=== PATIENT | female | born 1930 | race African-American/Black ===

== ENCOUNTER 2017-11-15 08:55 | Emergency (ER) | payer OTHER, MEDICAID ==
[~2017-11-15] VITALS: Ht 149.9 cm; Wt 59.9 kg
[~2017-11-15 08:55] MED LIST: ASPIR 8181 MG ORAL; ATENOLOL100 MG ORAL; CHLORTHALIDONE25 MG PO; DOCUSATE SODIU100 MG ORAL; NIFEDIPINE XL30 M1 ORAL; NORVASC5 MG ORAL; OMEPRAZOLE20 M2 ORAL; QUINAPRIL HCL40 MG PO; TYLENOL 8 HOUR650 M1 ORAL
[2017-11-15 09:09] VITALS: BP 120/57
--- NOTE | 2017-11-15 09:32 | Emergency Room Report ---
History of Present Illness General Chief Complaint: General Complaint Source: Patient Present Illness HPI 87-year-old female with pmhx of hypertension p/w syncopal episode which occurred last night Syncopal episode occurred while she was sleeping at a slot machine, she got up to walk, felt very dizzy, fell to the ground, helped up by bystanders +head trauma, +LOC for less than 1 min. Pt states feeling lightheadedness/nauseous before event. Denies sob, palpitations, or chest pain before event. No tongue biting, urinary incontinence, blurry vision, or CORREA. Pt has been eating /drinking well. This is the first episode of syncope. Denies recent fever, chills, n/v/d. Currently patient only complaining of right-sided headache, no neck pain. No other complaints patient states after event she went home and slept fine Allergies: Coded Allergies: No Known Allergies (Unverified , 05/28/13) Patient History Past Medical History: see triage record Past Surgical History: none Pertinent Family History: none Reviewed Nursing Documentation: PMH: Agreed, PSxH: Agreed Nursing Documentation-PMH Past Medical History: No History, Except For Hx Hypertension: Yes Hx Cancer: No Hx Gastrointestinal Problems: Yes Hx Neurological Problems: Yes Hx Numbness: Yes - BLE Review of Systems All Other Systems: negative except mentioned in HPI Physical Exam Vital Signs Date Time Temp Pulse Resp B/P (MAP) Pulse Ox O2 Delivery O2 Flow Rate FiO2 11/15/17 08:59 97.9 62 16 126/58 94 Room Air 97.9 Sp02 EP Interpretation: reviewed, normal General Appearance: alert, GCS 15, non-toxic, mild distress Head: normocephalic, atraumatic Eyes: bilateral eye normal inspection, bilateral eye PERRL, bilateral eye EOMI ENT: normal ENT inspection, normal pharynx, normal voice, moist mucus membranes Neck: normal inspection, full range of motion, supple Respiratory: normal inspection, lungs clear, normal breath sounds, no respiratory distress, no retraction, no wheezing, speaking full sentences, chest symmetrical Cardiovascular #1: normal inspection, regular rate, rhythm, no edema, normal capillary refill Cardiovascular #2: 2+ radial (R), 2+ radial (L) Gastrointestinal: normal inspection, non tender, soft, non-distended, no guarding Musculoskeletal: normal inspection, back normal, normal range of motion, non- tender Neurologic: normal inspection, alert, oriented x3, responsive, motor strength/ tone normal, sensory intact, normal gait, speech normal Psychiatric: normal inspection, judgement/insight normal, memory normal Skin: normal inspection, normal color, no rash, warm/dry, well hydrated, normal turgor Medical Decision Making Diagnostic Impression: Primary Impression: Syncope ER Course 87-year-old female with syncopal episode which occurred yesterday DDX: Vasovagal vs. orthostatic / hypovolemic/dehydration vs. cardiac arrhythmia (SVT , Afib) vs. cardiac (, ACS) vs. PE vs. metabolic (hypoglycemia, hypoxia), vs neuro (seizure, CVA, intracranial bleed) Plan: bgm, cbc, bmp, ekg, cxr CT head ER course: Patient has remained stable during ED stay. Awake and alert, conversant with daughter has felt fine during ed stay labs are unremarkable except some mild hyponatremia/hypokalemia. she states she takes lasix. i supplemented potassium, told her to fu with doctor to possibly dec dose of lasix shared decision making w patient and family, offered admission however pt states she feels fine and wants to go home ct head no acute findings dc home with daughter Disposition: Patient will be discharged home with daughter. Instructed to followup with her doctor this week. Strict return precautions given Please note that this Emergency Department Report was dictated using [employer] software, occasionally this can lead to erroneous entry secondary to interpretation by the dictation equipment. EKG Diagnostic Results EP Interpretation: Yes Rate: normal Rhythm: NSR ST Segments: No acute changes ASA given to patient: No Rhythm Strip EP Interpretation: Yes Rate: 60 Rhythm: NSR, no PVCs, no ectopy Chest X-ray CXR: Ordered: Yes 1 view Indication: Syncope EP interpretation: Yes Interpretation: No consolidation, no effusion, no PTX, no acute cardiopulmonary disease Impression: No acute disease Electronically signed by Nikhil Tidwell MD Laboratory Tests Test 11/15/17 09:20 11/15/17 09:40 White Blood Count 5.1 K/UL (4.8-10.8) Red Blood Count 4.39 M/UL (4.20-5.40) Hemoglobin 13.9 G/DL (12.0-16.0) Hematocrit 40.4 % (37.0-47.0) Mean Corpuscular Volume 92 FL (80-99) Mean Corpuscular Hemoglobin 31.6 PG (27.0-31.0) H Mean Corpuscular Hemoglobin Concent 34.3 G/DL (32.0-36.0) Red Cell Distribution Width 11.4 % (11.6-14.8) L Platelet Count 275 K/UL (150-450) Mean Platelet Volume 6.5 FL (6.5-10.1) Neutrophils (%) (Auto) 65.7 % (45.0-75.0) Lymphocytes (%) (Auto) 16.6 % (20.0-45.0) L Monocytes (%) (Auto) 13.7 % (1.0-10.0) H Eosinophils (%) (Auto) 2.9 % (0.0-3.0) Basophils (%) (Auto) 1.1 % (0.0-2.0) Sodium Level 129 MMOL/L (136-145) L Potassium Level 3.2 MMOL/L (3.5-5.1) L Chloride Level 90 MMOL/L (98-107) L Carbon Dioxide Level 31 MMOL/L (21-32) Anion Gap 8 mmol/L (5-15) Blood Urea Nitrogen 12 mg/dL (7-18) Creatinine 0.9 MG/DL (0.55-1.30) Estimate Glomerular Filtration Rate mL/min (>60) Glucose Level 102 MG/DL (74-106) Calcium Level 9.3 MG/DL (8.5-10.1) Total Bilirubin 0.7 MG/DL (0.2-1.0) Aspartate Amino Transferase (AST) 42 U/L (15-37) H Alanine Aminotransferase (ALT) 29 U/L (12-78) Alkaline Phosphatase 46 U/L (46-116) Troponin I 0.015 ng/mL (0.000-0.056) Total Protein 8.4 G/DL (6.4-8.2) H Albumin 3.9 G/DL (3.4-5.0) Globulin 4.5 g/dL Albumin/Globulin Ratio 0.9 (1.0-2.7) L Urine Color Pale yellow Urine Appearance Clear Urine pH 7 (4.5-8.0) Urine Specific [place] 1.010 (1.005-1.035) Urine Protein Negative (NEGATIVE) Urine Glucose (UA) Negative (NEGATIVE) Urine Ketones Negative (NEGATIVE) Urine Occult Blood Negative (NEGATIVE) Urine Nitrite Negative (NEGATIVE) Urine Bilirubin Negative (NEGATIVE) Urine Urobilinogen Normal MG/DL (0.0-1.0) Urine Leukocyte Esterase Negative (NEGATIVE) CT/MRI/US Diagnostic Results CT/MRI/US Diagnostic Results : Imaging Test Ordered: ct hEAD Impression Findings: There is mild prominence of the ventricles, basal cisterns, and cerebral sulci consistent with atrophy. Mild, nonspecific, white matter hypoattenuation is noted throughout the brain consistent with chronic small vessel disease. There is no midline shift, edema, acute hemorrhage, mass effect, or abnormal extra-axial fluid collections. Bones and extra osseous soft tissues are unremarkable. Impression: No acute intracranial bleed, mass effect or edema. Mild atrophy of the brain. Nonspecific white matter hypoattenuation probably due to chronic small vessel disease. Last Vital Signs Date Time Temp Pulse Resp B/P (MAP) Pulse Ox O2 Delivery O2 Flow Rate FiO2 11/15/17 08:59 97.9 62 16 126/58 94 Room Air 97.9 Disposition: HOME, SELF-CARE Condition: Improved Nikhil Tidwell M.D. Nov 15, 2017 09:32
[2017-11-15 09:43] LABS: BASOPHILS % (AUTO) 1.1 % (0.0-2.0); EOSINOPHILS % (AUTO) 2.9 % (0.0-3.0); HEMATOCRIT 40.4 % (37.0-47.0); HEMOGLOBIN 13.9 G/DL (12.0-16.0); LYMPHOCYTES % (AUTO) 16.6 % (20.0-45.0); MEAN CORPUSCULAR VOLUME 92 FL (80-99); MONOCYTES % (AUTO) 13.7 % (1.0-10.0); NEUTROPHILS % (AUTO) 65.7 % (45.0-75.0); PLATELET COUNT 275 K/UL (150-450); RED BLOOD COUNT 4.39 M/UL (4.20-5.40); RED CELL DISTRIBUTION WIDTH 11.4 % (11.6-14.8); WHITE BLOOD COUNT 5.1 K/UL (4.8-10.8)
[2017-11-15 10:01] LABS: ANION GAP 8 mmol/L (5-15); BLOOD UREA NITROGEN 12 mg/dL (7-18); CALCIUM 9.3 MG/DL (8.5-10.1); CARBON DIOXIDE 31 MMOL/L (21-32); CHLORIDE 90 MMOL/L (98-107); CREATININE 0.9 MG/DL (0.55-1.30); POTASSIUM 3.2 MMOL/L (3.5-5.1); SODIUM 129 MMOL/L (136-145)
[2017-11-15 10:06] LABS: ALANINE AMINOTRANSFERASE 29 U/L (12-78); ALBUMIN 3.9 G/DL (3.4-5.0); ALBUMIN/GLOBULIN RATIO 0.9 (1.0-2.7); ALKALINE PHOSPHATASE 46 U/L (46-116); ASPARTATE AMINO TRANSFERASE 42 U/L (15-37); BILIRUBIN,TOTAL 0.7 MG/DL (0.2-1.0)
[2017-11-15 10:34] LABS: APPEARANCE,URINE CLEAR; BILIRUBIN, URINE NEGATIVE (NEGATIVE); COLOR,URINE PALE YELLOW; GLUCOSE, URINE (UA) NEGATIVE (NEGATIVE); KETONES,URINE NEGATIVE (NEGATIVE); LEUKOCYTE ESTERASE ,URINE NEGATIVE (NEGATIVE); NITRITE,URINE NEGATIVE (NEGATIVE); PH,URINE 7 (4.5-8.0); PROTEIN,URINE NEGATIVE (NEGATIVE); UROBILINOGEN,URINE NORMAL MG/DL (0.0-1.0)
[2017-11-15 10:36] VITALS: BP 136/70
--- NOTE | 2017-11-15 10:50 | Diagnostic Imaging Report ---
Indication: Headache Technique: Contiguous 5 mm thick transaxial imaging of the head obtained in a Siemens Sensation [address] scanner. Soft tissue and bone windows generated. Automatic Exposure Control was utilized. Total Dose length Product (DLP): 1379.[address] Dose Index Volume (CTDIvol): 70.38 mGy Comparison: none Findings: There is mild prominence of the ventricles, basal cisterns, and cerebral sulci consistent with atrophy. Mild, nonspecific, white matter hypoattenuation is noted throughout the brain consistent with chronic small vessel disease. There is no midline shift, edema, acute hemorrhage, mass effect, or abnormal extra-axial fluid collections. Bones and extra osseous soft tissues are unremarkable. Impression: No acute intracranial bleed, mass effect or edema. Mild atrophy of the brain. Nonspecific white matter hypoattenuation probably due to chronic small vessel disease. The CT scanner at [facility] is accredited by the [employer] and the scans are performed using dose optimization techniques as appropriate to a performed exam including Automatic Exposure control.
[2017-11-15 11:14] VITALS: BP 136/70
--- NOTE | 2017-11-15 11:52 | Diagnostic Imaging Report ---
Indication: Dyspnea Comparison: 05/28/2013 A single view chest radiograph was obtained. Findings: No definite infiltrate or pulmonary vascular congestion identified. The heart is enlarged. The aorta is mildly enlarged consistent with atherosclerotic vascular disease. The bones are osteopenic. Impression: No acute disease
--- NOTE | 2017-11-16 18:34 | Cardiology Report ---
APPROVED REPORT EKG Measurement Heart [id number] ND [id number] Sinus bradycardia Otherwise normal ECG
== END 2017-11-15 11:24 | disposition home or self-care (01) ==
LOC: EMR 10:10
DX: R55 Syncope and collapse (principal); I10 Essential (primary) hypertension; R51 Headache; G31.9 Degenerative disease of nervous system, unspecified
CPT/HCPCS: 36415; 70450; 71045; 80053; 81003; 84484; 85025; 93005; 99284; J8499

== ENCOUNTER 2018-03-14 14:31 | Inpatient (IN) | payer OTHER, MEDICAID ==
[~2018-03-14] VITALS: Ht 149.9 cm; Wt 61.7 kg
[2018-03-14 16:26] LABS: APPEARANCE,URINE CLEAR; BILIRUBIN, URINE NEGATIVE (NEGATIVE); COLOR,URINE PALE YELLOW; GLUCOSE, URINE (UA) NEGATIVE (NEGATIVE); KETONES,URINE NEGATIVE (NEGATIVE); LEUKOCYTE ESTERASE ,URINE 1+ (NEGATIVE); NITRITE,URINE NEGATIVE (NEGATIVE); PH,URINE 7 (4.5-8.0); PROTEIN,URINE 2+ (NEGATIVE); UROBILINOGEN,URINE 1 MG/DL (0.0-1.0)
[2018-03-14 16:26] LABS: BASOPHILS % (AUTO) 1.7 % (0.0-2.0); EOSINOPHILS % (AUTO) 1.1 % (0.0-3.0); HEMOGLOBIN 14.4 G/DL (12.0-16.0); LYMPHOCYTES % (AUTO) 15.6 % (20.0-45.0); MEAN CORPUSCULAR VOLUME 88 FL (80-99); MONOCYTES % (AUTO) 8.5 % (1.0-10.0); NEUTROPHILS % (AUTO) 73.1 % (45.0-75.0); PLATELET COUNT 228 K/UL (150-450); RED BLOOD COUNT 4.44 M/UL (4.20-5.40); RED CELL DISTRIBUTION WIDTH 10.3 % (11.6-14.8); WHITE BLOOD COUNT 6.7 K/UL (4.8-10.8)
[2018-03-14 16:40] LABS: ANION GAP 8 mmol/L (5-15); BLOOD UREA NITROGEN 24 mg/dL (7-18); CALCIUM 9.2 MG/DL (8.5-10.1); CARBON DIOXIDE 29 MMOL/L (21-32); CHLORIDE 84 MMOL/L (98-107); CREATININE 1.4 MG/DL (0.55-1.30); SODIUM 121 MMOL/L (136-145)
[2018-03-14 16:45] LABS: ALANINE AMINOTRANSFERASE 25 U/L (12-78); ALBUMIN 3.8 G/DL (3.4-5.0); ALBUMIN/GLOBULIN RATIO 0.8 (1.0-2.7); ALKALINE PHOSPHATASE 31 U/L (46-116); ASPARTATE AMINO TRANSFERASE 33 U/L (15-37); BILIRUBIN,TOTAL 0.9 MG/DL (0.2-1.0)
[2018-03-14 16:58] VITALS: BP 97/51
[2018-03-14] MEDS: NS w/KCl 40mEq 1,000 ML IV SCH ×2 (17:09→19:38)
[2018-03-14] MEDS ORDERED: FUROSEMIDE20 M1 PO (18:27)
[2018-03-14] MEDS ORDERED: ATENOLOL50 MG PO (18:27)
[2018-03-14] MEDS ORDERED: AMLODIPINE BESY10 MG PO (18:30)
[2018-03-14] MEDS ORDERED: IBUPROFEN400 M1 PO (18:30)
[2018-03-14] MEDS ORDERED: ENALAPRIL MALEA20 MG PO (18:30)
[2018-03-14 19:03] VITALS: BP 118/57
[2018-03-14] MEDS ORDERED: Morphine Sulfate 2mg/ml Inj IVP PRN (19:45)
[2018-03-14] MEDS ORDERED: Nitroglycerin Subl 0.4mg tab SL PRN (19:45)
[2018-03-14] MEDS ORDERED: Miralax 17gm pkt ORAL PRN (19:45)
--- NOTE | 2018-03-14 19:53 | Emergency Room Report ---
History of Present Illness General Chief Complaint: Abdominal Pain Source: Patient, Family Member Present Illness HPI 87-year-old female presents ED for evaluation. Daughter at bedside states that patient has been feeling bloated and feeling weak and nauseous. States symptoms started a few days ago after she ate some food that was very spicy. Denies any vomiting. Denies any diarrhea. Denies any abdominal pain. Denies any chest pain or shortness of breath. No other aggravating relieving factors. Denies any other associated symptoms Allergies: Coded Allergies: No Known Allergies (Unverified , 05/28/13) Patient History Past Medical History: HTN Past Surgical History: none Pertinent Family History: none Social History: Denies: smoking, alcohol use, drug use Now: No Immunizations: UTD Reviewed Nursing Documentation: PMH: Agreed; PSxH: Agreed Nursing Documentation-PMH Hx Hypertension: Yes Hx Cancer: No Hx Gastrointestinal Problems: Yes Hx Neurological Problems: Yes Hx Numbness: Yes - BLE Review of Systems All Other Systems: negative except mentioned in HPI Physical Exam Vital Signs Date Time Temp Pulse Resp B/P (MAP) Pulse Ox O2 Delivery O2 Flow Rate FiO2 03/14/18 14:39 97.4 64 18 97/51 95 Room Air 97.3 Sp02 EP Interpretation: reviewed, normal General Appearance: no apparent distress, alert, GCS 15, non-toxic Head: normocephalic, atraumatic Eyes: bilateral eye normal inspection, bilateral eye PERRL ENT: hearing grossly normal, normal pharynx, no angioedema, normal voice Neck: full range of motion, supple/symm/no masses Respiratory: chest non-tender, lungs clear, normal breath sounds, speaking full sentences Cardiovascular #1: regular rate, rhythm, no edema Cardiovascular #2: 2+ carotid (R), 2+ carotid (L), 2+ radial (R), 2+ radial (L) , 2+ dorsalis pedis (R), 2+ dorsalis pedis (L) Gastrointestinal: normal bowel sounds, non tender, soft, non-distended, no guarding, no rebound Rectal: deferred Genitourinary: normal inspection, no CVA tenderness Musculoskeletal: back normal, gait/station normal, normal range of motion, non- tender Neurologic: alert, oriented x3, responsive, motor strength/tone normal, sensory intact, speech normal Psychiatric: judgement/insight normal, memory normal, mood/affect normal, no suicidal/homicidal ideation Reflexes: 3+ bicep (R), 3+ bicep (L), 3+ tricep (R), 3+ tricep (L), 3+ knee (R) , 3+ knee (L) Skin: normal color, no rash, warm/dry, well hydrated Lymphatic: no adenopathy Medical Decision Making Diagnostic Impression: Primary Impression: Hyponatremia Additional Impressions: Hypokalemia Renal insufficiency ER Course Hospital Course 87-year-old female presenting to ED with generalized weakness, nausea Differential diagnoses include: Pneumonia, UTI, sepsis, dehydration, AR/ unstable angina, failure to thrive Clinical course Patient placed on stretcher. After initial history and physical, I ordered labs , IV fluids, EKG, UA. Labs - Na 121, K 3.0, Cr 1.4, no leukocytosis, hb/hct stable EKG - sinus bradycardia, no acute ischemic changes interpreted by me K repleted. IV hydration continued. discussed findings with family. Case discussed with Dr Fernández and they agreed to admit patient to their service for further care and support I feel this is a highly complex case requiring extensive working including EKG/ Rhythm strip, Xray/CT/US, Blood/urine lab work, repeat exams while in ED, and administration of strong opiates/narcotics for pain control, admission to hospital or close patient follow up. Diagnosis - hyponatremia, hypokalemia, renal insufficiency Patient admitted to telemetry in serious condition Labs Test 03/14/18 15:54 03/14/18 16:05 White Blood Count 6.7 K/UL (4.8-10.8) Red Blood Count 4.44 M/UL (4.20-5.40) Hemoglobin 14.4 G/DL (12.0-16.0) Hematocrit 39.0 % (37.0-47.0) Mean Corpuscular Volume 88 FL (80-99) Mean Corpuscular Hemoglobin 32.4 PG (27.0-31.0) Mean Corpuscular Hemoglobin Concent 36.9 G/DL (32.0-36.0) Red Cell Distribution Width 10.3 % (11.6-14.8) Platelet Count 228 K/UL (150-450) Mean Platelet Volume 6.4 FL (6.5-10.1) Neutrophils (%) (Auto) 73.1 % (45.0-75.0) Lymphocytes (%) (Auto) 15.6 % (20.0-45.0) Monocytes (%) (Auto) 8.5 % (1.0-10.0) Eosinophils (%) (Auto) 1.1 % (0.0-3.0) Basophils (%) (Auto) 1.7 % (0.0-2.0) Sodium Level 121 MMOL/L (136-145) Potassium Level 3.0 MMOL/L (3.5-5.1) Chloride Level 84 MMOL/L (98-107) Carbon Dioxide Level 29 MMOL/L (21-32) Anion Gap 8 mmol/L (5-15) Blood Urea Nitrogen 24 mg/dL (7-18) Creatinine 1.4 MG/DL (0.55-1.30) Estimat Glomerular Filtration Rate mL/min (>60) Glucose Level 131 MG/DL (74-106) Calcium Level 9.2 MG/DL (8.5-10.1) Total Bilirubin 0.9 MG/DL (0.2-1.0) Aspartate Amino Transf (AST/SGOT) 33 U/L (15-37) Alanine Aminotransferase (ALT/SGPT) 25 U/L (12-78) Alkaline Phosphatase 31 U/L (46-116) Troponin I 0.000 ng/mL (0.000-0.056) Total Protein 8.4 G/DL (6.4-8.2) Albumin 3.8 G/DL (3.4-5.0) Globulin 4.6 g/dL Albumin/Globulin Ratio 0.8 (1.0-2.7) Lipase 190 U/L (73-393) Urine Color Pale yellow Urine Appearance Clear Urine pH 7 (4.5-8.0) Urine Specific [place] 1.005 (1.005-1.035) Urine Protein 2+ (NEGATIVE) Urine Glucose (UA) Negative (NEGATIVE) Urine Ketones Negative (NEGATIVE) Urine Occult Blood 1+ (NEGATIVE) Urine Nitrite Negative (NEGATIVE) Urine Bilirubin Negative (NEGATIVE) Urine Urobilinogen 1 MG/DL (0.0-1.0) Urine Leukocyte Esterase 1+ (NEGATIVE) Urine RBC 2-4 /HPF (0 - 2) Urine WBC 0-2 /HPF (0 - 2) Urine Squamous Epithelial Cells Few /LPF (NONE/OCC) Urine Bacteria Few /HPF (NONE) EKG Diagnostic Results Rate: bradycardiac Rhythm: NSR ST Segments: no acute changes ASA given to the pt in ED: No Rhythm Strip Diag. Results EP Interpretation: yes Rhythm: NSR, no PVC's, no ectopy Last Vital Signs Date Time Temp Pulse Resp B/P (MAP) Pulse Ox O2 Delivery O2 Flow Rate FiO2 03/14/18 19:03 97.3 76 18 118/57 95 Room Air 97.3 Status: improved Disposition: ADMITTED INPATIENT Condition: Serious Referrals: NON PHYSICIAN (PCP) Jose Manuel Saini MD Mar 14, 2018 19:53
[2018-03-14 20:20] VITALS: BP 133/71
[2018-03-14] MEDS ORDERED: Promethazine HCl 25 MG in NS 55 ML IV PRN (21:00)
[2018-03-14] MEDS ORDERED: OMEPRAZOLE20 M3 ORAL (21:09)
[2018-03-14] MEDS ORDERED: POTASSIUM CHLOR8 ME2 PO (21:09)
[2018-03-14] MEDS: Heparin 5000 units/ml inj SUBQ SCH (21:33)
[2018-03-15] VITALS: BP 92/45
[2018-03-15 03:55] VITALS: BP 110/48
[2018-03-15 07:47] VITALS: BP 121/55
[2018-03-15 07:56] LABS: BASOPHILS % (AUTO) 1.6 % (0.0-2.0); HEMATOCRIT 44.1 % (37.0-47.0); HEMOGLOBIN 15.2 G/DL (12.0-16.0); LYMPHOCYTES % (AUTO) 16.3 % (20.0-45.0); MEAN CORPUSCULAR VOLUME 90 FL (80-99); NEUTROPHILS % (AUTO) 64.1 % (45.0-75.0); PLATELET COUNT 334 K/UL (150-450); RED CELL DISTRIBUTION WIDTH 10.5 % (11.6-14.8); WHITE BLOOD COUNT 5.6 K/UL (4.8-10.8)
[2018-03-15 08:10] LABS: ALANINE AMINOTRANSFERASE 25 U/L (12-78); ALBUMIN 3.7 G/DL (3.4-5.0); ALBUMIN/GLOBULIN RATIO 0.8 (1.0-2.7); ALKALINE PHOSPHATASE 27 U/L (46-116); AMYLASE 76 U/L (25-115); ANION GAP 10 mmol/L (5-15); ASPARTATE AMINO TRANSFERASE 22 U/L (15-37); BILIRUBIN,TOTAL 0.8 MG/DL (0.2-1.0); BLOOD UREA NITROGEN 14 mg/dL (7-18); CALCIUM 9.1 MG/DL (8.5-10.1); CARBON DIOXIDE 28 MMOL/L (21-32); CHLORIDE 94 MMOL/L (98-107); CREATININE 0.9 MG/DL (0.55-1.30); SODIUM 131 MMOL/L (136-145)
[2018-03-15 08:12] LABS: POTASSIUM 2.5 MMOL/L (3.5-5.1)
[2018-03-15] MEDS: Heparin 5000 units/ml inj SUBQ SCH ×2 (08:16→20:49)
[2018-03-15] MEDS ORDERED: Pantoprazole Inj IV SCH (09:00)
--- NOTE | 2018-03-15 11:03 | Consultation ---
Consult Note Consult Note asked to mindy for renal failure and electrolyte abnormality 87-year-old female presents ED for evaluation. Daughter at bedside states that patient has been feeling bloated and feeling weak and nauseous. States symptoms started a few days ago after she ate some food that was very spicy. Denies any vomiting. Denies any diarrhea. Denies any abdominal pain. Denies any chest pain or shortness of breath. No other aggravating relieving factors. Denies any other associated symptoms Allergies: No Known Allergies (Unverified , 05/28/13) Past Medical History: HTN Hx Hypertension: Yes Hx Gastrointestinal Problems: Yes Hx Neurological Problems: Yes Hx Numbness: Yes - BLE Assessment/Plan Renal problem ( high Cr and Low Na and Low K ) all related to diuretics HTN, presents with low BP Bradycardia Plan: Adjust beta blockers with parameters 3% saline adjust BP meds K and Mag supplement as needed PT OT MOISÉS Red Mar 15, 2018 11:03
--- NOTE | 2018-03-15 11:08 | Consultation ---
History of Present Illness General Date patient seen: Mar 15, 2018 Chief Complaint: Abdominal Pain Present Illness HPI 87-year-old female with hx of HTN, presents ED for evaluation of feeling bloated and weak and nauseous. States symptoms started a few days ago after she ate some food that was very spicy. Denies any vomiting. Denies any diarrhea. Denies any abdominal pain. Denies any chest pain or shortness of breath. she was found to have severe hyponatremia and Hypokalemia with Azotemia and admitted to telemetry for further work up. Allergies: Coded Allergies: No Known Allergies (Unverified , 05/28/13) Medication History Scheduled Amlodipine Besylate* (Amlodipine Besylate*), 10 MG PO DAILY, (Reported) Aspirin* (Aspir 81*), 81 MG ORAL DAILY, (Reported) Atenolol* (Tenormin*), 50 MG PO DAILY, (Reported) Chlorthalidone* (Chlorthalidone*), 25 MG PO DAILY, (Reported) Docusate Sodium* (Docusate Sodium*), 100 MG ORAL TWICE A DAY, (Reported) Enalapril Maleate* (Enalapril Maleate*), 20 MG PO DAILY, (Reported) Furosemide* (Lasix*), 20 MG PO BID, (Reported) Omeprazole (Omeprazole), 20 MG ORAL DAILY, (Reported) Potassium Chloride (Potassium Chloride), 8 MEQ PO DAILY, (Reported) Scheduled PRN Ibuprofen (Ibuprofen), 400 MG PO EVERY 4 HOURS PRN for For Pain, (Reported) Discontinued Medications Acetaminophen (Tylenol 8 Hour), 500 MG ORAL Q8H, (Reported) Discontinued Reason: Pt stopped taking med Amlodipine Besylate (Norvasc), 5 MG ORAL DAILY, (Reported) Discontinued Reason: Pt stopped taking med Atenolol* (Tenormin*), 100 MG ORAL DAILY, (Reported) Discontinued Reason: Pt stopped taking med Nifedipine Xl* (Nifedipine Xl*), 60 MG ORAL DAILY, (Reported) Discontinued Reason: Pt stopped taking med Omeprazole (Omeprazole), 20 MG ORAL DAILY, (Reported) Discontinued Reason: Pt stopped taking med Quinapril Hcl (Quinapril Hcl), 40 MG PO DAILY PRN, (Reported) Discontinued Reason: Pt stopped taking med Patient History Healthcare decision maker Resuscitation status Full Code Advanced Directive on File No Past Medical/Surgical History Past Medical/Surgical History: (1) Hypertension Review of Systems All Other Systems: negative except mentioned in HPI Physical Exam General Appearance: WD/WN Lines, tubes and drains: peripheral HEENT: normocephalic Neck: non-tender Respiratory/Chest: chest wall non-tender Breasts: no masses Cardiovascular/Chest: normal peripheral pulses Abdomen: normal bowel sounds Genitourinary/Rectal: normal genital exam Extremities: normal range of motion Last 24 Hour Vital Signs Date Time Temp Pulse Resp B/P (MAP) Pulse Ox O2 Delivery O2 Flow Rate FiO2 03/15/18 08:13 65 121/55 03/15/18 08:12 65 121/55 03/15/18 07:47 97.0 65 18 121/55 100 Room Air 97.0 03/15/18 07:47 58 03/15/18 04:00 52 03/15/18 03:55 97.6 55 16 110/48 96 Room Air 97.6 03/15/18 00:00 97.0 57 18 92/45 95 Room Air 97.0 03/15/18 00:00 55 03/15/18 00:00 97.0 57 16 92/45 95 97.0 03/14/18 20:20 97.7 75 18 133/71 96 97.7 03/14/18 20:20 75 03/14/18 20:15 97.3 68 18 127/80 95 Room Air 97.3 03/14/18 19:03 97.3 76 18 118/57 95 Room Air 97.3 03/14/18 16:58 97.3 78 18 97/51 95 Room Air 97.3 03/14/18 14:39 97.4 64 18 97/51 95 Room Air 97.3 Intake and Output 03/14/18 03/15/18 19:00 07:00 Intake Total 600 ml Output Total 700 ml Balance -100 ml Intake IV Total 600 ml Output Urine Total 700 ml # Voids 1 1 Laboratory Tests Test 03/14/18 15:54 03/14/18 16:05 03/15/18 07:30 White Blood Count 6.7 K/UL (4.8-10.8) 5.6 K/UL (4.8-10.8) Red Blood Count 4.44 M/UL (4.20-5.40) 4.90 M/UL (4.20-5.40) Hemoglobin 14.4 G/DL (12.0-16.0) 15.2 G/DL (12.0-16.0) Hematocrit 39.0 % (37.0-47.0) 44.1 % (37.0-47.0) Mean Corpuscular Volume 88 FL (80-99) 90 FL (80-99) Mean Corpuscular Hemoglobin 32.4 PG (27.0-31.0) H 31.0 PG (27.0-31.0) Mean Corpuscular Hemoglobin Concent 36.9 G/DL (32.0-36.0) H 34.6 G/DL (32.0-36.0) Red Cell Distribution Width 10.3 % (11.6-14.8) L 10.5 % (11.6-14.8) L Platelet Count 228 K/UL (150-450) 334 K/UL (150-450) Mean Platelet Volume 6.4 FL (6.5-10.1) L 6.2 FL (6.5-10.1) L Neutrophils (%) (Auto) 73.1 % (45.0-75.0) 64.1 % (45.0-75.0) Lymphocytes (%) (Auto) 15.6 % (20.0-45.0) L 16.3 % (20.0-45.0) L Monocytes (%) (Auto) 8.5 % (1.0-10.0) 15.0 % (1.0-10.0) H Eosinophils (%) (Auto) 1.1 % (0.0-3.0) 3.0 % (0.0-3.0) Basophils (%) (Auto) 1.7 % (0.0-2.0) 1.6 % (0.0-2.0) Sodium Level 121 MMOL/L (136-145) L 131 MMOL/L (136-145) #L Potassium Level 3.0 MMOL/L (3.5-5.1) L 2.5 MMOL/L (3.5-5.1) *L Chloride Level 84 MMOL/L (98-107) L 94 MMOL/L (98-107) L Carbon Dioxide Level 29 MMOL/L (21-32) 28 MMOL/L (21-32) Anion Gap 8 mmol/L (5-15) 10 mmol/L (5-15) Blood Urea Nitrogen 24 mg/dL (7-18) H 14 mg/dL (7-18) Creatinine 1.4 MG/DL (0.55-1.30) H 0.9 MG/DL (0.55-1.30) Estimat Glomerular Filtration Rate mL/min (>60) mL/min (>60) Glucose Level 131 MG/DL (74-106) H 94 MG/DL (74-106) Calcium Level 9.2 MG/DL (8.5-10.1) 9.1 MG/DL (8.5-10.1) Total Bilirubin 0.9 MG/DL (0.2-1.0) 0.8 MG/DL (0.2-1.0) Aspartate Amino Transf (AST/SGOT) 33 U/L (15-37) 22 U/L (15-37) Alanine Aminotransferase (ALT/SGPT) 25 U/L (12-78) 25 U/L (12-78) Alkaline Phosphatase 31 U/L (46-116) L 27 U/L (46-116) L Troponin I 0.000 ng/mL (0.000-0.056) Total Protein 8.4 G/DL (6.4-8.2) H 8.1 G/DL (6.4-8.2) Albumin 3.8 G/DL (3.4-5.0) 3.7 G/DL (3.4-5.0) Globulin 4.6 g/dL 4.4 g/dL Albumin/Globulin Ratio 0.8 (1.0-2.7) L 0.8 (1.0-2.7) L Lipase 190 U/L (73-393) 182 U/L (73-393) Urine Color Pale yellow Urine Appearance Clear Urine pH 7 (4.5-8.0) Urine Specific [place] 1.005 (1.005-1.035) Urine Protein 2+ (NEGATIVE) H Urine Glucose (UA) Negative (NEGATIVE) Urine Ketones Negative (NEGATIVE) Urine Occult Blood 1+ (NEGATIVE) H Urine Nitrite Negative (NEGATIVE) Urine Bilirubin Negative (NEGATIVE) Urine Urobilinogen 1 MG/DL (0.0-1.0) H Urine Leukocyte Esterase 1+ (NEGATIVE) H Urine RBC 2-4 /HPF (0 - 2) H Urine WBC 0-2 /HPF (0 - 2) Urine Squamous Epithelial Cells Few /LPF (NONE/OCC) Urine Bacteria Few /HPF (NONE) Activated Partial Thromboplast Time 27 SEC (23-33) Amylase Level 76 U/L (25-115) Height (Feet): 4 Height (Inches): 11.00 Weight (Pounds): 138 Medications Current Medications Medications (Trade) Dose Ordered Sig/Gricelda Route PRN Reason Start Time Stop Time Status Last Admin Dose Admin Acetaminophen (Tylenol) 650 mg Q4H PRN ORAL fever 03/14/18 19:45 04/13/18 19:44 Amlodipine Besylate (Norvasc) 10 mg DAILY ORAL 03/15/18 09:00 04/14/18 08:59 03/15/18 08:13 Atenolol (Tenormin) 50 mg DAILY ORAL 03/15/18 09:00 04/14/18 08:59 03/15/18 08:12 Dextrose (Dextrose 50%) 25 ml STAT PRN IV Hypoglycemia 03/14/18 19:45 04/13/18 19:44 Dextrose (Dextrose 50%) 50 ml STAT PRN IV Hypoglycemia 03/14/18 20:45 04/13/18 20:44 Diphenhydramine HCl (Benadryl) 25 mg Q6H PRN ORAL Itching/Pruritis 03/14/18 19:45 04/13/18 19:44 Heparin Sodium (Porcine) (Heparin 5000 units/ml) 5,000 units EVERY 12 HOURS SUBQ 03/14/18 21:00 04/13/18 20:59 03/15/18 08:16 Morphine Sulfate (Morphine Sulfate) 2 mg Q4H PRN IVP severe Pain (Pain Scale 7-10) 03/14/18 19:45 03/21/18 19:44 Nitroglycerin (Ntg) 0.4 mg Q5M X 3 DOSES PRN SL Prn Chest Pain 03/14/18 19:45 04/13/18 19:44 Ondansetron HCl (Zofran) 4 mg Q6H PRN IVP Nausea & Vomiting 03/14/18 19:45 04/13/18 19:44 Pantoprazole (Protonix) 40 mg DAILY IV 03/15/18 09:00 04/14/18 08:59 03/15/18 08:13 Polyethylene Glycol (Miralax) 17 gm HSPRN PRN ORAL Constipation 03/14/18 19:45 04/13/18 19:44 03/14/18 21:30 Potassium Chloride 20 meq/ Sodium Chloride 1,010 ml @ 75 mls/hr [id number] IV 03/14/18 22:00 04/13/18 21:59 03/14/18 22:00 Potassium Chloride (K-Dur) 40 meq ONCE ORAL 03/15/18 12:00 03/15/18 13:00 Promethazine HCl 25 mg/Sodium Chloride 56 ml @ 110 mls/hr Q6H PRN IV Refractory N/V 03/14/18 21:00 04/13/18 20:59 Temazepam (Restoril) 15 mg HSPRN PRN ORAL Insomnia 03/14/18 19:45 03/21/18 19:44 03/14/18 21:30 Assessment/Plan Problem List: (1) intractable nausea (2) Hyponatremia ICD Codes: E87.1 - Hypo-osmolality and hyponatremia SNOMED: 08268980 (3) Hypokalemia ICD Codes: E87.6 - Hypokalemia SNOMED: 69710270 (4) Hypertension ICD Codes: I10 - Essential (primary) hypertension SNOMED: 21756798 Assessment/Plan Iv fluids NPO GI evaluation check electrolytes symptomatic treatment antiemetics dvt prophylaxis Samuel Santiago MD Mar 15, 2018 11:08
[2018-03-15 12:00] VITALS: BP 134/64
[2018-03-15] MEDS ORDERED: NaCl 3% 500ml 250 ML IV ONE (13:00)
--- NOTE | 2018-03-15 14:03 | Diagnostic Imaging Report ---
Indication: Abdominal pain, nausea, vomiting, abnormal liver function tests Technique: Hua-scale and duplex images of the upper abdomen were obtained Comparison: none Findings: Gallbladder demonstrates gallstones. No definite gallbladder wall thickening. No pericholecystic fluid Sonographic Stephenson's sign is negative. Common bile duct measures 11 mm in diameter. No intrahepatic biliary ductal dilatation. Liver demonstrates normal echogenicity, no focal abnormality. Portal vein and hepatic veins are patent. Pancreas is unremarkable. Spleen is unremarkable. Left kidney measures 9.3 cm in length. Right kidney measures 11.9 cm length. Both kidneys demonstrate normal echogenicity. There is no hydronephrosis. There are bilateral renal cysts incidentally noted . Abdominal aorta is partially obscured by bowel gas, visualized portions are non-aneurysmal . Impression: Cholelithiasis Extra hepatic biliary ductal dilatation. Likely age related, but could indicate downstream obstruction. Correlate with liver function tests, consider MRCP for further evaluation if clinically indicated Bilateral renal cysts incidentally noted Note incompletely visualization of the abdominal aorta
[2018-03-15] MEDS ORDERED: Nitroglycerin Subl 0.4mg tab SL PRN (14:15)
[2018-03-15] MEDS ORDERED: Morphine Sulfate 2mg/ml Inj IVP PRN (14:30)
[2018-03-15] MEDS ORDERED: Promethazine HCl 25 MG in NS 55 ML IV PRN (15:00)
--- NOTE | 2018-03-15 15:16 | Consultation ---
History of Present Illness General Date patient seen: Mar 15, 2018 Chief Complaint: Abdominal Pain Present Illness HPI 87 y/o F with hx of HTN presents to ED on 03/14 with weakness, nausea, abd bloating. Refers symptoms started after she ate some very spicy food. She was found to have severe hyponatremia, hypokalemia and azotemia, borderline hypotension and bradycardia and admitted initially to Telemetry, now on med- surg. Denies vomiting, diarrhea, abd pain, CP SOB afebrile no leukocytosis Allergies: Coded Allergies: No Known Allergies (Unverified , 05/28/13) Medication History Scheduled Amlodipine Besylate* (Amlodipine Besylate*), 10 MG PO DAILY, (Reported) Aspirin* (Aspir 81*), 81 MG ORAL DAILY, (Reported) Atenolol* (Tenormin*), 50 MG PO DAILY, (Reported) Chlorthalidone* (Chlorthalidone*), 25 MG PO DAILY, (Reported) Docusate Sodium* (Docusate Sodium*), 100 MG ORAL TWICE A DAY, (Reported) Enalapril Maleate* (Enalapril Maleate*), 20 MG PO DAILY, (Reported) Furosemide* (Lasix*), 20 MG PO BID, (Reported) Omeprazole (Omeprazole), 20 MG ORAL DAILY, (Reported) Potassium Chloride (Potassium Chloride), 8 MEQ PO DAILY, (Reported) Scheduled PRN Ibuprofen (Ibuprofen), 400 MG PO EVERY 4 HOURS PRN for For Pain, (Reported) Discontinued Medications Acetaminophen (Tylenol 8 Hour), 500 MG ORAL Q8H, (Reported) Discontinued Reason: Pt stopped taking med Amlodipine Besylate (Norvasc), 5 MG ORAL DAILY, (Reported) Discontinued Reason: Pt stopped taking med Atenolol* (Tenormin*), 100 MG ORAL DAILY, (Reported) Discontinued Reason: Pt stopped taking med Nifedipine Xl* (Nifedipine Xl*), 60 MG ORAL DAILY, (Reported) Discontinued Reason: Pt stopped taking med Omeprazole (Omeprazole), 20 MG ORAL DAILY, (Reported) Discontinued Reason: Pt stopped taking med Quinapril Hcl (Quinapril Hcl), 40 MG PO DAILY PRN, (Reported) Discontinued Reason: Pt stopped taking med Patient History Healthcare decision maker Resuscitation status Full Code Advanced Directive on File No Patient History Narrative Pmhx: as above Shx: Denies: smoking, alcohol use, drug use Fhx: non contributory Review of Systems All Other Systems: negative except mentioned in HPI Physical Exam Physical Exam Narrative General Appearance: WD/WN Lines, tubes and drains: peripheral HEENT: normocephalic Neck: non-tender Respiratory/Chest: chest wall non-tender Breasts: no masses Cardiovascular/Chest: normal peripheral pulses Abdomen: normal bowel sounds Genitourinary/Rectal: normal genital exam Extremities: normal range of motion Last 24 Hour Vital Signs Date Time Temp Pulse Resp B/P (MAP) Pulse Ox O2 Delivery O2 Flow Rate FiO2 03/15/18 12:00 97.0 58 18 134/64 98 Room Air 97.0 03/15/18 11:40 56 03/15/18 08:13 65 121/55 03/15/18 08:12 65 121/55 03/15/18 07:47 97.0 65 18 121/55 100 Room Air 97.0 03/15/18 07:47 58 03/15/18 04:00 52 03/15/18 03:55 97.6 55 16 110/48 96 Room Air 97.6 03/15/18 00:00 97.0 57 18 92/45 95 Room Air 97.0 03/15/18 00:00 55 03/15/18 00:00 97.0 57 16 92/45 95 97.0 03/14/18 20:20 97.7 75 18 133/71 96 97.7 03/14/18 20:20 75 03/14/18 20:15 97.3 68 18 127/80 95 Room Air 97.3 03/14/18 19:03 97.3 76 18 118/57 95 Room Air 97.3 03/14/18 16:58 97.3 78 18 97/51 95 Room Air 97.3 Intake and Output 03/14/18 03/15/18 19:00 07:00 Intake Total 600 ml Output Total 700 ml Balance -100 ml IV Total 600 ml Output Urine Total 700 ml # Voids 1 1 Laboratory Tests Test 03/14/18 15:54 03/14/18 16:05 03/15/18 07:30 White Blood Count 6.7 K/UL (4.8-10.8) 5.6 K/UL (4.8-10.8) Red Blood Count 4.44 M/UL (4.20-5.40) 4.90 M/UL (4.20-5.40) Hemoglobin 14.4 G/DL (12.0-16.0) 15.2 G/DL (12.0-16.0) Hematocrit 39.0 % (37.0-47.0) 44.1 % (37.0-47.0) Mean Corpuscular Volume 88 FL (80-99) 90 FL (80-99) Mean Corpuscular Hemoglobin 32.4 PG (27.0-31.0) H 31.0 PG (27.0-31.0) Mean Corpuscular Hemoglobin Concent 36.9 G/DL (32.0-36.0) H 34.6 G/DL (32.0-36.0) Red Cell Distribution Width 10.3 % (11.6-14.8) L 10.5 % (11.6-14.8) L Platelet Count 228 K/UL (150-450) 334 K/UL (150-450) Mean Platelet Volume 6.4 FL (6.5-10.1) L 6.2 FL (6.5-10.1) L Neutrophils (%) (Auto) 73.1 % (45.0-75.0) 64.1 % (45.0-75.0) Lymphocytes (%) (Auto) 15.6 % (20.0-45.0) L 16.3 % (20.0-45.0) L Monocytes (%) (Auto) 8.5 % (1.0-10.0) 15.0 % (1.0-10.0) H Eosinophils (%) (Auto) 1.1 % (0.0-3.0) 3.0 % (0.0-3.0) Basophils (%) (Auto) 1.7 % (0.0-2.0) 1.6 % (0.0-2.0) Sodium Level 121 MMOL/L (136-145) L 131 MMOL/L (136-145) #L Potassium Level 3.0 MMOL/L (3.5-5.1) L 2.5 MMOL/L (3.5-5.1) *L Chloride Level 84 MMOL/L (98-107) L 94 MMOL/L (98-107) L Carbon Dioxide Level 29 MMOL/L (21-32) 28 MMOL/L (21-32) Anion Gap 8 mmol/L (5-15) 10 mmol/L (5-15) Blood Urea Nitrogen 24 mg/dL (7-18) H 14 mg/dL (7-18) Creatinine 1.4 MG/DL (0.55-1.30) H 0.9 MG/DL (0.55-1.30) Estimat Glomerular Filtration Rate mL/min (>60) mL/min (>60) Glucose Level 131 MG/DL (74-106) H 94 MG/DL (74-106) Calcium Level 9.2 MG/DL (8.5-10.1) 9.1 MG/DL (8.5-10.1) Total Bilirubin 0.9 MG/DL (0.2-1.0) 0.8 MG/DL (0.2-1.0) Aspartate Amino Transf (AST/SGOT) 33 U/L (15-37) 22 U/L (15-37) Alanine Aminotransferase (ALT/SGPT) 25 U/L (12-78) 25 U/L (12-78) Alkaline Phosphatase 31 U/L (46-116) L 27 U/L (46-116) L Troponin I 0.000 ng/mL (0.000-0.056) Total Protein 8.4 G/DL (6.4-8.2) H 8.1 G/DL (6.4-8.2) Albumin 3.8 G/DL (3.4-5.0) 3.7 G/DL (3.4-5.0) Globulin 4.6 g/dL 4.4 g/dL Albumin/Globulin Ratio 0.8 (1.0-2.7) L 0.8 (1.0-2.7) L Lipase 190 U/L (73-393) 182 U/L (73-393) Urine Color Pale yellow Urine Appearance Clear Urine pH 7 (4.5-8.0) Urine Specific [place] 1.005 (1.005-1.035) Urine Protein 2+ (NEGATIVE) H Urine Glucose (UA) Negative (NEGATIVE) Urine Ketones Negative (NEGATIVE) Urine Occult Blood 1+ (NEGATIVE) H Urine Nitrite Negative (NEGATIVE) Urine Bilirubin Negative (NEGATIVE) Urine Urobilinogen 1 MG/DL (0.0-1.0) H Urine Leukocyte Esterase 1+ (NEGATIVE) H Urine RBC 2-4 /HPF (0 - 2) H Urine WBC 0-2 /HPF (0 - 2) Urine Squamous Epithelial Cells Few /LPF (NONE/OCC) Urine Bacteria Few /HPF (NONE) Activated Partial Thromboplast Time 27 SEC (23-33) Uric Acid 8.2 MG/DL (2.6-7.2) H C-Reactive Protein, Quantitative < 0.4 mg/dL (0.00-0.90) Amylase Level 76 U/L (25-115) Thyroid Stimulating Hormone (TSH) 1.756 uiU/mL (0.358-3.740) Height (Feet): 4 Height (Inches): 11.00 Weight (Pounds): 138 Medications Current Medications Medications (Trade) Dose Ordered Sig/Gricelda Route PRN Reason Start Time Stop Time Status Last Admin Dose Admin Acetaminophen (Tylenol) 650 mg Q4H PRN ORAL fever (temp>100.5F) 03/15/18 15:45 04/13/18 19:44 Amlodipine Besylate (Norvasc) 5 mg DAILY ORAL 03/16/18 09:00 04/14/18 08:59 Dextrose (Dextrose 50%) 25 ml STAT PRN IV Hypoglycemia 03/15/18 14:30 04/13/18 14:29 Dextrose (Dextrose 50%) 50 ml STAT PRN IV Hypoglycemia 03/15/18 14:30 04/13/18 14:29 Diphenhydramine HCl (Benadryl) 25 mg Q6H PRN ORAL Itching/Pruritis 03/15/18 14:30 04/13/18 14:29 Heparin Sodium (Porcine) (Heparin 5000 units/ml) 5,000 units EVERY 12 HOURS SUBQ 03/15/18 21:00 04/13/18 20:59 Lansoprazole (Prevacid) 30 mg BID ORAL 03/15/18 18:00 04/14/18 17:59 Metoprolol Tartrate (Lopressor) 12.5 mg Q12HR ORAL 03/15/18 21:00 04/14/18 20:59 Morphine Sulfate (Morphine Sulfate) 2 mg Q4H PRN IVP severe Pain (Pain Scale 7-10) 03/15/18 14:30 03/21/18 14:29 Nitroglycerin (Ntg) 0.4 mg Q5M X 3 DOSES PRN SL Prn Chest Pain 03/15/18 14:15 04/13/18 19:44 Ondansetron HCl (Zofran) 4 mg Q6H PRN IVP Nausea & Vomiting 03/15/18 14:30 04/13/18 14:29 Polyethylene Glycol (Miralax) 17 gm HSPRN PRN ORAL Constipation 03/15/18 19:45 04/13/18 19:44 Potassium Chloride (K-Dur) 40 meq DAILY ORAL 03/16/18 09:00 03/17/18 08:59 Promethazine HCl 25 mg/Sodium Chloride 56 ml @ 110 mls/hr Q6H PRN IV Refractory N/V 03/15/18 15:00 04/13/18 20:59 Sodium Chloride 250 ml @ 30 mls/hr ONCE ONCE IV 03/15/18 13:00 03/15/18 21:19 03/15/18 12:29 Temazepam (Restoril) 15 mg HSPRN PRN ORAL Insomnia 03/15/18 19:45 03/21/18 19:44 Assessment/Plan Assessment/Plan Abx: None Assessment: Hypotension- now improved- 2ry to dehydration- - no evidence of sepsis -u/a no pyuria Nausea/vomiting -Abd US: Cholelithiasis. Extra hepatic biliary ductal dilatation. Likely age related, but could indicate downstream obstruction. Correlate with liver function tests, consider MRCP for further evaluation if clinically indicated. Bilateral renal cysts incidentally noted ZEE, improving Dehydration Sever hyponatremia, improving Hyperkalemia HTN Plan: -Continue to monitor off abx -supportive care -Monitor CBC/BMP, temperatures -Renal f/u -aspiration precautions Thank you for this consultation. Will continue to follow along with you. Discussed with Mary Sanon M.D. Mar 15, 2018 15:16
[2018-03-15 16:00] VITALS: BP 108/69
[2018-03-15 19:38] VITALS: BP 119/55
--- NOTE | 2018-03-15 20:00 | History and Physical Report ---
DATE OF ADMISSION: 03/14/2018 APPROXIMATE TIME: 1 p.m. CONSULTANTS: 1. Samuel Santiago M.D. 2. Bernardo Estes M.D. CHIEF COMPLAINT: Weakness, hyponatremia, dehydration. HISTORY OF PRESENT ILLNESS: The patient is a 87-year-old female, who lives at home with family presents with increased weakness, lethargy, was found to be dehydrated, hyponatremic, hypokalemic admitted to telemetry for further care. Currently, calm in bed, feeling better, no complaint. REVIEW OF SYSTEMS: No chest pain. No shortness of breath. No nausea, vomiting, or diarrhea. PAST MEDICAL HISTORY: Hypertension. PAST SURGICAL HISTORY: None. MEDICATIONS: Include Norvasc, Lopressor, K-Dur, Prevacid, promethazine, morphine, heparin, , Zofran. ALLERGIES: Denies. SOCIAL HISTORY: No smoking. Occasional alcohol. No intravenous drug abuse. FAMILY HISTORY: Noncontributory. PHYSICAL EXAMINATION: GENERAL: Calm in bed, oriented x3, no acute distress. VITAL SIGNS: Temperature 97, pulse 58, respiratory rate 18, blood pressure 134/64. CARDIOVASCULAR: No murmur. LUNGS: Distant and clear. ABDOMEN: Bowel sounds positive. Nontender. Nondistended. EXTREMITIES: No cyanosis, clubbing, or edema. NEUROLOGIC: The patient moves all extremities, but slightly weak. LABORATORY AND DIAGNOSTIC DATA: CBC is normal. BMP shows sodium 131, potassium 2.5, chloride 94. Alkaline phosphatase 27. Troponin 0.00. Lipase 182. TSH 1.7. PTT is 27. Urinalysis 1+ leukocyte esterase. ASSESSMENT: 1. Weakness. 2. Urinary tract infection. 3. Hyponatremia. 4. Hypokalemia. 5. Dehydration. 6. Hypertension. PLAN: 1. Intravenous fluids. 2. Replace electrolytes. 3. Blood pressure control. 4. Dietary followup. 5. Antibiotics per Infectious Diseases. 6. OT/PT. 7. Dietary followup. 8. CBC and BMP in the morning. Juan Fernández D.O. DR: Richard JOB#: [id number] CC:
[2018-03-15] MEDS: Metoprolol Tartrate 12.5mg TAB ORAL SCH (20:50)
[2018-03-16 00:32] VITALS: BP 117/65
[2018-03-16 04:37] VITALS: BP 124/57
[2018-03-16 07:19] LABS: BASOPHILS % (AUTO) 1.7 % (0.0-2.0); EOSINOPHILS % (AUTO) 4.1 % (0.0-3.0); LYMPHOCYTES % (AUTO) 24.2 % (20.0-45.0); MEAN CORPUSCULAR VOLUME 91 FL (80-99); MONOCYTES % (AUTO) 14.4 % (1.0-10.0); NEUTROPHILS % (AUTO) 55.6 % (45.0-75.0); PLATELET COUNT 289 K/UL (150-450); RED CELL DISTRIBUTION WIDTH 10.5 % (11.6-14.8); WHITE BLOOD COUNT 5.3 K/UL (4.8-10.8)
[2018-03-16 07:24] LABS: ALANINE AMINOTRANSFERASE 21 U/L (12-78); ALBUMIN 3.4 G/DL (3.4-5.0); ALBUMIN/GLOBULIN RATIO 0.8 (1.0-2.7); ALKALINE PHOSPHATASE 36 U/L (46-116); ANION GAP 9 mmol/L (5-15); ASPARTATE AMINO TRANSFERASE 20 U/L (15-37); BILIRUBIN,TOTAL 0.5 MG/DL (0.2-1.0); BLOOD UREA NITROGEN 11 mg/dL (7-18); CALCIUM 9.1 MG/DL (8.5-10.1); CARBON DIOXIDE 28 MMOL/L (21-32); CHLORIDE 98 MMOL/L (98-107); CHOLESTEROL 217 MG/DL (< 200); CREATININE 0.8 MG/DL (0.55-1.30); GAMMA GLUTAMYL TRANSPEPTIDASE 31 U/L (5-85); HDL CHOLESTEROL 69 MG/DL (40-60); PHOSPHORUS 2.2 MG/DL (2.5-4.9); POTASSIUM 2.8 MMOL/L (3.5-5.1); SODIUM 135 MMOL/L (136-145); TRIGLYCERIDES 49 MG/DL (30-150)
[2018-03-16 08:30] VITALS: BP 129/57
[2018-03-16] MEDS: Metoprolol Tartrate 12.5mg TAB ORAL SCH ×2 (08:32→20:39)
[2018-03-16] MEDS: Heparin 5000 units/ml inj SUBQ SCH ×2 (08:48→20:45)
[2018-03-16] MEDS ORDERED: Metoprolol Tartrate 12.5mg TAB ORAL SCH (09:00)
[2018-03-16 11:42] VITALS: BP 127/74
[2018-03-16] MEDS ORDERED: NaCl 3% 500ml 250 ML IV ONE (13:00)
--- NOTE | 2018-03-16 13:41 | Pulmonology Progress Note ---
Assessment/Plan Problems: (1) intractable nausea (2) Hyponatremia (3) Hypokalemia (4) Hypertension Assessment/Plan add Spirinolactone for hypokalemia check electrolytes symptomatic treatment monitor BP continue current IV Phos supplement dvt prophylaxis. Subjective Interval Events: no new complains Allergies: Coded Allergies: No Known Allergies (Unverified , 05/28/13) Objective Last 24 Hour Vital Signs Date Time Temp Pulse Resp B/P (MAP) Pulse Ox O2 Delivery O2 Flow Rate FiO2 03/16/18 11:42 97.7 62 20 127/74 98 Room Air 97.7 03/16/18 08:33 87 129/57 03/16/18 08:32 87 129/57 03/16/18 08:30 97.3 87 20 129/57 98 Room Air 97.3 03/16/18 04:37 97 Room Air 03/16/18 04:37 97.7 55 20 124/57 97 Room Air 97.7 03/16/18 00:32 97.3 52 20 117/65 98 Room Air 97.3 03/16/18 00:32 98 Room Air 03/16/18 00:19 97.3 03/15/18 23:20 96.8 03/15/18 20:50 59 119/55 03/15/18 20:13 98 Room Air 03/15/18 19:38 96.8 59 20 119/55 98 Room Air 96.8 03/15/18 16:00 98.2 62 18 108/69 96 98.2 Intake and Output 03/15/18 03/16/18 19:00 07:00 Intake Total 510 ml 250 ml Output Total 300 ml Balance 210 ml 250 ml Intake Oral 360 ml IV Total 150 ml 250 ml Output Urine Total 300 ml # Voids 1 6 # Bowel Movements 2 General Appearance: WD/WN HEENT: normocephalic Respiratory/Chest: chest wall non-tender, lungs clear Abdomen: normal bowel sounds, soft, non tender Genitourinary: normal external genitalia Extremities: no cyanosis Neurologic/Psychiatric: calender wind up helper II-XII grossly normal, no motor/sensory deficits Laboratory Tests 03/16/18 05:45: White Blood Count 5.3, Red Blood Count 4.30, Hemoglobin 14.0, Hematocrit 39.0, Mean Corpuscular Volume 91, Mean Corpuscular Hemoglobin 32.5H, Mean Corpuscular Hemoglobin Concent 35.9, Red Cell Distribution Width 10.5L, Platelet Count 289, Mean Platelet Volume 6.0L, Neutrophils (%) (Auto) 55.6, Lymphocytes (%) (Auto) 24.2, Monocytes (%) (Auto) 14.4H, Eosinophils (%) (Auto) 4.1H, Basophils (%) ( Auto) 1.7, Sodium Level 135L, Potassium Level 2.8L, Chloride Level 98, Carbon Dioxide Level 28, Anion Gap 9, Blood Urea Nitrogen 11, Creatinine 0.8, Estimat Glomerular Filtration Rate , Glucose Level 92, Hemoglobin A1c 5.9, Uric Acid 6.9 , Calcium Level 9.1, Phosphorus Level 2.2L, Magnesium Level 1.9, Total Bilirubin 0.5, Gamma Glutamyl Transpeptidase 31, Aspartate Amino Transf (AST/ SGOT) 20, Alanine Aminotransferase (ALT/SGPT) 21, Alkaline Phosphatase 36L, Pro- B-Type Natriuretic Peptide 288H, Total Protein 7.5, Albumin 3.4, Globulin 4.1, Albumin/Globulin Ratio 0.8L, Triglycerides Level 49, Cholesterol Level 217H, LDL Cholesterol 143H, HDL Cholesterol 69H, Cholesterol/HDL Ratio 3.1L, Vitamin B12 Level 496, Thyroid Stimulating Hormone (TSH) 3.133 Current Medications Medications (Trade) Dose Ordered Sig/Gricelda Route PRN Reason Start Time Stop Time Status Last Admin Dose Admin Acetaminophen (Tylenol) 650 mg Q4H PRN ORAL fever (temp>100.5F) 03/15/18 15:45 04/13/18 19:44 03/15/18 23:20 Amlodipine Besylate (Norvasc) 5 mg DAILY ORAL 03/16/18 09:00 04/14/18 08:59 03/16/18 08:33 Dextrose (Dextrose 50%) 25 ml STAT PRN IV Hypoglycemia 03/15/18 14:30 04/13/18 14:29 Dextrose (Dextrose 50%) 50 ml STAT PRN IV Hypoglycemia 03/15/18 14:30 04/13/18 14:29 Diphenhydramine HCl (Benadryl) 25 mg Q6H PRN ORAL Itching/Pruritis 03/15/18 14:30 04/13/18 14:29 Heparin Sodium (Porcine) (Heparin 5000 units/ml) 5,000 units EVERY 12 HOURS SUBQ 03/15/18 21:00 04/13/18 20:59 03/16/18 08:48 Lansoprazole (Prevacid) 30 mg BID ORAL 03/15/18 18:00 04/14/18 17:59 03/16/18 08:33 Metoprolol Tartrate (Lopressor) 12.5 mg Q12HR ORAL 03/15/18 21:00 04/14/18 20:59 03/16/18 08:32 Morphine Sulfate (Morphine Sulfate) 2 mg Q4H PRN IVP severe Pain (Pain Scale 7-10) 03/15/18 14:30 03/21/18 14:29 Nitroglycerin (Ntg) 0.4 mg Q5M X 3 DOSES PRN SL Prn Chest Pain 03/15/18 14:15 04/13/18 19:44 Ondansetron HCl (Zofran) 4 mg Q6H PRN IVP Nausea & Vomiting 03/15/18 14:30 04/13/18 14:29 Polyethylene Glycol (Miralax) 17 gm HSPRN PRN ORAL Constipation 03/15/18 19:45 04/13/18 19:44 Potassium Chloride 100 ml @ 100 mls/hr Q1HR IVPB 03/16/18 08:00 03/16/18 13:59 03/16/18 11:53 Potassium Chloride (K-Dur) 40 meq BID ORAL 03/16/18 09:00 04/15/18 08:59 03/16/18 08:32 Promethazine HCl 25 mg/Sodium Chloride 56 ml @ 110 mls/hr Q6H PRN IV Refractory N/V 03/15/18 15:00 04/13/18 20:59 Temazepam (Restoril) 15 mg HSPRN PRN ORAL Insomnia 03/15/18 19:45 03/21/18 19:44 Samuel Santiago MD Mar 16, 2018 13:41
[2018-03-16] MEDS ORDERED: Spironolactone 25mg tab ORAL SCH (13:45)
--- NOTE | 2018-03-16 14:14 | General Progress Note ---
Assessment/Plan Problem List: (1) Weak ICD Codes: R53.1 - Weakness SNOMED: 87609449 (2) UTI (urinary tract infection) ICD Codes: N39.0 - Urinary tract infection, site not specified SNOMED: 35656237 (3) Hyponatremia ICD Codes: E87.1 - Hypo-osmolality and hyponatremia SNOMED: 91469338 (4) Renal insufficiency ICD Codes: N28.9 - Disorder of kidney and ureter, unspecified SNOMED: 679119519, 315624718 (5) Hypertension ICD Codes: I10 - Essential (primary) hypertension SNOMED: 31129906 Status: unchanged Assessment/Plan ot pt diet abx cbc bmp am dc plan Subjective Constitutional: Reports: weakness Allergies: Coded Allergies: No Known Allergies (Unverified , 05/28/13) All Systems: reviewed and negative except above Subjective calm in bed Objective Last 24 Hour Vital Signs Date Time Temp Pulse Resp B/P (MAP) Pulse Ox O2 Delivery O2 Flow Rate FiO2 03/16/18 11:42 97.7 62 20 127/74 98 Room Air 97.7 03/16/18 08:33 87 129/57 03/16/18 08:32 87 129/57 03/16/18 08:30 97.3 87 20 129/57 98 Room Air 97.3 03/16/18 04:37 97 Room Air 03/16/18 04:37 97.7 55 20 124/57 97 Room Air 97.7 03/16/18 00:32 97.3 52 20 117/65 98 Room Air 97.3 03/16/18 00:32 98 Room Air 03/16/18 00:19 97.3 03/15/18 23:20 96.8 03/15/18 20:50 59 119/55 03/15/18 20:13 98 Room Air 03/15/18 19:38 96.8 59 20 119/55 98 Room Air 96.8 03/15/18 16:00 98.2 62 18 108/69 96 98.2 Intake and Output 03/15/18 03/16/18 19:00 07:00 Intake Total 510 ml 250 ml Output Total 300 ml Balance 210 ml 250 ml Intake Oral 360 ml IV Total 150 ml 250 ml Output Urine Total 300 ml # Voids 1 6 # Bowel Movements 2 Laboratory Tests 03/16/18 05:45: White Blood Count 5.3, Red Blood Count 4.30, Hemoglobin 14.0, Hematocrit 39.0, Mean Corpuscular Volume 91, Mean Corpuscular Hemoglobin 32.5H, Mean Corpuscular Hemoglobin Concent 35.9, Red Cell Distribution Width 10.5L, Platelet Count 289, Mean Platelet Volume 6.0L, Neutrophils (%) (Auto) 55.6, Lymphocytes (%) (Auto) 24.2, Monocytes (%) (Auto) 14.4H, Eosinophils (%) (Auto) 4.1H, Basophils (%) ( Auto) 1.7, Sodium Level 135L, Potassium Level 2.8L, Chloride Level 98, Carbon Dioxide Level 28, Anion Gap 9, Blood Urea Nitrogen 11, Creatinine 0.8, Estimat Glomerular Filtration Rate , Glucose Level 92, Hemoglobin A1c 5.9, Uric Acid 6.9 , Calcium Level 9.1, Phosphorus Level 2.2L, Magnesium Level 1.9, Total Bilirubin 0.5, Gamma Glutamyl Transpeptidase 31, Aspartate Amino Transf (AST/ SGOT) 20, Alanine Aminotransferase (ALT/SGPT) 21, Alkaline Phosphatase 36L, Pro- B-Type Natriuretic Peptide 288H, Total Protein 7.5, Albumin 3.4, Globulin 4.1, Albumin/Globulin Ratio 0.8L, Triglycerides Level 49, Cholesterol Level 217H, LDL Cholesterol 143H, HDL Cholesterol 69H, Cholesterol/HDL Ratio 3.1L, Vitamin B12 Level 496, Thyroid Stimulating Hormone (TSH) 3.133 Height (Feet): 4 Height (Inches): 11.00 Weight (Pounds): 136 General Appearance: lethargic EENT: normal ENT inspection Neck: normal alignment Cardiovascular: normal peripheral pulses, normal rate, regular rhythm Respiratory/Chest: chest wall non-tender, lungs clear, normal breath sounds Abdomen: normal bowel sounds, non tender, soft Extremities: normal inspection Edema: no edema noted Arm (L), no edema noted Arm (R), no edema noted Leg (L), no edema noted Leg (R), no edema noted Pedal (L), no edema noted Pedal (R), no edema noted Generalized Neurologic: motor weakness Skin: normal pigmentation, warm/dry Juan Fernández DO Mar 16, 2018 14:14
[2018-03-16 16:00] VITALS: BP 130/60
--- NOTE | 2018-03-16 16:17 | Nephrology Progress Note ---
Assessment/Plan Problem List: (1) Hyponatremia (2) Renal insufficiency (3) Hypokalemia (4) Hypertension Assessment Renal problem ( high Cr and Low Na and Low K ) all related to diuretics HTN, presents with low BP Bradycardia Plan Adjust beta blockers with parameters adjust BP meds K and Mag supplement as needed PT OT eval ? DC in am Objective Objective Last 24 Hour Vital Signs Date Time Temp Pulse Resp B/P (MAP) Pulse Ox O2 Delivery O2 Flow Rate FiO2 03/16/18 16:00 97.7 73 20 130/60 98 Room Air 97.7 03/16/18 11:42 97.7 62 20 127/74 98 Room Air 97.7 03/16/18 08:33 87 129/57 03/16/18 08:32 87 129/57 03/16/18 08:30 97.3 87 20 129/57 98 Room Air 97.3 03/16/18 04:37 97 Room Air 03/16/18 04:37 97.7 55 20 124/57 97 Room Air 97.7 03/16/18 00:32 97.3 52 20 117/65 98 Room Air 97.3 03/16/18 00:32 98 Room Air 03/16/18 00:19 97.3 03/15/18 23:20 96.8 03/15/18 20:50 59 119/55 03/15/18 20:13 98 Room Air 03/15/18 19:38 96.8 59 20 119/55 98 Room Air 96.8 Intake and Output 03/15/18 03/16/18 19:00 07:00 Intake Total 510 ml 250 ml Output Total 300 ml Balance 210 ml 250 ml Intake Oral 360 ml IV Total 150 ml 250 ml Output Urine Total 300 ml # Voids 1 6 # Bowel Movements 2 Laboratory Tests 03/16/18 05:45: White Blood Count 5.3, Red Blood Count 4.30, Hemoglobin 14.0, Hematocrit 39.0, Mean Corpuscular Volume 91, Mean Corpuscular Hemoglobin 32.5H, Mean Corpuscular Hemoglobin Concent 35.9, Red Cell Distribution Width 10.5L, Platelet Count 289, Mean Platelet Volume 6.0L, Neutrophils (%) (Auto) 55.6, Lymphocytes (%) (Auto) 24.2, Monocytes (%) (Auto) 14.4H, Eosinophils (%) (Auto) 4.1H, Basophils (%) ( Auto) 1.7, Sodium Level 135L, Potassium Level 2.8L, Chloride Level 98, Carbon Dioxide Level 28, Anion Gap 9, Blood Urea Nitrogen 11, Creatinine 0.8, Estimat Glomerular Filtration Rate , Glucose Level 92, Hemoglobin A1c 5.9, Uric Acid 6.9 , Calcium Level 9.1, Phosphorus Level 2.2L, Magnesium Level 1.9, Total Bilirubin 0.5, Gamma Glutamyl Transpeptidase 31, Aspartate Amino Transf (AST/ SGOT) 20, Alanine Aminotransferase (ALT/SGPT) 21, Alkaline Phosphatase 36L, Pro- B-Type Natriuretic Peptide 288H, Total Protein 7.5, Albumin 3.4, Globulin 4.1, Albumin/Globulin Ratio 0.8L, Triglycerides Level 49, Cholesterol Level 217H, LDL Cholesterol 143H, HDL Cholesterol 69H, Cholesterol/HDL Ratio 3.1L, Vitamin B12 Level 496, Thyroid Stimulating Hormone (TSH) 3.133 Height (Feet): 4 Height (Inches): 11.00 Weight (Pounds): 136 MOISÉS MOSES Mar 16, 2018 16:17
--- NOTE | 2018-03-16 19:23 | General Progress Note ---
Assessment/Plan Status: stable Assessment/Plan Cognitive impairment Anxiety d/o -Ativan prn -provided ro/st Subjective Date patient seen: Mar 16, 2018 Neurologic/Psychiatric: Reports: anxiety, emotional problems Allergies: Coded Allergies: No Known Allergies (Unverified , 05/28/13) Objective Last 24 Hour Vital Signs Date Time Temp Pulse Resp B/P (MAP) Pulse Ox O2 Delivery O2 Flow Rate FiO2 03/16/18 16:00 97.7 73 20 130/60 98 Room Air 97.7 03/16/18 11:42 97.7 62 20 127/74 98 Room Air 97.7 03/16/18 08:33 87 129/57 03/16/18 08:32 87 129/57 03/16/18 08:30 97.3 87 20 129/57 98 Room Air 97.3 03/16/18 04:37 97 Room Air 03/16/18 04:37 97.7 55 20 124/57 97 Room Air 97.7 03/16/18 00:32 97.3 52 20 117/65 98 Room Air 97.3 03/16/18 00:32 98 Room Air 03/16/18 00:19 97.3 03/15/18 23:20 96.8 03/15/18 20:50 59 119/55 03/15/18 20:13 98 Room Air 03/15/18 19:38 96.8 59 20 119/55 98 Room Air 96.8 Intake and Output 03/15/18 03/16/18 19:00 07:00 Intake Total 510 ml 250 ml Output Total 300 ml Balance 210 ml 250 ml Intake Oral 360 ml IV Total 150 ml 250 ml Output Urine Total 300 ml # Voids 1 6 # Bowel Movements 2 Laboratory Tests 03/16/18 05:45: White Blood Count 5.3, Red Blood Count 4.30, Hemoglobin 14.0, Hematocrit 39.0, Mean Corpuscular Volume 91, Mean Corpuscular Hemoglobin 32.5H, Mean Corpuscular Hemoglobin Concent 35.9, Red Cell Distribution Width 10.5L, Platelet Count 289, Mean Platelet Volume 6.0L, Neutrophils (%) (Auto) 55.6, Lymphocytes (%) (Auto) 24.2, Monocytes (%) (Auto) 14.4H, Eosinophils (%) (Auto) 4.1H, Basophils (%) ( Auto) 1.7, Sodium Level 135L, Potassium Level 2.8L, Chloride Level 98, Carbon Dioxide Level 28, Anion Gap 9, Blood Urea Nitrogen 11, Creatinine 0.8, Estimat Glomerular Filtration Rate , Glucose Level 92, Hemoglobin A1c 5.9, Uric Acid 6.9 , Calcium Level 9.1, Phosphorus Level 2.2L, Magnesium Level 1.9, Total Bilirubin 0.5, Gamma Glutamyl Transpeptidase 31, Aspartate Amino Transf (AST/ SGOT) 20, Alanine Aminotransferase (ALT/SGPT) 21, Alkaline Phosphatase 36L, Pro- B-Type Natriuretic Peptide 288H, Total Protein 7.5, Albumin 3.4, Globulin 4.1, Albumin/Globulin Ratio 0.8L, Triglycerides Level 49, Cholesterol Level 217H, LDL Cholesterol 143H, HDL Cholesterol 69H, Cholesterol/HDL Ratio 3.1L, Vitamin B12 Level 496, Thyroid Stimulating Hormone (TSH) 3.133 Height (Feet): 4 Height (Inches): 11.00 Weight (Pounds): 136 General Appearance: no apparent distress, alert Neurologic: depressed affect Yousuf White M.D. Mar 16, 2018 19:23
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
--- NOTE | 2018-03-16 19:28 | Infectious Diseases Prog Note ---
Assessment/Plan Assessment/Plan Abx: None Assessment: Hypotension- now improved- 2ry to dehydration- - no evidence of sepsis -u/a no pyuria Nausea/vomiting -Abd US: Cholelithiasis. Extra hepatic biliary ductal dilatation. Likely age related, but could indicate downstream obstruction. Correlate with liver function tests, consider MRCP for further evaluation if clinically indicated. Bilateral renal cysts incidentally noted ZEE, improving Dehydration Sever hyponatremia, improving Hyperkalemia HTN Plan: -Continue to monitor off abx -supportive care -Monitor CBC/BMP, temperatures -Renal f/u -aspiration precautions Thank you for this consultation. Will continue to follow along with you. Discussed with RN. Subjective Allergies: Coded Allergies: No Known Allergies (Unverified , 05/28/13) Subjective afebrile no leukocytosis hyponatermia improved still hypokalemic Objective Vital Signs Last 24 Hour Vital Signs Date Time Temp Pulse Resp B/P (MAP) Pulse Ox O2 Delivery O2 Flow Rate FiO2 03/16/18 16:00 97.7 73 20 130/60 98 Room Air 97.7 03/16/18 11:42 97.7 62 20 127/74 98 Room Air 97.7 03/16/18 08:33 87 129/57 03/16/18 08:32 87 129/57 03/16/18 08:30 97.3 87 20 129/57 98 Room Air 97.3 03/16/18 04:37 97 Room Air 03/16/18 04:37 97.7 55 20 124/57 97 Room Air 97.7 03/16/18 00:32 97.3 52 20 117/65 98 Room Air 97.3 03/16/18 00:32 98 Room Air 03/16/18 00:19 97.3 03/15/18 23:20 96.8 03/15/18 20:50 59 119/55 03/15/18 20:13 98 Room Air 03/15/18 19:38 96.8 59 20 119/55 98 Room Air 96.8 Height (Feet): 4 Height (Inches): 11.00 Weight (Pounds): 136 Objective General Appearance: WD/WN Lines, tubes and drains: peripheral HEENT: normocephalic Neck: non-tender Respiratory/Chest: chest wall non-tender Breasts: no masses Cardiovascular/Chest: normal peripheral pulses Abdomen: normal bowel sounds Genitourinary/Rectal: normal genital exam Extremities: normal range of motion Laboratory Tests Test 03/16/18 05:45 White Blood Count 5.3 K/UL (4.8-10.8) Red Blood Count 4.30 M/UL (4.20-5.40) Hemoglobin 14.0 G/DL (12.0-16.0) Hematocrit 39.0 % (37.0-47.0) Mean Corpuscular Volume 91 FL (80-99) Mean Corpuscular Hemoglobin 32.5 PG (27.0-31.0) H Mean Corpuscular Hemoglobin Concent 35.9 G/DL (32.0-36.0) Red Cell Distribution Width 10.5 % (11.6-14.8) L Platelet Count 289 K/UL (150-450) Mean Platelet Volume 6.0 FL (6.5-10.1) L Neutrophils (%) (Auto) 55.6 % (45.0-75.0) Lymphocytes (%) (Auto) 24.2 % (20.0-45.0) Monocytes (%) (Auto) 14.4 % (1.0-10.0) H Eosinophils (%) (Auto) 4.1 % (0.0-3.0) H Basophils (%) (Auto) 1.7 % (0.0-2.0) Sodium Level 135 MMOL/L (136-145) L Potassium Level 2.8 MMOL/L (3.5-5.1) L Chloride Level 98 MMOL/L (98-107) Carbon Dioxide Level 28 MMOL/L (21-32) Anion Gap 9 mmol/L (5-15) Blood Urea Nitrogen 11 mg/dL (7-18) Creatinine 0.8 MG/DL (0.55-1.30) Estimat Glomerular Filtration Rate mL/min (>60) Glucose Level 92 MG/DL (74-106) Hemoglobin A1c 5.9 % (4.3-6.0) Uric Acid 6.9 MG/DL (2.6-7.2) Calcium Level 9.1 MG/DL (8.5-10.1) Phosphorus Level 2.2 MG/DL (2.5-4.9) L Magnesium Level 1.9 MG/DL (1.8-2.4) Total Bilirubin 0.5 MG/DL (0.2-1.0) Gamma Glutamyl Transpeptidase 31 U/L (5-85) Aspartate Amino Transf (AST/SGOT) 20 U/L (15-37) Alanine Aminotransferase (ALT/SGPT) 21 U/L (12-78) Alkaline Phosphatase 36 U/L (46-116) L Pro-B-Type Natriuretic Peptide 288 pg/mL (0-125) H Total Protein 7.5 G/DL (6.4-8.2) Albumin 3.4 G/DL (3.4-5.0) Globulin 4.1 g/dL Albumin/Globulin Ratio 0.8 (1.0-2.7) L Triglycerides Level 49 MG/DL (30-150) Cholesterol Level 217 MG/DL (< 200) H LDL Cholesterol 143 mg/dL (<100) H HDL Cholesterol 69 MG/DL (40-60) H Cholesterol/HDL Ratio 3.1 (3.3-4.4) L Vitamin B12 Level 496 PG/ML (193-986) Thyroid Stimulating Hormone (TSH) 3.133 uiU/mL (0.358-3.740) Current Medications Medications (Trade) Dose Ordered Sig/Gricelda Route PRN Reason Start Time Stop Time Status Last Admin Dose Admin Acetaminophen (Tylenol) 650 mg Q4H PRN ORAL fever (temp>100.5F) 03/15/18 15:45 04/13/18 19:44 03/15/18 23:20 Amlodipine Besylate (Norvasc) 5 mg DAILY ORAL 03/16/18 09:00 04/14/18 08:59 03/16/18 08:33 Dextrose (Dextrose 50%) 25 ml STAT PRN IV Hypoglycemia 03/15/18 14:30 04/13/18 14:29 Dextrose (Dextrose 50%) 50 ml STAT PRN IV Hypoglycemia 03/15/18 14:30 04/13/18 14:29 Diphenhydramine HCl (Benadryl) 25 mg Q6H PRN ORAL Itching/Pruritis 03/15/18 14:30 04/13/18 14:29 Heparin Sodium (Porcine) (Heparin 5000 units/ml) 5,000 units EVERY 12 HOURS SUBQ 03/15/18 21:00 04/13/18 20:59 03/16/18 08:48 Lansoprazole (Prevacid) 30 mg BID ORAL 03/15/18 18:00 04/14/18 17:59 03/16/18 17:47 Metoprolol Tartrate (Lopressor) 12.5 mg Q12HR ORAL 03/15/18 21:00 04/14/18 20:59 03/16/18 08:32 Morphine Sulfate (Morphine Sulfate) 2 mg Q4H PRN IVP severe Pain (Pain Scale 7-10) 03/15/18 14:30 03/21/18 14:29 Nitroglycerin (Ntg) 0.4 mg Q5M X 3 DOSES PRN SL Prn Chest Pain 03/15/18 14:15 04/13/18 19:44 Ondansetron HCl (Zofran) 4 mg Q6H PRN IVP Nausea & Vomiting 03/15/18 14:30 04/13/18 14:29 Polyethylene Glycol (Miralax) 17 gm HSPRN PRN ORAL Constipation 03/15/18 19:45 04/13/18 19:44 Potassium Chloride (K-Dur) 40 meq BID ORAL 03/16/18 09:00 04/15/18 08:59 03/16/18 17:47 Promethazine HCl 25 mg/Sodium Chloride 56 ml @ 110 mls/hr Q6H PRN IV Refractory N/V 03/15/18 15:00 04/13/18 20:59 Temazepam (Restoril) 15 mg HSPRN PRN ORAL Insomnia 03/15/18 19:45 03/21/18 19:44 Mary Bennett M.D. Mar 16, 2018 19:28
[2018-03-16 19:56] VITALS: BP 125/59
[2018-03-17 04:32] VITALS: BP 129/57
[2018-03-17 07:40] LABS: BASOPHILS % (AUTO) 1.9 % (0.0-2.0); EOSINOPHILS % (AUTO) 4.8 % (0.0-3.0); HEMATOCRIT 38.5 % (37.0-47.0); HEMOGLOBIN 13.3 G/DL (12.0-16.0); LYMPHOCYTES % (AUTO) 23.5 % (20.0-45.0); MEAN CORPUSCULAR VOLUME 91 FL (80-99); MONOCYTES % (AUTO) 9.1 % (1.0-10.0); NEUTROPHILS % (AUTO) 60.7 % (45.0-75.0); PLATELET COUNT 264 K/UL (150-450); RED BLOOD COUNT 4.23 M/UL (4.20-5.40); RED CELL DISTRIBUTION WIDTH 10.6 % (11.6-14.8); WHITE BLOOD COUNT 5.3 K/UL (4.8-10.8)
[2018-03-17 08:00] VITALS: BP 105/63
[2018-03-17 08:20] LABS: ALANINE AMINOTRANSFERASE 20 U/L (12-78); ALBUMIN 3.2 G/DL (3.4-5.0); ALBUMIN/GLOBULIN RATIO 0.8 (1.0-2.7); ALKALINE PHOSPHATASE 27 U/L (46-116); ANION GAP 8 mmol/L (5-15); ASPARTATE AMINO TRANSFERASE 17 U/L (15-37); BILIRUBIN,TOTAL 0.4 MG/DL (0.2-1.0); BLOOD UREA NITROGEN 6 mg/dL (7-18); CARBON DIOXIDE 27 MMOL/L (21-32); CHLORIDE 98 MMOL/L (98-107); CREATININE 0.8 MG/DL (0.55-1.30); PHOSPHORUS 2.5 MG/DL (2.5-4.9); POTASSIUM 3.7 MMOL/L (3.5-5.1); SODIUM 133 MMOL/L (136-145)
[2018-03-17] MEDS: Metoprolol Tartrate 12.5mg TAB ORAL SCH ×2 (09:05→20:23)
[2018-03-17] MEDS: Heparin 5000 units/ml inj SUBQ SCH ×2 (09:07→20:24)
--- NOTE | 2018-03-17 10:17 | Nephrology Progress Note ---
Assessment/Plan Problem List: (1) Hyponatremia (2) Renal insufficiency (3) Hypokalemia (4) Hypertension Assessment Renal problem ( high Cr and Low Na and Low K ) all related to diuretics HTN, presents with low BP Bradycardia Plan Adjust beta blockers with parameters adjust BP meds K and Mag supplement as needed PT OT eval ? DC Subjective ROS Limited/Unobtainable: No Objective Objective Last 24 Hour Vital Signs Date Time Temp Pulse Resp B/P (MAP) Pulse Ox O2 Delivery O2 Flow Rate FiO2 03/17/18 09:05 76 105/63 03/17/18 08:00 97.8 76 19 105/63 98 97.8 03/17/18 04:32 98.1 64 20 129/57 97 Room Air 98.1 03/17/18 04:32 97 Room Air 03/16/18 20:39 65 125/59 03/16/18 20:00 99 Room Air 03/16/18 19:56 98.1 65 20 125/59 99 Room Air 98.1 03/16/18 16:00 97.7 73 20 130/60 98 Room Air 97.7 03/16/18 11:42 97.7 62 20 127/74 98 Room Air 97.7 Intake and Output 03/16/18 03/17/18 19:00 07:00 Intake Total 1050 ml Balance 1050 ml Intake Oral 450 ml IV Total 600 ml # Voids 3 3 # Bowel Movements 1 Laboratory Tests 03/17/18 06:40: White Blood Count 5.3, Red Blood Count 4.23, Hemoglobin 13.3, Hematocrit 38.5, Mean Corpuscular Volume 91, Mean Corpuscular Hemoglobin 31.5H, Mean Corpuscular Hemoglobin Concent 34.6, Red Cell Distribution Width 10.6L, Platelet Count 264, Mean Platelet Volume 6.2L, Neutrophils (%) (Auto) 60.7, Lymphocytes (%) (Auto) 23.5, Monocytes (%) (Auto) 9.1, Eosinophils (%) (Auto) 4.8H, Basophils (%) (Auto ) 1.9, Sodium Level 133L, Potassium Level 3.7, Chloride Level 98, Carbon Dioxide Level 27, Anion Gap 8, Blood Urea Nitrogen 6L, Creatinine 0.8, Estimat Glomerular Filtration Rate , Glucose Level 94, Uric Acid 5.1, Calcium Level 9.0 , Phosphorus Level 2.5, Magnesium Level 1.7L, Total Bilirubin 0.4, Aspartate Amino Transf (AST/SGOT) 17, Alanine Aminotransferase (ALT/SGPT) 20, Alkaline Phosphatase 27L, Total Protein 7.1, Albumin 3.2L, Globulin 3.9, Albumin/ Globulin Ratio 0.8L Height (Feet): 4 Height (Inches): 11.00 Weight (Pounds): 136 General Appearance: no apparent distress Objective no change MOISÉS MOSES Mar 17, 2018 10:17
[2018-03-17 12:00] VITALS: BP 133/68
--- NOTE | 2018-03-17 12:21 | General Progress Note ---
Assessment/Plan Status: stable, progressing Assessment/Plan Cognitive impairment Anxiety d/o -Ativan prn -provided ro/st Subjective Date patient seen: Mar 17, 2018 Neurologic/Psychiatric: Reports: anxiety Allergies: Coded Allergies: No Known Allergies (Unverified , 05/28/13) Objective Last 24 Hour Vital Signs Date Time Temp Pulse Resp B/P (MAP) Pulse Ox O2 Delivery O2 Flow Rate FiO2 03/17/18 09:05 76 105/63 03/17/18 08:00 97.8 76 19 105/63 98 97.8 03/17/18 04:32 98.1 64 20 129/57 97 Room Air 98.1 03/17/18 04:32 97 Room Air 03/16/18 20:39 65 125/59 03/16/18 20:00 99 Room Air 03/16/18 19:56 98.1 65 20 125/59 99 Room Air 98.1 03/16/18 16:00 97.7 73 20 130/60 98 Room Air 97.7 Intake and Output 03/16/18 03/17/18 19:00 07:00 Intake Total 1050 ml Balance 1050 ml Intake Oral 450 ml IV Total 600 ml # Voids 3 3 # Bowel Movements 1 Laboratory Tests 03/17/18 06:40: White Blood Count 5.3, Red Blood Count 4.23, Hemoglobin 13.3, Hematocrit 38.5, Mean Corpuscular Volume 91, Mean Corpuscular Hemoglobin 31.5H, Mean Corpuscular Hemoglobin Concent 34.6, Red Cell Distribution Width 10.6L, Platelet Count 264, Mean Platelet Volume 6.2L, Neutrophils (%) (Auto) 60.7, Lymphocytes (%) (Auto) 23.5, Monocytes (%) (Auto) 9.1, Eosinophils (%) (Auto) 4.8H, Basophils (%) (Auto ) 1.9, Sodium Level 133L, Potassium Level 3.7, Chloride Level 98, Carbon Dioxide Level 27, Anion Gap 8, Blood Urea Nitrogen 6L, Creatinine 0.8, Estimat Glomerular Filtration Rate , Glucose Level 94, Uric Acid 5.1, Calcium Level 9.0 , Phosphorus Level 2.5, Magnesium Level 1.7L, Total Bilirubin 0.4, Aspartate Amino Transf (AST/SGOT) 17, Alanine Aminotransferase (ALT/SGPT) 20, Alkaline Phosphatase 27L, Total Protein 7.1, Albumin 3.2L, Globulin 3.9, Albumin/ Globulin Ratio 0.8L Height (Feet): 4 Height (Inches): 11.00 Weight (Pounds): 136 General Appearance: no apparent distress, alert Neurologic: depressed affect Yousuf White M.D. Mar 17, 2018 12:21
--- NOTE | 2018-03-17 12:42 | Pulmonology Progress Note ---
Assessment/Plan Problems: (1) intractable nausea (2) Hyponatremia (3) Hypokalemia (4) Hypertension Assessment/Plan k better today check electrolytes symptomatic treatment monitor BP continue current IV Phos supplement dvt prophylaxis. dc planning Subjective ROS Limited/Unobtainable: No Constitutional: Reports: no symptoms HEENT: Repors: no symptoms Respiratory: Reports: no symptoms Allergies: Coded Allergies: No Known Allergies (Unverified , 05/28/13) Objective Last 24 Hour Vital Signs Date Time Temp Pulse Resp B/P (MAP) Pulse Ox O2 Delivery O2 Flow Rate FiO2 03/17/18 09:05 76 105/63 03/17/18 08:00 97.8 76 19 105/63 98 97.8 03/17/18 04:32 98.1 64 20 129/57 97 Room Air 98.1 03/17/18 04:32 97 Room Air 03/16/18 20:39 65 125/59 03/16/18 20:00 99 Room Air 03/16/18 19:56 98.1 65 20 125/59 99 Room Air 98.1 03/16/18 16:00 97.7 73 20 130/60 98 Room Air 97.7 Intake and Output 03/16/18 03/17/18 19:00 07:00 Intake Total 1050 ml Balance 1050 ml Intake Oral 450 ml IV Total 600 ml # Voids 3 3 # Bowel Movements 1 General Appearance: WD/WN HEENT: normocephalic, atraumatic Respiratory/Chest: chest wall non-tender, normal breath sounds Cardiovascular: normal peripheral pulses, normal rate Abdomen: normal bowel sounds Genitourinary: normal external genitalia Neurologic/Psychiatric: step finisher II-XII grossly normal Laboratory Tests 03/17/18 06:40: White Blood Count 5.3, Red Blood Count 4.23, Hemoglobin 13.3, Hematocrit 38.5, Mean Corpuscular Volume 91, Mean Corpuscular Hemoglobin 31.5H, Mean Corpuscular Hemoglobin Concent 34.6, Red Cell Distribution Width 10.6L, Platelet Count 264, Mean Platelet Volume 6.2L, Neutrophils (%) (Auto) 60.7, Lymphocytes (%) (Auto) 23.5, Monocytes (%) (Auto) 9.1, Eosinophils (%) (Auto) 4.8H, Basophils (%) (Auto ) 1.9, Sodium Level 133L, Potassium Level 3.7, Chloride Level 98, Carbon Dioxide Level 27, Anion Gap 8, Blood Urea Nitrogen 6L, Creatinine 0.8, Estimat Glomerular Filtration Rate , Glucose Level 94, Uric Acid 5.1, Calcium Level 9.0 , Phosphorus Level 2.5, Magnesium Level 1.7L, Total Bilirubin 0.4, Aspartate Amino Transf (AST/SGOT) 17, Alanine Aminotransferase (ALT/SGPT) 20, Alkaline Phosphatase 27L, Total Protein 7.1, Albumin 3.2L, Globulin 3.9, Albumin/ Globulin Ratio 0.8L Current Medications Medications (Trade) Dose Ordered Sig/Gricelda Route PRN Reason Start Time Stop Time Status Last Admin Dose Admin Acetaminophen (Tylenol) 650 mg Q4H PRN ORAL fever (temp>100.5F) 03/15/18 15:45 04/13/18 19:44 03/15/18 23:20 Amlodipine Besylate (Norvasc) 2.5 mg DAILY ORAL 03/18/18 09:00 04/14/18 08:59 Dextrose (Dextrose 50%) 25 ml STAT PRN IV Hypoglycemia 03/15/18 14:30 04/13/18 14:29 Dextrose (Dextrose 50%) 50 ml STAT PRN IV Hypoglycemia 03/15/18 14:30 04/13/18 14:29 Heparin Sodium (Porcine) (Heparin 5000 units/ml) 5,000 units EVERY 12 HOURS SUBQ 03/15/18 21:00 04/13/18 20:59 03/17/18 09:07 Lansoprazole (Prevacid) 30 mg BID ORAL 03/15/18 18:00 04/14/18 17:59 03/17/18 09:04 Magnesium Sulfate 100 ml @ 100 mls/hr Q1H IVPB 03/17/18 11:00 03/17/18 12:59 03/17/18 12:39 Metoprolol Tartrate (Lopressor) 12.5 mg Q12HR ORAL 03/15/18 21:00 04/14/18 20:59 03/17/18 09:05 Nitroglycerin (Ntg) 0.4 mg Q5M X 3 DOSES PRN SL Prn Chest Pain 03/15/18 14:15 04/13/18 19:44 Ondansetron HCl (Zofran) 4 mg Q6H PRN IVP Nausea & Vomiting 03/15/18 14:30 04/13/18 14:29 Polyethylene Glycol (Miralax) 17 gm HSPRN PRN ORAL Constipation 03/15/18 19:45 04/13/18 19:44 Potassium Chloride (K-Dur) 40 meq BID ORAL 03/16/18 09:00 04/15/18 08:59 03/17/18 09:05 Temazepam (Restoril) 15 mg HSPRN PRN ORAL Insomnia 03/15/18 19:45 03/21/18 19:44 Samuel Santiago MD Mar 17, 2018 12:42
--- NOTE | 2018-03-17 14:38 | General Progress Note ---
Assessment/Plan Problem List: (1) Weak ICD Codes: R53.1 - Weakness SNOMED: 54803720 (2) UTI (urinary tract infection) ICD Codes: N39.0 - Urinary tract infection, site not specified SNOMED: 43741189 (3) Hyponatremia ICD Codes: E87.1 - Hypo-osmolality and hyponatremia SNOMED: 77762384 (4) Renal insufficiency ICD Codes: N28.9 - Disorder of kidney and ureter, unspecified SNOMED: 349823686, 347560202 (5) Hypertension ICD Codes: I10 - Essential (primary) hypertension SNOMED: 67069250 Status: progressing Assessment/Plan ot pt diet abx cbc bmp am dc plan Subjective Constitutional: Reports: weakness Allergies: Coded Allergies: No Known Allergies (Unverified , 05/28/13) All Systems: reviewed and negative except above Subjective calm in bed Objective Last 24 Hour Vital Signs Date Time Temp Pulse Resp B/P (MAP) Pulse Ox O2 Delivery O2 Flow Rate FiO2 03/17/18 12:00 98.1 80 20 133/68 98 Room Air 98.1 03/17/18 09:05 76 105/63 03/17/18 08:00 97.8 76 19 105/63 98 97.8 03/17/18 04:32 98.1 64 20 129/57 97 Room Air 98.1 03/17/18 04:32 97 Room Air 03/16/18 20:39 65 125/59 03/16/18 20:00 99 Room Air 03/16/18 19:56 98.1 65 20 125/59 99 Room Air 98.1 03/16/18 16:00 97.7 73 20 130/60 98 Room Air 97.7 Intake and Output 03/16/18 03/17/18 19:00 07:00 Intake Total 1050 ml Balance 1050 ml Intake Oral 450 ml IV Total 600 ml # Voids 3 3 # Bowel Movements 1 Laboratory Tests 03/17/18 06:40: White Blood Count 5.3, Red Blood Count 4.23, Hemoglobin 13.3, Hematocrit 38.5, Mean Corpuscular Volume 91, Mean Corpuscular Hemoglobin 31.5H, Mean Corpuscular Hemoglobin Concent 34.6, Red Cell Distribution Width 10.6L, Platelet Count 264, Mean Platelet Volume 6.2L, Neutrophils (%) (Auto) 60.7, Lymphocytes (%) (Auto) 23.5, Monocytes (%) (Auto) 9.1, Eosinophils (%) (Auto) 4.8H, Basophils (%) (Auto ) 1.9, Sodium Level 133L, Potassium Level 3.7, Chloride Level 98, Carbon Dioxide Level 27, Anion Gap 8, Blood Urea Nitrogen 6L, Creatinine 0.8, Estimat Glomerular Filtration Rate , Glucose Level 94, Uric Acid 5.1, Calcium Level 9.0 , Phosphorus Level 2.5, Magnesium Level 1.7L, Total Bilirubin 0.4, Aspartate Amino Transf (AST/SGOT) 17, Alanine Aminotransferase (ALT/SGPT) 20, Alkaline Phosphatase 27L, Total Protein 7.1, Albumin 3.2L, Globulin 3.9, Albumin/ Globulin Ratio 0.8L Height (Feet): 4 Height (Inches): 11.00 Weight (Pounds): 136 General Appearance: lethargic EENT: normal ENT inspection Neck: normal alignment Cardiovascular: normal peripheral pulses, normal rate, regular rhythm Respiratory/Chest: chest wall non-tender, lungs clear, normal breath sounds Abdomen: normal bowel sounds, non tender, soft Extremities: normal inspection Edema: no edema noted Arm (L), no edema noted Arm (R), no edema noted Leg (L), no edema noted Leg (R), no edema noted Pedal (L), no edema noted Pedal (R), no edema noted Generalized Neurologic: responsive, motor weakness Skin: normal pigmentation, warm/dry Juan Fernández DO Mar 17, 2018 14:38
--- NOTE | 2018-03-17 14:48 | Infectious Diseases Prog Note ---
Assessment/Plan Assessment/Plan Abx: None Assessment: Hypotension- now improved- 2ry to dehydration- - no evidence of sepsis -u/a no pyuria Nausea/vomiting -Abd US: Cholelithiasis. Extra hepatic biliary ductal dilatation. Likely age related, but could indicate downstream obstruction. Correlate with liver function tests, consider MRCP for further evaluation if clinically indicated. Bilateral renal cysts incidentally noted ZEE, resolving Dehydration Sever hyponatremia, improving Hypokalemia; resolved HTN Plan: -Continue to monitor off abx -supportive care -Monitor CBC/BMP, temperatures -Renal f/u -aspiration precautions Thank you for this consultation. Will continue to follow along with you. Discussed with RN. Subjective Allergies: Coded Allergies: No Known Allergies (Unverified , 05/28/13) Subjective afebrile no leukocytosis hyponatermia improved still hypokalemic Objective Vital Signs Last 24 Hour Vital Signs Date Time Temp Pulse Resp B/P (MAP) Pulse Ox O2 Delivery O2 Flow Rate FiO2 03/17/18 12:00 98.1 80 20 133/68 98 Room Air 98.1 03/17/18 09:05 76 105/63 03/17/18 08:00 97.8 76 19 105/63 98 97.8 03/17/18 04:32 98.1 64 20 129/57 97 Room Air 98.1 03/17/18 04:32 97 Room Air 03/16/18 20:39 65 125/59 03/16/18 20:00 99 Room Air 03/16/18 19:56 98.1 65 20 125/59 99 Room Air 98.1 03/16/18 16:00 97.7 73 20 130/60 98 Room Air 97.7 Height (Feet): 4 Height (Inches): 11.00 Weight (Pounds): 136 Objective General Appearance: WD/WN Lines, tubes and drains: peripheral HEENT: normocephalic Neck: non-tender Respiratory/Chest: chest wall non-tender Breasts: no masses Cardiovascular/Chest: normal peripheral pulses Abdomen: normal bowel sounds Genitourinary/Rectal: normal genital exam Extremities: normal range of motion Laboratory Tests Test 03/17/18 06:40 White Blood Count 5.3 K/UL (4.8-10.8) Red Blood Count 4.23 M/UL (4.20-5.40) Hemoglobin 13.3 G/DL (12.0-16.0) Hematocrit 38.5 % (37.0-47.0) Mean Corpuscular Volume 91 FL (80-99) Mean Corpuscular Hemoglobin 31.5 PG (27.0-31.0) H Mean Corpuscular Hemoglobin Concent 34.6 G/DL (32.0-36.0) Red Cell Distribution Width 10.6 % (11.6-14.8) L Platelet Count 264 K/UL (150-450) Mean Platelet Volume 6.2 FL (6.5-10.1) L Neutrophils (%) (Auto) 60.7 % (45.0-75.0) Lymphocytes (%) (Auto) 23.5 % (20.0-45.0) Monocytes (%) (Auto) 9.1 % (1.0-10.0) Eosinophils (%) (Auto) 4.8 % (0.0-3.0) H Basophils (%) (Auto) 1.9 % (0.0-2.0) Sodium Level 133 MMOL/L (136-145) L Potassium Level 3.7 MMOL/L (3.5-5.1) Chloride Level 98 MMOL/L (98-107) Carbon Dioxide Level 27 MMOL/L (21-32) Anion Gap 8 mmol/L (5-15) Blood Urea Nitrogen 6 mg/dL (7-18) L Creatinine 0.8 MG/DL (0.55-1.30) Estimat Glomerular Filtration Rate mL/min (>60) Glucose Level 94 MG/DL (74-106) Uric Acid 5.1 MG/DL (2.6-7.2) Calcium Level 9.0 MG/DL (8.5-10.1) Phosphorus Level 2.5 MG/DL (2.5-4.9) Magnesium Level 1.7 MG/DL (1.8-2.4) L Total Bilirubin 0.4 MG/DL (0.2-1.0) Aspartate Amino Transf (AST/SGOT) 17 U/L (15-37) Alanine Aminotransferase (ALT/SGPT) 20 U/L (12-78) Alkaline Phosphatase 27 U/L (46-116) L Total Protein 7.1 G/DL (6.4-8.2) Albumin 3.2 G/DL (3.4-5.0) L Globulin 3.9 g/dL Albumin/Globulin Ratio 0.8 (1.0-2.7) L Current Medications Medications (Trade) Dose Ordered Sig/Gricelda Route PRN Reason Start Time Stop Time Status Last Admin Dose Admin Acetaminophen (Tylenol) 650 mg Q4H PRN ORAL fever (temp>100.5F) 03/15/18 15:45 04/13/18 19:44 03/15/18 23:20 Amlodipine Besylate (Norvasc) 2.5 mg DAILY ORAL 03/18/18 09:00 04/14/18 08:59 Dextrose (Dextrose 50%) 25 ml STAT PRN IV Hypoglycemia 03/15/18 14:30 04/13/18 14:29 Dextrose (Dextrose 50%) 50 ml STAT PRN IV Hypoglycemia 03/15/18 14:30 04/13/18 14:29 Heparin Sodium (Porcine) (Heparin 5000 units/ml) 5,000 units EVERY 12 HOURS SUBQ 03/15/18 21:00 04/13/18 20:59 03/17/18 09:07 Lansoprazole (Prevacid) 30 mg BID ORAL 03/15/18 18:00 04/14/18 17:59 03/17/18 09:04 Metoprolol Tartrate (Lopressor) 12.5 mg Q12HR ORAL 03/15/18 21:00 04/14/18 20:59 03/17/18 09:05 Nitroglycerin (Ntg) 0.4 mg Q5M X 3 DOSES PRN SL Prn Chest Pain 03/15/18 14:15 04/13/18 19:44 Ondansetron HCl (Zofran) 4 mg Q6H PRN IVP Nausea & Vomiting 03/15/18 14:30 04/13/18 14:29 Polyethylene Glycol (Miralax) 17 gm HSPRN PRN ORAL Constipation 03/15/18 19:45 04/13/18 19:44 Potassium Chloride (K-Dur) 40 meq BID ORAL 03/16/18 09:00 04/15/18 08:59 03/17/18 09:05 Temazepam (Restoril) 15 mg HSPRN PRN ORAL Insomnia 03/15/18 19:45 03/21/18 19:44 Mary Bennett M.D. Mar 17, 2018 14:48
[2018-03-17 16:00] VITALS: BP 127/62
[2018-03-17] MEDS: Miralax 17gm pkt ORAL PRN (18:24)
[2018-03-17 20:00] VITALS: BP 121/57
[2018-03-18] VITALS: BP 150/82
[2018-03-18 04:00] VITALS: BP 142/77
[2018-03-18 07:10] LABS: BASOPHILS % (AUTO) 2.2 % (0.0-2.0); EOSINOPHILS % (AUTO) 6.1 % (0.0-3.0); HEMATOCRIT 39.3 % (37.0-47.0); HEMOGLOBIN 13.5 G/DL (12.0-16.0); MEAN CORPUSCULAR VOLUME 91 FL (80-99); MONOCYTES % (AUTO) 13.4 % (1.0-10.0); NEUTROPHILS % (AUTO) 56.4 % (45.0-75.0); PLATELET COUNT 277 K/UL (150-450)
[2018-03-18 07:22] LABS: ANION GAP 7 mmol/L (5-15); BLOOD UREA NITROGEN 11 mg/dL (7-18); CALCIUM 9.2 MG/DL (8.5-10.1); CARBON DIOXIDE 28 MMOL/L (21-32); CHLORIDE 98 MMOL/L (98-107); CREATININE 0.8 MG/DL (0.55-1.30); POTASSIUM 4.8 MMOL/L (3.5-5.1); SODIUM 132 MMOL/L (136-145)
[2018-03-18 08:00] VITALS: BP 137/72
[2018-03-18] MEDS: Miralax 17gm pkt ORAL PRN (08:40)
[2018-03-18] MEDS: Metoprolol Tartrate 12.5mg TAB ORAL SCH (08:40)
[2018-03-18] MEDS: Heparin 5000 units/ml inj SUBQ SCH (08:44)
[2018-03-18 12:00] VITALS: BP 128/68
--- NOTE | 2018-03-18 13:37 | Infectious Diseases Prog Note ---
Assessment/Plan Assessment/Plan Abx: None Assessment: Hypotension- now improved- 2ry to dehydration- - no evidence of sepsis -u/a no pyuria Nausea/vomiting,S P -Abd US: Cholelithiasis. Extra hepatic biliary ductal dilatation. Likely age related, but could indicate downstream obstruction. Correlate with liver function tests, consider MRCP for further evaluation if clinically indicated. Bilateral renal cysts incidentally noted ZEE, resolved Dehydration; imporing Sever hyponatremia, improving Hypokalemia; resolved HTN Plan: -Continue to monitor off abx; ok to discharge from ID perspective -supportive care -Monitor CBC/BMP, temperatures -Renal f/u -aspiration precautions Thank you for this consultation. Will continue to follow along with you. Discussed with RN. Subjective Allergies: Coded Allergies: No Known Allergies (Unverified , 05/28/13) Subjective afebrile no leukocytosis labs much improved off abx Objective Vital Signs Last 24 Hour Vital Signs Date Time Temp Pulse Resp B/P (MAP) Pulse Ox O2 Delivery O2 Flow Rate FiO2 03/18/18 12:00 97.8 76 18 128/68 97 97.8 03/18/18 08:40 74 137/72 03/18/18 08:39 74 137/72 03/18/18 08:00 97.8 74 20 137/72 98 97.8 03/18/18 04:00 98.3 60 19 142/77 98 Room Air 98.3 03/18/18 00:00 98.4 65 20 150/82 98 Room Air 98.4 03/17/18 20:23 66 121/57 03/17/18 20:00 98.4 66 17 121/57 97 98.4 03/17/18 16:00 97.8 69 20 127/62 97 97.8 Height (Feet): 4 Height (Inches): 11.00 Weight (Pounds): 136 Objective General Appearance: WD/WN Lines, tubes and drains: peripheral HEENT: normocephalic Neck: non-tender Respiratory/Chest: chest wall non-tender Breasts: no masses Cardiovascular/Chest: normal peripheral pulses Abdomen: normal bowel sounds Genitourinary/Rectal: normal genital exam Extremities: normal range of motion Laboratory Tests Test 03/18/18 05:45 White Blood Count 5.0 K/UL (4.8-10.8) Red Blood Count 4.30 M/UL (4.20-5.40) Hemoglobin 13.5 G/DL (12.0-16.0) Hematocrit 39.3 % (37.0-47.0) Mean Corpuscular Volume 91 FL (80-99) Mean Corpuscular Hemoglobin 31.4 PG (27.0-31.0) H Mean Corpuscular Hemoglobin Concent 34.4 G/DL (32.0-36.0) Red Cell Distribution Width 11.0 % (11.6-14.8) L Platelet Count 277 K/UL (150-450) Mean Platelet Volume 5.8 FL (6.5-10.1) L Neutrophils (%) (Auto) 56.4 % (45.0-75.0) Lymphocytes (%) (Auto) 22.0 % (20.0-45.0) Monocytes (%) (Auto) 13.4 % (1.0-10.0) H Eosinophils (%) (Auto) 6.1 % (0.0-3.0) H Basophils (%) (Auto) 2.2 % (0.0-2.0) H Sodium Level 132 MMOL/L (136-145) L Potassium Level 4.8 MMOL/L (3.5-5.1) Chloride Level 98 MMOL/L (98-107) Carbon Dioxide Level 28 MMOL/L (21-32) Anion Gap 7 mmol/L (5-15) Blood Urea Nitrogen 11 mg/dL (7-18) Creatinine 0.8 MG/DL (0.55-1.30) Estimat Glomerular Filtration Rate mL/min (>60) Glucose Level 92 MG/DL (74-106) Calcium Level 9.2 MG/DL (8.5-10.1) Current Medications Medications (Trade) Dose Ordered Sig/Gricelda Route PRN Reason Start Time Stop Time Status Last Admin Dose Admin Acetaminophen (Tylenol) 650 mg Q4H PRN ORAL fever (temp>100.5F) 03/15/18 15:45 04/13/18 19:44 03/15/18 23:20 Amlodipine Besylate (Norvasc) 2.5 mg DAILY ORAL 03/18/18 09:00 04/14/18 08:59 03/18/18 08:39 Dextrose (Dextrose 50%) 25 ml STAT PRN IV Hypoglycemia 03/15/18 14:30 04/13/18 14:29 Dextrose (Dextrose 50%) 50 ml STAT PRN IV Hypoglycemia 03/15/18 14:30 04/13/18 14:29 Heparin Sodium (Porcine) (Heparin 5000 units/ml) 5,000 units EVERY 12 HOURS SUBQ 03/15/18 21:00 04/13/18 20:59 03/18/18 08:44 Lansoprazole (Prevacid) 30 mg BID ORAL 03/15/18 18:00 04/14/18 17:59 03/18/18 08:39 Metoprolol Tartrate (Lopressor) 12.5 mg Q12HR ORAL 03/15/18 21:00 04/14/18 20:59 03/18/18 08:40 Nitroglycerin (Ntg) 0.4 mg Q5M X 3 DOSES PRN SL Prn Chest Pain 03/15/18 14:15 04/13/18 19:44 Ondansetron HCl (Zofran) 4 mg Q6H PRN IVP Nausea & Vomiting 03/15/18 14:30 04/13/18 14:29 Polyethylene Glycol (Miralax) 17 gm HSPRN PRN ORAL Constipation 03/15/18 19:45 04/13/18 19:44 03/18/18 08:40 Potassium Chloride (K-Dur) 40 meq BID ORAL 03/16/18 09:00 04/15/18 08:59 03/18/18 08:40 Temazepam (Restoril) 15 mg HSPRN PRN ORAL Insomnia 03/15/18 19:45 03/21/18 19:44 Mary Bennett M.D. Mar 18, 2018 13:37
--- NOTE | 2018-03-18 14:02 | General Progress Note ---
Assessment/Plan Problem List: (1) Weak ICD Codes: R53.1 - Weakness SNOMED: 84388626 (2) UTI (urinary tract infection) ICD Codes: N39.0 - Urinary tract infection, site not specified SNOMED: 29789425 (3) Hyponatremia ICD Codes: E87.1 - Hypo-osmolality and hyponatremia SNOMED: 71898492 (4) Renal insufficiency ICD Codes: N28.9 - Disorder of kidney and ureter, unspecified SNOMED: 286715606, 349298981 (5) Hypertension ICD Codes: I10 - Essential (primary) hypertension SNOMED: 46682929 Status: stable, progressing Assessment/Plan ot pt diet abx cbc bmp am dc w hh if clear Subjective Constitutional: Reports: weakness Allergies: Coded Allergies: No Known Allergies (Unverified , 05/28/13) All Systems: reviewed and negative except above Subjective calm in bed Objective Last 24 Hour Vital Signs Date Time Temp Pulse Resp B/P (MAP) Pulse Ox O2 Delivery O2 Flow Rate FiO2 03/18/18 12:00 97.8 76 18 128/68 97 97.8 03/18/18 08:40 74 137/72 03/18/18 08:39 74 137/72 03/18/18 08:00 97.8 74 20 137/72 98 97.8 03/18/18 04:00 98.3 60 19 142/77 98 Room Air 98.3 03/18/18 00:00 98.4 65 20 150/82 98 Room Air 98.4 03/17/18 20:23 66 121/57 03/17/18 20:00 98.4 66 17 121/57 97 98.4 03/17/18 16:00 97.8 69 20 127/62 97 97.8 Intake and Output 03/17/18 03/18/18 19:00 07:00 Intake Total 300 ml 120 ml Balance 300 ml 120 ml Intake Oral 300 ml 120 ml # Voids 2 3 # Bowel Movements 1 Laboratory Tests 03/18/18 05:45: White Blood Count 5.0, Red Blood Count 4.30, Hemoglobin 13.5, Hematocrit 39.3, Mean Corpuscular Volume 91, Mean Corpuscular Hemoglobin 31.4H, Mean Corpuscular Hemoglobin Concent 34.4, Red Cell Distribution Width 11.0L, Platelet Count 277, Mean Platelet Volume 5.8L, Neutrophils (%) (Auto) 56.4, Lymphocytes (%) (Auto) 22.0, Monocytes (%) (Auto) 13.4H, Eosinophils (%) (Auto) 6.1H, Basophils (%) ( Auto) 2.2H, Sodium Level 132L, Potassium Level 4.8, Chloride Level 98, Carbon Dioxide Level 28, Anion Gap 7, Blood Urea Nitrogen 11, Creatinine 0.8, Estimat Glomerular Filtration Rate , Glucose Level 92, Calcium Level 9.2 Height (Feet): 4 Height (Inches): 11.00 Weight (Pounds): 136 General Appearance: lethargic EENT: normal ENT inspection Neck: normal alignment Cardiovascular: normal peripheral pulses, normal rate, regular rhythm Respiratory/Chest: chest wall non-tender, lungs clear, normal breath sounds Abdomen: normal bowel sounds, non tender, soft Extremities: normal inspection Edema: no edema noted Arm (L), no edema noted Arm (R), no edema noted Leg (L), no edema noted Leg (R), no edema noted Pedal (L), no edema noted Pedal (R), no edema noted Generalized Neurologic: motor weakness Skin: normal pigmentation, warm/dry Juan Fernández DO Mar 18, 2018 14:02
[2018-03-18] MEDS ORDERED: PREVACID30 MG ORAL (14:50)
[2018-03-18] MEDS ORDERED: NORVASC2.5 MG ORAL (14:51)
[2018-03-18] MEDS ORDERED: ATENOLOL25 MG ORAL (14:56)
--- NOTE | 2018-03-18 15:00 | Nephrology Progress Note ---
Assessment/Plan Problem List: (1) Hyponatremia (2) Renal insufficiency (3) Hypokalemia (4) Hypertension Assessment Renal problem ( high Cr and Low Na and Low K ) all related to diuretics HTN, presents with low BP Bradycardia Plan Adjust beta blockers with parameters adjust BP meds K and Mag supplement as needed PT OT eval ? DC Subjective ROS Limited/Unobtainable: No Objective Objective Last 24 Hour Vital Signs Date Time Temp Pulse Resp B/P (MAP) Pulse Ox O2 Delivery O2 Flow Rate FiO2 03/18/18 12:00 97.8 76 18 128/68 97 97.8 03/18/18 08:40 74 137/72 03/18/18 08:39 74 137/72 03/18/18 08:00 97.8 74 20 137/72 98 97.8 03/18/18 04:00 98.3 60 19 142/77 98 Room Air 98.3 03/18/18 00:00 98.4 65 20 150/82 98 Room Air 98.4 03/17/18 20:23 66 121/57 03/17/18 20:00 98.4 66 17 121/57 97 98.4 03/17/18 16:00 97.8 69 20 127/62 97 97.8 Intake and Output 03/17/18 03/18/18 19:00 07:00 Intake Total 300 ml 120 ml Balance 300 ml 120 ml Intake Oral 300 ml 120 ml # Voids 2 3 # Bowel Movements 1 Laboratory Tests 03/18/18 05:45: White Blood Count 5.0, Red Blood Count 4.30, Hemoglobin 13.5, Hematocrit 39.3, Mean Corpuscular Volume 91, Mean Corpuscular Hemoglobin 31.4H, Mean Corpuscular Hemoglobin Concent 34.4, Red Cell Distribution Width 11.0L, Platelet Count 277, Mean Platelet Volume 5.8L, Neutrophils (%) (Auto) 56.4, Lymphocytes (%) (Auto) 22.0, Monocytes (%) (Auto) 13.4H, Eosinophils (%) (Auto) 6.1H, Basophils (%) ( Auto) 2.2H, Sodium Level 132L, Potassium Level 4.8, Chloride Level 98, Carbon Dioxide Level 28, Anion Gap 7, Blood Urea Nitrogen 11, Creatinine 0.8, Estimat Glomerular Filtration Rate , Glucose Level 92, Calcium Level 9.2 Height (Feet): 4 Height (Inches): 11.00 Weight (Pounds): 136 General Appearance: no apparent distress Objective no change MOISÉS MOSES Mar 18, 2018 15:00
[2018-03-18] MEDS ORDERED: Tubing IV Secondary IV ONE (15:57)
[2018-03-18] MEDS ORDERED: NS 500ML ONE (15:57)
--- NOTE | 2018-03-21 10:25 | Discharge Summary ---
Discharge Summary Discharge Summary _ DATE OF ADMISSION: 03/14/2018 DATE OF DISCHARGE: 03/18/2018 REASON FOR ADMISSION: 87 years old female with past medical history of hypertension, presented to emergency department accompanied by her daughter with complaints of bloating, generalized weakness and nausea for few days. Symptoms started few days ago after eating spicy food. Patient denied vomiting Patient denied fever, chills Patient denied diarrhea, no abdominal pain, no chest pain or shortness of breath Upon evaluation vital signs revealed hypotension: blood pressure 97/51 No leukocytosis , stable hemoglobin and hematocrit. Sodium 121, potassium 3.0 ,creatinine 1.4. Troponin negative, EKG revealed sinus rhythm, no acute ischemic changes . Urinalysis revealed no evidence of pyuria , no bacteria Patient admitted with diagnosis o acute kidney injury, hypotension, acute hyponatremia, acute hypokalemia CONSULTANTS: pulmonary Dr. Santiago ID specialist Dr. Ashraf employment consultant Dr. Estes psychiatrist after [facility] COURSE: Patient admitted to Med Surg floor Patient was on IV fluids. Renal parameters and electrolytes were closely monitored, nephrotoxic were avoided. Electrolytes were corrected as needed. Prior to discharge, sodium 132, potassium 4.8 ,creatinine down to normal - 0.8 According to employment consultant, who closely followed, acute kidney injury and electrolyte imbalance were related to diuretic use at home. After blood pressure stabilized , patient was started on antihypertensive medication regimen: beta danita and calcium channel danita, doses were optimized as per employment consultant. Initial hypotension was likely secondary to dehydration , which resolved with the IV hydration. Acute kidney injury resolved. No diuretic at this time Infectious disease doctor closely followed. No evidence of infection. Urinalysis showed no pyuria; nausea v resolved. Abdominal ultrasound showed cholelithiasis , but no evidence of cholecystitis. LFT were within normal limits. Afebrile, no leukocytosis. ID specialist recommended to monitor patient off antibiotics. Pain management provided. Antiemetics provided as needed. Bowel regimen instituted . Lipid panel revealed elevated total cholesterol and elevated LDL. Patient was hesitant to start medical treatment at this time. Patient and her daughter were informed of this condition. Patient was educated on low-fat low-cholesterol diet. Patient to follow-up with a primary care provider to have lipid panel test recheck in 3 months. Psychiatry seen and evaluated patient, diagnosed patient with cognitive impairment and anxiety disorder. Psychiatrist started patient on anxiolytic on as needed basis. Supportive therapy and reality orientation provided Patient was working with physical and occupational therapists. DVT and GI prophylaxis provided. Patient was stable for discharge home with home health services FINAL DIAGNOSES: Acute kidney injury(secondary to on diuretic), resolved Acute hyponatremia Acute hypokalemia Hypotension secondary to dehydration History of hypertension Cholelithiasis Hyperlipidemia Anxiety disorder Cognitive impairment DISCHARGE MEDICATIONS: See Medication Reconciliation list. DISCHARGE INSTRUCTIONS: Patient was discharged home with home health services to follow. Follow-up with the primary care provider in one week I have been assigned to dictate discharge summary for this account. I was not involved in the patient's management. Vanesa Powers NP Mar 21, 2018 10:25
== END 2018-03-18 15:58 | disposition home or self-care (01) | DRG 683 ==
LOC: EMR 16:48 → EDBEDREQSVC 17:19 → 2E 17:47 → EDBEDREQ 19:10 → 4W 03-15 14:06
DX: N17.9 Acute kidney failure, unspecified (principal); E87.1 Hypo-osmolality and hyponatremia; N39.0 Urinary tract infection, site not specified; I95.9 Hypotension, unspecified; E86.0 Dehydration; E87.6 Hypokalemia; I10 Essential (primary) hypertension; R00.1 Bradycardia, unspecified; F41.9 Anxiety disorder, unspecified; R11.0 Nausea; G31.84 Mild cognitive impairment of uncertain or unknown etiology; K80.20 Calculus of gallbladder without cholecystitis without obstruction
CPT/HCPCS: 36415; 76700; 80048; 80053; 80061; 81003; 82150; 82607; 82977; 83036; 83690; 83735; 83880; 84100; 84443; 84484; 84550; 85025; 85730; 86140; 93005; 99285; J8499

== ENCOUNTER 2018-03-27 11:53 | Inpatient (IN) | payer OTHER, MEDICAID ==
[~2018-03-27] VITALS: Ht 152.4 cm; Wt 64.0 kg
[~2018-03-27 11:53] MED LIST changes: +AMLODIPINE BESY10 MG PO; +ATENOLOL25 MG ORAL; +ATENOLOL50 MG PO; +ENALAPRIL MALEA20 MG PO; +FUROSEMIDE20 M1 PO; +IBUPROFEN400 M1 PO; +NORVASC2.5 MG ORAL; +OMEPRAZOLE20 M3 ORAL; +POTASSIUM CHLOR8 ME2 PO; +PREVACID30 MG ORAL
[2018-03-27 13:00] VITALS: BP 111/67
[2018-03-27 13:05] LABS: APPEARANCE,URINE SLIGHTLY CLOUDY; BILIRUBIN, URINE NEGATIVE (NEGATIVE); GLUCOSE, URINE (UA) NEGATIVE (NEGATIVE); KETONES,URINE NEGATIVE (NEGATIVE); LEUKOCYTE ESTERASE ,URINE 1+ (NEGATIVE); NITRITE,URINE NEGATIVE (NEGATIVE); PH,URINE 7 (4.5-8.0); PROTEIN,URINE NEGATIVE (NEGATIVE); UROBILINOGEN,URINE 1 MG/DL (0.0-1.0)
[2018-03-27 13:08] LABS: BASOPHILS % (AUTO) 1.8 % (0.0-2.0); EOSINOPHILS % (AUTO) 1.5 % (0.0-3.0); HEMOGLOBIN 13.7 G/DL (12.0-16.0); LYMPHOCYTES % (AUTO) 21.2 % (20.0-45.0); MEAN CORPUSCULAR VOLUME 90 FL (80-99); MONOCYTES % (AUTO) 12.8 % (1.0-10.0); NEUTROPHILS % (AUTO) 62.7 % (45.0-75.0); PLATELET COUNT 312 K/UL (150-450); RED BLOOD COUNT 4.24 M/UL (4.20-5.40); RED CELL DISTRIBUTION WIDTH 9.9 % (11.6-14.8)
[2018-03-27 13:10] LABS: COLOR,URINE YELLOW
[2018-03-27 13:16] LABS: ALANINE AMINOTRANSFERASE 26 U/L (12-78); ALBUMIN 3.9 G/DL (3.4-5.0); ALBUMIN/GLOBULIN RATIO 0.9 (1.0-2.7); ALKALINE PHOSPHATASE 33 U/L (46-116); ANION GAP 5 mmol/L (5-15); ASPARTATE AMINO TRANSFERASE 18 U/L (15-37); BILIRUBIN,TOTAL 0.8 MG/DL (0.2-1.0); BLOOD UREA NITROGEN 8 mg/dL (7-18); CALCIUM 9.6 MG/DL (8.5-10.1); CARBON DIOXIDE 26 MMOL/L (21-32); CHLORIDE 85 MMOL/L (98-107); CREATININE 0.9 MG/DL (0.55-1.30); POTASSIUM 3.2 MMOL/L (3.5-5.1)
[2018-03-27 13:22] LABS: SODIUM 116 MMOL/L (136-145)
[2018-03-27 15:00] VITALS: BP 102/74
[2018-03-27 15:51] LABS: INR 1.1 (0.9-1.1)
[2018-03-27 16:04] LABS: CREATINE KINASE 61 U/L (26-308)
[2018-03-27 17:06] VITALS: BP 103/61
--- NOTE | 2018-03-27 18:22 | Emergency Room Report ---
History of Present Illness General Chief Complaint: Lower Extremity Injury Source: Patient (Jena Lam P.A.) Present Illness HPI patient is a 87-year-old female with significant past medical history of hypertension here complaining of 3 days of bilateral numbness in feet. Denies swelling, pain, chest pain, shortness of breath, altered level of consciousness , is compliant with taking all of her medication regimen was recently admitted to [facility] for hyponatremia and was taken off of Lasix. Patient denies chest pain, shortness of breath, palpitation, headache, complains of mild headache/lightheadedness. (Jena Lam P.A.) Allergies: Coded Allergies: No Known Allergies (Unverified , 05/28/13) Patient History Past Medical History: see triage record Past Surgical History: none Immunizations: UTD Reviewed Nursing Documentation: PMH: Agreed; PSxH: Agreed (Jena Lam P.A.) Nursing Documentation-PMH Past Medical History: No History, Except For Hx Cardiac Problems: Yes - irregular heart beat, HTN Hx Hypertension: Yes Hx Cancer: No Hx Gastrointestinal Problems: Yes Hx Neurological Problems: No Hx Numbness: Yes - BLE (Genaro,Euniceal P.A.) Review of Systems All Other Systems: negative except mentioned in HPI (Jena Lam P.A.) Physical Exam Vital Signs Date Time Temp Pulse Resp B/P (MAP) Pulse Ox O2 Delivery O2 Flow Rate FiO2 03/27/18 12:06 98.4 66 16 111/67 96 Room Air 98.4 Sp02 EP Interpretation: reviewed, normal General Appearance: alert, GCS 15, non-toxic Eyes: bilateral eye normal inspection, bilateral eye PERRL ENT: normal ENT inspection, hearing grossly normal, normal pharynx Neck: normal inspection, full range of motion, supple Respiratory: normal inspection, chest non-tender, lungs clear, normal breath sounds, no rhonchi Cardiovascular #1: normal inspection, normal peripheral pulses, regular rate, rhythm, no edema, no gallop, no murmur Cardiovascular #2: 2+ carotid (R), 2+ carotid (L) Gastrointestinal: normal inspection, normal bowel sounds, non tender, soft Rectal: deferred Genitourinary: deferred Neurologic: normal inspection, alert, oriented x3, responsive Psychiatric: normal inspection, judgement/insight normal, memory normal Skin: normal inspection, normal color, no rash, warm/dry, well hydrated, normal turgor Lymphatic: normal inspection, no adenopathy, axilla node tender (R) (Genaro,Euniceal P.A.) Medical Decision Making PA Attestation All orders, diagnosis, treatment plans were reviewed with my supervising physician Dr. Trevino (Jena Lam P.A.) Diagnostic Impression: Primary Impression: Hyponatremia Additional Impression: Bilateral leg numbness ER Course patient is a 89-year-old female with significant past medical history of hypertension here complaining of 3 days of bilateral numbness in feet. Denies swelling, pain, chest pain, shortness of breath, altered level of consciousness , is compliant with taking all of her medication regimen was recently admitted to [facility] for hyponatremia and was taken off of Lasix. Patient denies chest pain, shortness of breath, palpitation, headache, complains of mild headache/lightheadedness. sodium 116 potassium 3.2 Lab Results Impression hyponatremia (Genaro,Jena P.A.) ER Course Patient was examined by me. I agree with treatment plan. Discussed fluid administration and that 3% NS not indicated by patient's exam and symptoms. Of note, patient recently admitted for hyponatremia to Dr. Fernández. Improved with treatment but needing further treatment and evaluation. (Dalton Jenkins M.D.) EKG Diagnostic Results EP Interpretation: NSR, no ST changes Rate: normal Rhythm: NSR ST Segments: no acute changes ASA given to the pt in ED: No (Jena Lam P.A.) Rhythm Strip Diag. Results EP Interpretation: yes Rhythm: NSR, no PVC's, no ectopy (Dalton Jenkins M.D.) Chest X-Ray Diagnostic Results Chest X-Ray Diagnostic Results : Chest X-Ray Ordered: Yes # of Views/Limited/Complete: 1 View Indication: Other EP Interpretation: Yes Interpretation: no consolidation, no effusion, no pneumothorax Impression: Other Electronically Signed by: Dalton Jenkins MD (Dalton Jenkins M.D.) Last Vital Signs Date Time Temp Pulse Resp B/P (MAP) Pulse Ox O2 Delivery O2 Flow Rate FiO2 7/8/18 17:06 98.4 63 15 103/61 99 Room Air 98.4 (Jena Lam P.Simón) Last Vital Signs Date Time Temp Pulse Resp B/P (MAP) Pulse Ox O2 Delivery O2 Flow Rate FiO2 03/27/18 19:15 98.3 70 20 110/72 100 Room Air 98.4 Status: improved (Dalton Jenkins M.D.) Disposition: ADMITTED INPATIENT Condition: Serious Referrals: NON PHYSICIAN (PCP) Jena Lam Mar 27, 2018 18:22 Dalton Jenkins M.D. Mar 27, 2018 22:55
[2018-03-27 20:00] VITALS: BP 116/61
[2018-03-27] MEDS ORDERED: Acetaminophen 500mg (ES) tab ORAL PRN (22:15)
[2018-03-28] VITALS: BP 106/59
[2018-03-28] MEDS ORDERED: NaCl 3% 500ml 500 ML IV ONE (02:15)
[2018-03-28 04:00] VITALS: BP 112/64
--- NOTE | 2018-03-28 07:32 | General Progress Note ---
Progress Note Progress Note patient seen and examined full consult will be dictated shortly thanks Viktoria Tabor MD Mar 28, 2018 07:32
[2018-03-28 07:35] LABS: BASOPHILS % (AUTO) 1.4 % (0.0-2.0); EOSINOPHILS % (AUTO) 2.5 % (0.0-3.0); HEMATOCRIT 35.8 % (37.0-47.0); HEMOGLOBIN 12.5 G/DL (12.0-16.0); LYMPHOCYTES % (AUTO) 17.7 % (20.0-45.0); MEAN CORPUSCULAR VOLUME 90 FL (80-99); MONOCYTES % (AUTO) 14.8 % (1.0-10.0); NEUTROPHILS % (AUTO) 63.6 % (45.0-75.0); PLATELET COUNT 307 K/UL (150-450); RED BLOOD COUNT 3.99 M/UL (4.20-5.40); RED CELL DISTRIBUTION WIDTH 10.2 % (11.6-14.8); WHITE BLOOD COUNT 5.9 K/UL (4.8-10.8)
[2018-03-28 08:00] VITALS: BP 112/60
[2018-03-28 08:02] LABS: ALANINE AMINOTRANSFERASE 23 U/L (12-78); ALBUMIN 3.4 G/DL (3.4-5.0); ALBUMIN/GLOBULIN RATIO 0.9 (1.0-2.7); ALKALINE PHOSPHATASE 45 U/L (46-116); ANION GAP 6 mmol/L (5-15); ASPARTATE AMINO TRANSFERASE 16 U/L (15-37); BILIRUBIN,TOTAL 0.4 MG/DL (0.2-1.0); BLOOD UREA NITROGEN 9 mg/dL (7-18); CALCIUM 8.7 MG/DL (8.5-10.1); CARBON DIOXIDE 27 MMOL/L (21-32); CHLORIDE 93 MMOL/L (98-107); CREATININE 0.8 MG/DL (0.55-1.30); SODIUM 126 MMOL/L (136-145)
[2018-03-28 08:05] LABS: POTASSIUM 2.7 MMOL/L (3.5-5.1)
[2018-03-28 12:00] VITALS: BP 110/56
--- NOTE | 2018-03-28 12:21 | Diagnostic Imaging Report ---
Indication: Dyspnea Comparison: 11/15/2017 A single view chest radiograph was obtained. Findings: No definite infiltrate or pulmonary vascular congestion identified. The heart is enlarged. The aorta is mildly enlarged consistent with atherosclerotic vascular disease. The bones are osteopenic. Impression: No acute disease
[2018-03-28 16:00] VITALS: BP 103/54
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
[2018-03-28 20:00] VITALS: BP 152/79
--- NOTE | 2018-03-28 22:00 | History and Physical Report ---
DATE OF ADMISSION: 03/27/2018 HISTORY OF PRESENT ILLNESS: The patient is going to transfer. The patient comes in because of leg cramps, dizziness, weakness, and admitted for severe hyponatremia and also for hypokalemia as well as severe hyponatremia. The patient takes hydrochlorothiazide, which most likely to be the culprit for hypotension. The patient appears weak. Denies chest pain. Denies shortness of breath. Denies cough. Denies nausea, vomiting, or diarrhea. Denies syncopal episode. PAST MEDICAL HISTORY: Hypertension, constipation, and GERD. PAST SURGICAL HISTORY: None. MEDICATIONS: Hydrochlorothiazide, omeprazole, and aspirin. FAMILY HISTORY: Noncontributory. SOCIAL HISTORY: History of smoking. Denies history of alcohol or illicit drugs. REVIEW OF SYSTEMS: HEENT: Denies headaches. No shortness of breath. Denies cough. CARDIOVASCULAR: Denies chest pain. Denies orthopnea. GASTROINTESTINAL: Denies nausea, vomiting, or diarrhea. Does have occasional heartburn. EXTREMITIES: Denies any significant pain. CENTRAL NERVOUS SYSTEM: Reports dizziness and lightheaded. No syncope. No diplopia. PHYSICAL EXAMINATION: VITAL SIGNS: Temperature is 98.4 degrees, pulse is 63, and blood pressure is 103/61. HEENT: PERRLA. NECK: Supple. No lymphadenopathy. CHEST: Clear to auscultation. GASTROINTESTINAL: Soft, nontender, nondistended. No organomegaly. EXTREMITIES: No edema. Moves all four extremities. Sensory intact to light touch. NEUROLOGIC: Reflexes are equal on both sides. Moves all four extremities, but has generalized weakness. LABORATORY AND DIAGNOSTIC DATA: WBC of 5, hemoglobin of 13.7, and platelets of 312. Sodium 116, potassium 3.2, chloride 85, carbon dioxide of 26, BUN of 8, creatinine of 0.9, and glucose of 115. ASSESSMENT AND PLAN: Symptomatic hyponatremia. The patient also has hypokalemia. I have asked Dr. Tabor to see the patient for the above-mentioned diagnoses. The patient might also have urinary tract infection and Infectious Disease has been consulted for possible treatment of the urinary tract infection. Manuel Molina M.D. DR: LIZ JOB#: [id number] CC:
[2018-03-28] MEDS: Piperacillin/Tazobactam 3.375 GM in D5W 110 ML IVPB SCH (22:50)
[2018-03-29] VITALS: BP 144/77
--- NOTE | 2018-03-29 00:45 | Consultation ---
DATE OF CONSULTATION: 03/28/2018 NEPHROLOGY CONSULTATION CONSULTING PHYSICIAN: Viktoria Tabor M.D. REFERRING PHYSICIAN: Manuel Molina M.D. REASON FOR CONSULTATION: Hypokalemia. HISTORY OF PRESENT ILLNESS: The patient is a pleasant 87-year-old female with past medical history significant for history of hypertension and history of dyslipidemia, who was admitted not too long ago on 03/14/2018 for dehydration and hyponatremia. The patient consequently treatment and was discharged home. The patient presented to emergency room again on 03/28/2018 for bilateral lower extremity swelling with weakness and injury. The patient was found to have a sodium of 116 in the emergency room, started on 3% normal saline. The patient was also found to be hypokalemic, admitted in monitored bed. I was called for management of renal disease and electrolyte imbalance. This morning, the patient was seen. The patient denies having any chest pain, shortness of breath, nausea, vomiting, or any weakness. She denies any numbness or altered mental status. PAST MEDICAL HISTORY: History of recent admission for hyponatremia and hypertension. PAST SURGICAL HISTORY: None. HOME MEDICATIONS: 1. Norvasc. 2. Lopressor. 3. Prevacid. 4. Zofran p.r.n. nausea or vomiting. ALLERGIES: No known drug allergies. SOCIAL HISTORY: She lives at home. There is no history of alcohol or drug abuse. REVIEW OF SYSTEMS: GENERAL: She complained of generalized weakness. Denied any fever, chills, or night sweats. HEAD AND NECK: Denies any dysphagia, odynophagia, blurry vision, headache, or neck stiffness. PULMONARY: Denies any shortness of breath, cough, or sputum. CARDIOVASCULAR: Denies any chest pain or palpitations. GASTROINTESTINAL: Denies any nausea, vomiting, diarrhea, hematemesis, or hematochezia. GENITOURINARY: Denies any dysuria, frequency, or hematuria. MUSCULOSKELETAL: Complained of bilateral lower extremity weakness. PHYSICAL EXAMINATION: VITAL SIGNS: The patient had temperature of 98 degrees, blood pressure 105/59, pulse rate of 64, and respiratory rate of 18. HEAD AND NECK: No JVP. No LAD. No thyromegaly. Extraocular movement intact. Pupils are reactive to light and accommodation. LUNGS: Clear to auscultation. CARDIAC: Regular rate and rhythm. S1 and S2. No murmur. No rub. ABDOMEN: Soft, nontender, and nondistended. EXTREMITIES: No edema. No clubbing. No cyanosis. LABORATORY AND DIAGNOSTIC DATA: On admission, WBC count of 5.0, hemoglobin 13.7, hematocrit of 38, and platelet count of 312,000. Chemistry revealed sodium of 116, potassium 3.2, chloride 85, bicarb 26, BUN of 8, creatinine of 0.9, and glucose of 116. AST of 18, ALT of 26, and alkaline phosphatase of 33. Albumin of 3.4. UA revealed specific gravity of 1.010, rbc 0 to 2, wbc 2 to 4, and bacteria many. ASSESSMENT: 1. Isovolemic hyponatremia. 2. Hypokalemia. PLAN: Plan for the patient is to continue with 3% normal saline. Replace the potassium. Check the urine osmolality and serum osmolality. Check the TSH level. Check the urine potassium. Free water restriction. Monitoring renal function and electrolytes correctly. Again, I would like to thank, Dr. Molina, for allowing me to participate in the care of this patient. Viktoria Tabor M.D. DR: ROBERT JOB#: [id number] CC:
[2018-03-29 04:00] VITALS: BP 137/71
[2018-03-29] MEDS: Piperacillin/Tazobactam 3.375 GM in D5W 110 ML IVPB SCH ×3 (06:01→21:56)
[2018-03-29 07:40] LABS: BASOPHILS % (AUTO) 0.7 % (0.0-2.0); EOSINOPHILS % (AUTO) 0.9 % (0.0-3.0); HEMATOCRIT 36.2 % (37.0-47.0); HEMOGLOBIN 12.7 G/DL (12.0-16.0); LYMPHOCYTES % (AUTO) 11.2 % (20.0-45.0); MEAN CORPUSCULAR VOLUME 91 FL (80-99); MONOCYTES % (AUTO) 7.8 % (1.0-10.0); NEUTROPHILS % (AUTO) 79.5 % (45.0-75.0); PLATELET COUNT 320 K/UL (150-450); RED BLOOD COUNT 3.99 M/UL (4.20-5.40); RED CELL DISTRIBUTION WIDTH 10.3 % (11.6-14.8); WHITE BLOOD COUNT 8.5 K/UL (4.8-10.8)
[2018-03-29] MEDS ORDERED: Milk of Magnesia 30ml Ud ORAL PRN (07:45)
[2018-03-29 08:00] VITALS: BP 134/65
[2018-03-29 09:00] LABS: ALANINE AMINOTRANSFERASE 22 U/L (12-78); ALBUMIN 3.4 G/DL (3.4-5.0); ALBUMIN/GLOBULIN RATIO 0.8 (1.0-2.7); ALKALINE PHOSPHATASE 50 U/L (46-116); ANION GAP 6 mmol/L (5-15); ASPARTATE AMINO TRANSFERASE 16 U/L (15-37); BILIRUBIN,TOTAL 0.3 MG/DL (0.2-1.0); BLOOD UREA NITROGEN 10 mg/dL (7-18); CARBON DIOXIDE 24 MMOL/L (21-32); CHLORIDE 101 MMOL/L (98-107); CREATININE 0.8 MG/DL (0.55-1.30); POTASSIUM 4.4 MMOL/L (3.5-5.1); SODIUM 130 MMOL/L (136-145)
[2018-03-29] MEDS: Docusate 100mg cap ORAL SCH ×2 (09:59→16:38)
[2018-03-29] MEDS: Bisacodyl EC 5mg tab ORAL SCH (09:59)
[2018-03-29 12:00] VITALS: BP 138/67
[2018-03-29 16:00] VITALS: BP 122/59
--- NOTE | 2018-03-29 17:19 | General Progress Note ---
Assessment/Plan Problem List: (1) Hyponatremia ICD Codes: E87.1 - Hypo-osmolality and hyponatremia SNOMED: 01462412 (2) Bilateral leg numbness ICD Codes: R20.0 - Anesthesia of skin SNOMED: 409558927 (3) Hypokalemia ICD Codes: E87.6 - Hypokalemia SNOMED: 37456519 (4) Hypertension ICD Codes: I10 - Essential (primary) hypertension SNOMED: 84200957 Status: progressing Assessment/Plan hyponatremia is improving needs more fluids lyte abnormality treatment per renal Subjective ROS Limited/Unobtainable: Yes Allergies: Coded Allergies: No Known Allergies (Unverified , 05/28/13) Objective Last 24 Hour Vital Signs Date Time Temp Pulse Resp B/P (MAP) Pulse Ox O2 Delivery O2 Flow Rate FiO2 03/29/18 12:00 98.0 66 20 138/67 (90) 96 98.0 03/29/18 12:00 70 03/29/18 09:00 Room Air 03/29/18 08:00 71 03/29/18 08:00 98.1 71 18 134/65 (88) 97 98.1 03/29/18 04:00 98.3 80 18 137/71 (93) 98 98.3 03/29/18 04:00 81 03/29/18 00:00 75 03/29/18 00:00 98.7 90 18 144/77 (99) 95 98.7 03/28/18 21:00 Room Air 03/28/18 20:00 71 03/28/18 20:00 98.6 84 17 152/79 (103) 95 98.6 03/28/18 20:00 79 Intake and Output 03/28/18 03/29/18 19:00 07:00 Intake Total 360 ml 360 ml Output Total 800 ml 1000 ml Balance -440 ml -640 ml Intake Oral 360 ml 360 ml Output Urine Total 800 ml 1000 ml # Voids 5 Laboratory Tests 03/29/18 06:10: White Blood Count 8.5, Red Blood Count 3.99L, Hemoglobin 12.7, Hematocrit 36.2L , Mean Corpuscular Volume 91, Mean Corpuscular Hemoglobin 32.0H, Mean Corpuscular Hemoglobin Concent 35.2, Red Cell Distribution Width 10.3L, Platelet Count 320, Mean Platelet Volume 6.1L, Neutrophils (%) (Auto) 79.5H, Lymphocytes (%) (Auto) 11.2L, Monocytes (%) (Auto) 7.8, Eosinophils (%) (Auto) 0.9, Basophils (%) (Auto) 0.7, Sodium Level 130L, Potassium Level 4.4#, Chloride Level 101, Carbon Dioxide Level 24, Anion Gap 6, Blood Urea Nitrogen 10 , Creatinine 0.8, Estimat Glomerular Filtration Rate , Glucose Level 101, Calcium Level 9.0, Total Bilirubin 0.3, Aspartate Amino Transf (AST/SGOT) 16, Alanine Aminotransferase (ALT/SGPT) 22, Alkaline Phosphatase 50, Total Protein 7.5, Albumin 3.4, Globulin 4.1, Albumin/Globulin Ratio 0.8L, Thyroid Stimulating Hormone (TSH) 2.118 Height (Feet): 5 Height (Inches): 11.00 Weight (Pounds): 132 Cardiovascular: normal rate Respiratory/Chest: lungs clear Manuel Molina MD Mar 29, 2018 17:19
--- NOTE | 2018-03-29 18:20 | Nephrology Progress Note ---
Assessment/Plan Assessment 1. Isovolemic hyponatremia. 2. Hypokalemia. Plan to continue ivf replace electrolyte as need free water restriction Subjective Constitutional: Reports: no symptoms HEENT: Reports: no symptoms Genitourinary: Reports: no symptoms Neurologic/Psychiatric: Reports: no symptoms Subjective feeling better today Objective Objective Last 24 Hour Vital Signs Date Time Temp Pulse Resp B/P (MAP) Pulse Ox O2 Delivery O2 Flow Rate FiO2 03/29/18 16:00 97.8 71 20 122/59 (80) 96 97.8 03/29/18 16:00 72 03/29/18 12:00 98.0 66 20 138/67 (90) 96 98.0 03/29/18 12:00 70 03/29/18 09:00 Room Air 03/29/18 08:00 71 03/29/18 08:00 98.1 71 18 134/65 (88) 97 98.1 03/29/18 04:00 98.3 80 18 137/71 (93) 98 98.3 03/29/18 04:00 81 03/29/18 00:00 75 03/29/18 00:00 98.7 90 18 144/77 (99) 95 98.7 03/28/18 21:00 Room Air 03/28/18 20:00 71 03/28/18 20:00 98.6 84 17 152/79 (103) 95 98.6 03/28/18 20:00 79 Intake and Output 03/28/18 03/29/18 19:00 07:00 Intake Total 360 ml 360 ml Output Total 800 ml 1000 ml Balance -440 ml -640 ml Intake Oral 360 ml 360 ml Output Urine Total 800 ml 1000 ml # Voids 5 Laboratory Tests 03/29/18 06:10: White Blood Count 8.5, Red Blood Count 3.99L, Hemoglobin 12.7, Hematocrit 36.2L , Mean Corpuscular Volume 91, Mean Corpuscular Hemoglobin 32.0H, Mean Corpuscular Hemoglobin Concent 35.2, Red Cell Distribution Width 10.3L, Platelet Count 320, Mean Platelet Volume 6.1L, Neutrophils (%) (Auto) 79.5H, Lymphocytes (%) (Auto) 11.2L, Monocytes (%) (Auto) 7.8, Eosinophils (%) (Auto) 0.9, Basophils (%) (Auto) 0.7, Sodium Level 130L, Potassium Level 4.4#, Chloride Level 101, Carbon Dioxide Level 24, Anion Gap 6, Blood Urea Nitrogen 10 , Creatinine 0.8, Estimat Glomerular Filtration Rate , Glucose Level 101, Calcium Level 9.0, Total Bilirubin 0.3, Aspartate Amino Transf (AST/SGOT) 16, Alanine Aminotransferase (ALT/SGPT) 22, Alkaline Phosphatase 50, Total Protein 7.5, Albumin 3.4, Globulin 4.1, Albumin/Globulin Ratio 0.8L, Thyroid Stimulating Hormone (TSH) 2.118 Height (Feet): 5 Height (Inches): 11.00 Weight (Pounds): 132 Objective HEAD AND NECK: No JVP. No LAD. No thyromegaly. Extraocular movement intact. Pupils are reactive to light and accommodation. LUNGS: Clear to auscultation. CARDIAC: Regular rate and rhythm. S1 and S2. No murmur. No rub. ABDOMEN: Soft, nontender, and nondistended. EXTREMITIES: No edema. No clubbing. No cyanosis. Viktoria Tabor MD Mar 29, 2018 18:20
[2018-03-29 20:00] VITALS: BP 135/70
--- NOTE | 2018-03-29 22:15 | Consultation ---
DATE OF CONSULTATION: 03/29/2018 INFECTIOUS DISEASES CONSULTATION CONSULTING PHYSICIAN: Jeff De La Cruz M.D. REFERRING PHYSICIAN: Manuel Molina M.D. This consultation has been done on behalf of Dr. Pito Amador. HISTORY OF PRESENTING ILLNESS: This is an 87-year-old lady with history of hypertension, who presents with bilateral numbness of the feet. She was found to be hyponatremic and an Infectious Diseases consultation has been obtained to rule out sepsis. PAST MEDICAL HISTORY: 1. History of hypertension. 2. Irregular heartbeat. SOCIAL HISTORY: She does not smoke, drink, or use drugs. FAMILY HISTORY: Noncontributory. REVIEW OF SYSTEMS: RESPIRATORY: No fever, chills, cough, shortness of breath or chest pain. CARDIAC: No chest pain. No palpitation. No dizziness. No syncope. GASTROINTESTINAL: No nausea. No vomiting. No abdominal pain or diarrhea. MUSCULOSKELETAL: She complains of numbness in the feet. MEDICATIONS: As an inpatient, she is on Dulcolax, milk of magnesia, Zosyn, and Tylenol. ALLERGIES: No known drug allergies. PHYSICAL EXAMINATION: VITAL SIGNS: Temperature of 98.1 degrees, T-max of 98.7 degrees, pulse of 71, respiratory rate 18, blood pressure 134/65, and O2 saturation of 97%. HEENT: Pupils equally reactive to light and accommodation. Mouth appears clean without thrush. NECK: Supple. No adenopathy. No JVD. CARDIOVASCULAR: Regular rate and rhythm. No murmurs. LUNGS: Clear to auscultation bilaterally. No crackles. No wheezes. ABDOMEN: Soft and nontender. No organomegaly. EXTREMITIES: No cyanosis, no clubbing, and no edema. LABORATORY AND DIAGNOSTIC DATA: White count 8.5, hemoglobin 12.7, hematocrit 36.2, MCV 91, and platelet count of 320, neutrophils of 79%. Sodium 130, potassium 4.4, chloride 101, bicarbonate 24, BUN 10, creatinine 0.8, glucose 101, calcium 9. Total bilirubin 0.3, AST 16, ALT 22, alkaline phosphatase 50, total protein 7.4, albumin 3.4. Sodium of 116 on 03/27/2018. Chest x-ray showed no acute disease. UA showing 2 to 4 white cells. ASSESSMENT: 1. This is an 87-year-old lady with history of hypertension and irregular heart rate who comes in with hyponatremia. We would like to rule out urinary tract infection as a possibility or sepsis. 2. Hyponatremia is resolving. PLAN: 1. We will order blood cultures. 2. We will order urine cultures. 3. Continue Zosyn for now. 4. We will follow up cultures and adjust antibiotics accordingly. I would like to thank Dr. Molina for this consultation. Jeff De La Cruz M.D. DR: AMARJIT JOB#: [id number] CC: Manuel Molina M.D.; Fax#: [phone]
[2018-03-30] VITALS: BP 158/89
[2018-03-30 04:00] VITALS: BP 140/63
[2018-03-30] MEDS: Piperacillin/Tazobactam 3.375 GM in D5W 110 ML IVPB SCH ×3 (06:03→22:25)
[2018-03-30 08:00] VITALS: BP 135/71
[2018-03-30 08:54] LABS: BASOPHILS % (AUTO) 1.8 % (0.0-2.0); EOSINOPHILS % (AUTO) 4.9 % (0.0-3.0); HEMATOCRIT 38.5 % (37.0-47.0); HEMOGLOBIN 13.1 G/DL (12.0-16.0); LYMPHOCYTES % (AUTO) 16.6 % (20.0-45.0); MEAN CORPUSCULAR VOLUME 92 FL (80-99); NEUTROPHILS % (AUTO) 66.6 % (45.0-75.0); PLATELET COUNT 301 K/UL (150-450); RED BLOOD COUNT 4.19 M/UL (4.20-5.40); RED CELL DISTRIBUTION WIDTH 10.6 % (11.6-14.8); WHITE BLOOD COUNT 6.1 K/UL (4.8-10.8)
[2018-03-30] MEDS: Docusate 100mg cap ORAL SCH ×2 (09:22→18:00)
[2018-03-30] MEDS: Bisacodyl EC 5mg tab ORAL SCH (09:22)
[2018-03-30 09:29] LABS: ALANINE AMINOTRANSFERASE 22 U/L (12-78); ALBUMIN 3.4 G/DL (3.4-5.0); ALBUMIN/GLOBULIN RATIO 0.9 (1.0-2.7); ALKALINE PHOSPHATASE 42 U/L (46-116); ANION GAP 7 mmol/L (5-15); ASPARTATE AMINO TRANSFERASE 16 U/L (15-37); BILIRUBIN,TOTAL 0.4 MG/DL (0.2-1.0); BLOOD UREA NITROGEN 9 mg/dL (7-18); CALCIUM 9.1 MG/DL (8.5-10.1); CARBON DIOXIDE 27 MMOL/L (21-32); CHLORIDE 96 MMOL/L (98-107); CREATININE 0.7 MG/DL (0.55-1.30); POTASSIUM 3.8 MMOL/L (3.5-5.1); SODIUM 130 MMOL/L (136-145)
[2018-03-30 12:00] VITALS: BP 121/65
[2018-03-30 16:00] VITALS: BP 158/77
--- NOTE | 2018-03-30 16:24 | Nephrology Progress Note ---
Assessment/Plan Assessment 1. Isovolemic hyponatremia. 2. Hypokalemia. Plan hold ivf replace electrolyte as need free water restriction Subjective Constitutional: Reports: no symptoms HEENT: Reports: no symptoms Genitourinary: Reports: no symptoms Neurologic/Psychiatric: Reports: no symptoms Subjective feeling better today Objective Objective Last 24 Hour Vital Signs Date Time Temp Pulse Resp B/P (MAP) Pulse Ox O2 Delivery O2 Flow Rate FiO2 03/30/18 12:00 96.4 69 19 121/65 (83) 99 96.4 03/30/18 12:00 66 03/30/18 09:00 Room Air 03/30/18 08:00 54 03/30/18 08:00 97.7 66 20 135/71 (92) 99 97.7 03/30/18 04:00 97.7 60 20 140/63 (88) 93 97.7 03/30/18 04:00 57 03/30/18 00:00 70 03/30/18 00:00 98.2 82 18 158/89 (112) 98 98.2 03/29/18 21:00 Room Air 03/29/18 20:00 98.2 69 20 135/70 (91) 98 98.2 Intake and Output 03/29/18 03/30/18 19:00 07:00 Intake Total 740 ml 290 ml Output Total 450 ml 700 ml Balance 290 ml -410 ml Intake Oral 740 ml 240 ml IV Total 50 ml Output Urine Total 450 ml 700 ml # Voids 2 2 Laboratory Tests 03/30/18 07:10: White Blood Count 6.1, Red Blood Count 4.19L, Hemoglobin 13.1, Hematocrit 38.5, Mean Corpuscular Volume 92, Mean Corpuscular Hemoglobin 31.3H, Mean Corpuscular Hemoglobin Concent 34.2, Red Cell Distribution Width 10.6L, Platelet Count 301, Mean Platelet Volume 5.8L, Neutrophils (%) (Auto) 66.6, Lymphocytes (%) (Auto) 16.6L, Monocytes (%) (Auto) 10.0, Eosinophils (%) (Auto) 4.9H, Basophils (%) ( Auto) 1.8, Sodium Level 130L, Potassium Level 3.8, Chloride Level 96L, Carbon Dioxide Level 27, Anion Gap 7, Blood Urea Nitrogen 9, Creatinine 0.7, Estimat Glomerular Filtration Rate , Glucose Level 86, Calcium Level 9.1, Total Bilirubin 0.4, Aspartate Amino Transf (AST/SGOT) 16, Alanine Aminotransferase ( ALT/SGPT) 22, Alkaline Phosphatase 42L, Total Protein 7.4, Albumin 3.4, Globulin 4.0, Albumin/Globulin Ratio 0.9L Height (Feet): 5 Height (Inches): 11.00 Weight (Pounds): 141 Objective HEAD AND NECK: No JVP. No LAD. No thyromegaly. Extraocular movement intact. Pupils are reactive to light and accommodation. LUNGS: Clear to auscultation. CARDIAC: Regular rate and rhythm. S1 and S2. No murmur. No rub. ABDOMEN: Soft, nontender, and nondistended. EXTREMITIES: No edema. No clubbing. No cyanosis. Viktoria Tabor MD Mar 30, 2018 16:23
[2018-03-30] MEDS ORDERED: Tubing IV Secondary IV ONE ×2 (17:01→17:07)
[2018-03-30] MEDS ORDERED: Milk of Magnesia 30ml Ud ORAL PRN (18:00)
[2018-03-30] MEDS ORDERED: Acetaminophen 500mg (ES) tab ORAL PRN (18:15)
[2018-03-30 20:00] VITALS: BP 132/63
--- NOTE | 2018-03-30 22:03 | General Progress Note ---
Assessment/Plan Problem List: (1) Hyponatremia ICD Codes: E87.1 - Hypo-osmolality and hyponatremia SNOMED: 23979524 (2) Bilateral leg numbness ICD Codes: R20.0 - Anesthesia of skin SNOMED: 282635916 (3) Hypokalemia ICD Codes: E87.6 - Hypokalemia SNOMED: 72879453 (4) Hypertension ICD Codes: I10 - Essential (primary) hypertension SNOMED: 58967316 Status: progressing Assessment/Plan hyponatremia is improving afebrile vitals stable no acute events Subjective ROS Limited/Unobtainable: Yes Allergies: Coded Allergies: No Known Allergies (Unverified , 05/28/13) Objective Last 24 Hour Vital Signs Date Time Temp Pulse Resp B/P (MAP) Pulse Ox O2 Delivery O2 Flow Rate FiO2 03/30/18 20:00 98.3 73 18 132/63 (86) 97 98.3 03/30/18 16:00 97.7 76 19 158/77 (104) 98 97.7 03/30/18 16:00 75 03/30/18 12:00 96.4 69 19 121/65 (83) 99 96.4 03/30/18 12:00 66 03/30/18 09:00 Room Air 03/30/18 08:00 54 03/30/18 08:00 97.7 66 20 135/71 (92) 99 97.7 03/30/18 04:00 97.7 60 20 140/63 (88) 93 97.7 03/30/18 04:00 57 03/30/18 00:00 70 03/30/18 00:00 98.2 82 18 158/89 (112) 98 98.2 Intake and Output 03/29/18 03/30/18 19:00 07:00 Intake Total 740 ml 290 ml Output Total 450 ml 700 ml Balance 290 ml -410 ml Intake Oral 740 ml 240 ml IV Total 50 ml Output Urine Total 450 ml 700 ml # Voids 2 2 Laboratory Tests 03/30/18 07:10: White Blood Count 6.1, Red Blood Count 4.19L, Hemoglobin 13.1, Hematocrit 38.5, Mean Corpuscular Volume 92, Mean Corpuscular Hemoglobin 31.3H, Mean Corpuscular Hemoglobin Concent 34.2, Red Cell Distribution Width 10.6L, Platelet Count 301, Mean Platelet Volume 5.8L, Neutrophils (%) (Auto) 66.6, Lymphocytes (%) (Auto) 16.6L, Monocytes (%) (Auto) 10.0, Eosinophils (%) (Auto) 4.9H, Basophils (%) ( Auto) 1.8, Sodium Level 130L, Potassium Level 3.8, Chloride Level 96L, Carbon Dioxide Level 27, Anion Gap 7, Blood Urea Nitrogen 9, Creatinine 0.7, Estimat Glomerular Filtration Rate , Glucose Level 86, Calcium Level 9.1, Total Bilirubin 0.4, Aspartate Amino Transf (AST/SGOT) 16, Alanine Aminotransferase ( ALT/SGPT) 22, Alkaline Phosphatase 42L, Total Protein 7.4, Albumin 3.4, Globulin 4.0, Albumin/Globulin Ratio 0.9L Height (Feet): 5 Height (Inches): 11.00 Weight (Pounds): 141 Neck: supple Cardiovascular: normal rate Respiratory/Chest: lungs clear Manuel Molina MD Mar 30, 2018 22:03
[2018-03-31] VITALS: BP 136/68
[2018-03-31 04:00] VITALS: BP 139/71
[2018-03-31] MEDS: Piperacillin/Tazobactam 3.375 GM in D5W 110 ML IVPB SCH (05:16)
[2018-03-31 08:00] VITALS: BP 165/79
[2018-03-31 09:00] VITALS: BP 165/79
[2018-03-31] MEDS ORDERED: Bisacodyl EC 5mg tab ORAL SCH (09:00)
[2018-03-31] MEDS: Docusate 100mg cap ORAL SCH (09:39)
--- NOTE | 2018-03-31 10:53 | Nephrology Progress Note ---
Assessment/Plan Assessment 1. Isovolemic hyponatremia. 2. Hypokalemia. Plan hold ivf replace electrolyte as need free water restriction Subjective Constitutional: Reports: no symptoms HEENT: Reports: no symptoms Genitourinary: Reports: no symptoms Neurologic/Psychiatric: Reports: no symptoms Subjective feeling OK NO complaints Objective Objective Last 24 Hour Vital Signs Date Time Temp Pulse Resp B/P (MAP) Pulse Ox O2 Delivery O2 Flow Rate FiO2 03/31/18 08:00 98.1 73 20 165/79 (107) 99 98.1 73 03/31/18 04:00 98.6 71 18 139/71 (93) 98 98.6 03/31/18 00:00 97.8 68 18 136/68 (90) 97 97.8 03/30/18 21:00 Room Air 03/30/18 20:00 98.3 73 18 132/63 (86) 97 98.3 03/30/18 16:00 97.7 76 19 158/77 (104) 98 97.7 03/30/18 16:00 75 03/30/18 12:00 96.4 69 19 121/65 (83) 99 96.4 03/30/18 12:00 66 Intake and Output 03/30/18 03/31/18 19:00 07:00 Intake Total 969.0 ml Output Total 1000 ml 1700 ml Balance -31.0 ml -1700 ml Intake Oral 520 ml IV Total 449.0 ml Output Urine Total 1000 ml 1700 ml # Bowel Movements 1 Height (Feet): 5 Height (Inches): 11.00 Weight (Pounds): 141 Objective HEAD AND NECK: No JVP. No LAD. No thyromegaly. Extraocular movement intact. Pupils are reactive to light and accommodation. LUNGS: Clear to auscultation. CARDIAC: Regular rate and rhythm. S1 and S2. No murmur. No rub. ABDOMEN: Soft, nontender, and nondistended. EXTREMITIES: No edema. No clubbing. No cyanosis. Viktoria Tabor MD Mar 31, 2018 10:53
--- NOTE | 2018-03-31 11:06 | General Progress Note ---
Assessment/Plan Problem List: (1) Hyponatremia ICD Codes: E87.1 - Hypo-osmolality and hyponatremia SNOMED: 02330577 (2) Bilateral leg numbness ICD Codes: R20.0 - Anesthesia of skin SNOMED: 952047595 (3) Hypokalemia ICD Codes: E87.6 - Hypokalemia SNOMED: 25842868 (4) Hypertension ICD Codes: I10 - Essential (primary) hypertension SNOMED: 64490497 Status: progressing Assessment/Plan hyponatremia is improving asymptomatic gave dc order afebrile vitals stable Subjective ROS Limited/Unobtainable: Yes Allergies: Coded Allergies: No Known Allergies (Unverified , 05/28/13) Objective Last 24 Hour Vital Signs Date Time Temp Pulse Resp B/P (MAP) Pulse Ox O2 Delivery O2 Flow Rate FiO2 03/31/18 08:00 98.1 73 20 165/79 (107) 99 98.1 73 03/31/18 04:00 98.6 71 18 139/71 (93) 98 98.6 03/31/18 00:00 97.8 68 18 136/68 (90) 97 97.8 03/30/18 21:00 Room Air 03/30/18 20:00 98.3 73 18 132/63 (86) 97 98.3 03/30/18 16:00 97.7 76 19 158/77 (104) 98 97.7 03/30/18 16:00 75 03/30/18 12:00 96.4 69 19 121/65 (83) 99 96.4 03/30/18 12:00 66 Intake and Output 03/30/18 03/31/18 19:00 07:00 Intake Total 969.0 ml Output Total 1000 ml 1700 ml Balance -31.0 ml -1700 ml Intake Oral 520 ml IV Total 449.0 ml Output Urine Total 1000 ml 1700 ml # Bowel Movements 1 Height (Feet): 5 Height (Inches): 11.00 Weight (Pounds): 141 Neck: supple Cardiovascular: normal rate Respiratory/Chest: lungs clear Manuel Molina MD Mar 31, 2018 11:06
--- NOTE | 2018-03-31 11:50 | Infectious Diseases Prog Note ---
Assessment/Plan Assessment/Plan antibiotics : zosyn A 1. UTI s/p rx 2. hyponatremia improving 3. HTN P 1. d/c zosyn 2. observe off antibiotics Subjective Constitutional: Denies: fever, chills Respiratory: Denies: shortness of breath, dry cough Gastrointestinal/Abdominal: Denies: nausea, vomiting, diarrhea Musculoskeletal: Denies: pain Allergies: Coded Allergies: No Known Allergies (Unverified , 05/28/13) Objective Vital Signs Last 24 Hour Vital Signs Date Time Temp Pulse Resp B/P (MAP) Pulse Ox O2 Delivery O2 Flow Rate FiO2 03/31/18 08:00 98.1 73 20 165/79 (107) 99 98.1 73 03/31/18 04:00 98.6 71 18 139/71 (93) 98 98.6 03/31/18 00:00 97.8 68 18 136/68 (90) 97 97.8 03/30/18 21:00 Room Air 03/30/18 20:00 98.3 73 18 132/63 (86) 97 98.3 03/30/18 16:00 97.7 76 19 158/77 (104) 98 97.7 03/30/18 16:00 75 03/30/18 12:00 96.4 69 19 121/65 (83) 99 96.4 03/30/18 12:00 66 Height (Feet): 5 Height (Inches): 11.00 Weight (Pounds): 141 Microbiology Date/Time Source Procedure Growth Status 03/29/18 13:15 Blood Blood Culture - Preliminary NO GROWTH AFTER 24 HOURS Resulted 03/29/18 15:50 Urine,Clean Catch Urine Culture - Preliminary Mixed Gram Positive Organism Resulted Current Medications Medications (Trade) Dose Ordered Sig/Gricelda Route PRN Reason Start Time Stop Time Status Last Admin Dose Admin Acetaminophen (Tylenol) 500 mg Q4H PRN ORAL Mild Pain/Temp > 100.5 03/30/18 18:15 04/26/18 22:14 Bisacodyl (Dulcolax) 10 mg DAILY ORAL 03/31/18 09:00 04/28/18 08:59 03/31/18 09:39 Docusate Sodium (Colace) 100 mg TWICE A DAY ORAL 03/30/18 18:00 04/28/18 08:59 03/31/18 09:39 Magnesium Hydroxide (Mom) 30 ml Q4H PRN ORAL Constipation 03/30/18 18:00 04/28/18 17:59 Piperacillin Sod/ Tazobactam Sod 3.375 gm/Dextrose 110 ml @ 27.5 mls/hr EVERY 8 HOURS IVPB 03/30/18 22:00 04/04/18 21:59 03/31/18 05:16 MACKENZIE DOLAN Mar 31, 2018 11:50
[2018-03-31 12:00] VITALS: BP 165/79
--- NOTE | 2018-03-31 12:06 | General Progress Note ---
Assessment/Plan Assessment/Plan Anxiety d/o cognitive d/o Ativan prn Seroquel prn Subjective Date patient seen: Mar 31, 2018 Neurologic/Psychiatric: Reports: anxiety, depressed, emotional problems Allergies: Coded Allergies: No Known Allergies (Unverified , 05/28/13) Subjective the pt is calm at times anxious Objective Last 24 Hour Vital Signs Date Time Temp Pulse Resp B/P (MAP) Pulse Ox O2 Delivery O2 Flow Rate FiO2 03/31/18 08:00 98.1 73 20 165/79 (107) 99 98.1 73 03/31/18 04:00 98.6 71 18 139/71 (93) 98 98.6 03/31/18 00:00 97.8 68 18 136/68 (90) 97 97.8 03/30/18 21:00 Room Air 03/30/18 20:00 98.3 73 18 132/63 (86) 97 98.3 03/30/18 16:00 97.7 76 19 158/77 (104) 98 97.7 03/30/18 16:00 75 Intake and Output 03/30/18 03/31/18 19:00 07:00 Intake Total 969.0 ml Output Total 1000 ml 1700 ml Balance -31.0 ml -1700 ml Intake Oral 520 ml IV Total 449.0 ml Output Urine Total 1000 ml 1700 ml # Bowel Movements 1 Height (Feet): 5 Height (Inches): 11.00 Weight (Pounds): 141 General Appearance: no apparent distress, alert Neurologic: depressed affect Yousuf White MD Mar 31, 2018 12:06
[2018-03-31] MEDS ORDERED: LORazepam 0.5mg tab ORAL PRN (13:00)
[2018-03-31] MEDS ORDERED: Tubing IV Secondary IV ONE (15:28)
--- NOTE | 2018-04-01 10:11 | Discharge Summary ---
Discharge Summary Discharge Summary _ DATE OF ADMISSION: 03/27/2018 DATE OF DISCHARGE: 03/31/2018 CONSULTANTS: Dr. Yousuf De La Cruz BRIEF HOSPITAL COURSE: Patient is an 87-year-old female, with medical history significant for hypertension presented to ED complaining of bilateral numbness in both feet. She denied swelling, pain, or shortness of breath, denied chest pain. She has been compliant with her medications. She was recently admitted to [facility] for hyponatremia and was taken off Lasix. On evaluation at ED, blood work showed hyponatremia of 116, potassium was low at 3.2. She was given hypertonic solution. EKG was in normal sinus rhythm with no acute ST changes. She had a chest x-ray that showed no acute disease. She was then admitted for evaluation of hyponatremia and bilateral leg numbness. She was given potassium replacement. Random urine sodium was normal. Thyroid function was normal. She had anxiety disorder and was placed on Ativan and Seroquel prn. She had urinalysis showing 1+ leukocyte esterase, 0-2 RBC, 2-4 WBC.. She was given Zosyn pending blood and urine culture results. Blood culture did not isolate any growth and urine culture showed growth of mixed gram-positive organisms. Antibiotic was discontinued. She was given PT for mobility. Sodium level improved. Potassium was replenished. She was eventually cleared for discharge home. FINAL DIAGNOSES: Isovolemic Hyponatremia Hypokalemia Anxiety disorder Cognitive disorder Possible UTI Hypertension DISPOSITION: Patient was discharged home. DISCHARGE MEDICATIONS: Refer to Discharge Medication List. DISCHARGE INSTRUCTIONS: Follow up with PCP in a week. I have been assigned to dictate discharge summary on this account, and I was not involved in the patient's management. Kamilah Bautista NP Apr 01, 2018 10:11
--- NOTE | 2018-04-03 12:33 | Cardiology Report ---
APPROVED REPORT EKG Measurement Heart [id number] [id number] Normal sinus rhythm Normal ECG
== END 2018-03-31 15:29 | disposition home or self-care (01) | DRG 641 ==
LOC: EMR 12:44 → 2E 16:55 → EDBEDREQ 18:01 → 4E 03-30 17:10
DX: E87.1 Hypo-osmolality and hyponatremia (principal); N39.0 Urinary tract infection, site not specified; E87.6 Hypokalemia; I10 Essential (primary) hypertension; F41.9 Anxiety disorder, unspecified; F09 Unspecified mental disorder due to known physiological condition
CPT/HCPCS: 36415; 71045; 80053; 81001; 82550; 82570; 83880; 84133; 84300; 84443; 84484; 85025; 85610; 85730; 87040; 87081; 87086; 93005; 99285; J8499

== ENCOUNTER 2019-11-24 18:17 | Emergency (ER) | payer OTHER, MEDICAID ==
[~2019-11-24] VITALS: Ht 149.9 cm; Wt 59.0 kg
--- NOTE | 2019-11-24 18:50 | NUR ---
ED Nurse Note: Patient walked into ED d/t fall earlier today. Patient denies hitting head or LOC. Patient AxO x 4, no s/s of acute distress.
--- NOTE | 2019-11-24 18:53 | Emergency Room Report ---
History of Present Illness General Chief Complaint: Multiple Trauma/Fall Source: Patient Present Illness HPI Patient fell on uneven concrete of the sidewalk approximately 2 hours ago. She fell backwards and hit her back and also her head. She denies loss of consciousness. She rates the pain 6/10 at this time. Aching in the back of her head and her back. She is ambulates with a walker usually and is continuing to ambulate without difficulty. She denies any knee pain or hand pain. The patient does not take blood thinners at this time. Because she was walking with her walker she fell backwards. Patient has a history of cataracts. History of hypertension. Occasional constipation. No dysuria. No fevers, chills, sore throat, chest pain, palpitations, nausea, vomiting, diarrhea, dysuria, abdominal pain, shortness of breath, rashes, depression, anxiety, visual changes, dizziness. 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 Last Menstrual Period: na Reviewed Nursing Documentation: PMH: Agreed; PSxH: Agreed Nursing Documentation-PMH Past Medical History: No History, Except For Hx Cardiac Problems: Yes Hx Hypertension: Yes Hx Cancer: No Hx Gastrointestinal Problems: Yes Hx Neurological Problems: No Hx Numbness: Yes - BLE Review of Systems All Other Systems: negative except mentioned in HPI Physical Exam Vital Signs Date Time Temp Pulse Resp B/P (MAP) Pulse Ox O2 Delivery O2 Flow Rate FiO2 11/24/19 18:22 98.2 90 19 140/81 (100) 97 Room Air Sp02 EP Interpretation: reviewed, normal General Appearance: well appearing, no apparent distress, GCS 15, other - Frail Head: normocephalic, other - Tenderness occiput Eyes: bilateral eye PERRL, bilateral eye abnormal EOM - Halting and slow ability to follow finger, bilateral eye other - Arcus bilaterally ENT: moist mucus membranes Neck: full range of motion, supple, no bony tend Respiratory: chest non-tender, lungs clear, normal breath sounds Cardiovascular #1: regular rate, rhythm, no edema Cardiovascular #2: 2+ radial (R) Gastrointestinal: normal inspection, normal bowel sounds, non tender, no mass, non-distended Genitourinary: no CVA tenderness Musculoskeletal: pelvis stable, gait/station normal - With walker, tender - Diffusely back not point tenderness Neurologic: motor strength/tone normal, DTRs symmetric, sensory intact, speech normal, other - See eye exam the rest of the cranial nerves normal Psychiatric: mood/affect normal Skin: no rash, warm/dry, other - Healed burn left inner thigh, seborrheic keratoses Medical Decision Making Diagnostic Impression: Primary Impression: Multiple injuries due to trauma Additional Impressions: Head injury Qualified Codes: S09.90XA - Unspecified injury of head, initial encounter Back contusion Qualified Codes: S20.229A - Contusion of unspecified back wall of thorax, initial encounter Abnormal extraocular movements ER Course Patient presents post fall with head injury. Differential includes head contusion, concussion, bleed amongst others. No evidence of bony tenderness at this time. CT the head indicated. Tylenol indicated. Abnormal eye exam noted. CT head with senescent changes without bleed or fracture. Patient improved with treatment. Discussed results with patient and daughter. Patient stable for outpatient observation and treatment. CT/MRI/US Diagnostic Results CT/MRI/US Diagnostic Results : Imaging Test Ordered: Head Impression Senescent changes. No bleed or fracture. Last Vital Signs Date Time Temp Pulse Resp B/P (MAP) Pulse Ox O2 Delivery O2 Flow Rate FiO2 11/24/19 19:34 98.2 90 19 140/81 97 Room Air Status: improved Disposition: HOME, SELF-CARE Condition: Improved Scripts Acetaminophen (Tylenol) 325 Mg Tablet 650 MG ORAL Q6H PRN for Prn Pain/Headache/Temp > 101, #20 TAB 0 Refills Prov: Dalton Jenkins MD 11/24/19 Referrals: NON PHYSICIAN (PCP) Dalton Jenkins MD Nov 24, 2019 18:53
[2019-11-24 18:54] VITALS: BP 140/81
--- NOTE | 2019-11-24 19:08 | NUR ---
ED Nurse Note: Report given to Angeli JOSE
--- NOTE | 2019-11-24 19:11 | Diagnostic Imaging Report ---
EXAM: CT Head Without Intravenous Contrast CLINICAL HISTORY: TRAUMA TECHNIQUE: Axial computed tomography images of the head/brain without intravenous contrast. CTDI is 53 mGy and DLP is 965 mGy-cm. One or more of the following dose reduction techniques were used: automated exposure control, adjustment of the mA and/or kV according to patient size, use of iterative reconstruction technique. COMPARISON: 11/15/17 FINDINGS: Brain: Parenchymal volume loss. Nonspecific white matter hypoattenuation likely secondary to chronic microvascular ischemia. Cerebrovascular ASVD. No hemorrhage. Ventricles: Unremarkable. No ventriculomegaly. Bones/joints: Unremarkable. No acute fracture. Soft tissues: Unremarkable. Sinuses: Unremarkable as visualized. No acute sinusitis. Mastoid air cells: Unremarkable as visualized. No mastoid effusion. IMPRESSION: 1. No acute intracranial pathology. 2. Chronic senescent findings above. 3. Otherwise unremarkable study.
[2019-11-24] MEDS ORDERED: TYLENOL325 MG ORAL (19:31)
[2019-11-24 19:34] VITALS: BP 140/81
--- NOTE | 2019-11-24 19:35 | NUR ---
ED Nurse Note: Pt cleared by health care Provider for discharge. DC instructions/prescription was given and explained to pt and verbalized understanding of teachings. All medical deviecs such as ID band removed. Pt is AAO x4, ambulatory and left with all personal belongings.
== END 2019-11-24 19:36 | disposition home or self-care (01) ==
LOC: EMR 18:38
DX: S09.90XA Unspecified injury of head, initial encounter (principal); S30.0XXA Contusion of lower back and pelvis, initial encounter; W19.XXXA Unspecified fall, initial encounter; Y93.01 Activity, walking, marching and hiking; Y92.9 Unspecified place or not applicable; G25.9 Extrapyramidal and movement disorder, unspecified; I10 Essential (primary) hypertension; Z87.891 Personal history of nicotine dependence
CPT/HCPCS: 70450; 99284

== ENCOUNTER 2020-05-19 16:53 | Inpatient (IN) | payer OTHER, MEDICAID ==
[~2020-05-19] VITALS: Ht 170.2 cm; Wt 73.5 kg
[2020-05-19] VITALS (18 sets, daily range): BP systolic 57–119; BP diastolic 31–92
[~2020-05-19 16:53] MED LIST changes: +TYLENOL325 MG ORAL
--- NOTE | 2020-05-19 18:03 | Emergency Room Report ---
History of Present Illness General Chief Complaint: Syncope Source: Medical Record Present Illness HPI 89-year-old female presents ED. Brought in by EMS for syncopal episode. Found slumped in her bathroom by her daughter. GCS 3 initially. Hypotensive. Given IV fluids. GCS improved afterwards. BP improved. Her EMS patient had large episodes of diarrhea the last few days. No reported fevers or chills. No cough. No chest pain or shortness of breath. Patient is more awake now but not answering questions. No other aggravating relieving factors. No other associated symptoms Allergies: Coded Allergies: No Known Allergies (Unverified , 05/28/13) COVID-19 Screening Contact w/high risk pt: No Experienced COVID-19 symptoms?: No COVID-19 Testing performed [employer]: No Patient History Past Medical History: HTN Pertinent Family History: none Social History: Denies: smoking, alcohol use, drug use Now: No Immunizations: UTD Reviewed Nursing Documentation: PMH: Agreed; PSxH: Agreed Nursing Documentation-PMH Past Medical History: No History, Except For Hx Cardiac Problems: Yes Hx Hypertension: Yes Hx Cancer: No Hx Gastrointestinal Problems: Yes Hx Neurological Problems: No Hx Numbness: Yes - BLE Review of Systems All Other Systems: negative except mentioned in HPI Physical Exam Vital Signs Date Time Temp Pulse Resp B/P (MAP) Pulse Ox O2 Delivery O2 Flow Rate FiO2 05/19/20 16:48 130 18 98/60 (73) 95 Room Air Sp02 EP Interpretation: reviewed, normal General Appearance: non-toxic, other Head: normocephalic, atraumatic Eyes: bilateral eye normal inspection, bilateral eye PERRL ENT: hearing grossly normal, normal pharynx, no angioedema, normal voice Neck: full range of motion, supple/symm/no masses Respiratory: chest non-tender, lungs clear, normal breath sounds, speaking full sentences Cardiovascular #1: regular rate, rhythm, no edema Cardiovascular #2: 2+ carotid (R), 2+ carotid (L), 2+ radial (R), 2+ radial (L) , 2+ dorsalis pedis (R), 2+ dorsalis pedis (L) Gastrointestinal: normal bowel sounds, non tender, soft, non-distended, no guarding, no rebound Rectal: deferred Genitourinary: normal inspection, no CVA tenderness Musculoskeletal: back normal, normal range of motion, gait/station normal, non- tender Neurologic: other - confused Psychiatric: other - confused Reflexes: 3+ bicep (R), 3+ bicep (L), 3+ tricep (R), 3+ tricep (L), 3+ knee (R) , 3+ knee (L) Skin: other - see nursing notes Lymphatic: no adenopathy Procedures Critical Care Time Critical Care Time i. I feel this is a highly complex case requiring extensive working including EKG/Rhythm strip, Xray/CT/US, Blood/urine lab work, repeat exams while in ED, and administration of strong opiates/narcotics for pain control, admission to hospital or close patient follow up. Total time: 75 min bedside evaluation and treatment excludes procedures (EKG). Reason for critical care: hypotension, septic shock, hypokalemia, hypocalcemia, anemia Possible complications: hypotension, hypertension, NV, shock, arrhythmias, metabolic acidosis, end organ damage, respiratory failure. Interventions: labs, ivfs, ekg, CXR, central line, broad antibiotics, calcium, potassium, d50, levophed, blood transfusion Course: Patient presenting status post syncopal episode. Hypotensive. IV fluids started. [place] leukocytosis, hemoglobin 7.1, lactic 6.4, potassium 2, calcium low. UA positive. Patient remains hypotensive after fluid bolus. discussed with daughter. Central line placed. Levophed started. Potassium repleted. D50 given. Broad-spectrum antibiotics given. Calcium given. Consultations: nursing staff, EMS, family Performed by: Dr Saini Tolerated well condition = critical j. because of unstable vital signs this patient had a condition that could potentially threaten life or limb. I feel this is a critical patient who required my full attention while patient was considered critical. Total Critical Care Time excluding procedures was greater than 75 minutes Central Line Central Line : Consent: Written Central Line Lumen: triple Maximal Sterile Barrier Tech: yes cap, yes mask, yes sterile gown, yes sterile gloves, yes large sterile sheet, yes hand hygiene, yes chlorhexidine prep Central Line Postion: femoral (R) Anesthesia: Lidocaine US Guided Line?: Yes Complications: none Central Line Post Position: sutured, good blood return Attempts: One Patient Tolerated: Well Complications: None Medical Decision Making Diagnostic Impression: Primary Impression: Syncope Qualified Codes: R55 - Syncope and collapse Additional Impressions: Septic shock Colitis UTI (urinary tract infection) Qualified Codes: N39.0 - Urinary tract infection, site not specified Hypokalemia Hypocalcemia Anemia ER Course Hospital Course 89-year-old female presents with syncopal episode at home. Diarrhea. Hypotensive Differential diagnoses include: Pneumonia, UTI, sepsis, dehydration, NV/ unstable angina Clinical course Patient placed on stretcher. 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 After initial history and physical, I ordered labs, IV fluids, EKG, chest x-ray, blood cultures, UA. Labs - BUN/Cr elevated, marked leukocytosis, Hb 7.1, K 2.0, Calcium low, lactic > 6, UA + bacteria, BNP elevated EKG - NSR, twave inversions in lateral leads CXR - cardiomegaly, pulmonary congestion COVID negative Patient remains hypotensive after fluid bolus. Discussed with daughter who I brought to bedside. Explained critical prognosis. She agrees to central line. Central line placed. Potassium repleted. Calcium repleted. Pressors started. Broad-spectrum antibiotics given. Blood ordered. Patient Accu-Chek critically low. Given D50. Case discussed with Dr Wilkins and they agreed to admit patient to their service for further care and support I feel this is a highly complex case requiring extensive working including EKG/ Rhythm strip, Xray/CT/US, Blood/urine lab work, repeat exams while in ED, and administration of strong opiates/narcotics for pain control, admission to hospital or close patient follow up. Diagnosis -syncope, septic shock, colitis, UTI, hypokalemia, hypocalcemia, anemia Patient admitted to ICU in critical condition Laboratory Tests Test 05/19/20 17:56 05/19/20 18:10 05/19/20 18:45 White Blood Count 33.3 K/UL (4.8-10.8) *H Red Blood Count 2.33 M/UL (4.20-5.40) L Hemoglobin 7.1 G/DL (12.0-16.0) L Hematocrit 22.1 % (37.0-47.0) L Mean Corpuscular Volume 95 FL (80-99) Mean Corpuscular Hemoglobin 30.3 PG (27.0-31.0) Mean Corpuscular Hemoglobin Concent 32.0 G/DL (32.0-36.0) Red Cell Distribution Width 13.5 % (11.6-14.8) Platelet Count 114 K/UL (150-450) L Mean Platelet Volume 6.0 FL (6.5-10.1) L Neutrophils (%) (Auto) % (45.0-75.0) Lymphocytes (%) (Auto) % (20.0-45.0) Monocytes (%) (Auto) % (1.0-10.0) Eosinophils (%) (Auto) % (0.0-3.0) Basophils (%) (Auto) % (0.0-2.0) Differential Total Cells Counted 100 Neutrophils % (Manual) 80 % (45-75) H Lymphocytes % (Manual) 6 % (20-45) L Monocytes % (Manual) 6 % (1-10) Eosinophils % (Manual) 0 % (0-3) Basophils % (Manual) 0 % (0-2) Band Neutrophils 8 % (0-8) Platelet Estimate Decreased L Platelet Morphology Normal Hypochromasia 2+ Anisocytosis 2+ Sodium Level 147 MMOL/L (136-145) H Pending Potassium Level 2.0 MMOL/L (3.5-5.1) *L Pending Chloride Level 118 MMOL/L (98-107) H Pending Carbon Dioxide Level 9 MMOL/L (21-32) *L Pending Anion Gap 20 mmol/L (5-15) H Blood Urea Nitrogen 17 mg/dL (7-18) Pending Creatinine 1.6 MG/DL (0.55-1.30) H Pending Estimat Glomerular Filtration Rate 36.7 mL/min (>60) Pending Glucose Level 41 MG/DL (74-106) L Pending Lactic Acid Level 6.40 mmol/L (0.4-2.0) H Pending Calcium Level 4.2 MG/DL (8.5-10.1) *L Pending Total Bilirubin 1.1 MG/DL (0.2-1.0) H Direct Bilirubin 1.0 MG/DL (0.0-0.3) H Aspartate Amino Transf (AST/SGOT) 178 U/L (15-37) H Alanine Aminotransferase (ALT/SGPT) 180 U/L (12-78) H Alkaline Phosphatase 55 U/L (46-116) Total Creatine Kinase 537 U/L (26-308) H Creatine Kinase MB 12.4 NG/ML (0.0-3.6) H Creatine Kinase MB Relative Index 2.3 Troponin I 0.044 ng/mL (0.000-0.056) Pro-B-Type Natriuretic Peptide 35313 pg/mL (0-125) H Total Protein 2.9 G/DL (6.4-8.2) L Albumin 1.1 G/DL (3.4-5.0) L Pending Globulin 1.8 g/dL Albumin/Globulin Ratio 0.6 (1.0-2.7) L Urine Color Yellow Urine Appearance Slightly cloudy Urine pH 6.5 (4.5-8.0) Urine Specific [place] 1.005 (1.005-1.035) Urine Protein 2+ (NEGATIVE) H Urine Glucose (UA) 1+ (NEGATIVE) H Urine Ketones 1+ (NEGATIVE) H Urine Blood 4+ (NEGATIVE) H Urine Nitrite Negative (NEGATIVE) Urine Bilirubin 2+ (NEGATIVE) H Urine Ictotest Negative (NEGATIVE) Urine Urobilinogen 8 MG/DL (0.0-1.0) H Urine Leukocyte Esterase 1+ (NEGATIVE) H Urine RBC 5-10 /HPF (0 - 2) H Urine WBC 10-15 /HPF (0 - 2) H Urine Squamous Epithelial Cells Moderate /LPF (NONE/OCC) H Urine Bacteria Moderate /HPF (NONE) H Prothrombin Time 15.4 SEC (9.30-11.50) H Prothromb Time International Ratio 1.4 (0.9-1.1) H Activated Partial Thromboplast Time 33 SEC (23-33) Phosphorus Level Pending EKG Diagnostic Results Rate: normal Rhythm: NSR ST Segments: other - twave inersions in lateral leads ASA given to the pt in ED: No Rhythm Strip Diag. Results EP Interpretation: yes Rhythm: NSR, no PVC's, no ectopy Chest X-Ray Diagnostic Results Chest X-Ray Diagnostic Results : Chest X-Ray Ordered: Yes # of Views/Limited/Complete: 1 View Indication: Other EP Interpretation: Yes Interpretation: no pneumothorax, other - cardiomegaly, pulmonary congestion Impression: Other - CHF Electronically Signed by: Electronically signed by Jose Manuel Saini MD Last Vital Signs Date Time Temp Pulse Resp B/P (MAP) Pulse Ox O2 Delivery O2 Flow Rate FiO2 05/19/20 16:48 130 18 98/60 (73) 95 Room Air Status: improved Disposition: ADMITTED INPATIENT Condition: Critical Referrals: NOT CHOSEN IPA/,REFERRING (PCP) Jose Manuel Saini MD May 19, 2020 18:03
[2020-05-19 18:06] LABS: HEMATOCRIT 22.1 % (37.0-47.0); HEMOGLOBIN 7.1 G/DL (12.0-16.0); MEAN CORPUSCULAR VOLUME 95 FL (80-99); PLATELET COUNT 114 K/UL (150-450); RED BLOOD COUNT 2.33 M/UL (4.20-5.40); RED CELL DISTRIBUTION WIDTH 13.5 % (11.6-14.8)
[2020-05-19 18:08] LABS: WHITE BLOOD COUNT 33.3 K/UL (4.8-10.8)
[2020-05-19] MEDS ORDERED: ENALAPRIL MALEA20 MG ORAL (18:41)
[2020-05-19] MEDS ORDERED: POTASSIUM CHLO20 ME1 ORAL (18:41)
[2020-05-19 18:48] LABS: ALANINE AMINOTRANSFERASE 180 U/L (12-78); ALBUMIN 1.1 G/DL (3.4-5.0); ALBUMIN/GLOBULIN RATIO 0.6 (1.0-2.7); ALKALINE PHOSPHATASE 55 U/L (46-116); ANION GAP 20 mmol/L (5-15); ASPARTATE AMINO TRANSFERASE 178 U/L (15-37); BILIRUBIN,TOTAL 1.1 MG/DL (0.2-1.0); BLOOD UREA NITROGEN 17 mg/dL (7-18); CHLORIDE 118 MMOL/L (98-107); CKMB 12.4 NG/ML (0.0-3.6); CREATINE KINASE 537 U/L (26-308); CREATININE 1.6 MG/DL (0.55-1.30); SODIUM 147 MMOL/L (136-145)
[2020-05-19 18:48] LABS: APPEARANCE,URINE SLIGHTLY CLOUDY; BILIRUBIN, URINE 2+ (NEGATIVE); GLUCOSE, URINE (UA) 1+ (NEGATIVE); KETONES,URINE 1+ (NEGATIVE); LEUKOCYTE ESTERASE ,URINE 1+ (NEGATIVE); NITRITE,URINE NEGATIVE (NEGATIVE); PH,URINE 6.5 (4.5-8.0); PROTEIN,URINE 2+ (NEGATIVE); UROBILINOGEN,URINE 8 MG/DL (0.0-1.0)
[2020-05-19 18:49] LABS: CARBON DIOXIDE 9 MMOL/L (21-32)
--- NOTE | 2020-05-19 18:49 | Diagnostic Imaging Report ---
Chest 1 view History: Syncope Findings: Trachea is midline. Costophrenic angles are clear. Mild pulmonary vascular congestion without overt pulmonary edema. Mild cardiomegaly. Impression: 1. Cardiomegaly and pulmonary vascular congestion without overt pulmonary edema
[2020-05-19 18:50] LABS: CALCIUM 4.2 MG/DL (8.5-10.1)
[2020-05-19 18:55] LABS: COLOR,URINE YELLOW
[2020-05-19] MEDS ORDERED: Calcium Gluconate 1gm/10ml vial IVP ONE (19:15)
[2020-05-19] MEDS ORDERED: Vancomycin 1 GM in D5W 275 ML IVPB ONE ×4 (19:15)
[2020-05-19] MEDS ORDERED: Zosyn 3.375gm inj ONE (19:29)
[2020-05-19 19:38] LABS: INR 1.4 (0.9-1.1)
--- NOTE | 2020-05-19 19:52 | Emergency Room Report ---
Sepsis Event Note Evaluation Current Stage of Sepsis: Septic Shock Possible Source: GI Tract/Intra-Abdominal Focused Exam Allergies: Coded Allergies: No Known Allergies (Unverified , 05/28/13) Date Exam Occurred: May 19, 2020 Time Exam Occurred: 18:00 Laboratory Studies Laboratory Tests Test 05/19/20 17:56 05/19/20 18:10 05/19/20 18:45 White Blood Count 33.3 K/UL (4.8-10.8) *H Red Blood Count 2.33 M/UL (4.20-5.40) L Hemoglobin 7.1 G/DL (12.0-16.0) L Hematocrit 22.1 % (37.0-47.0) L Mean Corpuscular Volume 95 FL (80-99) Mean Corpuscular Hemoglobin 30.3 PG (27.0-31.0) Mean Corpuscular Hemoglobin Concent 32.0 G/DL (32.0-36.0) Red Cell Distribution Width 13.5 % (11.6-14.8) Platelet Count 114 K/UL (150-450) L Mean Platelet Volume 6.0 FL (6.5-10.1) L Neutrophils (%) (Auto) % (45.0-75.0) Lymphocytes (%) (Auto) % (20.0-45.0) Monocytes (%) (Auto) % (1.0-10.0) Eosinophils (%) (Auto) % (0.0-3.0) Basophils (%) (Auto) % (0.0-2.0) Differential Total Cells Counted 100 Neutrophils % (Manual) 80 % (45-75) H Lymphocytes % (Manual) 6 % (20-45) L Monocytes % (Manual) 6 % (1-10) Eosinophils % (Manual) 0 % (0-3) Basophils % (Manual) 0 % (0-2) Band Neutrophils 8 % (0-8) Platelet Estimate Decreased L Platelet Morphology Normal Hypochromasia 2+ Anisocytosis 2+ Sodium Level 147 MMOL/L (136-145) H Pending Potassium Level 2.0 MMOL/L (3.5-5.1) *L Pending Chloride Level 118 MMOL/L (98-107) H Pending Carbon Dioxide Level 9 MMOL/L (21-32) *L Pending Anion Gap 20 mmol/L (5-15) H Blood Urea Nitrogen 17 mg/dL (7-18) Pending Creatinine 1.6 MG/DL (0.55-1.30) H Pending Estimat Glomerular Filtration Rate 36.7 mL/min (>60) Pending Glucose Level 41 MG/DL (74-106) L Pending Lactic Acid Level 6.40 mmol/L (0.4-2.0) H Pending Calcium Level 4.2 MG/DL (8.5-10.1) *L Pending Total Bilirubin 1.1 MG/DL (0.2-1.0) H Direct Bilirubin 1.0 MG/DL (0.0-0.3) H Aspartate Amino Transf (AST/SGOT) 178 U/L (15-37) H Alanine Aminotransferase (ALT/SGPT) 180 U/L (12-78) H Alkaline Phosphatase 55 U/L (46-116) Total Creatine Kinase 537 U/L (26-308) H Creatine Kinase MB 12.4 NG/ML (0.0-3.6) H Creatine Kinase MB Relative Index 2.3 Troponin I 0.044 ng/mL (0.000-0.056) Pro-B-Type Natriuretic Peptide 27373 pg/mL (0-125) H Total Protein 2.9 G/DL (6.4-8.2) L Albumin 1.1 G/DL (3.4-5.0) L Pending Globulin 1.8 g/dL Albumin/Globulin Ratio 0.6 (1.0-2.7) L Urine Color Yellow Urine Appearance Slightly cloudy Urine pH 6.5 (4.5-8.0) Urine Specific [place] 1.005 (1.005-1.035) Urine Protein 2+ (NEGATIVE) H Urine Glucose (UA) 1+ (NEGATIVE) H Urine Ketones 1+ (NEGATIVE) H Urine Blood 4+ (NEGATIVE) H Urine Nitrite Negative (NEGATIVE) Urine Bilirubin 2+ (NEGATIVE) H Urine Ictotest Negative (NEGATIVE) Urine Urobilinogen 8 MG/DL (0.0-1.0) H Urine Leukocyte Esterase 1+ (NEGATIVE) H Urine RBC 5-10 /HPF (0 - 2) H Urine WBC 10-15 /HPF (0 - 2) H Urine Squamous Epithelial Cells Moderate /LPF (NONE/OCC) H Urine Bacteria Moderate /HPF (NONE) H Prothrombin Time 15.4 SEC (9.30-11.50) H Prothromb Time International Ratio 1.4 (0.9-1.1) H Activated Partial Thromboplast Time 33 SEC (23-33) Phosphorus Level Pending Vital Signs Last 24 Hour Vital Signs Date Time Temp Pulse Resp B/P (MAP) Pulse Ox O2 Delivery O2 Flow Rate FiO2 05/19/20 19:24 62/34 05/19/20 18:28 102 60/45 05/19/20 18:15 101 62/43 05/19/20 18:00 98 78/42 05/19/20 17:45 80 68/41 05/19/20 17:30 98.5 99 17 62/49 97 Room Air 05/19/20 16:48 130 18 98/60 (73) 95 Room Air Respiratory Exam: Crackles Cardiovascular Exam: RRR Capillary Refill: Greater Than 2 Seconds Peripheral Pulse: Weak Pulse Location: Femoral Skin Exam: [place] Bedside Monitoring Date bedside monitoring occur: May 19, 2020 Time bedside monitoring occur: 19:51 Bedside Ultrasound Performed: No - Not responsive to fluid bolus. Pressors started. Central line placed. Patient pending blood transfusion Passive Leg Raise/Fluid Bolus: Not Fluid Responsive Jose Manuel Saini MD May 19, 2020 19:52
[2020-05-19 19:55] LABS: ALBUMIN 2.4 G/DL (3.4-5.0); ANION GAP 20 mmol/L (5-15); BLOOD UREA NITROGEN 29 mg/dL (7-18); CALCIUM 7.3 MG/DL (8.5-10.1); CARBON DIOXIDE 16 MMOL/L (21-32); CHLORIDE 101 MMOL/L (98-107); CREATININE 3.5 MG/DL (0.55-1.30); PHOSPHORUS 7.6 MG/DL (2.5-4.9); POTASSIUM 3.9 MMOL/L (3.5-5.1); SODIUM 137 MMOL/L (136-145)
[2020-05-19] MEDS ORDERED: D5NS w/KCl 40mEq 1000ml 1,000 ML IV SCH (20:15)
[2020-05-19] MEDS: Heparin 5000 units/ml inj SUBQ SCH (21:00)
[2020-05-19] MEDS ORDERED: Piperacillin/Tazobactam 3.375 GM in NS 110 ML IVPB SCH (22:00)
[2020-05-19] MEDS: D5W IV SCH (22:47)
[2020-05-19] MEDS: SODIUM BICARBONATE IV SCH (22:47)
[2020-05-19] MEDS: POTASSIUM CHLORIDE IV SCH (22:47)
[2020-05-19 23:51] LABS: APPEARANCE,URINE CLEAR; BILIRUBIN, URINE NEGATIVE (NEGATIVE); GLUCOSE, URINE (UA) NEGATIVE (NEGATIVE); KETONES,URINE NEGATIVE (NEGATIVE); NITRITE,URINE NEGATIVE (NEGATIVE); PH,URINE 7 (4.5-8.0); PROTEIN,URINE 2+ (NEGATIVE); UROBILINOGEN,URINE NORMAL MG/DL (0.0-1.0)
[2020-05-19] MEDS: Vancomycin oral 125mg/2.5ml ORAL SCH (23:57)
[2020-05-20] VITALS (80 sets, daily range): BP systolic 79–139; BP diastolic 28–103
[2020-05-20 01:23] LABS: COLOR,URINE YELLOW; LEUKOCYTE ESTERASE ,URINE 2+ (NEGATIVE)
--- NOTE | 2020-05-20 01:44 | Consultation ---
DATE OF CONSULTATION: 05/19/2020 CARDIOLOGY CONSULTATION CONSULTING PHYSICIAN: Dalton Valdez M.D. REQUESTING PHYSICIAN: Eric Wilkins MD. REASON FOR CONSULTATION: Shock. HISTORY OF PRESENT ILLNESS: This 89-year-old female was brought into the emergency room following an episode of witnessed syncope by her daughter. She was found slumped down in the bathroom. Paramedics found her to be hypotensive and gave IV fluids in the field. The patient apparently has had large episodes of diarrhea over the past few days, but no other constitutional symptoms. There is no record of fever, chills, cough, or shortness of breath. In the emergency room, the patient was noted to have a pressure of 98/60, heart rate 130, and respiratory rate 18. IV fluid boluses were given and subsequently blood pressure decreased further necessitating the initiation of a central line and pressor support. PAST MEDICAL HISTORY: Includes hypertension, gastroesophageal reflux disease, osteoarthritis, dyslipidemia, history of hyponatremia. ALLERGIES: None. MEDICATIONS: Prior to admission, reviewed and reconciled. FAMILY HISTORY: Not known. SOCIAL HISTORY: No record of smoking, alcohol, or substance abuse. REVIEW OF SYSTEMS: Not obtainable from patient at this time. PHYSICAL EXAMINATION: VITAL SIGNS: Blood pressure 95/52, pulse 110, respirations 24, afebrile, poorly responsive. LUNGS: Bilateral breath sounds. CARDIAC: Regular rhythm. Rapid rate. Normal S1, S2. No murmur. ABDOMEN: Soft. No focal tenderness or guarding. EXTREMITIES: Without edema. Capillary refill is decreased. Right femoral central line is in place. LABORATORY AND DIAGNOSTIC DATA: White count 33, hemoglobin 7, platelet count 114. Sodium 147, potassium 2, bicarb 9, chloride 118. BUN 17, creatinine 1.6. Lactic acid 6.4, troponin 0.044. Pro-natriuretic peptide 12,800. EKG, sinus rhythm, lateral T-wave inversions and nonspecific ST changes. Urinalysis 10 to 15 white cells. Chest x-ray with cardiomegaly and mild pulmonary venous congestion. IMPRESSION: 1. Shock. 2. Sepsis. 3. Lactic acidosis. 4. Acute myocardial ischemia. 5. Possible [id number] myocardial infarction. 6. Acute diastolic congestive heart failure. 7. History of hypertension. 8. Acute renal failure. 9. Severe hypokalemia. 10. Severe anemia. 11. Severe leukocytosis. 12. Dehydration and hypernatremia. RECOMMENDATIONS: 1. ICU monitoring and care. 2. Saline hydration until blood pressure parameters stabilized, then replace free water with hypotonic fluids. 3. Taper pressors as able. 4. Broad-spectrum antimicrobials with coverage for abdominal pathogens. 5. CAT scan of the abdomen to follow. 6. Hold all antihypertensive. 7. DVT prophylaxis. 8. Potassium replacement. 9. Check magnesium. 10. Serial lactic acid levels. 11. Serial troponin levels. 12. Remains critical and guarded. Dalton Valdez M.D. DR: JUAN F JOB#: [id number] CC:
[2020-05-20] MEDS ORDERED: ENALAPRIL MALEA20 MG ORAL (01:47)
[2020-05-20] MEDS ORDERED: AMLODIPINE BESY10 MG ORAL (01:47)
[2020-05-20] MEDS ORDERED: CHLORTHALIDONE25 MG ORAL (01:47)
[2020-05-20] MEDS ORDERED: POTASSIUM CHLO20 ME3 PO (01:49)
[2020-05-20] MEDS ORDERED: Piperacillin/Tazobactam 3.375 GM in NS 110 ML IVPB SCH ×2 (06:00→18:00)
[2020-05-20] MEDS: POTASSIUM CHLORIDE IV SCH (06:20)
[2020-05-20] MEDS: SODIUM BICARBONATE IV SCH (06:20)
[2020-05-20] MEDS: D5W IV SCH (06:20)
[2020-05-20 06:33] LABS: HEMATOCRIT 46.4 % (37.0-47.0); HEMOGLOBIN 15.3 G/DL (12.0-16.0); MEAN CORPUSCULAR VOLUME 89 FL (80-99); PLATELET COUNT 73 K/UL (150-450); RED BLOOD COUNT 5.18 M/UL (4.20-5.40); RED CELL DISTRIBUTION WIDTH 12.4 % (11.6-14.8)
[2020-05-20 06:38] LABS: WHITE BLOOD COUNT 46.5 K/UL (4.8-10.8)
[2020-05-20 06:51] LABS: INR 1.9 (0.9-1.1)
[2020-05-20 07:08] LABS: ALANINE AMINOTRANSFERASE 523 U/L (12-78); ALBUMIN 2.4 G/DL (3.4-5.0); ALKALINE PHOSPHATASE 85 U/L (46-116); ANION GAP 13 mmol/L (5-15); ASPARTATE AMINO TRANSFERASE 593 U/L (15-37); BILIRUBIN,DIRECT 2.5 MG/DL (0.0-0.3); BILIRUBIN,TOTAL 3.8 MG/DL (0.2-1.0); BLOOD UREA NITROGEN 26 mg/dL (7-18); CALCIUM 7.3 MG/DL (8.5-10.1); CARBON DIOXIDE 21 MMOL/L (21-32); CHLORIDE 96 MMOL/L (98-107); CREATININE 2.3 MG/DL (0.55-1.30); PHOSPHORUS 3.1 MG/DL (2.5-4.9); POTASSIUM 3.5 MMOL/L (3.5-5.1); SODIUM 130 MMOL/L (136-145)
[2020-05-20] MEDS: Heparin 5000 units/ml inj SUBQ SCH (08:19)
[2020-05-20] MEDS: Vancomycin oral 125mg/2.5ml ORAL SCH (08:23)
[2020-05-20] MEDS ORDERED: D5 1/2NS w/KCl 20mEq 1,000 ML IV SCH (09:00)
--- NOTE | 2020-05-20 10:00 | History and Physical Report ---
DATE OF ADMISSION: 05/19/2020 HISTORY AND PHYSICAL AND ICU NOTE CHIEF COMPLAINT AND REASON FOR HOSPITALIZATION: Patient admitted with shock. HISTORY OF PRESENT ILLNESS: Patient is an 89-year-old lady with a history of hypertension and prior arrhythmias, prior episodes of hyponatremia. She cannot give a history. History is taken from her daughter. She apparently had some nausea and vomiting last week, which resolved and then came again within the last 24 to 48 hours. She had constipation and was given milk of magnesia. She continued to take her blood pressure medicine. She presented to the emergency room with shock and abnormal laboratories. She was given fluids, antibiotics, and started on Levophed drip and a femoral line for hypotension. The patient had severe hypokalemia, leukocytosis, and elevated liver enzymes. ALLERGIES: None known. MEDICATIONS: Chlorthalidone 25 mg daily, enalapril 20 mg daily, omeprazole 20 mg p.r.n., amlodipine 10 mg daily, DSS 100 mg b.i.d., potassium 20 mEq daily. SURGERIES: None. HABITS: She is a nondrinker and nonsmoker. SYSTEM REVIEW: HEAD, EYES, EARS, NOSE, AND THROAT: No history of vision or hearing problems. ENDOCRINE: No known diabetes or thyroid disease. PULMONARY: No asthma, TB, or chronic cough. CARDIAC: No definite angina or MD. There is a history of hypertension. There is a history of apparently some arrhythmias, it is not clear and hypercholesterolemia. GASTROINTESTINAL: No definite ulcers or GI bleeding, but she had nausea, vomiting, and constipation recently. GENITOURINARY: No dysuria or hematuria. NEUROLOGIC: No CVA or seizures. PHYSICAL EXAMINATION: GENERAL: The patient is lying in bed in the ICU. VITAL SIGNS: Pulse 122, respirations 33, blood pressure 97/62, pulse ox is 97. HEAD, EYES, EARS, NOSE, AND THROAT: There is faint scleral icterus. Oral mucosa dry. NECK: No adenopathy. LUNGS: Few bilateral rhonchi. HEART: Rhythm is regular and tachycardic. I hear no murmur. ABDOMEN: Mildly distended. Liver and spleen not palpable. EXTREMITIES: No edema, cyanosis, or clubbing. NEUROLOGIC: She is awake, but encephalopathic. Unable to carry on and answers simple questions. Looks about. Ocular motions appear intact in all directions. Smile is symmetric. There is no focal weakness. LABORATORY AND DIAGNOSTIC DATA: Review of pertinent labs on admission, sodium 147, potassium 2, chloride 118, CO2 9, BUN 17, creatinine 1.6. Lactic acid 6.4. Albumin 1.1. AST 178, ALT 180, alkaline phosphatase 55. CK 537. Troponin 0.044. BUN and creatinine went up to 29 and 3.5 and came down to 26 and 2.3. Troponin 0.286. White count 33.3 and hemoglobin is 7.1 on admission with platelets 114. PT/INR 1/0.4, PTT 33. IMPRESSION: 1. Shock and septic shock. 2. Elevated liver enzymes, possible acute cholecystitis versus other liver disease. 3. Pyuria, possible UTI. 4. Elevated troponin, likely non-ST elevation MD. 5. Lactic acidosis. 6. Severe anemia. 7. History of hypertension. 8. History of taking diuretics. 9. Qltiewry-qo-ljicei protein-calorie malnutrition. 10. Metabolic encephalopathy, likely secondary to sepsis. PLAN: All ICU orders are given. Patient's condition is complex. I have asked for appropriate consultants. Please review all the ICU orders as written and we will watch closely with serial laboratories, imaging, evaluation for possible cholecystitis or intraabdominal emergency. Eric Wilkins M.D. DR: ARMIN JOB#: [id number] CC:
[2020-05-20] MEDS: Pantoprazole Inj IVP SCH ×2 (10:09→20:22)
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
[2020-05-20] MEDS ORDERED: Phytonadione 5 MG in D5W 55 ML IVPB ONE (10:45)
--- NOTE | 2020-05-20 11:43 | Cardiology Progress Note ---
Subjective DATE OF SERVICE: May 20, 2020 Very withdrawn, but arousable Remains on pressors with tenuous BP readings. Monitor: sinus tachycardia Objective Last 24 Hour Vital Signs Date Time Temp Pulse Resp B/P (MAP) Pulse Ox O2 Delivery O2 Flow Rate FiO2 05/20/20 11:15 117 32 102/86 (91) 94 05/20/20 11:00 121 34 112/53 (72) 94 05/20/20 10:30 120 30 110/58 (75) 97 05/20/20 10:00 122 35 108/56 (73) 98 05/20/20 09:30 130 35 139/69 (92) 96 05/20/20 09:00 107 33 96/47 (63) 95 05/20/20 08:30 122 33 94/72 (79) 94 05/20/20 08:21 71/18 05/20/20 08:00 121 05/20/20 08:00 Nasal Cannula 2.0 05/20/20 08:00 97.6 124 33 99/73 (82) 94 05/20/20 07:30 123 29 104/56 (72) 96 05/20/20 07:00 120 32 90/65 (73) 95 05/20/20 07:00 90/65 05/20/20 06:45 122 32 93/45 (61) 96 05/20/20 06:30 122 33 97/62 (74) 96 05/20/20 06:15 123 36 101/52 (68) 97 05/20/20 06:00 122 34 114/53 (73) 96 05/20/20 06:00 114/53 05/20/20 05:45 116 36 111/59 (76) 96 05/20/20 05:30 123 34 106/42 (63) 96 05/20/20 05:15 123 36 107/52 (70) 96 05/20/20 05:00 123 35 93/59 (70) 96 05/20/20 05:00 93/59 05/20/20 04:45 124 32 118/60 (79) 96 05/20/20 04:45 118/60 05/20/20 04:30 123 34 104/49 (67) 96 05/20/20 04:15 124 33 115/53 (73) 96 05/20/20 04:15 115/53 05/20/20 04:00 Nasal Cannula 4.0 05/20/20 04:00 105/57 05/20/20 04:00 98.5 126 34 105/57 (73) 97 05/20/20 04:00 125 05/20/20 03:45 125 35 109/52 (71) 97 05/20/20 03:44 105/53 05/20/20 03:30 124 33 105/53 (70) 96 05/20/20 03:15 128 32 116/47 (70) 96 05/20/20 03:00 113/43 05/20/20 03:00 124 35 113/43 (66) 97 05/20/20 02:45 127 32 107/63 (78) 96 05/20/20 02:30 123 31 104/54 (71) 97 05/20/20 02:15 122 33 104/52 (69) 97 05/20/20 02:00 119 31 91/46 (61) 97 05/20/20 02:00 91/46 05/20/20 01:45 119 28 97/48 (64) 96 05/20/20 01:30 122 26 97/55 (69) 97 05/20/20 01:15 121 28 95/47 (63) 96 05/20/20 01:00 92/51 05/20/20 01:00 97.6 120 22 92/51 (65) 97 05/20/20 00:45 120 28 106/58 (74) 98 05/20/20 00:34 98/51 05/20/20 00:30 105 27 117/57 (77) 97 05/20/20 00:15 113 22 97/49 (65) 96 05/20/20 00:00 109 05/20/20 00:00 Nasal Cannula 4.0 05/20/20 00:00 84/46 05/20/20 00:00 97.9 108 22 84/46 (59) 96 05/19/20 23:45 109 21 90/52 (65) 96 05/19/20 23:45 90/52 05/19/20 23:30 110 24 95/52 (66) 98 05/19/20 23:15 110 22 97/77 (84) 100 05/19/20 23:02 110 22 116/56 (76) 98 05/19/20 23:00 Nasal Cannula 4.0 05/19/20 23:00 116/56 05/19/20 22:45 109 22 112/92 (99) 98 05/19/20 22:30 112/92 05/19/20 22:30 93.1 111 22 112/92 (99) 98 05/19/20 22:20 96.5 109 24 102/78 100 Nasal Cannula 4.0 05/19/20 22:00 96.4 110 21 97/78 99 Room Air 05/19/20 21:30 96.4 108 24 94/31 100 Room Air 05/19/20 21:00 98.5 104 24 87/60 100 Room Air 05/19/20 20:30 96.0 102 30 102/83 100 Room Air 05/19/20 20:00 96.0 103 26 57/44 99 Room Air 05/19/20 19:30 96.0 107 26 119/53 99 Room Air 05/19/20 19:24 62/34 05/19/20 19:00 96.0 95 26 61/45 98 Room Air 05/19/20 18:28 102 60/45 05/19/20 18:15 101 62/43 05/19/20 18:00 98 78/42 05/19/20 17:45 80 68/41 05/19/20 17:30 98.5 99 17 62/49 97 Room Air 05/19/20 16:48 130 18 98/60 (73) 95 Room Air ROS: no change from my evaluation of 05/19/20. HEENT: normal ENT inspection LUNGS: lungs clear bilaterally CARDIAC: regular rhythm, normal S1 and S2, rapid rate, tachycardia ABDOMEN: soft, tender - mild diffuse EXTREMITIES: normal range of motion, No edema Laboratory Tests Test 05/19/20 17:56 05/19/20 18:10 05/19/20 18:45 05/19/20 23:00 White Blood Count 33.3 K/UL (4.8-10.8) *H Red Blood Count 2.33 M/UL (4.20-5.40) L Hemoglobin 7.1 G/DL (12.0-16.0) L Hematocrit 22.1 % (37.0-47.0) L Mean Corpuscular Volume 95 FL (80-99) Mean Corpuscular Hemoglobin 30.3 PG (27.0-31.0) Mean Corpuscular Hemoglobin Concent 32.0 G/DL (32.0-36.0) Red Cell Distribution Width 13.5 % (11.6-14.8) Platelet Count 114 K/UL (150-450) L Mean Platelet Volume 6.0 FL (6.5-10.1) L Neutrophils (%) (Auto) % (45.0-75.0) Lymphocytes (%) (Auto) % (20.0-45.0) Monocytes (%) (Auto) % (1.0-10.0) Eosinophils (%) (Auto) % (0.0-3.0) Basophils (%) (Auto) % (0.0-2.0) Differential Total Cells Counted 100 Neutrophils % (Manual) 80 % (45-75) H Lymphocytes % (Manual) 6 % (20-45) L Monocytes % (Manual) 6 % (1-10) Eosinophils % (Manual) 0 % (0-3) Basophils % (Manual) 0 % (0-2) Band Neutrophils 8 % (0-8) Platelet Estimate Decreased L Platelet Morphology Normal Hypochromasia 2+ Anisocytosis 2+ Sodium Level 147 MMOL/L (136-145) H 137 MMOL/L (136-145) # Potassium Level 2.0 MMOL/L (3.5-5.1) *L 3.9 MMOL/L (3.5-5.1) # Chloride Level 118 MMOL/L (98-107) H 101 MMOL/L (98-107) Carbon Dioxide Level 9 MMOL/L (21-32) *L 16 MMOL/L (21-32) L Anion Gap 20 mmol/L (5-15) H 20 mmol/L (5-15) H Blood Urea Nitrogen 17 mg/dL (7-18) 29 mg/dL (7-18) H Creatinine 1.6 MG/DL (0.55-1.30) H 3.5 MG/DL (0.55-1.30) #H Estimat Glomerular Filtration Rate 36.7 mL/min (>60) 14.9 mL/min (>60) Glucose Level 41 MG/DL (74-106) L 78 MG/DL (74-106) Lactic Acid Level 6.40 mmol/L (0.4-2.0) H 9.40 mmol/L (0.66-2.22) H Calcium Level 4.2 MG/DL (8.5-10.1) *L 7.3 MG/DL (8.5-10.1) #L Total Bilirubin 1.1 MG/DL (0.2-1.0) H Direct Bilirubin 1.0 MG/DL (0.0-0.3) H Aspartate Amino Transf (AST/SGOT) 178 U/L (15-37) H Alanine Aminotransferase (ALT/SGPT) 180 U/L (12-78) H Alkaline Phosphatase 55 U/L (46-116) Total Creatine Kinase 537 U/L (26-308) H Creatine Kinase MB 12.4 NG/ML (0.0-3.6) H Creatine Kinase MB Relative Index 2.3 Troponin I 0.044 ng/mL (0.000-0.056) Pro-B-Type Natriuretic Peptide 88341 pg/mL (0-125) H Total Protein 2.9 G/DL (6.4-8.2) L Albumin 1.1 G/DL (3.4-5.0) L 2.4 G/DL (3.4-5.0) L Globulin 1.8 g/dL Albumin/Globulin Ratio 0.6 (1.0-2.7) L Urine Color Yellow Yellow Urine Appearance Slightly cloudy Clear Urine pH 6.5 (4.5-8.0) 7 (4.5-8.0) Urine Specific [place] 1.005 (1.005-1.035) 1.005 (1.005-1.035) Urine Protein 2+ (NEGATIVE) H 2+ (NEGATIVE) H Urine Glucose (UA) 1+ (NEGATIVE) H Negative (NEGATIVE) Urine Ketones 1+ (NEGATIVE) H Negative (NEGATIVE) Urine Blood 4+ (NEGATIVE) H 3+ (NEGATIVE) H Urine Nitrite Negative (NEGATIVE) Negative (NEGATIVE) Urine Bilirubin 2+ (NEGATIVE) H Negative (NEGATIVE) Urine Ictotest Negative (NEGATIVE) Urine Urobilinogen 8 MG/DL (0.0-1.0) H Normal MG/DL (0.0-1.0) Urine Leukocyte Esterase 1+ (NEGATIVE) H 2+ (NEGATIVE) H Urine RBC 5-10 /HPF (0 - 2) H 10-15 /HPF (0 - 2) H Urine WBC 10-15 /HPF (0 - 2) H 10-15 /HPF (0 - 2) H Urine Squamous Epithelial Cells Moderate /LPF (NONE/OCC) H Many /LPF (NONE/OCC) H Urine Bacteria Moderate /HPF (NONE) H Few /HPF (NONE) Prothrombin Time 15.4 SEC (9.30-11.50) H Prothromb Time International Ratio 1.4 (0.9-1.1) H Activated Partial Thromboplast Time 33 SEC (23-33) Phosphorus Level 7.6 MG/DL (2.5-4.9) H Stool Fat Screen Pending Test 05/20/20 05:45 White Blood Count 46.5 K/UL (4.8-10.8) *H Red Blood Count 5.18 M/UL (4.20-5.40) Hemoglobin 15.3 G/DL (12.0-16.0) # Hematocrit 46.4 % (37.0-47.0) # Mean Corpuscular Volume 89 FL (80-99) Mean Corpuscular Hemoglobin 29.5 PG (27.0-31.0) Mean Corpuscular Hemoglobin Concent 33.0 G/DL (32.0-36.0) Red Cell Distribution Width 12.4 % (11.6-14.8) Platelet Count 73 K/UL (150-450) L Mean Platelet Volume 6.6 FL (6.5-10.1) Neutrophils (%) (Auto) % (45.0-75.0) Lymphocytes (%) (Auto) % (20.0-45.0) Monocytes (%) (Auto) % (1.0-10.0) Eosinophils (%) (Auto) % (0.0-3.0) Basophils (%) (Auto) % (0.0-2.0) Differential Total Cells Counted 100 Neutrophils % (Manual) 87 % (45-75) H Lymphocytes % (Manual) 2 % (20-45) L Monocytes % (Manual) 1 % (1-10) Eosinophils % (Manual) 0 % (0-3) Basophils % (Manual) 0 % (0-2) Band Neutrophils 10 % (0-8) H Platelet Estimate Decreased L Platelet Morphology Normal Anisocytosis 1+ Prothrombin Time 19.8 SEC (9.30-11.50) H Prothromb Time International Ratio 1.9 (0.9-1.1) H Activated Partial Thromboplast Time 36 SEC (23-33) H Sodium Level 130 MMOL/L (136-145) L Potassium Level 3.5 MMOL/L (3.5-5.1) Chloride Level 96 MMOL/L (98-107) L Carbon Dioxide Level 21 MMOL/L (21-32) Anion Gap 13 mmol/L (5-15) Blood Urea Nitrogen 26 mg/dL (7-18) H Creatinine 2.3 MG/DL (0.55-1.30) H Estimat Glomerular Filtration Rate 24.2 mL/min (>60) Glucose Level 221 MG/DL (74-106) #H Lactic Acid Level 6.60 mmol/L (0.4-2.0) H Calcium Level 7.3 MG/DL (8.5-10.1) L Phosphorus Level 3.1 MG/DL (2.5-4.9) Magnesium Level 1.3 MG/DL (1.8-2.4) L Total Bilirubin 3.8 MG/DL (0.2-1.0) H Direct Bilirubin 2.5 MG/DL (0.0-0.3) H Aspartate Amino Transf (AST/SGOT) 593 U/L (15-37) H Alanine Aminotransferase (ALT/SGPT) 523 U/L (12-78) H Alkaline Phosphatase 85 U/L (46-116) Troponin I 0.286 ng/mL (0.000-0.056) Total Protein 6.6 G/DL (6.4-8.2) # Albumin 2.4 G/DL (3.4-5.0) L Lipase 113 U/L (73-393) Hepatitis B Surface Antigen Pending Hepatitis B Surface Antibody, Quant Pending Hepatitis C Antibody Pending Microbiology Date/Time Source Procedure Growth Status 05/19/20 17:56 Blood Blood Culture - Preliminary Resulted 05/19/20 17:46 Blood Blood Culture - Preliminary Resulted 05/19/20 17:50 Nasopharynx SARS-CoV-2 RdRp Gene Assay - Final Complete 05/19/20 23:00 Stool Stool Culture Pending Resulted 05/19/20 23:00 Stool Clostridium difficile Toxin Assay - Final Resulted Assessment/Plan Assessment/Plan Sepsis with shock - likely abdominal source Worsening leukocytosis Lactic acidosis Transaminitis Hypomagnesemia Hyponatremia Acute myocardial ischemia and possible NSTE myocardial infarction acute renal failure improved CRITICAL & GUARDED Broad sp antimicrobials Serial troponin and lactic acid levels Taper off pressors IVF adjusted IV Mg F/U cultures DVT prophylaxis ICU monitoring Dalton Valdez MD May 20, 2020 11:43
--- NOTE | 2020-05-20 12:14 | Consultation ---
DATE OF CONSULTATION: 05/20/2020 INFECTIOUS DISEASES CONSULTATION CONSULTING PHYSICIAN: Jeff De La Cruz MD. REFERRING PHYSICIAN: Eric Wilkins MD. REASON FOR CONSULTATION: Septic shock. HISTORY OF PRESENTING ILLNESS: This is a 89-year-old lady with history of hypertension, cardiac arrhythmia, hyponatremia, who came in because she had some nausea and vomiting which resolved but now she has been admitted to the ICU with hypotension, shock, and leukocytosis. An Infectious Diseases consultation has been obtained for antibiotics. PAST MEDICAL HISTORY: 1. History of hypertension. 2. Cardiac arrhythmia. 3. Hyponatremia. SOCIAL HISTORY: She does not smoke, drink, or use drugs. FAMILY HISTORY: Unknown. REVIEW OF SYSTEMS: Unable to obtain currently. MEDICATIONS: As an inpatient, she is on chlorhexidine gluconate, Zosyn, Protonix, norepinephrine, p.o. vancomycin, subcutaneous heparin, ciprofloxacin, IV vancomycin x1. ALLERGIES: No known drug allergies. PHYSICAL EXAMINATION: VITAL SIGNS: Temperature 98.5, T-max of 98.5, pulse of 121, respiratory rate 34, blood pressure 112/53, O2 saturation of 94%. HEENT: Pupils are equally reactive to light and accommodation. Mouth appears clean without thrush. NECK: Supple. No adenopathy. No JVD. CARDIOVASCULAR: Regular rate and rhythm. No murmurs. LUNGS: Crackles noted bilaterally. ABDOMEN: Soft, nontender. No organomegaly. EXTREMITIES: No cyanosis, no clubbing, no edema. LABORATORY AND DIAGNOSTIC DATA: White count of 46.5, hemoglobin 15.3, hematocrit 46.4, MCV 89, platelet count of 73, with neutrophils of 87%. Sodium 130, potassium 3.5, chloride 96, bicarb 21, BUN 26, creatinine 2.3, glucose 221, calcium 7.3. Total bilirubin 3.8, direct bilirubin 2.5, AST 593, ALT 523, alkaline phosphatase 85. Troponin 0.286. Total protein 6.6 and albumin 2.4. Lipase of 113. UA is showing 10 to 15 white cells. Blood cultures showing gram-negative rods. COVID-19 test is negative. Stool for C. difficile colitis is negative. Chest x-ray is showing cardiomegaly and pulmonary vascular congestion without edema. ASSESSMENT: This an 89-year-old lady with history of hypertension and prior cardiac arrhythmia who comes in with hypotension and is found to have. 1. Gram-negative sepsis. 2. Septic shock. 3. Increasing leukocytosis. 4. Stool for C. difficile colitis is negative. 5. . 6. Elevated liver function tests could be secondary to shock. PLAN: 1. Discontinue ciprofloxacin, Zosyn, as well as p.o. vancomycin. 2. We will start the patient on meropenem. 3. We will follow up cultures and adjust antibiotics accordingly. 4. We will order an ultrasound abdomen. I would like to thank, Dr. Reyes for this consultation. Jeff De La Cruz M.D. DR: Indy JOB#: [id number] CC: Eric Wilkins M.D.; Fax#: [phone]
--- NOTE | 2020-05-20 12:18 | Diagnostic Imaging Report ---
Indication: Cough Technique: One view of the chest Comparison: 05/19/2020 Findings: The heart is mildly enlarged. Interstitial congestion appears stable to slightly worse. New or increased left pleural effusion is demonstrated. Impression: Stable slightly worse interstitial edema, over one day New or increased left pleural effusion
--- NOTE | 2020-05-20 12:32 | Diagnostic Imaging Report ---
Indication: Abnormal liver function tests, abnormal renal function tests, leukocytosis Technique: Hua-scale and duplex images of the upper abdomen were obtained Comparison: 02/22/2018 Findings: Gallbladder demonstrates gallstones. The gallbladder wall is borderline thickened. No pericholecystic fluid. Sonographic Stephenson's sign is negative. Common bile duct measures 11 mm in diameter. No intrahepatic biliary ductal dilatation. Liver demonstrates normal echogenicity, no focal abnormality. Portal vein and hepatic veins are patent. Pancreas demonstrates mild dilatation of the pancreatic duct, is otherwise unremarkable Spleen is unremarkable. Left kidney measures 9.5 cm in length. Right kidney measures 13.3 cm length. Both kidneys demonstrate slightly increased echogenicity. There is no hydronephrosis. Small cyst is seen in the left kidney. There is trace right perinephric fluid . Abdominal aorta is partially obscured by bowel gas, visualized portions are non-aneurysmal . There is a small right pleural effusion Since the prior exam, the increased renal echogenicity is a new finding. The gallbladder wall thickening is similar to the prior study. Previously demonstrated right renal cyst is not evident on this exam. The common bile duct dilatation is similar. Impression: Cholelithiasis. Borderline gallbladder wall thickening is similar to the previous study, likely baseline for this patient, but the possibility of acute cholecystitis should also be considered. Dilated common bile duct, 11 mm, also evident on prior study of 02/22/2018. Likewise possibly baseline for this patient but the possibility of downstream obstruction should also be considered. Small right pleural effusion Mildly dilated pancreatic duct, of doubtful significance but recommend correlation with pancreatic enzymes Other findings as noted, including left renal cyst Note inability to visualize portions of the abdominal aorta
--- NOTE | 2020-05-20 12:35 | Diagnostic Imaging Report ---
Indication: Post nasogastric tube placement Technique: Supine view of the abdomen Comparison: none Findings: Nasogastric tube tip projects at the level gastric body, well inside the stomach. There is a right groin central venous catheter. Bowel gas pattern is unremarkable. No masses or unusual calcifications. There is mild thoracolumbar scoliotic deformity. The included lower thorax demonstrates a left pleural effusion Impression: Satisfactory nasogastric tube placement Other findings as noted
[2020-05-20] MEDS ORDERED: NS w/KCl 20mEq 1000ml 1,000 ML IV SCH (13:00)
--- NOTE | 2020-05-20 13:03 | General Progress Note ---
Assessment/Plan Assessment/Plan: thrombocytopenia leukocytosis coagulopathy RI elevated LFTS CAD/CA gallstones dilated CBD and PD NGT in place plan feeding soon fu CT may need ERCP abx repeat labs prn imodium will fu Subjective ROS Limited/Unobtainable: No Allergies: Coded Allergies: No Known Allergies (Unverified , 05/28/13) Objective Last 24 Hour Vital Signs Date Time Temp Pulse Resp B/P (MAP) Pulse Ox O2 Delivery O2 Flow Rate FiO2 05/20/20 12:00 Nasal Cannula 2.0 05/20/20 12:00 109/67 05/20/20 11:45 118 29 109/48 (68) 95 05/20/20 11:30 119 33 104/42 (62) 96 05/20/20 11:15 117 32 102/86 (91) 94 05/20/20 11:00 121 34 112/53 (72) 94 05/20/20 11:00 102/86 05/20/20 10:30 120 30 110/58 (75) 97 05/20/20 10:00 122 35 108/56 (73) 98 05/20/20 10:00 113/67 05/20/20 09:30 130 35 139/69 (92) 96 05/20/20 09:00 96/47 05/20/20 09:00 107 33 96/47 (63) 95 05/20/20 08:30 122 33 94/72 (79) 94 05/20/20 08:21 71/18 05/20/20 08:00 121 05/20/20 08:00 Nasal Cannula 2.0 05/20/20 08:00 97.6 124 33 99/73 (82) 94 05/20/20 08:00 94/72 05/20/20 07:30 123 29 104/56 (72) 96 05/20/20 07:00 120 32 90/65 (73) 95 05/20/20 07:00 90/65 05/20/20 06:45 122 32 93/45 (61) 96 05/20/20 06:30 122 33 97/62 (74) 96 05/20/20 06:15 123 36 101/52 (68) 97 05/20/20 06:00 122 34 114/53 (73) 96 05/20/20 06:00 114/53 05/20/20 05:45 116 36 111/59 (76) 96 05/20/20 05:30 123 34 106/42 (63) 96 05/20/20 05:15 123 36 107/52 (70) 96 05/20/20 05:00 123 35 93/59 (70) 96 05/20/20 05:00 93/59 05/20/20 04:45 124 32 118/60 (79) 96 05/20/20 04:45 118/60 05/20/20 04:30 123 34 104/49 (67) 96 05/20/20 04:15 124 33 115/53 (73) 96 05/20/20 04:15 115/53 05/20/20 04:00 Nasal Cannula 4.0 05/20/20 04:00 105/57 05/20/20 04:00 98.5 126 34 105/57 (73) 97 05/20/20 04:00 125 05/20/20 03:45 125 35 109/52 (71) 97 05/20/20 03:44 105/53 05/20/20 03:30 124 33 105/53 (70) 96 05/20/20 03:15 128 32 116/47 (70) 96 05/20/20 03:00 113/43 05/20/20 03:00 124 35 113/43 (66) 97 05/20/20 02:45 127 32 107/63 (78) 96 05/20/20 02:30 123 31 104/54 (71) 97 05/20/20 02:15 122 33 104/52 (69) 97 05/20/20 02:00 119 31 91/46 (61) 97 05/20/20 02:00 91/46 05/20/20 01:45 119 28 97/48 (64) 96 05/20/20 01:30 122 26 97/55 (69) 97 05/20/20 01:15 121 28 95/47 (63) 96 05/20/20 01:00 92/51 05/20/20 01:00 97.6 120 22 92/51 (65) 97 05/20/20 00:45 120 28 106/58 (74) 98 05/20/20 00:34 98/51 05/20/20 00:30 105 27 117/57 (77) 97 05/20/20 00:15 113 22 97/49 (65) 96 05/20/20 00:00 109 05/20/20 00:00 Nasal Cannula 4.0 05/20/20 00:00 84/46 05/20/20 00:00 97.9 108 22 84/46 (59) 96 05/19/20 23:45 109 21 90/52 (65) 96 05/19/20 23:45 90/52 05/19/20 23:30 110 24 95/52 (66) 98 05/19/20 23:15 110 22 97/77 (84) 100 05/19/20 23:02 110 22 116/56 (76) 98 05/19/20 23:00 Nasal Cannula 4.0 05/19/20 23:00 116/56 05/19/20 22:45 109 22 112/92 (99) 98 05/19/20 22:30 112/92 05/19/20 22:30 93.1 111 22 112/92 (99) 98 05/19/20 22:20 96.5 109 24 102/78 100 Nasal Cannula 4.0 05/19/20 22:00 96.4 110 21 97/78 99 Room Air 05/19/20 21:30 96.4 108 24 94/31 100 Room Air 05/19/20 21:00 98.5 104 24 87/60 100 Room Air 05/19/20 20:30 96.0 102 30 102/83 100 Room Air 05/19/20 20:00 96.0 103 26 57/44 99 Room Air 05/19/20 19:30 96.0 107 26 119/53 99 Room Air 05/19/20 19:24 62/34 05/19/20 19:00 96.0 95 26 61/45 98 Room Air 05/19/20 18:28 102 60/45 05/19/20 18:15 101 62/43 05/19/20 18:00 98 78/42 05/19/20 17:45 80 68/41 05/19/20 17:30 98.5 99 17 62/49 97 Room Air 05/19/20 16:48 130 18 98/60 (73) 95 Room Air Intake and Output 05/19/20 05/20/20 19:00 07:00 Intake Total 0 ml 4278.23 ml Output Total 20 ml 2100 ml Balance -20 ml 2178.23 ml Intake Oral 0 ml 0 ml IV Total 3878.23 ml Blood Product 400 ml Output Urine Total 20 ml 2100 ml # Bowel Movements 2 Laboratory Tests 05/19/20 17:56: White Blood Count 33.3*H, Red Blood Count 2.33L, Hemoglobin 7.1L, Hematocrit 22.1L, Mean Corpuscular Volume 95, Mean Corpuscular Hemoglobin 30.3, Mean Corpuscular Hemoglobin Concent 32.0, Red Cell Distribution Width 13.5, Platelet Count 114L, Mean Platelet Volume 6.0L, Neutrophils (%) (Auto) , Lymphocytes (%) (Auto) , Monocytes (%) (Auto) , Eosinophils (%) (Auto) , Basophils (%) (Auto) , Differential Total Cells Counted 100, Neutrophils % (Manual) 80H, Lymphocytes % (Manual) 6L, Monocytes % (Manual) 6, Eosinophils % (Manual) 0, Basophils % ( Manual) 0, Band Neutrophils 8, Platelet Estimate DecreasedL, Platelet Morphology Normal, Hypochromasia 2+, Anisocytosis 2+, Sodium Level 147H, Potassium Level 2.0*L, Chloride Level 118H, Carbon Dioxide Level 9*L, Anion Gap 20H, Blood Urea Nitrogen 17, Creatinine 1.6H, Estimat Glomerular Filtration Rate 36.7, Glucose Level 41L, Lactic Acid Level 6.40H, Calcium Level 4.2*L, Total Bilirubin 1.1H, Direct Bilirubin 1.0H, Aspartate Amino Transf (AST/SGOT) 178H, Alanine Aminotransferase (ALT/SGPT) 180H, Alkaline Phosphatase 55, Total Creatine Kinase 537H, Creatine Kinase MB 12.4H, Creatine Kinase MB Relative Index 2.3, Troponin I 0.044, Pro-B-Type Natriuretic Peptide 09576A, Total Protein 2.9L, Albumin 1.1L, Globulin 1.8, Albumin/Globulin Ratio 0.6L 05/19/20 18:10: Urine Color Yellow, Urine Appearance Slightly cloudy, Urine pH 6.5, Urine Specific [place] 1.005, Urine Protein 2+H, Urine Glucose (UA) 1+H, Urine Ketones 1+H, Urine Blood 4+H, Urine Nitrite Negative, Urine Bilirubin 2+H, Urine Ictotest Negative, Urine Urobilinogen 8H, Urine Leukocyte Esterase 1+H, Urine RBC 5-10H, Urine WBC 10-15H, Urine Squamous Epithelial Cells ModerateH, Urine Bacteria ModerateH 05/19/20 18:45: Sodium Level 137#, Potassium Level 3.9#, Chloride Level 101, Carbon Dioxide Level 16L, Anion Gap 20H, Blood Urea Nitrogen 29H, Creatinine 3.5#H, Estimat Glomerular Filtration Rate 14.9, Glucose Level 78, Lactic Acid Level 9.40H, Calcium Level 7.3#L, Albumin 2.4L, Prothrombin Time 15.4H, Prothromb Time International Ratio 1.4H, Activated Partial Thromboplast Time 33, Phosphorus Level 7.6H 05/19/20 23:00: Urine Color Yellow, Urine Appearance Clear, Urine pH 7, Urine Specific [place] 1.005, Urine Protein 2+H, Urine Glucose (UA) Negative, Urine Ketones Negative, Urine Blood 3+H, Urine Nitrite Negative, Urine Bilirubin Negative, Urine Urobilinogen Normal, Urine Leukocyte Esterase 2+H, Urine RBC 10-15H, Urine WBC 10-15H, Urine Squamous Epithelial Cells ManyH, Urine Bacteria Few, Stool Fat Screen [Pending] 05/20/20 05:45: White Blood Count 46.5*H, Red Blood Count 5.18, Hemoglobin 15.3#, Hematocrit 46.4#, Mean Corpuscular Volume 89, Mean Corpuscular Hemoglobin 29.5, Mean Corpuscular Hemoglobin Concent 33.0, Red Cell Distribution Width 12.4, Platelet Count 73L, Mean Platelet Volume 6.6, Neutrophils (%) (Auto) , Lymphocytes (%) ( Auto) , Monocytes (%) (Auto) , Eosinophils (%) (Auto) , Basophils (%) (Auto) , Differential Total Cells Counted 100, Neutrophils % (Manual) 87H, Lymphocytes % (Manual) 2L, Monocytes % (Manual) 1, Eosinophils % (Manual) 0, Basophils % ( Manual) 0, Band Neutrophils 10H, Platelet Estimate DecreasedL, Platelet Morphology Normal, Anisocytosis 1+, Prothrombin Time 19.8H, Prothromb Time International Ratio 1.9H, Activated Partial Thromboplast Time 36H, Sodium Level 130L, Potassium Level 3.5, Chloride Level 96L, Carbon Dioxide Level 21, Anion Gap 13, Blood Urea Nitrogen 26H, Creatinine 2.3H, Estimat Glomerular Filtration Rate 24.2, Glucose Level 221#H, Lactic Acid Level 6.60H, Calcium Level 7.3L, Phosphorus Level 3.1, Magnesium Level 1.3L, Total Bilirubin 3.8H, Direct Bilirubin 2.5H, Aspartate Amino Transf (AST/SGOT) 593H, Alanine Aminotransferase (ALT/SGPT) 523H, Alkaline Phosphatase 85, Troponin I 0.286H, Total Protein 6.6#, Albumin 2.4L, Lipase 113, Hepatitis B Surface Antigen [ Pending], Hepatitis B Surface Antibody, Quant [Pending], Hepatitis C Antibody [ Pending] 05/20/20 12:15: Lactic Acid Level 4.10H Height (Feet): 5 Height (Inches): 7.00 Weight (Pounds): 150 General Appearance: lethargic EENT: normal ENT inspection Neck: supple Cardiovascular: normal rate Respiratory/Chest: decreased breath sounds Abdomen: hypoactive bowel sounds Extremities: non-tender Ludwig Wood MD May 20, 2020 13:03
[2020-05-20] MEDS: Meropenem 500 MG in NS 55 ML IVPB SCH (13:09)
[2020-05-20 16:50] LABS: ANION GAP 11 mmol/L (5-15); BLOOD UREA NITROGEN 24 mg/dL (7-18); CALCIUM 7.1 MG/DL (8.5-10.1); CARBON DIOXIDE 26 MMOL/L (21-32); CHLORIDE 93 MMOL/L (98-107); CREATINE KINASE 3354 U/L (26-308); SODIUM 130 MMOL/L (136-145)
--- NOTE | 2020-05-20 18:06 | Diagnostic Imaging Report ---
Indication: Abdominal pain, nausea, vomiting, constipation Technique: Spiral acquisitions obtained through the abdomen and pelvis. Patient ingested a small amount of enteric contrast. No IV contrast utilized, per referring physician request.. Multiplanar reconstructions were generated. Total dose length product 519 mGycm. CTDIvol(s) none mGy. Dose reduction achieved using automated exposure control Comparison: No comparison CT scans. Reference made to abdominal sonogram of earlier the same day Findings: The gallbladder contains gallstones. The gallbladder wall is thickened. This is also reported on prior sonogram. The extrahepatic bile ducts are poorly visualized but appear ectatic, as seen on prior sonogram. Lack of IV contrast limits assessment of the solid organs. The liver is unremarkable. The pancreatic duct is prominent. The pancreas is otherwise unremarkable. The spleen, adrenals, right kidney are unremarkable. The left kidney demonstrates a somewhat lobulated contour and is smaller than the right kidney. Left renal cyst described on prior sonogram is barely visible. The uterus and adnexal structures are unremarkable. The bladder is empty, contains a Keane catheter. There is a rectal tube in place. There is no evidence of colonic diverticulosis or diverticulitis. No small bowel distention.. Ingested contrast reaches the colon and is seen far distally as the transverse colon. The appendix is not definitely visualized. There is apparent wall thickening of the distal ileum. No colon wall thickening is demonstrated. There is a small amount of free fluid within the pelvis. No free intraperitoneal gas. The distal esophagus contains a nasogastric tube, tip of which is at the level of the gastric body antrum junction. The included lower lungs demonstrate small bilateral pleural effusions, bilateral lower lobe consolidation and atelectatic changes. The heart is borderline enlarged. The ascending thoracic aorta is ectatic. There are granulomatous naya calcifications in the right pulmonary hilum Impression: Mild wall thickening of the terminal ileum. This could indicate focal ileitis Trace free pelvic fluid. This is not physiologic in a postmenopausal female Cholelithiasis. Gallbladder wall thickening, also described on recent sonogram. Possibility of acute cholecystitis should be considered. Consider hepatobiliary nuclear scan if there is high clinical suspicion Mild extra hepatic biliary ductal dilatation, likely related to age, but downstream obstructive process not completely excludable. MRCP may be useful if clinically indicated Nonspecific prominence of the pancreatic duct Empty bladder with a Keane catheter Rectal tube Nasogastric tube Bilateral small pleural effusions. Considerable bilateral lower lobe consolidative and atelectatic changes. Borderline cardiomegaly Evidence of old granulomatous disease within the right pulmonary hilum Left renal cyst The CT scanner at [facility] is accredited by the [employer] and the scans are performed using protocols designed to limit radiation exposure to as low as reasonably achievable to attain images of sufficient resolution adequate for diagnostic evaluation.
[2020-05-20 18:24] LABS: HEMATOCRIT 43.6 % (37.0-47.0); HEMOGLOBIN 14.4 G/DL (12.0-16.0); MEAN CORPUSCULAR VOLUME 89 FL (80-99); PLATELET COUNT 29 K/UL (150-450); RED BLOOD COUNT 4.91 M/UL (4.20-5.40); RED CELL DISTRIBUTION WIDTH 12.8 % (11.6-14.8)
[2020-05-20 18:29] LABS: WHITE BLOOD COUNT 48.7 K/UL (4.8-10.8)
[2020-05-20] MEDS: Dyna-Hex 2% Top Sol 2oz TOPIC SCH (20:03)
[2020-05-20] MEDS ORDERED: POTASSIUM CHLOR8 ME2 PO (20:52)
[2020-05-20] MEDS ORDERED: DOCUSATE SODIU100 MG ORAL (20:55)
[2020-05-21] VITALS (56 sets, daily range): BP systolic 80–131; BP diastolic 38–76
[2020-05-21] MEDS: Meropenem 500 MG in NS 55 ML IVPB SCH ×2 (00:44→13:56)
[2020-05-21 06:17] LABS: HEMATOCRIT 42.3 % (37.0-47.0); HEMOGLOBIN 14.2 G/DL (12.0-16.0); MEAN CORPUSCULAR VOLUME 88 FL (80-99); PLATELET COUNT 14 K/UL (150-450); RED CELL DISTRIBUTION WIDTH 12.5 % (11.6-14.8)
[2020-05-21 06:22] LABS: INR 1.4 (0.9-1.1)
[2020-05-21 06:52] LABS: ALANINE AMINOTRANSFERASE 389 U/L (12-78); ALBUMIN/GLOBULIN RATIO 0.5 (1.0-2.7); ALKALINE PHOSPHATASE 69 U/L (46-116); ANION GAP 11 mmol/L (5-15); ASPARTATE AMINO TRANSFERASE 334 U/L (15-37); BILIRUBIN,TOTAL 3.9 MG/DL (0.2-1.0); BLOOD UREA NITROGEN 26 mg/dL (7-18); CALCIUM 6.9 MG/DL (8.5-10.1); CARBON DIOXIDE 24 MMOL/L (21-32); CHLORIDE 96 MMOL/L (98-107); CREATININE 1.6 MG/DL (0.55-1.30); PHOSPHORUS 3.4 MG/DL (2.5-4.9); POTASSIUM 3.9 MMOL/L (3.5-5.1); SODIUM 131 MMOL/L (136-145)
[2020-05-21 06:59] LABS: WHITE BLOOD COUNT 34.6 K/UL (4.8-10.8)
[2020-05-21 07:13] LABS: % IRON SATURATION 26 % (15-50); IRON 40 ug/dL (50-175); TOTAL IRON BINDING CAPACITY 153 ug/dL (250-450)
--- NOTE | 2020-05-21 07:29 | General Progress Note ---
Assessment/Plan Assessment/Plan: thrombocytopenia leukocytosis coagulopathy RI elevated LFTS CAD/RI gallstones dilated CBD and PD NGT in place hold feeding for today CT and us reviewed ordered MRCP may need ERCP abx repeat labs prn imodium will fu Subjective ROS Limited/Unobtainable: No Allergies: Coded Allergies: No Known Allergies (Unverified , 05/28/13) Objective Last 24 Hour Vital Signs Date Time Temp Pulse Resp B/P (MAP) Pulse Ox O2 Delivery O2 Flow Rate FiO2 05/21/20 07:00 112 27 124/51 (75) 97 05/21/20 07:00 129/51 05/21/20 06:45 102 31 109/73 (85) 98 05/21/20 06:30 107 27 107/57 (74) 96 05/21/20 06:15 109 28 106/46 (66) 96 05/21/20 06:00 111/51 05/21/20 06:00 107 28 111/51 (71) 96 05/21/20 05:45 105 29 106/60 (75) 96 05/21/20 05:30 105 29 114/58 (76) 95 05/21/20 05:15 109 28 127/58 (81) 96 05/21/20 05:00 116/57 05/21/20 05:00 106 29 116/57 (76) 96 05/21/20 04:45 106 29 102/55 (71) 95 05/21/20 04:30 86/39 05/21/20 04:30 100 21 86/39 (55) 94 05/21/20 04:15 102 24 112/46 (68) 97 05/21/20 04:15 112/46 05/21/20 04:00 107 05/21/20 04:00 103/45 05/21/20 04:00 Nasal Cannula 4.0 05/21/20 04:00 98.7 100 30 103/45 (64) 96 05/21/20 03:45 104 23 100/44 (62) 95 05/21/20 03:30 104 23 99/38 (58) 96 05/21/20 03:15 105 27 102/45 (64) 96 05/21/20 03:00 106 28 118/55 (76) 96 05/21/20 03:00 118/55 05/21/20 02:45 131/52 05/21/20 02:45 110 30 131/52 (78) 96 05/21/20 02:30 112 30 105/58 (74) 94 05/21/20 02:15 108 26 106/55 (72) 95 05/21/20 02:00 106 25 118/59 (78) 96 05/21/20 02:00 118/59 05/21/20 01:45 103 29 116/54 (74) 95 05/21/20 01:30 105 21 80/42 (55) 93 05/21/20 01:30 80/42 05/21/20 01:15 106 28 90/53 (65) 92 05/21/20 01:00 108 28 97/48 (64) 94 05/21/20 01:00 97/48 05/21/20 00:45 105 28 115/62 (79) 95 05/21/20 00:30 110 26 105/67 (80) 93 05/21/20 00:15 106 29 95/54 (68) 94 05/21/20 00:00 105 05/21/20 00:00 Nasal Cannula 3.0 05/21/20 00:00 97/48 05/21/20 00:00 97.8 108 29 93/60 (71) 95 05/20/20 23:45 108 31 116/51 (72) 96 05/20/20 23:34 124/59 05/20/20 23:30 108 30 124/59 (80) 96 05/20/20 23:15 106 27 111/45 (67) 96 05/20/20 23:07 105 34 90/47 (61) 94 05/20/20 23:00 105 35 79/41 (54) 94 05/20/20 23:00 79/41 05/20/20 22:45 102 35 95/41 (59) 94 05/20/20 22:30 101 27 98/61 (73) 94 05/20/20 22:15 101 27 103/44 (63) 96 05/20/20 22:00 101/45 05/20/20 22:00 104 28 101/45 (63) 94 05/20/20 21:45 106 28 94/46 (62) 94 05/20/20 21:30 105 30 102/51 (68) 94 05/20/20 21:15 105 25 100/49 (66) 93 05/20/20 21:00 112 24 96/44 (61) 94 05/20/20 21:00 96/44 05/20/20 20:45 113/62 05/20/20 20:45 107 27 113/62 (79) 95 05/20/20 20:30 103 25 103/50 (67) 95 05/20/20 20:15 102 30 100/45 (63) 94 05/20/20 20:00 104 05/20/20 20:00 Nasal Cannula 3.0 05/20/20 20:00 98/49 05/20/20 20:00 98.7 106 28 98/49 (65) 94 05/20/20 19:45 103 26 125/55 (78) 97 05/20/20 19:30 125/58 05/20/20 19:30 104 30 125/58 (80) 95 05/20/20 19:15 103 25 106/51 (69) 94 05/20/20 19:00 104 27 106/51 (69) 94 05/20/20 19:00 106/51 05/20/20 18:45 104 25 102/51 (68) 95 05/20/20 18:30 101 31 109/52 (71) 93 05/20/20 18:15 109 30 119/56 (77) 94 05/20/20 18:00 108 29 123/53 (76) 96 05/20/20 18:00 123/53 05/20/20 17:45 110 29 126/64 (84) 96 05/20/20 17:30 112 27 89/53 (65) 96 05/20/20 17:30 130/60 05/20/20 17:15 127/103 (111) 05/20/20 17:15 127/103 05/20/20 16:30 111 29 120/58 (78) 95 05/20/20 16:00 Nasal Cannula 2.0 05/20/20 16:00 117 05/20/20 16:00 98.6 05/20/20 16:00 111/55 05/20/20 16:00 115 34 109/82 (91) 94 05/20/20 15:30 112 32 121/61 (81) 97 05/20/20 15:00 115 33 112/54 (73) 95 05/20/20 15:00 11/54 05/20/20 14:30 114 35 112/61 (78) 96 05/20/20 14:14 91/40 05/20/20 14:00 105/38 05/20/20 14:00 111 29 79/51 (60) 95 05/20/20 13:30 115 31 95/57 (70) 95 05/20/20 13:00 117 33 97/28 (51) 95 05/20/20 13:00 106/60 05/20/20 12:45 117 32 106/60 (75) 96 05/20/20 12:30 117 33 105/43 (63) 96 05/20/20 12:15 117 34 118/84 (95) 96 05/20/20 12:00 119 31 109/67 (81) 96 05/20/20 12:00 115 05/20/20 12:00 Nasal Cannula 2.0 05/20/20 12:00 109/67 05/20/20 12:00 98.0 05/20/20 11:45 118 29 109/48 (68) 95 05/20/20 11:30 119 33 104/42 (62) 96 05/20/20 11:15 117 32 102/86 (91) 94 05/20/20 11:00 121 34 112/53 (72) 94 05/20/20 11:00 102/86 05/20/20 10:30 120 30 110/58 (75) 97 05/20/20 10:00 122 35 108/56 (73) 98 05/20/20 10:00 113/67 05/20/20 09:30 130 35 139/69 (92) 96 05/20/20 09:00 96/47 05/20/20 09:00 107 33 96/47 (63) 95 05/20/20 08:30 122 33 94/72 (79) 94 05/20/20 08:21 71/18 05/20/20 08:00 121 05/20/20 08:00 Nasal Cannula 2.0 05/20/20 08:00 97.6 124 33 99/73 (82) 94 05/20/20 08:00 94/72 05/20/20 07:30 123 29 104/56 (72) 96 Intake and Output 8/31/20 9/1/20 19:00 07:00 Intake Total 2083.626 ml 1144.305 ml Output Total 1145 ml 750 ml Balance 938.626 ml 394.305 ml IV Total 2083.626 ml 1144.305 ml Output Urine Total 1025 ml 370 ml Stool Total 120 ml 380 ml # Bowel Movements 1 Laboratory Tests 05/20/20 12:15: Lactic Acid Level 4.10H 05/20/20 15:40: Sodium Level 130L, Potassium Level 3.0L, Chloride Level 93L, Carbon Dioxide Level 26, Anion Gap 11, Blood Urea Nitrogen 24H, Creatinine 2.0H, Estimat Glomerular Filtration Rate 28.4, Glucose Level 173H, Calcium Level 7.1L, Total Creatine Kinase 3354H, Troponin I 1.964H 05/20/20 17:42: White Blood Count 48.7*H, Red Blood Count 4.91, Hemoglobin 14.4, Hematocrit 43.6 , Mean Corpuscular Volume 89, Mean Corpuscular Hemoglobin 29.3, Mean Corpuscular Hemoglobin Concent 33.0, Red Cell Distribution Width 12.8, Platelet Count 29#L, Mean Platelet Volume 13.9H, Neutrophils (%) (Auto) , Lymphocytes (% ) (Auto) , Monocytes (%) (Auto) , Eosinophils (%) (Auto) , Basophils (%) (Auto) , Differential Total Cells Counted 100, Neutrophils % (Manual) 67, Lymphocytes % (Manual) 4L, Monocytes % (Manual) 7, Eosinophils % (Manual) 0, Basophils % ( Manual) 0, Band Neutrophils 22H, Platelet Estimate DecreasedL, Platelet Morphology Normal, Polychromasia 1+ 05/20/20 18:00: Lactic Acid Level 4.00H 05/21/20 00:11: Lactic Acid Level 3.50H 05/21/20 05:45: Lactic Acid Level 3.10H, White Blood Count 34.6*H, Red Blood Count 4.80, Hemoglobin 14.2, Hematocrit 42.3, Mean Corpuscular Volume 88, Mean Corpuscular Hemoglobin 29.6, Mean Corpuscular Hemoglobin Concent 33.5, Red Cell Distribution Width 12.5, Platelet Count 14#L, Mean Platelet Volume 6.9, Neutrophils (%) (Auto) , Lymphocytes (%) (Auto) , Monocytes (%) (Auto) , Eosinophils (%) (Auto) , Basophils (%) (Auto) , Neutrophils % (Manual) [Pending] , Lymphocytes % (Manual) [Pending], Platelet Estimate [Pending], Platelet Morphology [Pending], Prothrombin Time 15.0H, Prothromb Time International Ratio 1.4H, Sodium Level 131L, Potassium Level 3.9, Chloride Level 96L, Carbon Dioxide Level 24, Anion Gap 11, Blood Urea Nitrogen 26H, Creatinine 1.6H, Estimat Glomerular Filtration Rate 36.7, Glucose Level 79, Calcium Level 6.9L, Phosphorus Level 3.4, Magnesium Level 2.8H, Iron Level 40L, Total Iron Binding Capacity 153L, Percent Iron Saturation 26, Unsaturated Iron Binding 113, Ferritin [Pending], Total Bilirubin 3.9H, Direct Bilirubin [Pending], Aspartate Amino Transf (AST/SGOT) 334H, Alanine Aminotransferase (ALT/SGPT) 389H, Alkaline Phosphatase 69, Troponin I [Pending], Total Protein 6.0L, Albumin 2.0L , Globulin 4.0, Albumin/Globulin Ratio 0.5L Height (Feet): 5 Height (Inches): 7.00 Weight (Pounds): 150 General Appearance: confused EENT: normal ENT inspection Neck: normal inspection Respiratory/Chest: decreased breath sounds Abdomen: hypoactive bowel sounds, distended, tender Extremities: non-tender Ludwig Wood MD May 21, 2020 07:29
[2020-05-21 08:12] LABS: BILIRUBIN,DIRECT 1.9 MG/DL (0.0-0.3); FERRITIN > 2000 NG/ML (8-388)
[2020-05-21] MEDS ORDERED: D5W 275ml ONE (08:27)
[2020-05-21] MEDS ORDERED: NS 275ml ONE (08:27)
[2020-05-21] MEDS: Pantoprazole Inj IVP SCH ×2 (08:34→21:08)
--- NOTE | 2020-05-21 11:17 | Infectious Diseases Prog Note ---
Assessment/Plan Assessment/Plan antibiotics : meropenem A 1. gram negative sepsis 2. shock 3. thrombocytopenia 4. ? cholecystitis 5. leucocytosis improving P 1. continue meropenem 2. will follow up cultures 3. MRCP planned Subjective ROS Limited/Unobtainable: Yes Allergies: Coded Allergies: No Known Allergies (Unverified , 05/28/13) Objective Last 24 Hour Vital Signs Date Time Temp Pulse Resp B/P (MAP) Pulse Ox O2 Delivery O2 Flow Rate FiO2 05/21/20 10:00 102 33 107/63 (78) 96 05/21/20 10:00 103 28 114/76 (89) 96 05/21/20 09:45 86/44 05/21/20 09:45 105 22 86/44 (58) 96 05/21/20 09:30 102 24 120/61 (80) 96 05/21/20 09:30 107/43 05/21/20 09:30 99 31 85/46 (59) 94 05/21/20 09:15 99 29 115/51 (72) 95 05/21/20 09:00 85/46 05/21/20 09:00 101 30 101/51 (68) 96 05/21/20 08:45 121/67 05/21/20 08:45 98.1 103 28 87/58 (68) 96 05/21/20 08:30 103 29 121/67 (85) 96 05/21/20 08:00 Nasal Cannula 4.0 05/21/20 08:00 125/67 05/21/20 08:00 104 05/21/20 08:00 105 28 125/67 (86) 96 05/21/20 07:30 107 28 108/56 (73) 96 05/21/20 07:00 112 27 124/51 (75) 97 05/21/20 07:00 129/51 05/21/20 06:45 102 31 109/73 (85) 98 05/21/20 06:30 107 27 107/57 (74) 96 05/21/20 06:15 109 28 106/46 (66) 96 05/21/20 06:00 111/51 05/21/20 06:00 107 28 111/51 (71) 96 05/21/20 05:45 105 29 106/60 (75) 96 05/21/20 05:30 105 29 114/58 (76) 95 05/21/20 05:15 109 28 127/58 (81) 96 05/21/20 05:00 116/57 05/21/20 05:00 106 29 116/57 (76) 96 05/21/20 04:45 106 29 102/55 (71) 95 05/21/20 04:30 86/39 05/21/20 04:30 100 21 86/39 (55) 94 05/21/20 04:15 102 24 112/46 (68) 97 05/21/20 04:15 112/46 05/21/20 04:00 107 05/21/20 04:00 103/45 05/21/20 04:00 Nasal Cannula 4.0 05/21/20 04:00 98.7 100 30 103/45 (64) 96 05/21/20 03:45 104 23 100/44 (62) 95 05/21/20 03:30 104 23 99/38 (58) 96 05/21/20 03:15 105 27 102/45 (64) 96 05/21/20 03:00 106 28 118/55 (76) 96 05/21/20 03:00 118/55 05/21/20 02:45 131/52 05/21/20 02:45 110 30 131/52 (78) 96 05/21/20 02:30 112 30 105/58 (74) 94 05/21/20 02:15 108 26 106/55 (72) 95 05/21/20 02:00 106 25 118/59 (78) 96 05/21/20 02:00 118/59 05/21/20 01:45 103 29 116/54 (74) 95 05/21/20 01:30 105 21 80/42 (55) 93 05/21/20 01:30 80/42 05/21/20 01:15 106 28 90/53 (65) 92 05/21/20 01:00 108 28 97/48 (64) 94 05/21/20 01:00 97/48 05/21/20 00:45 105 28 115/62 (79) 95 05/21/20 00:30 110 26 105/67 (80) 93 05/21/20 00:15 106 29 95/54 (68) 94 05/21/20 00:00 105 05/21/20 00:00 Nasal Cannula 3.0 05/21/20 00:00 97/48 05/21/20 00:00 97.8 108 29 93/60 (71) 95 05/20/20 23:45 108 31 116/51 (72) 96 05/20/20 23:34 124/59 05/20/20 23:30 108 30 124/59 (80) 96 05/20/20 23:15 106 27 111/45 (67) 96 05/20/20 23:07 105 34 90/47 (61) 94 05/20/20 23:00 105 35 79/41 (54) 94 05/20/20 23:00 79/41 05/20/20 22:45 102 35 95/41 (59) 94 05/20/20 22:30 101 27 98/61 (73) 94 05/20/20 22:15 101 27 103/44 (63) 96 05/20/20 22:00 101/45 05/20/20 22:00 104 28 101/45 (63) 94 05/20/20 21:45 106 28 94/46 (62) 94 05/20/20 21:30 105 30 102/51 (68) 94 05/20/20 21:15 105 25 100/49 (66) 93 05/20/20 21:00 112 24 96/44 (61) 94 05/20/20 21:00 96/44 05/20/20 20:45 113/62 05/20/20 20:45 107 27 113/62 (79) 95 05/20/20 20:30 103 25 103/50 (67) 95 05/20/20 20:15 102 30 100/45 (63) 94 05/20/20 20:00 104 05/20/20 20:00 Nasal Cannula 3.0 05/20/20 20:00 98/49 05/20/20 20:00 98.7 106 28 98/49 (65) 94 05/20/20 19:45 103 26 125/55 (78) 97 05/20/20 19:30 125/58 05/20/20 19:30 104 30 125/58 (80) 95 05/20/20 19:15 103 25 106/51 (69) 94 05/20/20 19:00 104 27 106/51 (69) 94 05/20/20 19:00 106/51 05/20/20 18:45 104 25 102/51 (68) 95 05/20/20 18:30 101 31 109/52 (71) 93 05/20/20 18:15 109 30 119/56 (77) 94 05/20/20 18:00 108 29 123/53 (76) 96 05/20/20 18:00 123/53 05/20/20 17:45 110 29 126/64 (84) 96 05/20/20 17:30 112 27 89/53 (65) 96 05/20/20 17:30 130/60 05/20/20 17:15 127/103 (111) 05/20/20 17:15 127/103 05/20/20 16:30 111 29 120/58 (78) 95 05/20/20 16:00 Nasal Cannula 2.0 05/20/20 16:00 117 05/20/20 16:00 98.6 05/20/20 16:00 111/55 05/20/20 16:00 115 34 109/82 (91) 94 05/20/20 15:30 112 32 121/61 (81) 97 05/20/20 15:00 115 33 112/54 (73) 95 05/20/20 15:00 11/54 05/20/20 14:30 114 35 112/61 (78) 96 05/20/20 14:14 91/40 05/20/20 14:00 105/38 05/20/20 14:00 111 29 79/51 (60) 95 05/20/20 13:30 115 31 95/57 (70) 95 05/20/20 13:00 117 33 97/28 (51) 95 05/20/20 13:00 106/60 05/20/20 12:45 117 32 106/60 (75) 96 05/20/20 12:30 117 33 105/43 (63) 96 05/20/20 12:15 117 34 118/84 (95) 96 05/20/20 12:00 119 31 109/67 (81) 96 05/20/20 12:00 115 05/20/20 12:00 Nasal Cannula 2.0 05/20/20 12:00 109/67 05/20/20 12:00 98.0 05/20/20 11:45 118 29 109/48 (68) 95 05/20/20 11:30 119 33 104/42 (62) 96 05/20/20 11:15 117 32 102/86 (91) 94 Height (Feet): 5 Height (Inches): 7.00 Weight (Pounds): 150 Respiratory/Chest: crackles/rales Cardiovascular: normal rate, regular rhythm, no gallop/murmur Abdomen: soft, non tender Extremities: no edema Microbiology Date/Time Source Procedure Growth Status 05/19/20 17:56 Blood Blood Culture - Preliminary Gram Negative Bacillus 1 Resulted 05/19/20 17:46 Blood Blood Culture - Preliminary Gram Negative Bacillus 1 Resulted 05/19/20 17:50 Nasopharynx SARS-CoV-2 RdRp Gene Assay - Final Complete 05/19/20 23:00 Stool Stool Culture - Preliminary NORMAL FECAL ZHANE. Resulted 05/19/20 23:00 Stool Clostridium difficile Toxin Assay - Final Resulted 05/19/20 23:00 Urine,Clean Catch Urine Culture - Preliminary Resulted Laboratory Tests Test 05/20/20 12:15 05/20/20 15:40 05/20/20 17:42 05/20/20 18:00 Lactic Acid Level 4.10 mmol/L (0.4-2.0) H 4.00 mmol/L (0.4-2.0) H Sodium Level 130 MMOL/L (136-145) L Potassium Level 3.0 MMOL/L (3.5-5.1) L Chloride Level 93 MMOL/L (98-107) L Carbon Dioxide Level 26 MMOL/L (21-32) Anion Gap 11 mmol/L (5-15) Blood Urea Nitrogen 24 mg/dL (7-18) H Creatinine 2.0 MG/DL (0.55-1.30) H Estimat Glomerular Filtration Rate 28.4 mL/min (>60) Glucose Level 173 MG/DL (74-106) H Calcium Level 7.1 MG/DL (8.5-10.1) L Total Creatine Kinase 3354 U/L (26-308) H Troponin I 1.964 ng/mL (0.000-0.056) White Blood Count 48.7 K/UL (4.8-10.8) *H Red Blood Count 4.91 M/UL (4.20-5.40) Hemoglobin 14.4 G/DL (12.0-16.0) Hematocrit 43.6 % (37.0-47.0) Mean Corpuscular Volume 89 FL (80-99) Mean Corpuscular Hemoglobin 29.3 PG (27.0-31.0) Mean Corpuscular Hemoglobin Concent 33.0 G/DL (32.0-36.0) Red Cell Distribution Width 12.8 % (11.6-14.8) Platelet Count 29 K/UL (150-450) #L Mean Platelet Volume 13.9 FL (6.5-10.1) H Neutrophils (%) (Auto) % (45.0-75.0) Lymphocytes (%) (Auto) % (20.0-45.0) Monocytes (%) (Auto) % (1.0-10.0) Eosinophils (%) (Auto) % (0.0-3.0) Basophils (%) (Auto) % (0.0-2.0) Differential Total Cells Counted 100 Neutrophils % (Manual) 67 % (45-75) Lymphocytes % (Manual) 4 % (20-45) L Monocytes % (Manual) 7 % (1-10) Eosinophils % (Manual) 0 % (0-3) Basophils % (Manual) 0 % (0-2) Band Neutrophils 22 % (0-8) H Platelet Estimate Decreased L Platelet Morphology Normal Polychromasia 1+ Test 05/21/20 00:11 05/21/20 05:45 Lactic Acid Level 3.50 mmol/L (0.4-2.0) H 3.10 mmol/L (0.4-2.0) H White Blood Count 34.6 K/UL (4.8-10.8) *H Red Blood Count 4.80 M/UL (4.20-5.40) Hemoglobin 14.2 G/DL (12.0-16.0) Hematocrit 42.3 % (37.0-47.0) Mean Corpuscular Volume 88 FL (80-99) Mean Corpuscular Hemoglobin 29.6 PG (27.0-31.0) Mean Corpuscular Hemoglobin Concent 33.5 G/DL (32.0-36.0) Red Cell Distribution Width 12.5 % (11.6-14.8) Platelet Count 14 K/UL (150-450) #L Mean Platelet Volume 6.9 FL (6.5-10.1) Neutrophils (%) (Auto) % (45.0-75.0) Lymphocytes (%) (Auto) % (20.0-45.0) Monocytes (%) (Auto) % (1.0-10.0) Eosinophils (%) (Auto) % (0.0-3.0) Basophils (%) (Auto) % (0.0-2.0) Differential Total Cells Counted 100 Neutrophils % (Manual) 74 % (45-75) Lymphocytes % (Manual) 2 % (20-45) L Monocytes % (Manual) 4 % (1-10) Eosinophils % (Manual) 0 % (0-3) Basophils % (Manual) 0 % (0-2) Band Neutrophils 20 % (0-8) H Platelet Estimate Decreased L Platelet Morphology Normal Red Blood Cell Morphology Normal Prothrombin Time 15.0 SEC (9.30-11.50) H Prothromb Time International Ratio 1.4 (0.9-1.1) H Sodium Level 131 MMOL/L (136-145) L Potassium Level 3.9 MMOL/L (3.5-5.1) Chloride Level 96 MMOL/L (98-107) L Carbon Dioxide Level 24 MMOL/L (21-32) Anion Gap 11 mmol/L (5-15) Blood Urea Nitrogen 26 mg/dL (7-18) H Creatinine 1.6 MG/DL (0.55-1.30) H Estimat Glomerular Filtration Rate 36.7 mL/min (>60) Glucose Level 79 MG/DL (74-106) Calcium Level 6.9 MG/DL (8.5-10.1) L Phosphorus Level 3.4 MG/DL (2.5-4.9) Magnesium Level 2.8 MG/DL (1.8-2.4) H Iron Level 40 ug/dL (50-175) L Total Iron Binding Capacity 153 ug/dL (250-450) L Percent Iron Saturation 26 % (15-50) Unsaturated Iron Binding 113 ug/dL (112-346) Ferritin > 2000 NG/ML (8-388) H Total Bilirubin 3.9 MG/DL (0.2-1.0) H Direct Bilirubin 1.9 MG/DL (0.0-0.3) H Aspartate Amino Transf (AST/SGOT) 334 U/L (15-37) H Alanine Aminotransferase (ALT/SGPT) 389 U/L (12-78) H Alkaline Phosphatase 69 U/L (46-116) Troponin I 1.442 ng/mL (0.000-0.056) Total Protein 6.0 G/DL (6.4-8.2) L Albumin 2.0 G/DL (3.4-5.0) L Globulin 4.0 g/dL Albumin/Globulin Ratio 0.5 (1.0-2.7) L Current Medications Medications (Trade) Dose Ordered Sig/Gricelda Route PRN Reason Start Time Stop Time Status Last Admin Dose Admin Barium Sulfate (Readi-Cat 2) 450 ml NOW PRN ORAL Radiology Procedure 05/20/20 08:30 05/22/20 08:21 Chlorhexidine Gluconate (Celi-Hex 2%) 1 applic DAILY@2000 TOPIC 05/20/20 20:00 08/18/20 19:59 05/20/20 20:03 Dextrose (Dextrose 50%) 25 ml Q30M PRN IV Hypoglycemia 05/19/20 19:15 08/17/20 19:14 Dextrose (Dextrose 50%) 50 ml Q30M PRN IV Hypoglycemia 05/19/20 19:15 08/17/20 19:14 Loperamide HCl (Imodium) 2 mg Q6H PRN NG Diarrhea 05/20/20 13:00 06/19/20 12:59 Meropenem 500 mg/ Sodium Chloride 55 ml @ 110 mls/hr Q12H IVPB 05/20/20 13:00 05/25/20 12:59 05/21/20 00:44 Norepinephrine Bitartrate 4 mg/ Dextrose 250 ml @ 0 mls/hr Q24H IV 05/19/20 23:00 06/18/20 22:59 05/20/20 23:34 Ondansetron HCl (Zofran) 4 mg Q6H PRN IVP Nausea & Vomiting 05/19/20 19:15 06/18/20 19:14 Pantoprazole (Protonix) 40 mg EVERY 12 HOURS IVP 05/20/20 09:00 06/19/20 08:59 05/21/20 08:34 Potassium Chloride 40 meq/ Sodium Chloride 1,020 ml @ 75 mls/hr [id number] IV 05/20/20 19:00 06/19/20 18:59 05/21/20 07:57 Jeff De La Cruz MD May 21, 2020 11:16
--- NOTE | 2020-05-21 11:37 | Diagnostic Imaging Report ---
Indication: Shortness of Technique: One view of the chest Comparison: 05/20/2020 Findings: Patient is rotated to the right. Elevated left hemidiaphragm, and hazy left lung parenchymal opacity persists. Nasogastric tube remains. Impression: Unchanged, over one day, findings as above.
--- NOTE | 2020-05-21 12:20 | Nephrology Progress Note ---
Assessment/Plan Problem List: (1) DIC (disseminated intravascular coagulation) (2) Thrombocytopenia (3) Lactic acidosis (4) Septic shock (5) Anemia (6) Hypokalemia (7) Rhabdomyolysis (8) Non-STEMI (non-ST elevated myocardial infarction) (9) ZEE (acute kidney injury) (10) Elevated liver enzymes (11) CHF (congestive heart failure) (12) Gram negative sepsis Plan icu orders updated, low dose levophed, maintenance fluids, BC final pending, icu time 40 min Subjective ROS Limited/Unobtainable: Yes Objective Objective Last 24 Hour Vital Signs Date Time Temp Pulse Resp B/P (MAP) Pulse Ox O2 Delivery O2 Flow Rate FiO2 05/21/20 12:00 98 05/21/20 11:31 101 30 100/45 (63) 95 05/21/20 11:00 103 25 109/52 (71) 97 05/21/20 10:45 108 19 113/58 (76) 97 05/21/20 10:00 102 33 107/63 (78) 96 05/21/20 10:00 103 28 114/76 (89) 96 05/21/20 09:45 86/44 05/21/20 09:45 105 22 86/44 (58) 96 05/21/20 09:30 102 24 120/61 (80) 96 05/21/20 09:30 107/43 05/21/20 09:30 99 31 85/46 (59) 94 05/21/20 09:15 99 29 115/51 (72) 95 05/21/20 09:00 85/46 05/21/20 09:00 101 30 101/51 (68) 96 05/21/20 08:45 121/67 05/21/20 08:45 98.1 103 28 87/58 (68) 96 05/21/20 08:30 103 29 121/67 (85) 96 05/21/20 08:00 Nasal Cannula 4.0 05/21/20 08:00 125/67 05/21/20 08:00 104 05/21/20 08:00 105 28 125/67 (86) 96 05/21/20 07:30 107 28 108/56 (73) 96 05/21/20 07:00 112 27 124/51 (75) 97 05/21/20 07:00 129/51 05/21/20 06:45 102 31 109/73 (85) 98 05/21/20 06:30 107 27 107/57 (74) 96 05/21/20 06:15 109 28 106/46 (66) 96 05/21/20 06:00 111/51 05/21/20 06:00 107 28 111/51 (71) 96 05/21/20 05:45 105 29 106/60 (75) 96 05/21/20 05:30 105 29 114/58 (76) 95 05/21/20 05:15 109 28 127/58 (81) 96 05/21/20 05:00 116/57 05/21/20 05:00 106 29 116/57 (76) 96 05/21/20 04:45 106 29 102/55 (71) 95 05/21/20 04:30 86/39 05/21/20 04:30 100 21 86/39 (55) 94 05/21/20 04:15 102 24 112/46 (68) 97 05/21/20 04:15 112/46 05/21/20 04:00 107 05/21/20 04:00 103/45 05/21/20 04:00 Nasal Cannula 4.0 05/21/20 04:00 98.7 100 30 103/45 (64) 96 05/21/20 03:45 104 23 100/44 (62) 95 05/21/20 03:30 104 23 99/38 (58) 96 05/21/20 03:15 105 27 102/45 (64) 96 05/21/20 03:00 106 28 118/55 (76) 96 05/21/20 03:00 118/55 05/21/20 02:45 131/52 05/21/20 02:45 110 30 131/52 (78) 96 05/21/20 02:30 112 30 105/58 (74) 94 05/21/20 02:15 108 26 106/55 (72) 95 05/21/20 02:00 106 25 118/59 (78) 96 05/21/20 02:00 118/59 05/21/20 01:45 103 29 116/54 (74) 95 05/21/20 01:30 105 21 80/42 (55) 93 05/21/20 01:30 80/42 05/21/20 01:15 106 28 90/53 (65) 92 05/21/20 01:00 108 28 97/48 (64) 94 05/21/20 01:00 97/48 05/21/20 00:45 105 28 115/62 (79) 95 05/21/20 00:30 110 26 105/67 (80) 93 05/21/20 00:15 106 29 95/54 (68) 94 05/21/20 00:00 105 05/21/20 00:00 Nasal Cannula 3.0 05/21/20 00:00 97/48 05/21/20 00:00 97.8 108 29 93/60 (71) 95 05/20/20 23:45 108 31 116/51 (72) 96 05/20/20 23:34 124/59 05/20/20 23:30 108 30 124/59 (80) 96 05/20/20 23:15 106 27 111/45 (67) 96 05/20/20 23:07 105 34 90/47 (61) 94 05/20/20 23:00 105 35 79/41 (54) 94 05/20/20 23:00 79/41 05/20/20 22:45 102 35 95/41 (59) 94 05/20/20 22:30 101 27 98/61 (73) 94 05/20/20 22:15 101 27 103/44 (63) 96 05/20/20 22:00 101/45 05/20/20 22:00 104 28 101/45 (63) 94 05/20/20 21:45 106 28 94/46 (62) 94 05/20/20 21:30 105 30 102/51 (68) 94 05/20/20 21:15 105 25 100/49 (66) 93 05/20/20 21:00 112 24 96/44 (61) 94 05/20/20 21:00 96/44 05/20/20 20:45 113/62 05/20/20 20:45 107 27 113/62 (79) 95 05/20/20 20:30 103 25 103/50 (67) 95 05/20/20 20:15 102 30 100/45 (63) 94 05/20/20 20:00 104 05/20/20 20:00 Nasal Cannula 3.0 05/20/20 20:00 98/49 05/20/20 20:00 98.7 106 28 98/49 (65) 94 05/20/20 19:45 103 26 125/55 (78) 97 05/20/20 19:30 125/58 05/20/20 19:30 104 30 125/58 (80) 95 05/20/20 19:15 103 25 106/51 (69) 94 05/20/20 19:00 104 27 106/51 (69) 94 05/20/20 19:00 106/51 05/20/20 18:45 104 25 102/51 (68) 95 05/20/20 18:30 101 31 109/52 (71) 93 05/20/20 18:15 109 30 119/56 (77) 94 05/20/20 18:00 108 29 123/53 (76) 96 05/20/20 18:00 123/53 05/20/20 17:45 110 29 126/64 (84) 96 05/20/20 17:30 112 27 89/53 (65) 96 05/20/20 17:30 130/60 05/20/20 17:15 127/103 (111) 05/20/20 17:15 127/103 05/20/20 16:30 111 29 120/58 (78) 95 05/20/20 16:00 Nasal Cannula 2.0 05/20/20 16:00 117 05/20/20 16:00 98.6 05/20/20 16:00 111/55 05/20/20 16:00 115 34 109/82 (91) 94 05/20/20 15:30 112 32 121/61 (81) 97 05/20/20 15:00 115 33 112/54 (73) 95 05/20/20 15:00 11/54 05/20/20 14:30 114 35 112/61 (78) 96 05/20/20 14:14 91/40 05/20/20 14:00 105/38 05/20/20 14:00 111 29 79/51 (60) 95 05/20/20 13:30 115 31 95/57 (70) 95 05/20/20 13:00 117 33 97/28 (51) 95 05/20/20 13:00 106/60 05/20/20 12:45 117 32 106/60 (75) 96 05/20/20 12:30 117 33 105/43 (63) 96 05/20/20 12:15 117 34 118/84 (95) 96 Intake and Output 05/20/20 05/21/20 19:00 07:00 Intake Total 2083.626 ml 1144.305 ml Output Total 1145 ml 750 ml Balance 938.626 ml 394.305 ml IV Total 2083.626 ml 1144.305 ml Output Urine Total 1025 ml 370 ml Stool Total 120 ml 380 ml # Bowel Movements 1 Laboratory Tests 05/20/20 12:15: Lactic Acid Level 4.10H 05/20/20 15:40: Sodium Level 130L, Potassium Level 3.0L, Chloride Level 93L, Carbon Dioxide Level 26, Anion Gap 11, Blood Urea Nitrogen 24H, Creatinine 2.0H, Estimat Glomerular Filtration Rate 28.4, Glucose Level 173H, Calcium Level 7.1L, Total Creatine Kinase 3354H, Troponin I 1.964H 05/20/20 17:42: White Blood Count 48.7*H, Red Blood Count 4.91, Hemoglobin 14.4, Hematocrit 43.6 , Mean Corpuscular Volume 89, Mean Corpuscular Hemoglobin 29.3, Mean Corpuscular Hemoglobin Concent 33.0, Red Cell Distribution Width 12.8, Platelet Count 29#L, Mean Platelet Volume 13.9H, Neutrophils (%) (Auto) , Lymphocytes (% ) (Auto) , Monocytes (%) (Auto) , Eosinophils (%) (Auto) , Basophils (%) (Auto) , Differential Total Cells Counted 100, Neutrophils % (Manual) 67, Lymphocytes % (Manual) 4L, Monocytes % (Manual) 7, Eosinophils % (Manual) 0, Basophils % ( Manual) 0, Band Neutrophils 22H, Platelet Estimate DecreasedL, Platelet Morphology Normal, Polychromasia 1+ 05/20/20 18:00: Lactic Acid Level 4.00H 05/21/20 00:11: Lactic Acid Level 3.50H 05/21/20 05:45: Lactic Acid Level 3.10H, White Blood Count 34.6*H, Red Blood Count 4.80, Hemoglobin 14.2, Hematocrit 42.3, Mean Corpuscular Volume 88, Mean Corpuscular Hemoglobin 29.6, Mean Corpuscular Hemoglobin Concent 33.5, Red Cell Distribution Width 12.5, Platelet Count 14#L, Mean Platelet Volume 6.9, Neutrophils (%) (Auto) , Lymphocytes (%) (Auto) , Monocytes (%) (Auto) , Eosinophils (%) (Auto) , Basophils (%) (Auto) , Differential Total Cells Counted 100, Neutrophils % (Manual) 74, Lymphocytes % (Manual) 2L, Monocytes % ( Manual) 4, Eosinophils % (Manual) 0, Basophils % (Manual) 0, Band Neutrophils 20H, Platelet Estimate DecreasedL, Platelet Morphology Normal, Red Blood Cell Morphology Normal, Prothrombin Time 15.0H, Prothromb Time International Ratio 1.4H, Sodium Level 131L, Potassium Level 3.9, Chloride Level 96L, Carbon Dioxide Level 24, Anion Gap 11, Blood Urea Nitrogen 26H, Creatinine 1.6H, Estimat Glomerular Filtration Rate 36.7, Glucose Level 79, Calcium Level 6.9L, Phosphorus Level 3.4, Magnesium Level 2.8H, Iron Level 40L, Total Iron Binding Capacity 153L, Percent Iron Saturation 26, Unsaturated Iron Binding 113, Ferritin > 2000H, Total Bilirubin 3.9H, Direct Bilirubin 1.9H, Aspartate Amino Transf (AST/SGOT) 334H, Alanine Aminotransferase (ALT/SGPT) 389H, Alkaline Phosphatase 69, Troponin I 1.442H, Total Protein 6.0L, Albumin 2.0L, Globulin 4.0, Albumin/Globulin Ratio 0.5L Height (Feet): 5 Height (Inches): 7.00 Weight (Pounds): 150 General Appearance: lethargic, confused EENT: normal ENT inspection Neck: normal alignment Cardiovascular: regular rhythm Respiratory/Chest: lungs clear Abdomen: non tender, soft, distended Extremities: no edema Neurologic: motor weakness, disoriented Eric Wilkins MD May 21, 2020 12:20
[2020-05-21] MEDS ORDERED: NS w/KCl 40mEq 1,000 ML IV SCH (12:26)
[2020-05-21 12:56] LABS: CREATINE KINASE 1728 U/L (26-308)
[2020-05-21 14:44] LABS: HEMATOCRIT 40.1 % (37.0-47.0); HEMOGLOBIN 13.5 G/DL (12.0-16.0); MEAN CORPUSCULAR VOLUME 87 FL (80-99); PLATELET COUNT 17 K/UL (150-450); RED BLOOD COUNT 4.58 M/UL (4.20-5.40); RED CELL DISTRIBUTION WIDTH 12.6 % (11.6-14.8)
[2020-05-21 14:45] LABS: WHITE BLOOD COUNT 38.8 K/UL (4.8-10.8)
[2020-05-21 15:10] LABS: ALANINE AMINOTRANSFERASE 352 U/L (12-78); ALBUMIN 2.2 G/DL (3.4-5.0); ALBUMIN/GLOBULIN RATIO 0.6 (1.0-2.7); ALKALINE PHOSPHATASE 74 U/L (46-116); ANION GAP 10 mmol/L (5-15); ASPARTATE AMINO TRANSFERASE 250 U/L (15-37); BILIRUBIN,TOTAL 3.2 MG/DL (0.2-1.0); BLOOD UREA NITROGEN 25 mg/dL (7-18); CALCIUM 7.2 MG/DL (8.5-10.1); CARBON DIOXIDE 25 MMOL/L (21-32); CHLORIDE 99 MMOL/L (98-107); CREATININE 1.5 MG/DL (0.55-1.30); POTASSIUM 3.1 MMOL/L (3.5-5.1); SODIUM 134 MMOL/L (136-145)
[2020-05-21 15:17] LABS: BILIRUBIN,DIRECT 2.2 MG/DL (0.0-0.3)
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
--- NOTE | 2020-05-21 16:31 | Diagnostic Imaging Report ---
Indication: Cholelithiasis. Dilated common bile duct. Dilated pancreatic duct, abnormal findings on recent abdomen pelvis CT. Technique: Coronal and axial single shot fast spin-echo breath-hold, axial T2 FRFSE, 2-D thick slab MRCP, AXIAL 2-D FIESTA fat saturated, axial 3-D dual echo breath-hold, water weighted axial LAVA FLEX, revealed 3-D MRCP images were obtained of the abdomen. MIP reconstructions were generated of the bile ducts Comparison: Abdomen pelvis CT 05/20/2020 Findings: There is image degradation due to motion artifact. There is a signal void within the gallbladder lumen indicate gallstones, also previously demonstrated on prior studies. The extrahepatic bile ducts are dilated, common bile duct measuring up to 12 mm in diameter. However, no filling defects or obstructing mass demonstrated. The downstream pancreatic duct is mildly dilated, measuring up to 5 mm in diameter. No gallbladder wall thickening. The liver, pancreas, spleen, adrenals are unremarkable. The kidneys are unremarkable. There is bilateral pulmonary parenchymal consolidation. There is pleural fluid on the right. Impression: Dilated extrahepatic bile ducts, without definite evidence of downstream obstructive lesion. Possibly on basis of senescent changes Mildly dilated pancreatic duct, significance uncertain Cholelithiasis Bilateral common and parenchymal consolidation, right pleural effusion
[2020-05-21] MEDS: NS w/KCl 40mEq 1,000 ML IV SCH ×2 (17:15→23:57)
[2020-05-21] MEDS: Dyna-Hex 2% Top Sol 2oz TOPIC SCH (19:53)
[2020-05-22] VITALS (24 sets, daily range): BP systolic 95–151; BP diastolic 43–83
[2020-05-22] MEDS: Meropenem 500 MG in NS 55 ML IVPB SCH (00:48)
--- NOTE | 2020-05-22 01:54 | Cardiology Progress Note ---
Subjective DATE OF SERVICE: May 21, 2020 Very withdrawn, but arousable Tapered off pressors with improving BP readings. Monitor: sinus with atrial ectopics Objective Last 24 Hour Vital Signs Date Time Temp Pulse Resp B/P (MAP) Pulse Ox O2 Delivery O2 Flow Rate FiO2 05/22/20 00:00 Nasal Cannula 4.0 05/22/20 00:00 86 31 95/43 (60) 96 05/22/20 00:00 98 05/21/20 23:00 89 29 109/64 (79) 99 05/21/20 22:00 95 29 119/54 (75) 98 05/21/20 21:00 92 32 119/63 (81) 97 05/21/20 20:00 98.0 95 21 118/57 (77) 99 05/21/20 20:00 96 05/21/20 20:00 Nasal Cannula 4.0 05/21/20 19:00 92 36 128/68 (88) 96 05/21/20 18:00 94 15 112/51 (71) 100 05/21/20 17:00 96 21 111/58 (75) 97 05/21/20 16:00 98.1 96 28 107/56 (73) 97 05/21/20 16:00 92 05/21/20 16:00 95 05/21/20 16:00 Nasal Cannula 4.0 05/21/20 15:30 93 32 90/44 (59) 98 05/21/20 15:00 100 22 109/58 (75) 95 05/21/20 14:30 101 26 102/55 (71) 97 05/21/20 14:00 104 26 112/60 (77) 97 05/21/20 13:45 27 117/58 (77) 97 05/21/20 12:30 25 130/52 (78) 97 05/21/20 12:30 130/52 05/21/20 12:00 98 05/21/20 12:00 118/65 05/21/20 12:00 Nasal Cannula 4.0 05/21/20 12:00 96 33 118/65 (82) 97 05/21/20 11:31 101 30 100/45 (63) 95 05/21/20 11:00 106/56 05/21/20 11:00 103 25 109/52 (71) 97 05/21/20 10:45 108 19 113/58 (76) 97 05/21/20 10:00 102 33 107/63 (78) 96 05/21/20 10:00 103 28 114/76 (89) 96 05/21/20 10:00 107/63 05/21/20 09:45 86/44 05/21/20 09:45 105 22 86/44 (58) 96 05/21/20 09:30 102 24 120/61 (80) 96 05/21/20 09:30 107/43 05/21/20 09:30 99 31 85/46 (59) 94 05/21/20 09:15 99 29 115/51 (72) 95 05/21/20 09:00 85/46 05/21/20 09:00 101 30 101/51 (68) 96 05/21/20 08:45 121/67 05/21/20 08:45 98.1 103 28 87/58 (68) 96 05/21/20 08:30 103 29 121/67 (85) 96 05/21/20 08:00 Nasal Cannula 4.0 05/21/20 08:00 125/67 05/21/20 08:00 104 05/21/20 08:00 105 28 125/67 (86) 96 05/21/20 07:54 94 Nasal Cannula 4.0 36 05/21/20 07:30 107 28 108/56 (73) 96 05/21/20 07:00 112 27 124/51 (75) 97 05/21/20 07:00 129/51 05/21/20 06:45 102 31 109/73 (85) 98 05/21/20 06:30 107 27 107/57 (74) 96 05/21/20 06:15 109 28 106/46 (66) 96 05/21/20 06:00 111/51 05/21/20 06:00 107 28 111/51 (71) 96 05/21/20 05:45 105 29 106/60 (75) 96 05/21/20 05:30 105 29 114/58 (76) 95 05/21/20 05:15 109 28 127/58 (81) 96 05/21/20 05:00 116/57 05/21/20 05:00 106 29 116/57 (76) 96 05/21/20 04:45 106 29 102/55 (71) 95 05/21/20 04:30 86/39 05/21/20 04:30 100 21 86/39 (55) 94 05/21/20 04:15 102 24 112/46 (68) 97 05/21/20 04:15 112/46 05/21/20 04:00 107 05/21/20 04:00 103/45 05/21/20 04:00 Nasal Cannula 4.0 05/21/20 04:00 98.7 100 30 103/45 (64) 96 05/21/20 03:45 104 23 100/44 (62) 95 05/21/20 03:30 104 23 99/38 (58) 96 05/21/20 03:15 105 27 102/45 (64) 96 05/21/20 03:00 106 28 118/55 (76) 96 05/21/20 03:00 118/55 05/21/20 02:45 131/52 05/21/20 02:45 110 30 131/52 (78) 96 05/21/20 02:30 112 30 105/58 (74) 94 05/21/20 02:15 108 26 106/55 (72) 95 05/21/20 02:00 106 25 118/59 (78) 96 05/21/20 02:00 118/59 ROS: no change from my evaluation of 05/19/20. HEENT: normal ENT inspection LUNGS: lungs clear bilaterally CARDIAC: regular rhythm, normal S1 and S2, rapid rate, tachycardia ABDOMEN: soft, tender - mild diffuse EXTREMITIES: normal range of motion, No edema Laboratory Tests Test 05/21/20 05:45 05/21/20 14:23 White Blood Count 34.6 K/UL (4.8-10.8) *H 38.8 K/UL (4.8-10.8) *H Red Blood Count 4.80 M/UL (4.20-5.40) 4.58 M/UL (4.20-5.40) Hemoglobin 14.2 G/DL (12.0-16.0) 13.5 G/DL (12.0-16.0) Hematocrit 42.3 % (37.0-47.0) 40.1 % (37.0-47.0) Mean Corpuscular Volume 88 FL (80-99) 87 FL (80-99) Mean Corpuscular Hemoglobin 29.6 PG (27.0-31.0) 29.4 PG (27.0-31.0) Mean Corpuscular Hemoglobin Concent 33.5 G/DL (32.0-36.0) 33.6 G/DL (32.0-36.0) Red Cell Distribution Width 12.5 % (11.6-14.8) 12.6 % (11.6-14.8) Platelet Count 14 K/UL (150-450) #L 17 K/UL (150-450) L Mean Platelet Volume 6.9 FL (6.5-10.1) 14.4 FL (6.5-10.1) H Neutrophils (%) (Auto) % (45.0-75.0) % (45.0-75.0) Lymphocytes (%) (Auto) % (20.0-45.0) % (20.0-45.0) Monocytes (%) (Auto) % (1.0-10.0) % (1.0-10.0) Eosinophils (%) (Auto) % (0.0-3.0) % (0.0-3.0) Basophils (%) (Auto) % (0.0-2.0) % (0.0-2.0) Differential Total Cells Counted 100 100 Neutrophils % (Manual) 74 % (45-75) 90 % (45-75) H Lymphocytes % (Manual) 2 % (20-45) L 1 % (20-45) L Monocytes % (Manual) 4 % (1-10) 3 % (1-10) Eosinophils % (Manual) 0 % (0-3) 0 % (0-3) Basophils % (Manual) 0 % (0-2) 0 % (0-2) Band Neutrophils 20 % (0-8) H 6 % (0-8) Platelet Estimate Decreased L Decreased L Platelet Morphology Normal Normal Red Blood Cell Morphology Normal Normal Prothrombin Time 15.0 SEC (9.30-11.50) H Prothromb Time International Ratio 1.4 (0.9-1.1) H Sodium Level 131 MMOL/L (136-145) L 134 MMOL/L (136-145) L Potassium Level 3.9 MMOL/L (3.5-5.1) 3.1 MMOL/L (3.5-5.1) L Chloride Level 96 MMOL/L (98-107) L 99 MMOL/L (98-107) Carbon Dioxide Level 24 MMOL/L (21-32) 25 MMOL/L (21-32) Anion Gap 11 mmol/L (5-15) 10 mmol/L (5-15) Blood Urea Nitrogen 26 mg/dL (7-18) H 25 mg/dL (7-18) H Creatinine 1.6 MG/DL (0.55-1.30) H 1.5 MG/DL (0.55-1.30) H Estimat Glomerular Filtration Rate 36.7 mL/min (>60) 39.6 mL/min (>60) Glucose Level 79 MG/DL (74-106) 101 MG/DL (74-106) Lactic Acid Level 3.10 mmol/L (0.4-2.0) H 2.00 mmol/L (0.4-2.0) Calcium Level 6.9 MG/DL (8.5-10.1) L 7.2 MG/DL (8.5-10.1) L Phosphorus Level 3.4 MG/DL (2.5-4.9) Magnesium Level 2.8 MG/DL (1.8-2.4) H Iron Level 40 ug/dL (50-175) L Total Iron Binding Capacity 153 ug/dL (250-450) L Percent Iron Saturation 26 % (15-50) Unsaturated Iron Binding 113 ug/dL (112-346) Ferritin > 2000 NG/ML (8-388) H Total Bilirubin 3.9 MG/DL (0.2-1.0) H 3.2 MG/DL (0.2-1.0) H Direct Bilirubin 1.9 MG/DL (0.0-0.3) H 2.2 MG/DL (0.0-0.3) H Aspartate Amino Transf (AST/SGOT) 334 U/L (15-37) H 250 U/L (15-37) H Alanine Aminotransferase (ALT/SGPT) 389 U/L (12-78) H 352 U/L (12-78) H Alkaline Phosphatase 69 U/L (46-116) 74 U/L (46-116) Total Creatine Kinase 1728 U/L (26-308) H Troponin I 1.442 ng/mL (0.000-0.056) Total Protein 6.0 G/DL (6.4-8.2) L 6.0 G/DL (6.4-8.2) L Albumin 2.0 G/DL (3.4-5.0) L 2.2 G/DL (3.4-5.0) L Globulin 4.0 g/dL 3.8 g/dL Albumin/Globulin Ratio 0.5 (1.0-2.7) L 0.6 (1.0-2.7) L Microbiology Date/Time Source Procedure Growth Status 05/19/20 17:56 Blood Blood Culture - Preliminary Gram Negative Bacillus 1 Resulted 05/19/20 17:46 Blood Blood Culture - Preliminary Gram Negative Bacillus 1 Resulted 05/19/20 17:50 Nasopharynx SARS-CoV-2 RdRp Gene Assay - Final Complete 05/19/20 23:00 Stool Stool Culture - Preliminary NORMAL FECAL ZHANE. Resulted 05/19/20 23:00 Stool Clostridium difficile Toxin Assay - Final Resulted 05/19/20 23:00 Urine,Clean Catch Urine Culture - Preliminary Resulted Assessment/Plan Assessment/Plan Sepsis with shock resolving - likely abdominal source Worsening leukocytosis Lactic acidosis resolved Transaminitis Hypomagnesemia Hyponatremia Acute myocardial ischemia and possible NSTE myocardial infarction acute renal failure improved CRITICAL & GUARDED Broad sp antimicrobials Serial troponin and lactic acid levels Remain off pressors IVF adjusted IV Mg as needed F/U cultures DVT prophylaxis ICU monitoring Dalton Valdez MD May 22, 2020 01:54
[2020-05-22 05:29] LABS: HEMATOCRIT 41.8 % (37.0-47.0); HEMOGLOBIN 13.9 G/DL (12.0-16.0); MEAN CORPUSCULAR VOLUME 89 FL (80-99); PLATELET COUNT 17 K/UL (150-450); RED BLOOD COUNT 4.71 M/UL (4.20-5.40); RED CELL DISTRIBUTION WIDTH 12.9 % (11.6-14.8)
[2020-05-22 05:49] LABS: WHITE BLOOD COUNT 35.1 K/UL (4.8-10.8)
[2020-05-22 06:03] LABS: ALANINE AMINOTRANSFERASE 265 U/L (12-78); ALBUMIN 1.9 G/DL (3.4-5.0); ALBUMIN/GLOBULIN RATIO 0.5 (1.0-2.7); ALKALINE PHOSPHATASE 63 U/L (46-116); ANION GAP 11 mmol/L (5-15); ASPARTATE AMINO TRANSFERASE 143 U/L (15-37); BILIRUBIN,TOTAL 2.7 MG/DL (0.2-1.0); BLOOD UREA NITROGEN 22 mg/dL (7-18); CALCIUM 7.4 MG/DL (8.5-10.1); CARBON DIOXIDE 24 MMOL/L (21-32); CHLORIDE 106 MMOL/L (98-107); CREATININE 1.3 MG/DL (0.55-1.30); POTASSIUM 3.5 MMOL/L (3.5-5.1); SODIUM 140 MMOL/L (136-145)
[2020-05-22 06:16] LABS: CREATINE KINASE 414 U/L (26-308); PHOSPHORUS 2.2 MG/DL (2.5-4.9)
[2020-05-22 06:27] LABS: BILIRUBIN,DIRECT 1.8 MG/DL (0.0-0.3)
[2020-05-22] MEDS: NS w/KCl 40mEq 1,000 ML IV SCH (09:29)
[2020-05-22] MEDS: Pantoprazole Inj IVP SCH ×2 (09:29→20:33)
[2020-05-22] MEDS ORDERED: Meropenem 1gm/NS 55ml IVPB SCH ×2 (10:00)
--- NOTE | 2020-05-22 11:18 | Infectious Diseases Prog Note ---
Assessment/Plan Assessment/Plan antibiotics : meropenem A 1. E.coli sepsis 2. shock 3. thrombocytopenia 4. ? cholecystitis ? cholangitis 5. leucocytosis improving 6. gram negative UTI 7. renal failure improving P 1. d/c meropenem 2. start levoquin 3. will follow up cultures Subjective ROS Limited/Unobtainable: Yes Allergies: Coded Allergies: No Known Allergies (Unverified , 05/28/13) Objective Last 24 Hour Vital Signs Date Time Temp Pulse Resp B/P (MAP) Pulse Ox O2 Delivery O2 Flow Rate FiO2 05/22/20 07:00 87 29 121/56 (77) 99 05/22/20 06:00 88 29 122/56 (78) 99 05/22/20 05:00 91 23 120/72 (88) 98 05/22/20 04:00 Nasal Cannula 4.0 05/22/20 04:00 96 05/22/20 04:00 98.6 84 17 105/52 (69) 97 05/22/20 03:00 94 20 123/59 (80) 98 05/22/20 02:00 97 22 118/60 (79) 98 05/22/20 01:00 91 20 114/59 (77) 99 05/22/20 00:00 Nasal Cannula 4.0 05/22/20 00:00 98.2 86 31 95/43 (60) 96 05/22/20 00:00 98 05/21/20 23:00 89 29 109/64 (79) 99 05/21/20 22:00 95 29 119/54 (75) 98 05/21/20 21:00 92 32 119/63 (81) 97 05/21/20 20:00 98.0 95 21 118/57 (77) 99 05/21/20 20:00 96 05/21/20 20:00 Nasal Cannula 4.0 05/21/20 19:00 92 36 128/68 (88) 96 05/21/20 18:00 94 15 112/51 (71) 100 05/21/20 17:00 96 21 111/58 (75) 97 05/21/20 16:00 98.1 96 28 107/56 (73) 97 05/21/20 16:00 92 05/21/20 16:00 95 05/21/20 16:00 Nasal Cannula 4.0 05/21/20 15:30 93 32 90/44 (59) 98 05/21/20 15:00 100 22 109/58 (75) 95 05/21/20 14:30 101 26 102/55 (71) 97 05/21/20 14:00 104 26 112/60 (77) 97 05/21/20 13:45 27 117/58 (77) 97 05/21/20 12:30 25 130/52 (78) 97 05/21/20 12:30 130/52 05/21/20 12:00 98 05/21/20 12:00 118/65 05/21/20 12:00 Nasal Cannula 4.0 05/21/20 12:00 96 33 118/65 (82) 97 05/21/20 11:31 101 30 100/45 (63) 95 Height (Feet): 5 Height (Inches): 7.00 Weight (Pounds): 150 Respiratory/Chest: lungs clear Cardiovascular: normal rate, regular rhythm, no gallop/murmur Abdomen: soft, non tender Extremities: no edema Microbiology Date/Time Source Procedure Growth Status 05/19/20 17:56 Blood Blood Culture - Final Escherichia Coli Complete 05/19/20 17:46 Blood Blood Culture - Final Escherichia Coli Complete 05/19/20 23:00 Nasal Nares Right MRSA Culture - Final Staphylococcus Aureus - Mrsa Complete 05/19/20 17:50 Nasopharynx SARS-CoV-2 RdRp Gene Assay - Final Complete 05/19/20 23:00 Stool Stool Culture - Preliminary NORMAL FECAL ZHANE. Resulted 05/19/20 23:00 Stool Clostridium difficile Toxin Assay - Final Resulted 05/19/20 23:00 Urine,Clean Catch Urine Culture - Preliminary Gram Negative Bacillus 1 Resulted 05/19/20 23:00 Rectum - Final NO CARBAPENEM-RESISTANT ENTEROBACTERI... Complete 05/19/20 23:00 Rectum VRE Culture - Final NO VANCOMYCIN RESISTANT ENTEROCOCCUS ... Complete Laboratory Tests Test 05/21/20 14:23 05/22/20 04:00 White Blood Count 38.8 K/UL (4.8-10.8) *H 35.1 K/UL (4.8-10.8) *H Red Blood Count 4.58 M/UL (4.20-5.40) 4.71 M/UL (4.20-5.40) Hemoglobin 13.5 G/DL (12.0-16.0) 13.9 G/DL (12.0-16.0) Hematocrit 40.1 % (37.0-47.0) 41.8 % (37.0-47.0) Mean Corpuscular Volume 87 FL (80-99) 89 FL (80-99) Mean Corpuscular Hemoglobin 29.4 PG (27.0-31.0) 29.4 PG (27.0-31.0) Mean Corpuscular Hemoglobin Concent 33.6 G/DL (32.0-36.0) 33.2 G/DL (32.0-36.0) Red Cell Distribution Width 12.6 % (11.6-14.8) 12.9 % (11.6-14.8) Platelet Count 17 K/UL (150-450) L 17 K/UL (150-450) L Mean Platelet Volume 14.4 FL (6.5-10.1) H 12.2 FL (6.5-10.1) H Neutrophils (%) (Auto) % (45.0-75.0) % (45.0-75.0) Lymphocytes (%) (Auto) % (20.0-45.0) % (20.0-45.0) Monocytes (%) (Auto) % (1.0-10.0) % (1.0-10.0) Eosinophils (%) (Auto) % (0.0-3.0) % (0.0-3.0) Basophils (%) (Auto) % (0.0-2.0) % (0.0-2.0) Differential Total Cells Counted 100 100 Neutrophils % (Manual) 90 % (45-75) H 93 % (45-75) H Lymphocytes % (Manual) 1 % (20-45) L 2 % (20-45) L Monocytes % (Manual) 3 % (1-10) 5 % (1-10) Eosinophils % (Manual) 0 % (0-3) 0 % (0-3) Basophils % (Manual) 0 % (0-2) 0 % (0-2) Band Neutrophils 6 % (0-8) 0 % (0-8) Platelet Estimate Decreased L Decreased L Platelet Morphology Normal Normal Red Blood Cell Morphology Normal Normal Sodium Level 134 MMOL/L (136-145) L 140 MMOL/L (136-145) Potassium Level 3.1 MMOL/L (3.5-5.1) L 3.5 MMOL/L (3.5-5.1) Chloride Level 99 MMOL/L (98-107) 106 MMOL/L (98-107) Carbon Dioxide Level 25 MMOL/L (21-32) 24 MMOL/L (21-32) Anion Gap 10 mmol/L (5-15) 11 mmol/L (5-15) Blood Urea Nitrogen 25 mg/dL (7-18) H 22 mg/dL (7-18) H Creatinine 1.5 MG/DL (0.55-1.30) H 1.3 MG/DL (0.55-1.30) Estimat Glomerular Filtration Rate 39.6 mL/min (>60) 46.8 mL/min (>60) Glucose Level 101 MG/DL (74-106) 80 MG/DL (74-106) Lactic Acid Level 2.00 mmol/L (0.4-2.0) Calcium Level 7.2 MG/DL (8.5-10.1) L 7.4 MG/DL (8.5-10.1) L Total Bilirubin 3.2 MG/DL (0.2-1.0) H 2.7 MG/DL (0.2-1.0) H Direct Bilirubin 2.2 MG/DL (0.0-0.3) H 1.8 MG/DL (0.0-0.3) H Aspartate Amino Transf (AST/SGOT) 250 U/L (15-37) H 143 U/L (15-37) H Alanine Aminotransferase (ALT/SGPT) 352 U/L (12-78) H 265 U/L (12-78) H Alkaline Phosphatase 74 U/L (46-116) 63 U/L (46-116) Total Protein 6.0 G/DL (6.4-8.2) L 5.7 G/DL (6.4-8.2) L Albumin 2.2 G/DL (3.4-5.0) L 1.9 G/DL (3.4-5.0) L Globulin 3.8 g/dL 3.8 g/dL Albumin/Globulin Ratio 0.6 (1.0-2.7) L 0.5 (1.0-2.7) L Prothrombin Time 11.2 SEC (9.30-11.50) Prothromb Time International Ratio 1.0 (0.9-1.1) Activated Partial Thromboplast Time 30 SEC (23-33) Phosphorus Level 2.2 MG/DL (2.5-4.9) L Magnesium Level 2.6 MG/DL (1.8-2.4) H Total Creatine Kinase 414 U/L (26-308) H Pro-B-Type Natriuretic Peptide 58909 pg/mL (0-125) H Current Medications Medications (Trade) Dose Ordered Sig/Gricelda Route PRN Reason Start Time Stop Time Status Last Admin Dose Admin Chlorhexidine Gluconate (Celi-Hex 2%) 1 applic DAILY@2000 TOPIC 05/20/20 20:00 08/18/20 19:59 05/21/20 19:53 Dextrose (Dextrose 50%) 25 ml Q30M PRN IV Hypoglycemia 05/19/20 19:15 08/17/20 19:14 Dextrose (Dextrose 50%) 50 ml Q30M PRN IV Hypoglycemia 05/19/20 19:15 08/17/20 19:14 Loperamide HCl (Imodium) 2 mg Q6H PRN NG Diarrhea 05/20/20 13:00 06/19/20 12:59 Meropenem 1 gm/ Sodium Chloride 55 ml @ 110 mls/hr Q12HR IVPB 05/22/20 10:00 05/27/20 09:59 05/22/20 09:51 Norepinephrine Bitartrate 4 mg/ Dextrose 250 ml @ 0 mls/hr Q24H IV 05/19/20 23:00 06/18/20 22:59 05/20/20 23:34 Ondansetron HCl (Zofran) 4 mg Q6H PRN IVP Nausea & Vomiting 05/19/20 19:15 06/18/20 19:14 Pantoprazole (Protonix) 40 mg EVERY 12 HOURS IVP 05/20/20 09:00 06/19/20 08:59 05/22/20 09:29 Potassium Chloride/Sodium Chloride 1,000 ml @ 100 mls/hr Q10H IV 05/21/20 18:00 06/20/20 17:59 05/22/20 09:29 Jeff De La Cruz MD May 22, 2020 11:18
--- NOTE | 2020-05-22 11:48 | General Progress Note ---
Assessment/Plan Assessment/Plan: thrombocytopenia leukocytosis coagulopathy RI elevated LFTS CAD/[place] gallstones dilated CBD and PD CT and us reviewed MRCP reviewed abx repeat labs prn imodium swallow eval will fu Subjective ROS Limited/Unobtainable: No Allergies: Coded Allergies: No Known Allergies (Unverified , 05/28/13) Objective Last 24 Hour Vital Signs Date Time Temp Pulse Resp B/P (MAP) Pulse Ox O2 Delivery O2 Flow Rate FiO2 05/22/20 11:00 101 24 148/83 (104) 99 05/22/20 10:00 92 24 139/69 (92) 99 05/22/20 09:00 83 22 96/52 (67) 98 05/22/20 08:00 98.1 88 20 128/60 (82) 100 05/22/20 07:00 87 29 121/56 (77) 99 05/22/20 06:00 88 29 122/56 (78) 99 05/22/20 05:00 91 23 120/72 (88) 98 05/22/20 04:00 Nasal Cannula 4.0 05/22/20 04:00 96 05/22/20 04:00 98.6 84 17 105/52 (69) 97 05/22/20 03:00 94 20 123/59 (80) 98 05/22/20 02:00 97 22 118/60 (79) 98 05/22/20 01:00 91 20 114/59 (77) 99 05/22/20 00:00 Nasal Cannula 4.0 05/22/20 00:00 98.2 86 31 95/43 (60) 96 05/22/20 00:00 98 05/21/20 23:00 89 29 109/64 (79) 99 05/21/20 22:00 95 29 119/54 (75) 98 05/21/20 21:00 92 32 119/63 (81) 97 05/21/20 20:00 98.0 95 21 118/57 (77) 99 05/21/20 20:00 96 05/21/20 20:00 Nasal Cannula 4.0 05/21/20 19:00 92 36 128/68 (88) 96 05/21/20 18:00 94 15 112/51 (71) 100 05/21/20 17:00 96 21 111/58 (75) 97 05/21/20 16:00 98.1 96 28 107/56 (73) 97 05/21/20 16:00 92 05/21/20 16:00 95 05/21/20 16:00 Nasal Cannula 4.0 05/21/20 15:30 93 32 90/44 (59) 98 05/21/20 15:00 100 22 109/58 (75) 95 05/21/20 14:30 101 26 102/55 (71) 97 05/21/20 14:00 104 26 112/60 (77) 97 05/21/20 13:45 27 117/58 (77) 97 05/21/20 12:30 25 130/52 (78) 97 05/21/20 12:30 130/52 05/21/20 12:00 98 05/21/20 12:00 118/65 05/21/20 12:00 Nasal Cannula 4.0 05/21/20 12:00 96 33 118/65 (82) 97 Intake and Output 05/21/20 05/22/20 19:00 07:00 Intake Total 955.9405 ml 1200 ml Output Total 1115 ml 750 ml Balance -159.0595 ml 450 ml IV Total 955.9405 ml 1200 ml Output Urine Total 415 ml 580 ml Stool Total 700 ml 150 ml Gastric Drainage Total 20 ml Laboratory Tests 05/21/20 14:23: White Blood Count 38.8*H, Red Blood Count 4.58, Hemoglobin 13.5, Hematocrit 40.1 , Mean Corpuscular Volume 87, Mean Corpuscular Hemoglobin 29.4, Mean Corpuscular Hemoglobin Concent 33.6, Red Cell Distribution Width 12.6, Platelet Count 17L, Mean Platelet Volume 14.4H, Neutrophils (%) (Auto) , Lymphocytes (%) (Auto) , Monocytes (%) (Auto) , Eosinophils (%) (Auto) , Basophils (%) (Auto) , Differential Total Cells Counted 100, Neutrophils % (Manual) 90H, Lymphocytes % (Manual) 1L, Monocytes % (Manual) 3, Eosinophils % (Manual) 0, Basophils % ( Manual) 0, Band Neutrophils 6, Platelet Estimate DecreasedL, Platelet Morphology Normal, Red Blood Cell Morphology Normal, Sodium Level 134L, Potassium Level 3.1L, Chloride Level 99, Carbon Dioxide Level 25, Anion Gap 10, Blood Urea Nitrogen 25H, Creatinine 1.5H, Estimat Glomerular Filtration Rate 39.6, Glucose Level 101, Lactic Acid Level 2.00, Calcium Level 7.2L, Total Bilirubin 3.2H, Direct Bilirubin 2.2H, Aspartate Amino Transf (AST/SGOT) 250H, Alanine Aminotransferase (ALT/SGPT) 352H, Alkaline Phosphatase 74, Total Protein 6.0L, Albumin 2.2L, Globulin 3.8, Albumin/Globulin Ratio 0.6L 05/22/20 04:00: White Blood Count 35.1*H, Red Blood Count 4.71, Hemoglobin 13.9, Hematocrit 41.8 , Mean Corpuscular Volume 89, Mean Corpuscular Hemoglobin 29.4, Mean Corpuscular Hemoglobin Concent 33.2, Red Cell Distribution Width 12.9, Platelet Count 17L, Mean Platelet Volume 12.2H, Neutrophils (%) (Auto) , Lymphocytes (%) (Auto) , Monocytes (%) (Auto) , Eosinophils (%) (Auto) , Basophils (%) (Auto) , Differential Total Cells Counted 100, Neutrophils % (Manual) 93H, Lymphocytes % (Manual) 2L, Monocytes % (Manual) 5, Eosinophils % (Manual) 0, Basophils % ( Manual) 0, Band Neutrophils 0, Platelet Estimate DecreasedL, Platelet Morphology Normal, Red Blood Cell Morphology Normal, Sodium Level 140, Potassium Level 3.5, Chloride Level 106, Carbon Dioxide Level 24, Anion Gap 11, Blood Urea Nitrogen 22H, Creatinine 1.3, Estimat Glomerular Filtration Rate 46.8 , Glucose Level 80, Calcium Level 7.4L, Total Bilirubin 2.7H, Direct Bilirubin 1.8H, Aspartate Amino Transf (AST/SGOT) 143H, Alanine Aminotransferase (ALT/SGPT ) 265H, Alkaline Phosphatase 63, Total Protein 5.7L, Albumin 1.9L, Globulin 3.8 , Albumin/Globulin Ratio 0.5L, Prothrombin Time 11.2, Prothromb Time International Ratio 1.0, Activated Partial Thromboplast Time 30, Phosphorus Level 2.2L, Magnesium Level 2.6H, Total Creatine Kinase 414H, Pro-B-Type Natriuretic Peptide [id number] Height (Feet): 5 Height (Inches): 7.00 Weight (Pounds): 150 General Appearance: no apparent distress EENT: normal ENT inspection Neck: supple Cardiovascular: normal rate Respiratory/Chest: decreased breath sounds Abdomen: normal bowel sounds, non tender, soft Extremities: non-tender Ludwig Wood MD May 22, 2020 11:48
[2020-05-22] MEDS: Levofloxacin 500mg tab NG SCH (13:26)
[2020-05-22] MEDS ORDERED: Varibar Pudding 230ml MC PRN (16:00)
[2020-05-22] MEDS ORDERED: Varibar Honey 250ml MC PRN (16:00)
[2020-05-22] MEDS ORDERED: Varibar Thin Liquid powder 148gm MC PRN (16:00)
[2020-05-22] MEDS ORDERED: Varibar Nectar 240ml MC PRN (16:00)
--- NOTE | 2020-05-22 16:00 | General Progress Note ---
Assessment/Plan Problem List: (1) DIC (disseminated intravascular coagulation) ICD Codes: D65 - Disseminated intravascular coagulation [defibrination syndrome ] SNOMED: 83190697 (2) Thrombocytopenia ICD Codes: D69.6 - Thrombocytopenia, unspecified SNOMED: 848633551 (3) Lactic acidosis ICD Codes: E87.2 - Acidosis SNOMED: 25473465 (4) Septic shock ICD Codes: A41.9 - Sepsis, unspecified organism; R65.21 - Severe sepsis with septic shock SNOMED: 05410674 (5) Anemia ICD Codes: D64.9 - Anemia, unspecified SNOMED: 857920940 (6) Hypokalemia ICD Codes: E87.6 - Hypokalemia SNOMED: 93566821 (7) Rhabdomyolysis ICD Codes: M62.82 - Rhabdomyolysis SNOMED: 332543269 (8) Non-STEMI (non-ST elevated myocardial infarction) ICD Codes: I21.4 - Non-ST elevation (NSTEMI) myocardial infarction SNOMED: 39180060 (9) ZEE (acute kidney injury) ICD Codes: N17.9 - Acute kidney failure, unspecified SNOMED: 7597465, 01158006 (10) Elevated liver enzymes ICD Codes: R74.8 - Abnormal levels of other serum enzymes SNOMED: 981647155 (11) CHF (congestive heart failure) ICD Codes: I50.9 - Heart failure, unspecified SNOMED: 70553456 (12) Gram negative sepsis ICD Codes: A41.50 - Gram-negative sepsis, unspecified SNOMED: 346291790 (13) Cholelithiasis ICD Codes: K80.20 - Calculus of gallbladder without cholecystitis without obstruction SNOMED: 177982218 (14) Metabolic encephalopathy ICD Codes: G93.41 - Metabolic encephalopathy SNOMED: 44600456 (15) Hypophosphatemia ICD Codes: E83.39 - Other disorders of phosphorus metabolism SNOMED: 7133661 Assessment/Plan: ICU orders updated replace phosphate keep n.p.o. NG to low suction to prevent aspiration for now continue broad-spectrum antibiotics consultants notes are all reviewed her condition remains high risk this is discussed in detail with the daughter in the area code [id number] ICU time 45 minutes Subjective ROS Limited/Unobtainable: Yes Allergies: Coded Allergies: No Known Allergies (Unverified , 05/28/13) Objective Last 24 Hour Vital Signs Date Time Temp Pulse Resp B/P (MAP) Pulse Ox O2 Delivery O2 Flow Rate FiO2 05/22/20 15:00 86 15 123/60 (81) 100 05/22/20 14:00 91 22 136/65 (88) 100 05/22/20 13:00 93 22 137/70 (92) 99 05/22/20 12:00 97.5 92 18 131/70 (90) 100 05/22/20 12:00 86 05/22/20 12:00 Nasal Cannula 4.0 05/22/20 11:00 101 24 148/83 (104) 99 05/22/20 10:00 92 24 139/69 (92) 99 05/22/20 09:00 83 22 96/52 (67) 98 05/22/20 08:00 98.1 88 20 128/60 (82) 100 05/22/20 08:00 87 05/22/20 08:00 Nasal Cannula 4.0 05/22/20 07:00 87 29 121/56 (77) 99 05/22/20 06:00 88 29 122/56 (78) 99 05/22/20 05:00 91 23 120/72 (88) 98 05/22/20 04:00 Nasal Cannula 4.0 05/22/20 04:00 96 05/22/20 04:00 98.6 84 17 105/52 (69) 97 05/22/20 03:00 94 20 123/59 (80) 98 05/22/20 02:00 97 22 118/60 (79) 98 05/22/20 01:00 91 20 114/59 (77) 99 05/22/20 00:00 Nasal Cannula 4.0 05/22/20 00:00 98.2 86 31 95/43 (60) 96 05/22/20 00:00 98 05/21/20 23:00 89 29 109/64 (79) 99 05/21/20 22:00 95 29 119/54 (75) 98 05/21/20 21:00 92 32 119/63 (81) 97 05/21/20 20:00 98.0 95 21 118/57 (77) 99 05/21/20 20:00 96 05/21/20 20:00 Nasal Cannula 4.0 05/21/20 19:00 92 36 128/68 (88) 96 05/21/20 18:00 94 15 112/51 (71) 100 05/21/20 17:00 96 21 111/58 (75) 97 05/21/20 16:00 98.1 96 28 107/56 (73) 97 05/21/20 16:00 92 05/21/20 16:00 95 05/21/20 16:00 Nasal Cannula 4.0 Intake and Output 05/21/20 05/22/20 19:00 07:00 Intake Total 955.9405 ml 1200 ml Output Total 1115 ml 750 ml Balance -159.0595 ml 450 ml IV Total 955.9405 ml 1200 ml Output Urine Total 415 ml 580 ml Stool Total 700 ml 150 ml Gastric Drainage Total 20 ml Laboratory Tests 05/22/20 04:00: White Blood Count 35.1*H, Red Blood Count 4.71, Hemoglobin 13.9, Hematocrit 41.8 , Mean Corpuscular Volume 89, Mean Corpuscular Hemoglobin 29.4, Mean Corpuscular Hemoglobin Concent 33.2, Red Cell Distribution Width 12.9, Platelet Count 17L, Mean Platelet Volume 12.2H, Neutrophils (%) (Auto) , Lymphocytes (%) (Auto) , Monocytes (%) (Auto) , Eosinophils (%) (Auto) , Basophils (%) (Auto) , Differential Total Cells Counted 100, Neutrophils % (Manual) 93H, Lymphocytes % (Manual) 2L, Monocytes % (Manual) 5, Eosinophils % (Manual) 0, Basophils % ( Manual) 0, Band Neutrophils 0, Platelet Estimate DecreasedL, Platelet Morphology Normal, Red Blood Cell Morphology Normal, Prothrombin Time 11.2, Prothromb Time International Ratio 1.0, Activated Partial Thromboplast Time 30, Sodium Level 140, Potassium Level 3.5, Chloride Level 106, Carbon Dioxide Level 24, Anion Gap 11, Blood Urea Nitrogen 22H, Creatinine 1.3, Estimat Glomerular Filtration Rate 46.8, Glucose Level 80, Calcium Level 7.4L, Phosphorus Level 2.2L, Magnesium Level 2.6H, Total Bilirubin 2.7H, Direct Bilirubin 1.8H, Aspartate Amino Transf (AST/SGOT) 143H, Alanine Aminotransferase (ALT/SGPT) 265H , Alkaline Phosphatase 63, Total Creatine Kinase 414H, Pro-B-Type Natriuretic Peptide 70095B, Total Protein 5.7L, Albumin 1.9L, Globulin 3.8, Albumin/ Globulin Ratio 0.5L Height (Feet): 5 Height (Inches): 7.00 Weight (Pounds): 150 General Appearance: lethargic, confused EENT: normal ENT inspection Neck: supple Cardiovascular: regular rhythm Respiratory/Chest: lungs clear Abdomen: non tender, soft, no organomegaly, no mass Edema: no edema noted Arm (L), no edema noted Arm (R), no edema noted Leg (L), no edema noted Leg (R), no edema noted Pedal (L), no edema noted Pedal (R), no edema noted Generalized Neurologic: other - Disoriented says a few words but unable to carry on a conversation no focal weakness Eric Wilkins MD May 22, 2020 16:00
[2020-05-22] MEDS: DEXTROSE IV SCH (18:25)
[2020-05-22] MEDS: POTASSIUM PHOSPHATE IV SCH (18:25)
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
[2020-05-22] MEDS: Dyna-Hex 2% Top Sol 2oz TOPIC SCH (20:33)
[2020-05-23] VITALS (15 sets, daily range): BP systolic 114–135; BP diastolic 60–75
--- NOTE | 2020-05-23 01:52 | Cardiology Progress Note ---
Subjective DATE OF SERVICE: May 22, 2020 more alert Tapered off pressors with stable BP readings. Monitor: sinus with atrial ectopics WBC remains elevated Objective Last 24 Hour Vital Signs Date Time Temp Pulse Resp B/P (MAP) Pulse Ox O2 Delivery O2 Flow Rate FiO2 05/23/20 01:00 87 18 127/60 (82) 100 05/23/20 00:00 Nasal Cannula 4.0 05/23/20 00:00 98.7 91 21 129/60 (83) 99 05/22/20 23:00 132/65 05/22/20 23:00 94 24 132/65 (87) 99 05/22/20 22:00 92 26 151/71 (97) 99 05/22/20 21:00 79 24 110/59 (76) 99 05/22/20 20:00 98.5 92 18 132/61 (84) 100 05/22/20 20:00 Nasal Cannula 4.0 05/22/20 19:37 92 05/22/20 19:00 89 17 130/60 (83) 99 05/22/20 18:00 93 23 118/57 (77) 98 05/22/20 17:00 92 20 131/60 (83) 100 05/22/20 16:00 89 05/22/20 16:00 99.2 86 21 121/60 (80) 99 05/22/20 16:00 Nasal Cannula 4.0 05/22/20 15:00 86 15 123/60 (81) 100 05/22/20 14:00 91 22 136/65 (88) 100 05/22/20 13:00 93 22 137/70 (92) 99 05/22/20 12:00 97.5 92 18 131/70 (90) 100 05/22/20 12:00 86 05/22/20 12:00 Nasal Cannula 4.0 05/22/20 11:00 101 24 148/83 (104) 99 05/22/20 10:00 92 24 139/69 (92) 99 05/22/20 09:00 83 22 96/52 (67) 98 05/22/20 08:00 98.1 88 20 128/60 (82) 100 05/22/20 08:00 87 05/22/20 08:00 Nasal Cannula 4.0 05/22/20 07:00 87 29 121/56 (77) 99 05/22/20 06:00 88 29 122/56 (78) 99 05/22/20 05:00 91 23 120/72 (88) 98 05/22/20 04:00 Nasal Cannula 4.0 05/22/20 04:00 96 05/22/20 04:00 98.6 84 17 105/52 (69) 97 05/22/20 03:00 94 20 123/59 (80) 98 05/22/20 02:00 97 22 118/60 (79) 98 ROS: no change from my evaluation of 05/19/20. HEENT: normal ENT inspection LUNGS: lungs clear bilaterally CARDIAC: regular rhythm, normal S1 and S2, rapid rate, tachycardia ABDOMEN: soft, tender - mild diffuse EXTREMITIES: normal range of motion, No edema Laboratory Tests Test 05/22/20 04:00 White Blood Count 35.1 K/UL (4.8-10.8) *H Red Blood Count 4.71 M/UL (4.20-5.40) Hemoglobin 13.9 G/DL (12.0-16.0) Hematocrit 41.8 % (37.0-47.0) Mean Corpuscular Volume 89 FL (80-99) Mean Corpuscular Hemoglobin 29.4 PG (27.0-31.0) Mean Corpuscular Hemoglobin Concent 33.2 G/DL (32.0-36.0) Red Cell Distribution Width 12.9 % (11.6-14.8) Platelet Count 17 K/UL (150-450) L Mean Platelet Volume 12.2 FL (6.5-10.1) H Neutrophils (%) (Auto) % (45.0-75.0) Lymphocytes (%) (Auto) % (20.0-45.0) Monocytes (%) (Auto) % (1.0-10.0) Eosinophils (%) (Auto) % (0.0-3.0) Basophils (%) (Auto) % (0.0-2.0) Differential Total Cells Counted 100 Neutrophils % (Manual) 93 % (45-75) H Lymphocytes % (Manual) 2 % (20-45) L Monocytes % (Manual) 5 % (1-10) Eosinophils % (Manual) 0 % (0-3) Basophils % (Manual) 0 % (0-2) Band Neutrophils 0 % (0-8) Platelet Estimate Decreased L Platelet Morphology Normal Red Blood Cell Morphology Normal Prothrombin Time 11.2 SEC (9.30-11.50) Prothromb Time International Ratio 1.0 (0.9-1.1) Activated Partial Thromboplast Time 30 SEC (23-33) Sodium Level 140 MMOL/L (136-145) Potassium Level 3.5 MMOL/L (3.5-5.1) Chloride Level 106 MMOL/L (98-107) Carbon Dioxide Level 24 MMOL/L (21-32) Anion Gap 11 mmol/L (5-15) Blood Urea Nitrogen 22 mg/dL (7-18) H Creatinine 1.3 MG/DL (0.55-1.30) Estimat Glomerular Filtration Rate 46.8 mL/min (>60) Glucose Level 80 MG/DL (74-106) Calcium Level 7.4 MG/DL (8.5-10.1) L Phosphorus Level 2.2 MG/DL (2.5-4.9) L Magnesium Level 2.6 MG/DL (1.8-2.4) H Total Bilirubin 2.7 MG/DL (0.2-1.0) H Direct Bilirubin 1.8 MG/DL (0.0-0.3) H Aspartate Amino Transf (AST/SGOT) 143 U/L (15-37) H Alanine Aminotransferase (ALT/SGPT) 265 U/L (12-78) H Alkaline Phosphatase 63 U/L (46-116) Total Creatine Kinase 414 U/L (26-308) H Pro-B-Type Natriuretic Peptide 83169 pg/mL (0-125) H Total Protein 5.7 G/DL (6.4-8.2) L Albumin 1.9 G/DL (3.4-5.0) L Globulin 3.8 g/dL Albumin/Globulin Ratio 0.5 (1.0-2.7) L Assessment/Plan Assessment/Plan Sepsis with shock resolving - due to UTI Worsening leukocytosis Lactic acidosis resolved Transaminitis improving Hypomagnesemia Hyponatremia Acute myocardial ischemia and possible NSTE myocardial infarction acute renal failure improved CRITICAL & GUARDED Broad sp antimicrobials Serial troponin and lactic acid levels completed Remain off pressors IVF adjusted IV Mg as needed DVT prophylaxis ICU monitoring F/U imaging of GI tract Dalton Valdez MD May 23, 2020 01:52
[2020-05-23 05:09] LABS: HEMATOCRIT 42.1 % (37.0-47.0); HEMOGLOBIN 13.9 G/DL (12.0-16.0); MEAN CORPUSCULAR VOLUME 90 FL (80-99); PLATELET COUNT 36 K/UL (150-450); RED BLOOD COUNT 4.65 M/UL (4.20-5.40); RED CELL DISTRIBUTION WIDTH 13.2 % (11.6-14.8); WHITE BLOOD COUNT 21.7 K/UL (4.8-10.8)
[2020-05-23 05:52] LABS: ALANINE AMINOTRANSFERASE 206 U/L (12-78); ALBUMIN/GLOBULIN RATIO 0.5 (1.0-2.7); ALKALINE PHOSPHATASE 71 U/L (46-116); ANION GAP 9 mmol/L (5-15); ASPARTATE AMINO TRANSFERASE 71 U/L (15-37); BILIRUBIN,TOTAL 2.1 MG/DL (0.2-1.0); BLOOD UREA NITROGEN 20 mg/dL (7-18); CALCIUM 7.7 MG/DL (8.5-10.1); CARBON DIOXIDE 25 MMOL/L (21-32); CHLORIDE 106 MMOL/L (98-107); POTASSIUM 3.6 MMOL/L (3.5-5.1); SODIUM 140 MMOL/L (136-145)
[2020-05-23 06:19] LABS: BILIRUBIN,DIRECT 0.9 MG/DL (0.0-0.3)
[2020-05-23] MEDS: POTASSIUM PHOSPHATE IV SCH (07:07)
[2020-05-23] MEDS: DEXTROSE IV SCH (07:07)
[2020-05-23] MEDS: Pantoprazole Inj IVP SCH ×2 (09:11→20:08)
[2020-05-23] MEDS: Levofloxacin 500mg tab NG SCH (09:12)
--- NOTE | 2020-05-23 10:03 | Infectious Diseases Prog Note ---
Assessment/Plan Assessment/Plan A 1. E.coli sepsis 2. shock resolved 3. Thrombocytopenia improving 4. cholelithiasis 5. leucocytosis improving 6. E. coli & Klebsiella UTI 7. Acute renal failure improving P 1. Continue Levaquin 2. will follow up cultures Subjective ROS Limited/Unobtainable: Yes Constitutional: Denies: fever Allergies: Coded Allergies: No Known Allergies (Unverified , 05/28/13) Objective Last 24 Hour Vital Signs Date Time Temp Pulse Resp B/P (MAP) Pulse Ox O2 Delivery O2 Flow Rate FiO2 05/23/20 09:00 82 28 118/61 (80) 98 05/23/20 08:00 98.5 81 24 116/61 (79) 99 05/23/20 08:00 Nasal Cannula 4.0 05/23/20 07:00 81 23 125/66 (85) 99 05/23/20 06:00 80 26 114/63 (80) 99 05/23/20 05:00 89 34 134/68 (90) 100 05/23/20 04:00 Nasal Cannula 4.0 05/23/20 04:00 98.2 85 24 130/66 (87) 100 05/23/20 03:08 88 05/23/20 03:00 90 31 133/75 (94) 99 05/23/20 02:00 89 20 135/67 (89) 99 05/23/20 01:00 87 18 127/60 (82) 100 05/23/20 00:00 Nasal Cannula 4.0 05/23/20 00:00 98.7 91 21 129/60 (83) 99 05/22/20 23:00 132/65 05/22/20 23:00 94 24 132/65 (87) 99 05/22/20 22:23 93 05/22/20 22:00 92 26 151/71 (97) 99 05/22/20 21:00 79 24 110/59 (76) 99 05/22/20 20:00 98.5 92 18 132/61 (84) 100 05/22/20 20:00 Nasal Cannula 4.0 05/22/20 19:37 92 05/22/20 19:00 89 17 130/60 (83) 99 05/22/20 18:00 93 23 118/57 (77) 98 05/22/20 17:00 92 20 131/60 (83) 100 05/22/20 16:00 89 05/22/20 16:00 99.2 86 21 121/60 (80) 99 05/22/20 16:00 Nasal Cannula 4.0 05/22/20 15:00 86 15 123/60 (81) 100 05/22/20 14:00 91 22 136/65 (88) 100 05/22/20 13:00 93 22 137/70 (92) 99 05/22/20 12:00 97.5 92 18 131/70 (90) 100 05/22/20 12:00 86 05/22/20 12:00 Nasal Cannula 4.0 05/22/20 11:00 101 24 148/83 (104) 99 05/22/20 10:00 92 24 139/69 (92) 99 Height (Feet): 5 Height (Inches): 7.00 Weight (Pounds): 150 HEENT: mucous membranes moist Respiratory/Chest: lungs clear, other - oxygen by nasal cannula Cardiovascular: normal rate Abdomen: soft, non tender, other - NG tube Extremities: no edema Neurologic/Psychiatric: other - sleeping Laboratory Tests Test 05/23/20 04:00 White Blood Count 21.7 K/UL (4.8-10.8) H Red Blood Count 4.65 M/UL (4.20-5.40) Hemoglobin 13.9 G/DL (12.0-16.0) Hematocrit 42.1 % (37.0-47.0) Mean Corpuscular Volume 90 FL (80-99) Mean Corpuscular Hemoglobin 29.9 PG (27.0-31.0) Mean Corpuscular Hemoglobin Concent 33.0 G/DL (32.0-36.0) Red Cell Distribution Width 13.2 % (11.6-14.8) Platelet Count 36 K/UL (150-450) #L Mean Platelet Volume 9.9 FL (6.5-10.1) Neutrophils (%) (Auto) % (45.0-75.0) Lymphocytes (%) (Auto) % (20.0-45.0) Monocytes (%) (Auto) % (1.0-10.0) Eosinophils (%) (Auto) % (0.0-3.0) Basophils (%) (Auto) % (0.0-2.0) Neutrophils % (Manual) Pending Lymphocytes % (Manual) Pending Platelet Estimate Pending Platelet Morphology Pending Prothrombin Time 11.1 SEC (9.30-11.50) Prothromb Time International Ratio 1.0 (0.9-1.1) Sodium Level 140 MMOL/L (136-145) Potassium Level 3.6 MMOL/L (3.5-5.1) Chloride Level 106 MMOL/L (98-107) Carbon Dioxide Level 25 MMOL/L (21-32) Anion Gap 9 mmol/L (5-15) Blood Urea Nitrogen 20 mg/dL (7-18) H Creatinine 1.0 MG/DL (0.55-1.30) Estimat Glomerular Filtration Rate > 60 mL/min (>60) Glucose Level 144 MG/DL (74-106) H Calcium Level 7.7 MG/DL (8.5-10.1) L Total Bilirubin 2.1 MG/DL (0.2-1.0) H Direct Bilirubin 0.9 MG/DL (0.0-0.3) H Aspartate Amino Transf (AST/SGOT) 71 U/L (15-37) H Alanine Aminotransferase (ALT/SGPT) 206 U/L (12-78) H Alkaline Phosphatase 71 U/L (46-116) Troponin I 0.227 ng/mL (0.000-0.056) Total Protein 6.1 G/DL (6.4-8.2) L Albumin 2.0 G/DL (3.4-5.0) L Globulin 4.1 g/dL Albumin/Globulin Ratio 0.5 (1.0-2.7) L Current Medications Medications (Trade) Dose Ordered Sig/Gricelda Route PRN Reason Start Time Stop Time Status Last Admin Dose Admin Barium Sulfate (Varibar Honey) 250 ml NOW PRN RAD 05/22/20 16:00 05/25/20 15:53 Barium Sulfate (Varibar Orlovista) 240 ml NOW PRN RAD 05/22/20 16:00 05/25/20 15:53 Barium Sulfate (Varibar Pudding) 230 ml NOW PRN RAD 05/22/20 16:00 05/25/20 15:53 Barium Sulfate (Varibar Thin Liquid powder) 148 gm NOW PRN RAD 05/22/20 16:00 05/25/20 15:53 Chlorhexidine Gluconate (Celi-Hex 2%) 1 applic DAILY@2000 TOPIC 05/20/20 20:00 08/18/20 19:59 05/22/20 20:33 Dextrose (Dextrose 50%) 25 ml Q30M PRN IV Hypoglycemia 05/19/20 19:15 08/17/20 19:14 Dextrose (Dextrose 50%) 50 ml Q30M PRN IV Hypoglycemia 05/19/20 19:15 08/17/20 19:14 Levofloxacin (Levaquin) 500 mg DAILY NG 05/22/20 13:00 05/29/20 12:59 05/23/20 09:12 Loperamide HCl (Imodium) 2 mg Q6H PRN NG Diarrhea 05/20/20 13:00 06/19/20 12:59 Norepinephrine Bitartrate 4 mg/ Dextrose 250 ml @ 0 mls/hr Q24H IV 05/19/20 23:00 06/18/20 22:59 05/20/20 23:34 Ondansetron HCl (Zofran) 4 mg Q6H PRN IVP Nausea & Vomiting 05/19/20 19:15 06/18/20 19:14 Pantoprazole (Protonix) 40 mg EVERY 12 HOURS IVP 05/20/20 09:00 06/19/20 08:59 05/23/20 09:11 Potassium Phosphate 20 mm/ Dextrose 1,006.6667 ml @ 75 mls/hr [id number] IV 05/22/20 18:00 06/21/20 17:59 05/23/20 07:07 Pito Amador MD May 23, 2020 10:03
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
--- NOTE | 2020-05-23 11:37 | Cardiology Progress Note ---
Subjective DATE OF SERVICE: May 23, 2020 Tapered off pressors with stable BP readings. Monitor: sinus with atrial ectopics WBC remains elevated, but downtrending Objective Last 24 Hour Vital Signs Date Time Temp Pulse Resp B/P (MAP) Pulse Ox O2 Delivery O2 Flow Rate FiO2 05/23/20 10:00 81 20 130/72 (91) 98 05/23/20 09:00 82 28 118/61 (80) 98 05/23/20 08:00 98.5 81 24 116/61 (79) 99 05/23/20 08:00 Nasal Cannula 4.0 05/23/20 08:00 90 05/23/20 07:00 81 23 125/66 (85) 99 05/23/20 06:00 80 26 114/63 (80) 99 05/23/20 05:00 89 34 134/68 (90) 100 05/23/20 04:00 Nasal Cannula 4.0 05/23/20 04:00 98.2 85 24 130/66 (87) 100 05/23/20 03:08 88 05/23/20 03:00 90 31 133/75 (94) 99 05/23/20 02:00 89 20 135/67 (89) 99 05/23/20 01:00 87 18 127/60 (82) 100 05/23/20 00:00 Nasal Cannula 4.0 05/23/20 00:00 98.7 91 21 129/60 (83) 99 05/22/20 23:00 132/65 05/22/20 23:00 94 24 132/65 (87) 99 05/22/20 22:23 93 05/22/20 22:00 92 26 151/71 (97) 99 05/22/20 21:00 79 24 110/59 (76) 99 05/22/20 20:00 98.5 92 18 132/61 (84) 100 05/22/20 20:00 Nasal Cannula 4.0 05/22/20 19:37 92 05/22/20 19:00 89 17 130/60 (83) 99 05/22/20 18:00 93 23 118/57 (77) 98 05/22/20 17:00 92 20 131/60 (83) 100 05/22/20 16:00 89 05/22/20 16:00 99.2 86 21 121/60 (80) 99 05/22/20 16:00 Nasal Cannula 4.0 05/22/20 15:00 86 15 123/60 (81) 100 05/22/20 14:00 91 22 136/65 (88) 100 05/22/20 13:00 93 22 137/70 (92) 99 05/22/20 12:00 97.5 92 18 131/70 (90) 100 05/22/20 12:00 86 05/22/20 12:00 Nasal Cannula 4.0 ROS: no change from my evaluation of 05/19/20. HEENT: normal ENT inspection LUNGS: lungs clear bilaterally CARDIAC: regular rhythm, normal S1 and S2, rapid rate, tachycardia ABDOMEN: soft, tender - mild diffuse EXTREMITIES: normal range of motion, No edema Laboratory Tests Test 05/23/20 04:00 White Blood Count 21.7 K/UL (4.8-10.8) H Red Blood Count 4.65 M/UL (4.20-5.40) Hemoglobin 13.9 G/DL (12.0-16.0) Hematocrit 42.1 % (37.0-47.0) Mean Corpuscular Volume 90 FL (80-99) Mean Corpuscular Hemoglobin 29.9 PG (27.0-31.0) Mean Corpuscular Hemoglobin Concent 33.0 G/DL (32.0-36.0) Red Cell Distribution Width 13.2 % (11.6-14.8) Platelet Count 36 K/UL (150-450) #L Mean Platelet Volume 9.9 FL (6.5-10.1) Neutrophils (%) (Auto) % (45.0-75.0) Lymphocytes (%) (Auto) % (20.0-45.0) Monocytes (%) (Auto) % (1.0-10.0) Eosinophils (%) (Auto) % (0.0-3.0) Basophils (%) (Auto) % (0.0-2.0) Differential Total Cells Counted 100 Neutrophils % (Manual) 87 % (45-75) H Lymphocytes % (Manual) 4 % (20-45) L Monocytes % (Manual) 7 % (1-10) Eosinophils % (Manual) 1 % (0-3) Basophils % (Manual) 1 % (0-2) Band Neutrophils 0 % (0-8) Platelet Estimate Decreased L Platelet Morphology Normal Red Blood Cell Morphology Normal Prothrombin Time 11.1 SEC (9.30-11.50) Prothromb Time International Ratio 1.0 (0.9-1.1) Sodium Level 140 MMOL/L (136-145) Potassium Level 3.6 MMOL/L (3.5-5.1) Chloride Level 106 MMOL/L (98-107) Carbon Dioxide Level 25 MMOL/L (21-32) Anion Gap 9 mmol/L (5-15) Blood Urea Nitrogen 20 mg/dL (7-18) H Creatinine 1.0 MG/DL (0.55-1.30) Estimat Glomerular Filtration Rate > 60 mL/min (>60) Glucose Level 144 MG/DL (74-106) H Calcium Level 7.7 MG/DL (8.5-10.1) L Total Bilirubin 2.1 MG/DL (0.2-1.0) H Direct Bilirubin 0.9 MG/DL (0.0-0.3) H Aspartate Amino Transf (AST/SGOT) 71 U/L (15-37) H Alanine Aminotransferase (ALT/SGPT) 206 U/L (12-78) H Alkaline Phosphatase 71 U/L (46-116) Troponin I 0.227 ng/mL (0.000-0.056) Total Protein 6.1 G/DL (6.4-8.2) L Albumin 2.0 G/DL (3.4-5.0) L Globulin 4.1 g/dL Albumin/Globulin Ratio 0.5 (1.0-2.7) L Assessment/Plan Assessment/Plan Sepsis with shock resolving - due to UTI Worsening leukocytosis Lactic acidosis resolved Transaminitis improving Hypomagnesemia Hyponatremia Acute myocardial ischemia and possible NSTE myocardial infarction acute renal failure improved CRITICAL & GUARDED Broad sp antimicrobials Serial troponin and lactic acid levels completed Remain off pressors IVF adjustments per volume status IV Mg as needed DVT prophylaxis ICU monitoring Dalton Valdez MD May 23, 2020 11:37
[2020-05-23] MEDS ORDERED: DEXTROSE IV SCH ×2 (20:00→21:00)
[2020-05-23] MEDS ORDERED: POTASSIUM PHOSPHATE IV SCH ×2 (20:00→21:00)
[2020-05-23] MEDS: Dyna-Hex 2% Top Sol 2oz TOPIC SCH (20:08)
--- NOTE | 2020-05-23 20:15 | General Progress Note ---
Assessment/Plan Problem List: (1) DIC (disseminated intravascular coagulation) ICD Codes: D65 - Disseminated intravascular coagulation [defibrination syndrome ] SNOMED: 27563592 (2) Thrombocytopenia ICD Codes: D69.6 - Thrombocytopenia, unspecified SNOMED: 677663174 (3) Lactic acidosis ICD Codes: E87.2 - Acidosis SNOMED: 77932705 (4) Septic shock ICD Codes: A41.9 - Sepsis, unspecified organism; R65.21 - Severe sepsis with septic shock SNOMED: 53497170 (5) Anemia ICD Codes: D64.9 - Anemia, unspecified SNOMED: 216824402 (6) Hypokalemia ICD Codes: E87.6 - Hypokalemia SNOMED: 05619456 (7) Rhabdomyolysis ICD Codes: M62.82 - Rhabdomyolysis SNOMED: 585583275 (8) Non-STEMI (non-ST elevated myocardial infarction) ICD Codes: I21.4 - Non-ST elevation (NSTEMI) myocardial infarction SNOMED: 60218609 (9) ZEE (acute kidney injury) ICD Codes: N17.9 - Acute kidney failure, unspecified SNOMED: 8995146, 83534683 (10) Elevated liver enzymes ICD Codes: R74.8 - Abnormal levels of other serum enzymes SNOMED: 683935605 (11) CHF (congestive heart failure) ICD Codes: I50.9 - Heart failure, unspecified SNOMED: 59570250 (12) Gram negative sepsis ICD Codes: A41.50 - Gram-negative sepsis, unspecified SNOMED: 785824416 (13) Cholelithiasis ICD Codes: K80.20 - Calculus of gallbladder without cholecystitis without obstruction SNOMED: 405299061 (14) Metabolic encephalopathy ICD Codes: G93.41 - Metabolic encephalopathy SNOMED: 40795301 (15) Hypophosphatemia ICD Codes: E83.39 - Other disorders of phosphorus metabolism SNOMED: 3259801 (16) Decubital ulcer ICD Codes: L89.90 - Pressure ulcer of unspecified site, unspecified stage SNOMED: 337436197 Assessment/Plan: ICU orders updated replace phosphate keep n.p.o. NG to low suction to prevent aspiration for now continue broad-spectrum antibiotics, for e coli bacteremia and e coli+klebsiella uti consultants notes are all reviewed her condition remains high risk this is discussed in detail with the daughter in the area code [id number] ICU time 40 minutes Subjective ROS Limited/Unobtainable: Yes Allergies: Coded Allergies: No Known Allergies (Unverified , 05/28/13) Objective Last 24 Hour Vital Signs Date Time Temp Pulse Resp B/P (MAP) Pulse Ox O2 Delivery O2 Flow Rate FiO2 05/23/20 16:00 98 05/23/20 16:00 20 98 05/23/20 14:15 97.7 86 20 133/74 (93) 100 05/23/20 12:00 Nasal Cannula 4.0 05/23/20 12:00 98.7 88 20 127/71 (89) 98 05/23/20 11:00 87 22 128/73 (91) 99 05/23/20 10:00 81 20 130/72 (91) 98 05/23/20 09:00 82 28 118/61 (80) 98 05/23/20 08:00 98.5 81 24 116/61 (79) 99 05/23/20 08:00 Nasal Cannula 4.0 05/23/20 08:00 90 05/23/20 07:00 81 23 125/66 (85) 99 05/23/20 06:00 80 26 114/63 (80) 99 05/23/20 05:00 89 34 134/68 (90) 100 05/23/20 04:00 Nasal Cannula 4.0 05/23/20 04:00 98.2 85 24 130/66 (87) 100 05/23/20 03:08 88 05/23/20 03:00 90 31 133/75 (94) 99 05/23/20 02:00 89 20 135/67 (89) 99 05/23/20 01:00 87 18 127/60 (82) 100 05/23/20 00:00 Nasal Cannula 4.0 05/23/20 00:00 98.7 91 21 129/60 (83) 99 05/22/20 23:00 132/65 05/22/20 23:00 94 24 132/65 (87) 99 05/22/20 22:23 93 05/22/20 22:00 92 26 151/71 (97) 99 05/22/20 21:00 79 24 110/59 (76) 99 Intake and Output 05/22/20 05/23/20 19:00 07:00 Intake Total 1214.00 ml 900 ml Output Total 650 ml 710 ml Balance 564.00 ml 190 ml IV Total 1124.00 ml 900 ml Other 90 ml Output Urine Total 650 ml 710 ml Stool Total 0 ml Gastric Drainage Total 0 ml Laboratory Tests 05/23/20 04:00: White Blood Count 21.7H, Red Blood Count 4.65, Hemoglobin 13.9, Hematocrit 42.1 , Mean Corpuscular Volume 90, Mean Corpuscular Hemoglobin 29.9, Mean Corpuscular Hemoglobin Concent 33.0, Red Cell Distribution Width 13.2, Platelet Count 36#L, Mean Platelet Volume 9.9, Neutrophils (%) (Auto) , Lymphocytes (%) ( Auto) , Monocytes (%) (Auto) , Eosinophils (%) (Auto) , Basophils (%) (Auto) , Differential Total Cells Counted 100, Neutrophils % (Manual) 87H, Lymphocytes % (Manual) 4L, Monocytes % (Manual) 7, Eosinophils % (Manual) 1, Basophils % ( Manual) 1, Band Neutrophils 0, Platelet Estimate DecreasedL, Platelet Morphology Normal, Red Blood Cell Morphology Normal, Prothrombin Time 11.1, Prothromb Time International Ratio 1.0, Sodium Level 140, Potassium Level 3.6, Chloride Level 106, Carbon Dioxide Level 25, Anion Gap 9, Blood Urea Nitrogen 20H, Creatinine 1.0, Estimat Glomerular Filtration Rate > 60, Glucose Level 144H , Calcium Level 7.7L, Total Bilirubin 2.1H, Direct Bilirubin 0.9H, Aspartate Amino Transf (AST/SGOT) 71H, Alanine Aminotransferase (ALT/SGPT) 206H, Alkaline Phosphatase 71, Troponin I 0.227H, Total Protein 6.1L, Albumin 2.0L, Globulin 4.1, Albumin/Globulin Ratio 0.5L Height (Feet): 5 Height (Inches): 7.00 Weight (Pounds): 150 General Appearance: lethargic, confused EENT: normal ENT inspection Neck: normal alignment Cardiovascular: normal rate, regular rhythm Respiratory/Chest: lungs clear Abdomen: non tender, soft, no organomegaly Edema: trace edema 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
[2020-05-24] VITALS: BP 121/73
[2020-05-24 04:00] VITALS: BP 125/76
[2020-05-24 05:24] LABS: HEMATOCRIT 46.3 % (37.0-47.0); MEAN CORPUSCULAR VOLUME 91 FL (80-99); PLATELET COUNT 57 K/UL (150-450); RED BLOOD COUNT 5.11 M/UL (4.20-5.40); RED CELL DISTRIBUTION WIDTH 13.2 % (11.6-14.8)
[2020-05-24 05:56] LABS: PHOSPHORUS 3.6 MG/DL (2.5-4.9)
[2020-05-24 06:04] LABS: ALANINE AMINOTRANSFERASE 150 U/L (12-78); ALBUMIN/GLOBULIN RATIO 0.5 (1.0-2.7); ALKALINE PHOSPHATASE 61 U/L (46-116); ANION GAP 11 mmol/L (5-15); ASPARTATE AMINO TRANSFERASE 36 U/L (15-37); BILIRUBIN,TOTAL 1.7 MG/DL (0.2-1.0); BLOOD UREA NITROGEN 11 mg/dL (7-18); CALCIUM 8.1 MG/DL (8.5-10.1); CARBON DIOXIDE 24 MMOL/L (21-32); CHLORIDE 104 MMOL/L (98-107); CREATININE 0.8 MG/DL (0.55-1.30); POTASSIUM 3.3 MMOL/L (3.5-5.1); SODIUM 139 MMOL/L (136-145)
[2020-05-24 06:10] LABS: BILIRUBIN,DIRECT 0.7 MG/DL (0.0-0.3)
[2020-05-24 08:13] VITALS: BP 126/71
[2020-05-24] MEDS: Levofloxacin 500mg tab NG SCH (09:14)
[2020-05-24] MEDS: Pantoprazole Inj IVP SCH ×2 (09:14→20:14)
[2020-05-24] MEDS ORDERED: NS 275ml ONE (09:37)
--- NOTE | 2020-05-24 10:12 | Infectious Diseases Prog Note ---
"Assessment/Plan Assessment/Plan antibiotics : levoquin A 1. E.coli sepsis secondary to UTI 2. shock resolved 3. thrombocytopenia improving 4. ? cholecystitis ? cholangitis 5. leucocytosis improving 6. e.coli | klebsiella UTI 7. renal failure improving P 1. continue levoquin 5 more days 2. will follow up cultures Subjective ROS Limited/Unobtainable: Yes Allergies: Coded Allergies: No Known Allergies (Unverified , 05/28/13) Objective Last 24 Hour Vital Signs Date Time Temp Pulse Resp B/P (MAP) Pulse Ox O2 Delivery O2 Flow Rate FiO2 05/24/20 08:17 Nasal Cannula 3.0 05/24/20 08:13 98.4 87 20 126/71 (89) 100 05/24/20 08:00 97 05/24/20 04:00 98.3 92 19 125/76 (92) 100 05/24/20 04:00 97 05/24/20 04:00 Nasal Cannula 3.0 05/24/20 00:00 Nasal Cannula 3.0 05/24/20 00:00 98.7 97 19 121/73 (89) 100 05/24/20 00:00 97 05/23/20 20:00 Nasal Cannula 3.0 05/23/20 20:00 97.6 93 20 116/70 (85) 100 05/23/20 19:36 93 05/23/20 16:00 Nasal Cannula 4.0 Nasal Cannula 3.0 05/23/20 16:00 98 05/23/20 16:00 20 98 05/23/20 14:15 97.7 86 20 133/74 (93) 100 05/23/20 12:00 Nasal Cannula 4.0 05/23/20 12:00 98.7 88 20 127/71 (89) 98 05/23/20 11:00 87 22 128/73 (91) 99 Height (Feet): 5 Height (Inches): 7.00 Weight (Pounds): 150 Respiratory/Chest: lungs clear Cardiovascular: normal rate, regular rhythm, no gallop/murmur Abdomen: soft, non tender Extremities: no edema Laboratory Tests Test 05/24/20 02:06 05/24/20 03:35 Stool Fat, Quantitative Pending White Blood Count 21.0 K/UL (4.8-10.8) H Red Blood Count 5.11 M/UL (4.20-5.40) Hemoglobin 15.0 G/DL (12.0-16.0) Hematocrit 46.3 % (37.0-47.0) Mean Corpuscular Volume 91 FL (80-99) Mean Corpuscular Hemoglobin 29.4 PG (27.0-31.0) Mean Corpuscular Hemoglobin Concent 32.5 G/DL (32.0-36.0) Red Cell Distribution Width 13.2 % (11.6-14.8) Platelet Count 57 K/UL (150-450) #L Mean Platelet Volume 9.7 FL (6.5-10.1) Neutrophils (%) (Auto) % (45.0-75.0) Lymphocytes (%) (Auto) % (20.0-45.0) Monocytes (%) (Auto) % (1.0-10.0) Eosinophils (%) (Auto) % (0.0-3.0) Basophils (%) (Auto) % (0.0-2.0) Differential Total Cells Counted 100 Neutrophils % (Manual) 77 % (45-75) H Lymphocytes % (Manual) 5 % (20-45) L Monocytes % (Manual) 16 % (1-10) H Eosinophils % (Manual) 2 % (0-3) Basophils % (Manual) 0 % (0-2) Band Neutrophils 0 % (0-8) Platelet Estimate Decreased L Platelet Morphology Normal Red Blood Cell Morphology Normal Sodium Level 139 MMOL/L (136-145) Potassium Level 3.3 MMOL/L (3.5-5.1) L Chloride Level 104 MMOL/L (98-107) Carbon Dioxide Level 24 MMOL/L (21-32) Anion Gap 11 mmol/L (5-15) Blood Urea Nitrogen 11 mg/dL (7-18) Creatinine 0.8 MG/DL (0.55-1.30) Estimat Glomerular Filtration Rate > 60 mL/min (>60) Glucose Level 124 MG/DL (74-106) H Calcium Level 8.1 MG/DL (8.5-10.1) L Phosphorus Level 3.6 MG/DL (2.5-4.9) Magnesium Level 2.0 MG/DL (1.8-2.4) Total Bilirubin 1.7 MG/DL (0.2-1.0) H Direct Bilirubin 0.7 MG/DL (0.0-0.3) H Aspartate Amino Transf (AST/SGOT) 36 U/L (15-37) Alanine Aminotransferase (ALT/SGPT) 150 U/L (12-78) H Alkaline Phosphatase 61 U/L (46-116) Total Protein 6.0 G/DL (6.4-8.2) L Albumin 2.0 G/DL (3.4-5.0) L Globulin 4.0 g/dL Albumin/Globulin Ratio 0.5 (1.0-2.7) L Lipase 260 U/L (73-393) Current Medications Medications (Trade) Dose Ordered Sig/Gricelda Route PRN Reason Start Time Stop Time Status Last Admin Dose Admin Chlorhexidine Gluconate (Celi-Hex 2%) 1 applic DAILY@1999 TOPIC 05/23/20 20:00 08/18/20 19:59 05/23/20 20:08 Dextrose (Dextrose 50%) 25 ml Q30M PRN IV Hypoglycemia 05/23/20 18:45 08/17/20 19:14 Dextrose (Dextrose 50%) 50 ml Q30M PRN IV Hypoglycemia 05/23/20 18:45 08/17/20 19:14 Levofloxacin (Levaquin) 500 mg DAILY NG 05/24/20 09:00 05/29/20 12:59 05/24/20 09:14 Loperamide HCl (Imodium) 2 mg Q6H PRN NG Diarrhea 05/23/20 19:00 06/19/20 12:59 Ondansetron HCl (Zofran) 4 mg Q6H PRN IVP Nausea & Vomiting 05/23/20 19:15 06/18/20 19:14 Pantoprazole (Protonix) 40 mg EVERY 12 HOURS IVP 05/23/20 21:00 06/19/20 08:59 05/24/20 09:14 Potassium Phosphate 20 mm/ Dextrose 1,006.6667 ml @ 60 mls/hr [id number] IV 05/23/20 21:00 06/22/20 20:59 05/23/20 20:50 Jeff De La Cruz MD May 24, 2020 10:11"
[2020-05-24 12:00] VITALS: BP 107/65
[2020-05-24] MEDS: POTASSIUM PHOSPHATE IV SCH (12:00)
[2020-05-24] MEDS: DEXTROSE IV SCH (12:00)
--- NOTE | 2020-05-24 12:10 | General Progress Note ---
Assessment/Plan Assessment/Plan: thrombocytopenia leukocytosis coagulopathy RI elevated LFTS CAD/OR gallstones dilated CBD and PD CT and us reviewed MRCP reviewed abx repeat labs prn imodium swallow eval NGTF for now will fu Subjective ROS Limited/Unobtainable: No Allergies: Coded Allergies: No Known Allergies (Unverified , 05/28/13) Objective Last 24 Hour Vital Signs Date Time Temp Pulse Resp B/P (MAP) Pulse Ox O2 Delivery O2 Flow Rate FiO2 05/24/20 08:17 Nasal Cannula 3.0 05/24/20 08:13 98.4 87 20 126/71 (89) 100 05/24/20 08:00 97 05/24/20 04:00 98.3 92 19 125/76 (92) 100 05/24/20 04:00 97 05/24/20 04:00 Nasal Cannula 3.0 05/24/20 00:00 Nasal Cannula 3.0 05/24/20 00:00 98.7 97 19 121/73 (89) 100 05/24/20 00:00 97 05/23/20 20:00 Nasal Cannula 3.0 05/23/20 20:00 97.6 93 20 116/70 (85) 100 05/23/20 19:36 93 05/23/20 16:00 Nasal Cannula 4.0 Nasal Cannula 3.0 05/23/20 16:00 98 05/23/20 16:00 20 98 05/23/20 14:15 97.7 86 20 133/74 (93) 100 Intake and Output 05/23/20 05/24/20 19:00 07:00 Intake Total 525 ml 600 ml Output Total 590 ml 1500 ml Balance -65 ml -900 ml IV Total 525 ml 600 ml Output Urine Total 590 ml 1300 ml Stool Total 0 ml 200 ml Laboratory Tests 05/24/20 02:06: Stool Fat, Quantitative [Pending] 05/24/20 03:35: White Blood Count 21.0H, Red Blood Count 5.11, Hemoglobin 15.0, Hematocrit 46.3 , Mean Corpuscular Volume 91, Mean Corpuscular Hemoglobin 29.4, Mean Corpuscular Hemoglobin Concent 32.5, Red Cell Distribution Width 13.2, Platelet Count 57#L, Mean Platelet Volume 9.7, Neutrophils (%) (Auto) , Lymphocytes (%) ( Auto) , Monocytes (%) (Auto) , Eosinophils (%) (Auto) , Basophils (%) (Auto) , Differential Total Cells Counted 100, Neutrophils % (Manual) 77H, Lymphocytes % (Manual) 5L, Monocytes % (Manual) 16H, Eosinophils % (Manual) 2, Basophils % ( Manual) 0, Band Neutrophils 0, Platelet Estimate DecreasedL, Platelet Morphology Normal, Red Blood Cell Morphology Normal, Sodium Level 139, Potassium Level 3.3L, Chloride Level 104, Carbon Dioxide Level 24, Anion Gap 11 , Blood Urea Nitrogen 11, Creatinine 0.8, Estimat Glomerular Filtration Rate > 60, Glucose Level 124H, Calcium Level 8.1L, Phosphorus Level 3.6, Magnesium Level 2.0, Total Bilirubin 1.7H, Direct Bilirubin 0.7H, Aspartate Amino Transf ( AST/SGOT) 36, Alanine Aminotransferase (ALT/SGPT) 150H, Alkaline Phosphatase 61 , Total Protein 6.0L, Albumin 2.0L, Globulin 4.0, Albumin/Globulin Ratio 0.5L, Lipase 260 Height (Feet): 5 Height (Inches): 7.00 Weight (Pounds): 150 General Appearance: lethargic EENT: normal ENT inspection Neck: supple Cardiovascular: normal rate Respiratory/Chest: decreased breath sounds Abdomen: normal bowel sounds, non tender, soft Extremities: non-tender Ludwig Wood MD May 24, 2020 12:09
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
[2020-05-24] MEDS ORDERED: Varibar Pudding 230ml MC PRN (13:15)
[2020-05-24] MEDS ORDERED: Varibar Nectar 240ml MC PRN (13:15)
[2020-05-24] MEDS ORDERED: Varibar Honey 250ml MC PRN (13:15)
[2020-05-24] MEDS ORDERED: Varibar Thin Liquid powder 148gm MC PRN (13:30)
--- NOTE | 2020-05-24 14:51 | General Progress Note ---
Assessment/Plan Problem List: (1) DIC (disseminated intravascular coagulation) ICD Codes: D65 - Disseminated intravascular coagulation [defibrination syndrome ] SNOMED: 11890265 (2) Thrombocytopenia ICD Codes: D69.6 - Thrombocytopenia, unspecified SNOMED: 484295398 (3) Lactic acidosis ICD Codes: E87.2 - Acidosis SNOMED: 35969566 (4) Septic shock ICD Codes: A41.9 - Sepsis, unspecified organism; R65.21 - Severe sepsis with septic shock SNOMED: 34192104 (5) Anemia ICD Codes: D64.9 - Anemia, unspecified SNOMED: 388172320 (6) Hypokalemia ICD Codes: E87.6 - Hypokalemia SNOMED: 69943370 (7) Rhabdomyolysis ICD Codes: M62.82 - Rhabdomyolysis SNOMED: 354943185 (8) Non-STEMI (non-ST elevated myocardial infarction) ICD Codes: I21.4 - Non-ST elevation (NSTEMI) myocardial infarction SNOMED: 44912699 (9) ZEE (acute kidney injury) ICD Codes: N17.9 - Acute kidney failure, unspecified SNOMED: 7961686, 89118298 (10) Elevated liver enzymes ICD Codes: R74.8 - Abnormal levels of other serum enzymes SNOMED: 202350649 (11) CHF (congestive heart failure) ICD Codes: I50.9 - Heart failure, unspecified SNOMED: 32386430 (12) Gram negative sepsis ICD Codes: A41.50 - Gram-negative sepsis, unspecified SNOMED: 810226476 (13) Cholelithiasis ICD Codes: K80.20 - Calculus of gallbladder without cholecystitis without obstruction SNOMED: 304712069 (14) Metabolic encephalopathy ICD Codes: G93.41 - Metabolic encephalopathy SNOMED: 30127241 (15) Hypophosphatemia ICD Codes: E83.39 - Other disorders of phosphorus metabolism SNOMED: 0674197 (16) Decubital ulcer ICD Codes: L89.90 - Pressure ulcer of unspecified site, unspecified stage SNOMED: 799833022 Assessment/Plan: orders updated replace phosphate continue broad-spectrum antibiotics, for e coli bacteremia and e coli+klebsiella uti consultants notes are all reviewed her condition remains high risk this is discussed in detail with the daughter in the area code [id number] start tube feeding reduce iv fluids Subjective ROS Limited/Unobtainable: Yes Allergies: Coded Allergies: No Known Allergies (Unverified , 05/28/13) Objective Last 24 Hour Vital Signs Date Time Temp Pulse Resp B/P (MAP) Pulse Ox O2 Delivery O2 Flow Rate FiO2 05/24/20 12:18 Nasal Cannula 3.0 05/24/20 12:00 97.9 97 18 107/65 (79) 95 05/24/20 12:00 95 05/24/20 08:17 Nasal Cannula 3.0 05/24/20 08:13 98.4 87 20 126/71 (89) 100 05/24/20 08:00 97 05/24/20 04:00 98.3 92 19 125/76 (92) 100 05/24/20 04:00 97 05/24/20 04:00 Nasal Cannula 3.0 05/24/20 00:00 Nasal Cannula 3.0 05/24/20 00:00 98.7 97 19 121/73 (89) 100 05/24/20 00:00 97 05/23/20 20:00 Nasal Cannula 3.0 05/23/20 20:00 97.6 93 20 116/70 (85) 100 05/23/20 19:36 93 05/23/20 16:00 Nasal Cannula 4.0 Nasal Cannula 3.0 05/23/20 16:00 98 05/23/20 16:00 20 98 Intake and Output 05/23/20 05/24/20 19:00 07:00 Intake Total 525 ml 600 ml Output Total 590 ml 1500 ml Balance -65 ml -900 ml IV Total 525 ml 600 ml Output Urine Total 590 ml 1300 ml Stool Total 0 ml 200 ml Laboratory Tests 05/24/20 02:06: Stool Fat, Quantitative [Pending] 05/24/20 03:35: White Blood Count 21.0H, Red Blood Count 5.11, Hemoglobin 15.0, Hematocrit 46.3 , Mean Corpuscular Volume 91, Mean Corpuscular Hemoglobin 29.4, Mean Corpuscular Hemoglobin Concent 32.5, Red Cell Distribution Width 13.2, Platelet Count 57#L, Mean Platelet Volume 9.7, Neutrophils (%) (Auto) , Lymphocytes (%) ( Auto) , Monocytes (%) (Auto) , Eosinophils (%) (Auto) , Basophils (%) (Auto) , Differential Total Cells Counted 100, Neutrophils % (Manual) 77H, Lymphocytes % (Manual) 5L, Monocytes % (Manual) 16H, Eosinophils % (Manual) 2, Basophils % ( Manual) 0, Band Neutrophils 0, Platelet Estimate DecreasedL, Platelet Morphology Normal, Red Blood Cell Morphology Normal, Sodium Level 139, Potassium Level 3.3L, Chloride Level 104, Carbon Dioxide Level 24, Anion Gap 11 , Blood Urea Nitrogen 11, Creatinine 0.8, Estimat Glomerular Filtration Rate > 60, Glucose Level 124H, Calcium Level 8.1L, Phosphorus Level 3.6, Magnesium Level 2.0, Total Bilirubin 1.7H, Direct Bilirubin 0.7H, Aspartate Amino Transf ( AST/SGOT) 36, Alanine Aminotransferase (ALT/SGPT) 150H, Alkaline Phosphatase 61 , Total Protein 6.0L, Albumin 2.0L, Globulin 4.0, Albumin/Globulin Ratio 0.5L, Lipase 260 Height (Feet): 5 Height (Inches): 7.00 Weight (Pounds): 150 General Appearance: lethargic, confused EENT: normal ENT inspection Neck: normal alignment Cardiovascular: regular rhythm Respiratory/Chest: lungs clear, decreased breath sounds Abdomen: non tender, soft Edema: trace edema Neurologic: appeals referee II-XII grossly normal, disoriented Eric Wilkins MD May 24, 2020 14:51
[2020-05-24 16:00] VITALS: BP 112/69
[2020-05-24 20:00] VITALS: BP 106/60
[2020-05-24] MEDS: Dyna-Hex 2% Top Sol 2oz TOPIC SCH (20:13)
[2020-05-25] VITALS: BP 107/58
[2020-05-25 04:00] VITALS: BP 101/62
[2020-05-25 04:35] LABS: HEMATOCRIT 47.7 % (37.0-47.0); HEMOGLOBIN 15.7 G/DL (12.0-16.0); MEAN CORPUSCULAR VOLUME 91 FL (80-99); PLATELET COUNT 98 K/UL (150-450); RED BLOOD COUNT 5.26 M/UL (4.20-5.40); RED CELL DISTRIBUTION WIDTH 13.4 % (11.6-14.8)
[2020-05-25 05:09] LABS: ANION GAP 10 mmol/L (5-15); BLOOD UREA NITROGEN 10 mg/dL (7-18); CALCIUM 7.8 MG/DL (8.5-10.1); CARBON DIOXIDE 23 MMOL/L (21-32); CHLORIDE 104 MMOL/L (98-107); CREATININE 0.8 MG/DL (0.55-1.30); PHOSPHORUS 4.5 MG/DL (2.5-4.9); POTASSIUM 3.7 MMOL/L (3.5-5.1); SODIUM 137 MMOL/L (136-145)
[2020-05-25 08:00] VITALS: BP 113/53
--- NOTE | 2020-05-25 08:14 | General Progress Note ---
Assessment/Plan Assessment/Plan: thrombocytopenia leukocytosis coagulopathy RI elevated LFTS CAD/DC gallstones dilated CBD and PD CT and us reviewed MRCP reviewed abx repeat labs prn imodium swallow eval>>>passed for thin liquid NGTF for now will fu Subjective ROS Limited/Unobtainable: Yes Allergies: Coded Allergies: No Known Allergies (Unverified , 05/28/13) Objective Last 24 Hour Vital Signs Date Time Temp Pulse Resp B/P (MAP) Pulse Ox O2 Delivery O2 Flow Rate FiO2 05/25/20 04:00 97 05/25/20 04:00 97.5 97 18 101/62 (75) 96 05/25/20 04:00 Room Air 05/25/20 00:00 98.0 95 18 107/58 (74) 96 05/25/20 00:00 Room Air 05/24/20 23:32 99 05/24/20 21:00 95 05/24/20 20:00 Room Air 05/24/20 20:00 98.1 95 18 106/60 (75) 96 05/24/20 16:00 Room Air 05/24/20 16:00 98.1 95 18 112/69 (83) 96 05/24/20 16:00 95 05/24/20 12:18 Nasal Cannula 3.0 05/24/20 12:00 97.9 97 18 107/65 (79) 95 05/24/20 12:00 95 05/24/20 08:17 Nasal Cannula 3.0 Intake and Output 05/24/20 05/25/20 19:00 07:00 Intake Total 30 ml 630 ml Output Total 970 ml 800 ml Balance -940 ml -170 ml Free Water 30 ml IV Total 30 ml 360 ml Tube Feeding 240 ml Output Urine Total 860 ml 720 ml Stool Total 110 ml 80 ml Laboratory Tests 05/25/20 03:50: White Blood Count 27.0*H, Red Blood Count 5.26, Hemoglobin 15.7, Hematocrit 47.7H, Mean Corpuscular Volume 91, Mean Corpuscular Hemoglobin 29.8, Mean Corpuscular Hemoglobin Concent 32.9, Red Cell Distribution Width 13.4, Platelet Count 98#L, Mean Platelet Volume 9.0, Neutrophils (%) (Auto) , Lymphocytes (%) ( Auto) , Monocytes (%) (Auto) , Eosinophils (%) (Auto) , Basophils (%) (Auto) , Neutrophils % (Manual) [Pending], Lymphocytes % (Manual) [Pending], Platelet Estimate [Pending], Platelet Morphology [Pending], Sodium Level 137, Potassium Level 3.7, Chloride Level 104, Carbon Dioxide Level 23, Anion Gap 10, Blood Urea Nitrogen 10, Creatinine 0.8, Estimat Glomerular Filtration Rate > 60, Glucose Level 119H, Calcium Level 7.8L, Phosphorus Level 4.5 Height (Feet): 5 Height (Inches): 7.00 Weight (Pounds): 150 General Appearance: no apparent distress EENT: normal ENT inspection Neck: supple Cardiovascular: normal rate Respiratory/Chest: decreased breath sounds Abdomen: normal bowel sounds, non tender, soft Extremities: non-tender Ludwig Wood MD May 25, 2020 08:14
[2020-05-25] MEDS: Pantoprazole Inj IVP SCH ×2 (08:47→20:53)
[2020-05-25] MEDS: Levofloxacin 500mg tab NG SCH (08:47)
--- NOTE | 2020-05-25 10:36 | Infectious Diseases Prog Note ---
"Assessment/Plan Assessment/Plan antibiotics : levoquin A 1. E.coli sepsis secondary to UTI 2. shock resolved 3. thrombocytopenia improving 4. ? cholecystitis ? cholangitis 5. leucocytosis increased 6. e.coli | klebsiella UTI 7. renal failure improving P 1. continue levoquin 4 more days 2. stool for c.diff 3. will follow up cultures Subjective Constitutional: Denies: fever, chills Respiratory: Denies: shortness of breath, dry cough Gastrointestinal/Abdominal: Reports: diarrhea; Denies: nausea, vomiting Musculoskeletal: Denies: pain Allergies: Coded Allergies: No Known Allergies (Unverified , 05/28/13) Objective Last 24 Hour Vital Signs Date Time Temp Pulse Resp B/P (MAP) Pulse Ox O2 Delivery O2 Flow Rate FiO2 05/25/20 08:00 96.5 100 18 113/53 (73) 95 05/25/20 08:00 98 05/25/20 04:00 97 05/25/20 04:00 97.5 97 18 101/62 (75) 96 05/25/20 04:00 Room Air 05/25/20 00:00 98.0 95 18 107/58 (74) 96 05/25/20 00:00 Room Air 05/24/20 23:32 99 05/24/20 21:00 95 05/24/20 20:00 Room Air 05/24/20 20:00 98.1 95 18 106/60 (75) 96 05/24/20 16:00 Room Air 05/24/20 16:00 98.1 95 18 112/69 (83) 96 05/24/20 16:00 95 05/24/20 12:18 Nasal Cannula 3.0 05/24/20 12:00 97.9 97 18 107/65 (79) 95 05/24/20 12:00 95 Height (Feet): 5 Height (Inches): 7.00 Weight (Pounds): 150 Respiratory/Chest: lungs clear Cardiovascular: normal rate, regular rhythm, no gallop/murmur Abdomen: soft, non tender Extremities: no edema Laboratory Tests Test 05/25/20 03:50 White Blood Count 27.0 K/UL (4.8-10.8) *H Red Blood Count 5.26 M/UL (4.20-5.40) Hemoglobin 15.7 G/DL (12.0-16.0) Hematocrit 47.7 % (37.0-47.0) H Mean Corpuscular Volume 91 FL (80-99) Mean Corpuscular Hemoglobin 29.8 PG (27.0-31.0) Mean Corpuscular Hemoglobin Concent 32.9 G/DL (32.0-36.0) Red Cell Distribution Width 13.4 % (11.6-14.8) Platelet Count 98 K/UL (150-450) #L Mean Platelet Volume 9.0 FL (6.5-10.1) Neutrophils (%) (Auto) % (45.0-75.0) Lymphocytes (%) (Auto) % (20.0-45.0) Monocytes (%) (Auto) % (1.0-10.0) Eosinophils (%) (Auto) % (0.0-3.0) Basophils (%) (Auto) % (0.0-2.0) Neutrophils % (Manual) Pending Lymphocytes % (Manual) Pending Platelet Estimate Pending Platelet Morphology Pending Sodium Level 137 MMOL/L (136-145) Potassium Level 3.7 MMOL/L (3.5-5.1) Chloride Level 104 MMOL/L (98-107) Carbon Dioxide Level 23 MMOL/L (21-32) Anion Gap 10 mmol/L (5-15) Blood Urea Nitrogen 10 mg/dL (7-18) Creatinine 0.8 MG/DL (0.55-1.30) Estimat Glomerular Filtration Rate > 60 mL/min (>60) Glucose Level 119 MG/DL (74-106) H Calcium Level 7.8 MG/DL (8.5-10.1) L Phosphorus Level 4.5 MG/DL (2.5-4.9) Current Medications Medications (Trade) Dose Ordered Sig/Gricelda Route PRN Reason Start Time Stop Time Status Last Admin Dose Admin Barium Sulfate (Varibar Honey) 250 ml NOW PRN RAD 05/24/20 13:15 05/27/20 13:07 Barium Sulfate (Varibar Alzada) 240 ml NOW PRN RAD 05/24/20 13:15 05/27/20 13:07 Barium Sulfate (Varibar Pudding) 230 ml NOW PRN RAD 05/24/20 13:15 05/27/20 13:07 Barium Sulfate (Varibar Thin Liquid powder) 148 gm NOW PRN MC RAD 05/24/20 13:30 05/27/20 13:20 Chlorhexidine Gluconate (Celi-Hex 2%) 1 applic DAILY@1999 TOPIC 05/23/20 20:00 08/18/20 19:59 05/24/20 20:13 Dextrose (Dextrose 50%) 25 ml Q30M PRN IV Hypoglycemia 05/23/20 18:45 08/17/20 19:14 Dextrose (Dextrose 50%) 50 ml Q30M PRN IV Hypoglycemia 05/23/20 18:45 08/17/20 19:14 Levofloxacin (Levaquin) 500 mg DAILY NG 05/24/20 09:00 05/29/20 12:59 05/25/20 08:47 Loperamide HCl (Imodium) 2 mg Q6H PRN NG Diarrhea 05/23/20 19:00 06/19/20 12:59 Ondansetron HCl (Zofran) 4 mg Q6H PRN IVP Nausea & Vomiting 05/23/20 19:15 06/18/20 19:14 Pantoprazole (Protonix) 40 mg EVERY 12 HOURS IVP 05/23/20 21:00 06/19/20 08:59 05/25/20 08:47 Potassium Phosphate 20 mm/ Dextrose 1,006.6667 ml @ 30 mls/hr Q24H IV 05/24/20 12:00 06/23/20 11:59 05/24/20 12:00 Jeff De La Cruz MD May 25, 2020 10:36"
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
[2020-05-25 12:00] VITALS: BP 110/60
[2020-05-25] MEDS: POTASSIUM PHOSPHATE IV SCH (12:09)
[2020-05-25] MEDS: DEXTROSE IV SCH (12:09)
--- NOTE | 2020-05-25 13:25 | Nephrology Progress Note ---
Assessment/Plan Assessment/Plan: A/P 1. E.coli sepsis - secondary to UTI 2. Cholecystitis/cholangitis - per Gen surgery not a surgical candidate - monitor WBc as 21----27 - ID and surgery to address 3. thrombocytopenia improving , monitor along with infection control 4. ZEE- resolved Subjective Date patient seen: May 25, 2020 Time patient seen: 13:21 ROS Limited/Unobtainable: No Allergies: Coded Allergies: No Known Allergies (Unverified , 05/28/13) Subjective Patient resting and in no distress slowly improving Objective Last 24 Hour Vital Signs Date Time Temp Pulse Resp B/P (MAP) Pulse Ox O2 Delivery O2 Flow Rate FiO2 05/25/20 08:00 Room Air 05/25/20 08:00 96.5 100 18 113/53 (73) 95 05/25/20 08:00 98 05/25/20 04:00 97 05/25/20 04:00 97.5 97 18 101/62 (75) 96 05/25/20 04:00 Room Air 05/25/20 00:00 98.0 95 18 107/58 (74) 96 05/25/20 00:00 Room Air 05/24/20 23:32 99 05/24/20 21:00 95 05/24/20 20:00 Room Air 05/24/20 20:00 98.1 95 18 106/60 (75) 96 05/24/20 16:00 Room Air 05/24/20 16:00 98.1 95 18 112/69 (83) 96 05/24/20 16:00 95 Intake and Output 05/24/20 05/25/20 19:00 07:00 Intake Total 30 ml 630 ml Output Total 970 ml 800 ml Balance -940 ml -170 ml Free Water 30 ml IV Total 30 ml 360 ml Tube Feeding 240 ml Output Urine Total 860 ml 720 ml Stool Total 110 ml 80 ml Laboratory Tests 05/25/20 03:50: White Blood Count 27.0*H, Red Blood Count 5.26, Hemoglobin 15.7, Hematocrit 47.7H, Mean Corpuscular Volume 91, Mean Corpuscular Hemoglobin 29.8, Mean Corpuscular Hemoglobin Concent 32.9, Red Cell Distribution Width 13.4, Platelet Count 98#L, Mean Platelet Volume 9.0, Neutrophils (%) (Auto) , Lymphocytes (%) ( Auto) , Monocytes (%) (Auto) , Eosinophils (%) (Auto) , Basophils (%) (Auto) , Differential Total Cells Counted 100, Neutrophils % (Manual) 72, Lymphocytes % ( Manual) 3L, Monocytes % (Manual) 10, Eosinophils % (Manual) 0, Basophils % ( Manual) 0, Metamyelocytes % 1H, Myelocytes % 2H, Band Neutrophils 12H, Platelet Estimate DecreasedL, Platelet Morphology Normal, Red Blood Cell Morphology Normal, Sodium Level 137, Potassium Level 3.7, Chloride Level 104, Carbon Dioxide Level 23, Anion Gap 10, Blood Urea Nitrogen 10, Creatinine 0.8, Estimat Glomerular Filtration Rate > 60, Glucose Level 119H, Calcium Level 7.8L, Phosphorus Level 4.5 Height (Feet): 5 Height (Inches): 7.00 Weight (Pounds): 150 General Appearance: no apparent distress EENT: normal ENT inspection Neck: normal alignment, supple Cardiovascular: normal rate, regular rhythm Respiratory/Chest: rhonchi - bilaterally Abdomen: non tender, soft Edema: no edema noted Arm (L), no edema noted Arm (R), no edema noted Leg (L), no edema noted Leg (R), no edema noted Pedal (L), no edema noted Pedal (R), no edema noted Generalized Holland Schafer MD May 25, 2020 13:25
[2020-05-25] MEDS: Acetaminophen 650mg/20.3ml NG PRN ×2 (15:04→21:10)
[2020-05-25 16:00] VITALS: BP 110/63
[2020-05-25 20:00] VITALS: BP 128/69
[2020-05-25] MEDS: Dyna-Hex 2% Top Sol 2oz TOPIC SCH (20:52)
[2020-05-26] VITALS (7 sets, daily range): BP systolic 126–135; BP diastolic 66–76
[2020-05-26 06:57] LABS: HEMATOCRIT 47.8 % (37.0-47.0); HEMOGLOBIN 15.7 G/DL (12.0-16.0); MEAN CORPUSCULAR VOLUME 91 FL (80-99); PLATELET COUNT 158 K/UL (150-450); RED BLOOD COUNT 5.26 M/UL (4.20-5.40); RED CELL DISTRIBUTION WIDTH 12.9 % (11.6-14.8)
[2020-05-26 07:05] LABS: WHITE BLOOD COUNT 26.5 K/UL (4.8-10.8)
--- NOTE | 2020-05-26 07:34 | General Progress Note ---
Assessment/Plan Assessment/Plan: thrombocytopenia leukocytosis coagulopathy RI elevated LFTS CAD/NM gallstones dilated CBD and PD CT and us reviewed MRCP reviewed abx repeat labs prn imodium NGTF for now may need peg will fu Subjective ROS Limited/Unobtainable: No Allergies: Coded Allergies: No Known Allergies (Unverified , 05/28/13) Objective Last 24 Hour Vital Signs Date Time Temp Pulse Resp B/P (MAP) Pulse Ox O2 Delivery O2 Flow Rate FiO2 05/26/20 06:08 96 Room Air 21 05/26/20 04:00 Room Air 05/26/20 04:00 96 05/26/20 04:00 97.8 95 18 126/66 (86) 98 05/26/20 00:00 Room Air 05/26/20 00:00 99.0 101 20 132/66 (88) 97 05/26/20 00:00 102 05/25/20 21:40 99.0 05/25/20 20:00 99.9 97 20 128/69 (88) 97 05/25/20 20:00 Room Air 05/25/20 20:00 99 05/25/20 16:00 100 05/25/20 16:00 98.6 97 18 110/63 (79) 97 05/25/20 16:00 Room Air 05/25/20 12:00 Room Air 05/25/20 12:00 99.5 95 18 110/60 (77) 96 05/25/20 12:00 96 05/25/20 08:00 Room Air 05/25/20 08:00 96.5 100 18 113/53 (73) 95 05/25/20 08:00 98 Intake and Output 05/25/20 05/26/20 19:00 07:00 Intake Total 480 ml 330 ml Output Total 910 ml 20 ml Balance -430 ml 310 ml Free Water 150 ml Tube Feeding 330 ml 330 ml Output Urine Total 900 ml Stool Total 10 ml 20 ml Laboratory Tests 05/26/20 05:10: White Blood Count 26.5*H, Red Blood Count 5.26, Hemoglobin 15.7, Hematocrit 47.8H, Mean Corpuscular Volume 91, Mean Corpuscular Hemoglobin 29.8, Mean Corpuscular Hemoglobin Concent 32.8, Red Cell Distribution Width 12.9, Platelet Count 158#, Mean Platelet Volume 8.4, Neutrophils (%) (Auto) , Lymphocytes (%) ( Auto) , Monocytes (%) (Auto) , Eosinophils (%) (Auto) , Basophils (%) (Auto) , Neutrophils % (Manual) [Pending], Lymphocytes % (Manual) [Pending], Platelet Estimate [Pending], Platelet Morphology [Pending], Sodium Level [Pending], Potassium Level [Pending], Chloride Level [Pending], Carbon Dioxide Level [ Pending], Blood Urea Nitrogen [Pending], Creatinine [Pending], Estimat Glomerular Filtration Rate [Pending], Glucose Level [Pending], Calcium Level [ Pending], Total Bilirubin [Pending], Aspartate Amino Transf (AST/SGOT) [Pending] , Alanine Aminotransferase (ALT/SGPT) [Pending], Alkaline Phosphatase [Pending] , Total Protein [Pending], Albumin [Pending], Globulin [Pending] Height (Feet): 5 Height (Inches): 7.00 Weight (Pounds): 150 General Appearance: no apparent distress EENT: normal ENT inspection Neck: supple Cardiovascular: normal rate Respiratory/Chest: decreased breath sounds Abdomen: normal bowel sounds, non tender, soft Extremities: non-tender Ludwig Wood MD May 26, 2020 07:34
[2020-05-26 07:37] LABS: ALANINE AMINOTRANSFERASE 94 U/L (12-78); ALBUMIN 2.2 G/DL (3.4-5.0); ALBUMIN/GLOBULIN RATIO 0.5 (1.0-2.7); ALKALINE PHOSPHATASE 75 U/L (46-116); ANION GAP 10 mmol/L (5-15); ASPARTATE AMINO TRANSFERASE 26 U/L (15-37); BILIRUBIN,TOTAL 1.2 MG/DL (0.2-1.0); BLOOD UREA NITROGEN 10 mg/dL (7-18); CALCIUM 9.1 MG/DL (8.5-10.1); CARBON DIOXIDE 27 MMOL/L (21-32); CHLORIDE 105 MMOL/L (98-107); CREATININE 0.8 MG/DL (0.55-1.30); POTASSIUM 3.3 MMOL/L (3.5-5.1); SODIUM 142 MMOL/L (136-145)
[2020-05-26 07:46] LABS: BILIRUBIN,DIRECT 0.5 MG/DL (0.0-0.3)
[2020-05-26] MEDS: Pantoprazole Inj IVP SCH ×2 (08:51→21:28)
[2020-05-26] MEDS: Levofloxacin 500mg tab NG SCH (08:52)
[2020-05-26] MEDS: Vancomycin 1 GM in NS 275 ML IVPB SCH (09:55)
--- NOTE | 2020-05-26 11:47 | Infectious Diseases Prog Note ---
Assessment/Plan Assessment/Plan A 1. E.coli sepsis 2. shock resolved 3. Thrombocytopenia improving 4. cholelithiasis 5. leucocytosis 6. E. coli & Klebsiella UTI 7. Acute renal failure improving 8. Diarrhea P 1. Continue Levaquin & IV Vancomycin 2. will follow up c. difficile test Subjective ROS Limited/Unobtainable: Yes Gastrointestinal/Abdominal: Reports: diarrhea Allergies: Coded Allergies: No Known Allergies (Unverified , 05/28/13) Objective Last 24 Hour Vital Signs Date Time Temp Pulse Resp B/P (MAP) Pulse Ox O2 Delivery O2 Flow Rate FiO2 05/26/20 08:00 98.3 99 18 135/74 (94) 99 05/26/20 08:00 102 05/26/20 06:08 96 Room Air 21 05/26/20 04:00 Room Air 05/26/20 04:00 96 05/26/20 04:00 97.8 95 18 126/66 (86) 98 05/26/20 00:00 Room Air 05/26/20 00:00 99.0 101 20 132/66 (88) 97 05/26/20 00:00 102 05/25/20 21:40 99.0 05/25/20 20:00 99.9 97 20 128/69 (88) 97 05/25/20 20:00 Room Air 05/25/20 20:00 99 05/25/20 16:00 100 05/25/20 16:00 98.6 97 18 110/63 (79) 97 05/25/20 16:00 Room Air 05/25/20 12:00 Room Air 05/25/20 12:00 99.5 95 18 110/60 (77) 96 05/25/20 12:00 96 Height (Feet): 5 Height (Inches): 7.00 Weight (Pounds): 150 General Appearance: no acute distress HEENT: mucous membranes moist Respiratory/Chest: lungs clear Cardiovascular: tachycardia Abdomen: soft, non tender, other - NG tube feeding Laboratory Tests Test 05/26/20 05:10 White Blood Count 26.5 K/UL (4.8-10.8) *H Red Blood Count 5.26 M/UL (4.20-5.40) Hemoglobin 15.7 G/DL (12.0-16.0) Hematocrit 47.8 % (37.0-47.0) H Mean Corpuscular Volume 91 FL (80-99) Mean Corpuscular Hemoglobin 29.8 PG (27.0-31.0) Mean Corpuscular Hemoglobin Concent 32.8 G/DL (32.0-36.0) Red Cell Distribution Width 12.9 % (11.6-14.8) Platelet Count 158 K/UL (150-450) # Mean Platelet Volume 8.4 FL (6.5-10.1) Neutrophils (%) (Auto) % (45.0-75.0) Lymphocytes (%) (Auto) % (20.0-45.0) Monocytes (%) (Auto) % (1.0-10.0) Eosinophils (%) (Auto) % (0.0-3.0) Basophils (%) (Auto) % (0.0-2.0) Differential Total Cells Counted 100 Neutrophils % (Manual) 85 % (45-75) H Lymphocytes % (Manual) 4 % (20-45) L Monocytes % (Manual) 6 % (1-10) Eosinophils % (Manual) 1 % (0-3) Basophils % (Manual) 0 % (0-2) Band Neutrophils 4 % (0-8) Platelet Estimate Adequate Platelet Morphology Normal Red Blood Cell Morphology Normal Sodium Level 142 MMOL/L (136-145) Potassium Level 3.3 MMOL/L (3.5-5.1) L Chloride Level 105 MMOL/L (98-107) Carbon Dioxide Level 27 MMOL/L (21-32) Anion Gap 10 mmol/L (5-15) Blood Urea Nitrogen 10 mg/dL (7-18) Creatinine 0.8 MG/DL (0.55-1.30) Estimat Glomerular Filtration Rate > 60 mL/min (>60) Glucose Level 124 MG/DL (74-106) H Calcium Level 9.1 MG/DL (8.5-10.1) Total Bilirubin 1.2 MG/DL (0.2-1.0) H Direct Bilirubin 0.5 MG/DL (0.0-0.3) H Aspartate Amino Transf (AST/SGOT) 26 U/L (15-37) Alanine Aminotransferase (ALT/SGPT) 94 U/L (12-78) H Alkaline Phosphatase 75 U/L (46-116) Total Protein 6.5 G/DL (6.4-8.2) Albumin 2.2 G/DL (3.4-5.0) L Globulin 4.3 g/dL Albumin/Globulin Ratio 0.5 (1.0-2.7) L Current Medications Medications (Trade) Dose Ordered Sig/Gricelda Route PRN Reason Start Time Stop Time Status Last Admin Dose Admin Acetaminophen (Tylenol) 500 mg Q6HR PRN NG Temp >100.5 05/25/20 14:45 06/24/20 14:44 05/25/20 21:10 Barium Sulfate (Varibar Honey) 250 ml NOW PRN MC RAD 05/24/20 13:15 05/27/20 13:07 Barium Sulfate (Varibar Swisher) 240 ml NOW PRN RAD 05/24/20 13:15 05/27/20 13:07 Barium Sulfate (Varibar Pudding) 230 ml NOW PRN RAD 05/24/20 13:15 05/27/20 13:07 Barium Sulfate (Varibar Thin Liquid powder) 148 gm NOW PRN RAD 05/24/20 13:30 05/27/20 13:20 Chlorhexidine Gluconate (Celi-Hex 2%) 1 applic DAILY@1999 TOPIC 05/23/20 20:00 08/18/20 19:59 05/25/20 20:52 Dextrose (Dextrose 50%) 25 ml Q30M PRN IV Hypoglycemia 05/23/20 18:45 08/17/20 19:14 Dextrose (Dextrose 50%) 50 ml Q30M PRN IV Hypoglycemia 05/23/20 18:45 08/17/20 19:14 Levofloxacin (Levaquin) 500 mg DAILY NG 05/24/20 09:00 05/29/20 12:59 05/26/20 08:52 Loperamide HCl (Imodium) 2 mg Q6H PRN NG Diarrhea 05/23/20 19:00 06/19/20 12:59 Ondansetron HCl (Zofran) 4 mg Q6H PRN IVP Nausea & Vomiting 05/23/20 19:15 06/18/20 19:14 Pantoprazole (Protonix) 40 mg EVERY 12 HOURS IVP 05/23/20 21:00 06/19/20 08:59 05/26/20 08:51 Potassium Phosphate 20 mm/ Dextrose 1,006.6667 ml @ 30 mls/hr Q24H IV 05/24/20 12:00 06/23/20 11:59 05/25/20 12:09 Vancomycin HCl (Vanco pharmacy to dose) 1 ea DAILY PRN MISC Per rx protocol 05/26/20 08:15 06/25/20 08:14 Vancomycin HCl 1 gm/Sodium Chloride 275 ml @ 183.708 mls/hr Q24H IVPB 05/26/20 10:00 05/31/20 09:59 05/26/20 09:55 Pito Amador MD May 26, 2020 11:47
[2020-05-26] MEDS: POTASSIUM PHOSPHATE IV SCH (11:49)
[2020-05-26] MEDS: DEXTROSE IV SCH (11:49)
--- NOTE | 2020-05-26 13:59 | Nephrology Progress Note ---
Assessment/Plan Assessment/Plan: A/P 1. E.coli sepsis - secondary to UTI - Abx per ID 2. Cholecystitis/cholangitis - per Gen surgery not a surgical candidate - monitor WBc as 21----27---26 - ID and surgery to address - central line being removed from groin 3. thrombocytopenia improving , monitor along with infection control 4. ZEE- resolved Subjective Date patient seen: May 26, 2020 Time patient seen: 13:58 ROS Limited/Unobtainable: No Allergies: Coded Allergies: No Known Allergies (Unverified , 05/28/13) Subjective Patient more awake and alert Objective Last 24 Hour Vital Signs Date Time Temp Pulse Resp B/P (MAP) Pulse Ox O2 Delivery O2 Flow Rate FiO2 05/26/20 12:00 98.0 98 18 134/67 (89) 99 05/26/20 12:00 Room Air 05/26/20 08:00 98.3 99 18 135/74 (94) 99 05/26/20 08:00 Room Air 05/26/20 08:00 102 05/26/20 06:08 96 Room Air 21 05/26/20 04:00 Room Air 05/26/20 04:00 96 05/26/20 04:00 97.8 95 18 126/66 (86) 98 05/26/20 00:00 Room Air 05/26/20 00:00 99.0 101 20 132/66 (88) 97 05/26/20 00:00 102 05/25/20 21:40 99.0 05/25/20 20:00 99.9 97 20 128/69 (88) 97 05/25/20 20:00 Room Air 05/25/20 20:00 99 05/25/20 16:00 100 05/25/20 16:00 98.6 97 18 110/63 (79) 97 05/25/20 16:00 Room Air Intake and Output 05/25/20 05/26/20 19:00 07:00 Intake Total 480 ml 330 ml Output Total 910 ml 20 ml Balance -430 ml 310 ml Free Water 150 ml Tube Feeding 330 ml 330 ml Output Urine Total 900 ml Stool Total 10 ml 20 ml Laboratory Tests 05/26/20 05:10: White Blood Count 26.5*H, Red Blood Count 5.26, Hemoglobin 15.7, Hematocrit 47.8H, Mean Corpuscular Volume 91, Mean Corpuscular Hemoglobin 29.8, Mean Corpuscular Hemoglobin Concent 32.8, Red Cell Distribution Width 12.9, Platelet Count 158#, Mean Platelet Volume 8.4, Neutrophils (%) (Auto) , Lymphocytes (%) ( Auto) , Monocytes (%) (Auto) , Eosinophils (%) (Auto) , Basophils (%) (Auto) , Differential Total Cells Counted 100, Neutrophils % (Manual) 85H, Lymphocytes % (Manual) 4L, Monocytes % (Manual) 6, Eosinophils % (Manual) 1, Basophils % ( Manual) 0, Band Neutrophils 4, Platelet Estimate Adequate, Platelet Morphology Normal, Red Blood Cell Morphology Normal, Sodium Level 142, Potassium Level 3.3L , Chloride Level 105, Carbon Dioxide Level 27, Anion Gap 10, Blood Urea Nitrogen 10, Creatinine 0.8, Estimat Glomerular Filtration Rate > 60, Glucose Level 124H, Calcium Level 9.1, Total Bilirubin 1.2H, Direct Bilirubin 0.5H, Aspartate Amino Transf (AST/SGOT) 26, Alanine Aminotransferase (ALT/SGPT) 94H, Alkaline Phosphatase 75, Total Protein 6.5, Albumin 2.2L, Globulin 4.3, Albumin/ Globulin Ratio 0.5L Height (Feet): 5 Height (Inches): 7.00 Weight (Pounds): 150 General Appearance: no apparent distress EENT: normal ENT inspection Cardiovascular: normal rate Respiratory/Chest: lungs clear Abdomen: non tender, soft Edema: no edema noted Arm (L), no edema noted Arm (R), no edema noted Leg (L), no edema noted Leg (R), no edema noted Pedal (L), no edema noted Pedal (R), no edema noted Generalized Holland Schafer MD May 26, 2020 13:59
[2020-05-26] MEDS: Dyna-Hex 2% Top Sol 2oz TOPIC SCH (20:00)
[2020-05-27] VITALS: BP 128/70
[2020-05-27 04:00] VITALS: BP 129/68
[2020-05-27 05:52] LABS: HEMATOCRIT 42.5 % (37.0-47.0); HEMOGLOBIN 13.8 G/DL (12.0-16.0); MEAN CORPUSCULAR VOLUME 90 FL (80-99); PLATELET COUNT 214 K/UL (150-450); RED CELL DISTRIBUTION WIDTH 12.9 % (11.6-14.8)
[2020-05-27 06:24] LABS: ANION GAP 9 mmol/L (5-15); BLOOD UREA NITROGEN 9 mg/dL (7-18); CALCIUM 8.4 MG/DL (8.5-10.1); CARBON DIOXIDE 26 MMOL/L (21-32); CHLORIDE 104 MMOL/L (98-107); CREATININE 0.8 MG/DL (0.55-1.30); POTASSIUM 3.3 MMOL/L (3.5-5.1); SODIUM 139 MMOL/L (136-145)
[2020-05-27 08:00] VITALS: BP 143/51
[2020-05-27] MEDS: Levofloxacin 500mg tab NG SCH (10:08)
[2020-05-27] MEDS: Pantoprazole Inj IVP SCH ×2 (10:08→20:28)
--- NOTE | 2020-05-27 10:08 | General Progress Note ---
Assessment/Plan Assessment/Plan: thrombocytopenia leukocytosis coagulopathy RI elevated LFTS CAD/MO gallstones dilated CBD and PD CT and us reviewed MRCP reviewed abx repeat labs prn imodium NGTF for now may need peg>>> family refused will fu Subjective ROS Limited/Unobtainable: No Allergies: Coded Allergies: No Known Allergies (Unverified , 05/28/13) Objective Last 24 Hour Vital Signs Date Time Temp Pulse Resp B/P (MAP) Pulse Ox O2 Delivery O2 Flow Rate FiO2 05/27/20 04:00 97.3 97 18 129/68 (88) 95 05/27/20 04:00 Room Air 05/27/20 04:00 94 05/27/20 00:00 97.6 102 16 128/70 (89) 98 05/27/20 00:00 Room Air 05/27/20 00:00 101 05/26/20 22:14 97.0 98 16 132/75 (94) 98 05/26/20 20:00 Room Air 05/26/20 20:00 97.0 98 22 132/75 (94) 98 05/26/20 20:00 102 05/26/20 16:00 97.5 95 18 133/76 (95) 96 05/26/20 16:00 101 05/26/20 16:00 Room Air 05/26/20 12:00 96 05/26/20 12:00 98.0 98 18 134/67 (89) 99 05/26/20 12:00 Room Air Intake and Output 05/26/20 05/27/20 19:00 07:00 Intake Total 530 ml 460 ml Output Total 1120 ml 520 ml Balance -590 ml -60 ml Free Water 100 ml 50 ml IV Total 360 ml Tube Feeding 430 ml 50 ml Output Urine Total 1100 ml 500 ml Stool Total 20 ml 20 ml # Bowel Movements 3 Laboratory Tests 05/27/20 03:07: White Blood Count 22.0H, Red Blood Count 4.70, Hemoglobin 13.8, Hematocrit 42.5 , Mean Corpuscular Volume 90, Mean Corpuscular Hemoglobin 29.5, Mean Corpuscular Hemoglobin Concent 32.6, Red Cell Distribution Width 12.9, Platelet Count 214, Mean Platelet Volume 7.3, Neutrophils (%) (Auto) , Lymphocytes (%) ( Auto) , Monocytes (%) (Auto) , Eosinophils (%) (Auto) , Basophils (%) (Auto) , Differential Total Cells Counted 100, Neutrophils % (Manual) 85H, Lymphocytes % (Manual) 6L, Monocytes % (Manual) 8, Eosinophils % (Manual) 0, Basophils % ( Manual) 0, Band Neutrophils 1, Platelet Estimate Adequate, Platelet Morphology Normal, Red Blood Cell Morphology Normal, Sodium Level 139, Potassium Level 3.3L , Chloride Level 104, Carbon Dioxide Level 26, Anion Gap 9, Blood Urea Nitrogen 9, Creatinine 0.8, Estimat Glomerular Filtration Rate > 60, Glucose Level 101, Calcium Level 8.4L, Phosphorus Level 4.1 Height (Feet): 5 Height (Inches): 7.00 Weight (Pounds): 150 General Appearance: no apparent distress EENT: normal ENT inspection Neck: supple Cardiovascular: normal rate Respiratory/Chest: decreased breath sounds Abdomen: hypoactive bowel sounds Extremities: non-tender Ludwig Wood MD May 27, 2020 10:08
[2020-05-27] MEDS: Vancomycin 1 GM in NS 275 ML IVPB SCH (10:09)
--- NOTE | 2020-05-27 10:49 | Infectious Diseases Prog Note ---
"Assessment/Plan Assessment/Plan antibiotics : vancomycin iv, levoquin A 1. E.coli sepsis secondary to UTI 2. shock resolved 3. thrombocytopenia improving 4. ? cholecystitis ? cholangitis 5. leucocytosis increased 6. e.coli | klebsiella UTI 7. renal failure improving P 1. continue iv vancomycin, levoquin 2 more days 2. will follow up cultures Subjective ROS Limited/Unobtainable: Yes Allergies: Coded Allergies: No Known Allergies (Unverified , 05/28/13) Objective Last 24 Hour Vital Signs Date Time Temp Pulse Resp B/P (MAP) Pulse Ox O2 Delivery O2 Flow Rate FiO2 05/27/20 04:00 97.3 97 18 129/68 (88) 95 05/27/20 04:00 Room Air 05/27/20 04:00 94 05/27/20 00:00 97.6 102 16 128/70 (89) 98 05/27/20 00:00 Room Air 05/27/20 00:00 101 05/26/20 22:14 97.0 98 16 132/75 (94) 98 05/26/20 20:00 Room Air 05/26/20 20:00 97.0 98 22 132/75 (94) 98 05/26/20 20:00 102 05/26/20 16:00 97.5 95 18 133/76 (95) 96 05/26/20 16:00 101 05/26/20 16:00 Room Air 05/26/20 12:00 96 05/26/20 12:00 98.0 98 18 134/67 (89) 99 05/26/20 12:00 Room Air Height (Feet): 5 Height (Inches): 7.00 Weight (Pounds): 150 Respiratory/Chest: lungs clear Cardiovascular: normal rate, regular rhythm, no gallop/murmur Abdomen: soft, non tender Extremities: no edema Microbiology Date/Time Source Procedure Growth Status 05/26/20 00:50 Stool Clostridium difficile Toxin Assay - Final Complete Laboratory Tests Test 05/27/20 03:07 White Blood Count 22.0 K/UL (4.8-10.8) H Red Blood Count 4.70 M/UL (4.20-5.40) Hemoglobin 13.8 G/DL (12.0-16.0) Hematocrit 42.5 % (37.0-47.0) Mean Corpuscular Volume 90 FL (80-99) Mean Corpuscular Hemoglobin 29.5 PG (27.0-31.0) Mean Corpuscular Hemoglobin Concent 32.6 G/DL (32.0-36.0) Red Cell Distribution Width 12.9 % (11.6-14.8) Platelet Count 214 K/UL (150-450) Mean Platelet Volume 7.3 FL (6.5-10.1) Neutrophils (%) (Auto) % (45.0-75.0) Lymphocytes (%) (Auto) % (20.0-45.0) Monocytes (%) (Auto) % (1.0-10.0) Eosinophils (%) (Auto) % (0.0-3.0) Basophils (%) (Auto) % (0.0-2.0) Differential Total Cells Counted 100 Neutrophils % (Manual) 85 % (45-75) H Lymphocytes % (Manual) 6 % (20-45) L Monocytes % (Manual) 8 % (1-10) Eosinophils % (Manual) 0 % (0-3) Basophils % (Manual) 0 % (0-2) Band Neutrophils 1 % (0-8) Platelet Estimate Adequate Platelet Morphology Normal Red Blood Cell Morphology Normal Sodium Level 139 MMOL/L (136-145) Potassium Level 3.3 MMOL/L (3.5-5.1) L Chloride Level 104 MMOL/L (98-107) Carbon Dioxide Level 26 MMOL/L (21-32) Anion Gap 9 mmol/L (5-15) Blood Urea Nitrogen 9 mg/dL (7-18) Creatinine 0.8 MG/DL (0.55-1.30) Estimat Glomerular Filtration Rate > 60 mL/min (>60) Glucose Level 101 MG/DL (74-106) Calcium Level 8.4 MG/DL (8.5-10.1) L Phosphorus Level 4.1 MG/DL (2.5-4.9) Current Medications Medications (Trade) Dose Ordered Sig/Gricelda Route PRN Reason Start Time Stop Time Status Last Admin Dose Admin Acetaminophen (Tylenol) 500 mg Q6HR PRN NG Temp >100.5 05/25/20 14:45 06/24/20 14:44 05/25/20 21:10 Barium Sulfate (Varibar Honey) 250 ml NOW PRN MC RAD 05/24/20 13:15 05/27/20 13:07 Barium Sulfate (Varibar Mcfarlan) 240 ml NOW PRN MC RAD 05/24/20 13:15 05/27/20 13:07 Barium Sulfate (Varibar Pudding) 230 ml NOW PRN MC RAD 05/24/20 13:15 05/27/20 13:07 Barium Sulfate (Varibar Thin Liquid powder) 148 gm NOW PRN MC RAD 05/24/20 13:30 05/27/20 13:20 Chlorhexidine Gluconate (Celi-Hex 2%) 1 applic DAILY@2000 TOPIC 05/23/20 20:00 08/18/20 19:59 05/25/20 20:52 Dextrose (Dextrose 50%) 25 ml Q30M PRN IV Hypoglycemia 05/23/20 18:45 08/17/20 19:14 Dextrose (Dextrose 50%) 50 ml Q30M PRN IV Hypoglycemia 05/23/20 18:45 08/17/20 19:14 Levofloxacin (Levaquin) 500 mg DAILY NG 05/24/20 09:00 05/29/20 12:59 05/27/20 10:08 Loperamide HCl (Imodium) 2 mg Q6H PRN NG Diarrhea 05/23/20 19:00 06/19/20 12:59 Ondansetron HCl (Zofran) 4 mg Q6H PRN IVP Nausea & Vomiting 05/23/20 19:15 06/18/20 19:14 Pantoprazole (Protonix) 40 mg EVERY 12 HOURS IVP 05/23/20 21:00 06/19/20 08:59 05/27/20 10:08 Potassium Phosphate 20 mm/ Dextrose 1,006.6667 ml @ 30 mls/hr Q24H IV 05/24/20 12:00 06/23/20 11:59 05/26/20 11:49 Vancomycin HCl (Vanco pharmacy to dose) 1 ea DAILY PRN MISC Per rx protocol 05/26/20 08:15 06/25/20 08:14 Vancomycin HCl 1 gm/Sodium Chloride 275 ml @ 183.708 mls/hr Q24H IVPB 05/26/20 10:00 05/31/20 09:59 05/27/20 10:09 Jeff De La Cruz MD May 27, 2020 10:49"
[2020-05-27 12:00] VITALS: BP 117/54
[2020-05-27] MEDS: POTASSIUM PHOSPHATE IV SCH (12:09)
[2020-05-27] MEDS: DEXTROSE IV SCH (12:09)
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
[2020-05-27 16:00] VITALS: BP 110/58
--- NOTE | 2020-05-27 19:46 | General Progress Note ---
Assessment/Plan Problem List: (1) DIC (disseminated intravascular coagulation) ICD Codes: D65 - Disseminated intravascular coagulation [defibrination syndrome ] SNOMED: 37382754 (2) Thrombocytopenia ICD Codes: D69.6 - Thrombocytopenia, unspecified SNOMED: 237271698 (3) Lactic acidosis ICD Codes: E87.2 - Acidosis SNOMED: 33026824 (4) Septic shock ICD Codes: A41.9 - Sepsis, unspecified organism; R65.21 - Severe sepsis with septic shock SNOMED: 51647636 (5) Anemia ICD Codes: D64.9 - Anemia, unspecified SNOMED: 167730398 (6) Hypokalemia ICD Codes: E87.6 - Hypokalemia SNOMED: 57927012 (7) Rhabdomyolysis ICD Codes: M62.82 - Rhabdomyolysis SNOMED: 680616824 (8) Non-STEMI (non-ST elevated myocardial infarction) ICD Codes: I21.4 - Non-ST elevation (NSTEMI) myocardial infarction SNOMED: 92045524 (9) ZEE (acute kidney injury) ICD Codes: N17.9 - Acute kidney failure, unspecified SNOMED: 6771961, 46981219 (10) Elevated liver enzymes ICD Codes: R74.8 - Abnormal levels of other serum enzymes SNOMED: 048147158 (11) CHF (congestive heart failure) ICD Codes: I50.9 - Heart failure, unspecified SNOMED: 07318378 (12) Gram negative sepsis ICD Codes: A41.50 - Gram-negative sepsis, unspecified SNOMED: 079839861 (13) Cholelithiasis ICD Codes: K80.20 - Calculus of gallbladder without cholecystitis without obstruction SNOMED: 340025200 (14) Metabolic encephalopathy ICD Codes: G93.41 - Metabolic encephalopathy SNOMED: 11143398 (15) Hypophosphatemia ICD Codes: E83.39 - Other disorders of phosphorus metabolism SNOMED: 6730672 (16) Decubital ulcer ICD Codes: L89.90 - Pressure ulcer of unspecified site, unspecified stage SNOMED: 760592272 Assessment/Plan: orders updated replace phosphate continue broad-spectrum antibiotics, for e coli bacteremia and e coli+klebsiella uti consultants notes are all reviewed her condition remains high risk this is discussed in detail with the daughter in the area code [id number] start tube feeding reduce iv fluids Subjective ROS Limited/Unobtainable: Yes Allergies: Coded Allergies: No Known Allergies (Unverified , 05/28/13) Objective Last 24 Hour Vital Signs Date Time Temp Pulse Resp B/P (MAP) Pulse Ox O2 Delivery O2 Flow Rate FiO2 05/27/20 16:00 98.2 101 24 110/58 (75) 96 05/27/20 16:00 Room Air 05/27/20 16:00 102 05/27/20 12:00 Room Air 05/27/20 12:00 105 05/27/20 12:00 96.4 104 18 117/54 (75) 96 05/27/20 08:00 Room Air 05/27/20 08:00 92 05/27/20 08:00 96.3 94 18 143/51 (81) 97 05/27/20 04:00 97.3 97 18 129/68 (88) 95 05/27/20 04:00 Room Air 05/27/20 04:00 94 05/27/20 00:00 97.6 102 16 128/70 (89) 98 05/27/20 00:00 Room Air 05/27/20 00:00 101 05/26/20 22:14 97.0 98 16 132/75 (94) 98 05/26/20 20:00 Room Air 05/26/20 20:00 97.0 98 22 132/75 (94) 98 05/26/20 20:00 102 Intake and Output 05/26/20 05/27/20 19:00 07:00 Intake Total 530 ml 540 ml Output Total 1120 ml 520 ml Balance -590 ml 20 ml Free Water 100 ml 50 ml IV Total 390 ml Tube Feeding 430 ml 100 ml Output Urine Total 1100 ml 500 ml Stool Total 20 ml 20 ml # Bowel Movements 3 Laboratory Tests 05/27/20 03:07: White Blood Count 22.0H, Red Blood Count 4.70, Hemoglobin 13.8, Hematocrit 42.5 , Mean Corpuscular Volume 90, Mean Corpuscular Hemoglobin 29.5, Mean Corpuscular Hemoglobin Concent 32.6, Red Cell Distribution Width 12.9, Platelet Count 214, Mean Platelet Volume 7.3, Neutrophils (%) (Auto) , Lymphocytes (%) ( Auto) , Monocytes (%) (Auto) , Eosinophils (%) (Auto) , Basophils (%) (Auto) , Differential Total Cells Counted 100, Neutrophils % (Manual) 85H, Lymphocytes % (Manual) 6L, Monocytes % (Manual) 8, Eosinophils % (Manual) 0, Basophils % ( Manual) 0, Band Neutrophils 1, Platelet Estimate Adequate, Platelet Morphology Normal, Red Blood Cell Morphology Normal, Sodium Level 139, Potassium Level 3.3L , Chloride Level 104, Carbon Dioxide Level 26, Anion Gap 9, Blood Urea Nitrogen 9, Creatinine 0.8, Estimat Glomerular Filtration Rate > 60, Glucose Level 101, Calcium Level 8.4L, Phosphorus Level 4.1 Height (Feet): 5 Height (Inches): 7.00 Weight (Pounds): 150 General Appearance: lethargic, confused EENT: normal ENT inspection Neck: normal alignment Cardiovascular: regular rhythm Respiratory/Chest: lungs clear Abdomen: non tender Edema: trace edema Neurologic: home health clinical liaison II-XII grossly normal, motor weakness Eric Wilkins MD May 27, 2020 19:46
[2020-05-27 20:00] VITALS: BP 111/60
[2020-05-27] MEDS: Dyna-Hex 2% Top Sol 2oz TOPIC SCH (20:28)
[2020-05-28] VITALS: BP 101/59
--- NOTE | 2020-05-28 00:36 | Cardiology Progress Note ---
Subjective DATE OF SERVICE: May 26, 2020 Remains off pressors with stable BP readings. Monitor: sinus with rare atrial ectopics Objective Last 24 Hour Vital Signs Date Time Temp Pulse Resp B/P (MAP) Pulse Ox O2 Delivery O2 Flow Rate FiO2 05/28/20 00:00 98.3 90 16 101/59 (73) 96 05/28/20 00:00 Room Air 05/27/20 20:00 97.9 92 17 111/60 (77) 97 05/27/20 20:00 95 05/27/20 20:00 Room Air 05/27/20 16:00 98.2 101 24 110/58 (75) 96 05/27/20 16:00 Room Air 05/27/20 16:00 102 05/27/20 12:00 Room Air 05/27/20 12:00 105 05/27/20 12:00 96.4 104 18 117/54 (75) 96 05/27/20 08:00 Room Air 05/27/20 08:00 92 05/27/20 08:00 96.3 94 18 143/51 (81) 97 05/27/20 04:00 97.3 97 18 129/68 (88) 95 05/27/20 04:00 Room Air 05/27/20 04:00 94 ROS: no change from my evaluation of 05/19/20. HEENT: normal ENT inspection LUNGS: lungs clear bilaterally CARDIAC: regular rhythm, normal S1 and S2, rapid rate, tachycardia ABDOMEN: soft, tender - mild diffuse EXTREMITIES: normal range of motion, No edema Laboratory Tests Test 05/27/20 03:07 White Blood Count 22.0 K/UL (4.8-10.8) H Red Blood Count 4.70 M/UL (4.20-5.40) Hemoglobin 13.8 G/DL (12.0-16.0) Hematocrit 42.5 % (37.0-47.0) Mean Corpuscular Volume 90 FL (80-99) Mean Corpuscular Hemoglobin 29.5 PG (27.0-31.0) Mean Corpuscular Hemoglobin Concent 32.6 G/DL (32.0-36.0) Red Cell Distribution Width 12.9 % (11.6-14.8) Platelet Count 214 K/UL (150-450) Mean Platelet Volume 7.3 FL (6.5-10.1) Neutrophils (%) (Auto) % (45.0-75.0) Lymphocytes (%) (Auto) % (20.0-45.0) Monocytes (%) (Auto) % (1.0-10.0) Eosinophils (%) (Auto) % (0.0-3.0) Basophils (%) (Auto) % (0.0-2.0) Differential Total Cells Counted 100 Neutrophils % (Manual) 85 % (45-75) H Lymphocytes % (Manual) 6 % (20-45) L Monocytes % (Manual) 8 % (1-10) Eosinophils % (Manual) 0 % (0-3) Basophils % (Manual) 0 % (0-2) Band Neutrophils 1 % (0-8) Platelet Estimate Adequate Platelet Morphology Normal Red Blood Cell Morphology Normal Sodium Level 139 MMOL/L (136-145) Potassium Level 3.3 MMOL/L (3.5-5.1) L Chloride Level 104 MMOL/L (98-107) Carbon Dioxide Level 26 MMOL/L (21-32) Anion Gap 9 mmol/L (5-15) Blood Urea Nitrogen 9 mg/dL (7-18) Creatinine 0.8 MG/DL (0.55-1.30) Estimat Glomerular Filtration Rate > 60 mL/min (>60) Glucose Level 101 MG/DL (74-106) Calcium Level 8.4 MG/DL (8.5-10.1) L Phosphorus Level 4.1 MG/DL (2.5-4.9) Microbiology Date/Time Source Procedure Growth Status 05/26/20 00:50 Stool Clostridium difficile Toxin Assay - Final Complete Assessment/Plan Assessment/Plan Sepsis with shock resolving - due to UTI Worsening leukocytosis Lactic acidosis resolved Transaminitis improving Hypomagnesemia Hyponatremia Acute myocardial ischemia and possible NSTE myocardial infarction acute renal failure improved CRITICAL & GUARDED Broad sp antimicrobials Remain off pressors IVF adjustments per volume status IV Mg as needed DVT prophylaxis Dalton Valdez MD May 28, 2020 00:36
--- NOTE | 2020-05-28 00:38 | Cardiology Progress Note ---
Subjective DATE OF SERVICE: May 27, 2020 Remains off pressors with stable BP readings. Monitor: sinus with rare atrial ectopics WBC count remaining elevated IV abx per ID team Objective Last 24 Hour Vital Signs Date Time Temp Pulse Resp B/P (MAP) Pulse Ox O2 Delivery O2 Flow Rate FiO2 05/28/20 00:00 98.3 90 16 101/59 (73) 96 05/28/20 00:00 Room Air 05/27/20 20:00 97.9 92 17 111/60 (77) 97 05/27/20 20:00 95 05/27/20 20:00 Room Air 05/27/20 16:00 98.2 101 24 110/58 (75) 96 05/27/20 16:00 Room Air 05/27/20 16:00 102 05/27/20 12:00 Room Air 05/27/20 12:00 105 05/27/20 12:00 96.4 104 18 117/54 (75) 96 05/27/20 08:00 Room Air 05/27/20 08:00 92 05/27/20 08:00 96.3 94 18 143/51 (81) 97 05/27/20 04:00 97.3 97 18 129/68 (88) 95 05/27/20 04:00 Room Air 05/27/20 04:00 94 ROS: no change from my evaluation of 05/19/20. HEENT: normal ENT inspection LUNGS: lungs clear bilaterally CARDIAC: regular rhythm, normal S1 and S2, rapid rate, tachycardia ABDOMEN: soft, tender - mild diffuse EXTREMITIES: normal range of motion, No edema Laboratory Tests Test 05/27/20 03:07 White Blood Count 22.0 K/UL (4.8-10.8) H Red Blood Count 4.70 M/UL (4.20-5.40) Hemoglobin 13.8 G/DL (12.0-16.0) Hematocrit 42.5 % (37.0-47.0) Mean Corpuscular Volume 90 FL (80-99) Mean Corpuscular Hemoglobin 29.5 PG (27.0-31.0) Mean Corpuscular Hemoglobin Concent 32.6 G/DL (32.0-36.0) Red Cell Distribution Width 12.9 % (11.6-14.8) Platelet Count 214 K/UL (150-450) Mean Platelet Volume 7.3 FL (6.5-10.1) Neutrophils (%) (Auto) % (45.0-75.0) Lymphocytes (%) (Auto) % (20.0-45.0) Monocytes (%) (Auto) % (1.0-10.0) Eosinophils (%) (Auto) % (0.0-3.0) Basophils (%) (Auto) % (0.0-2.0) Differential Total Cells Counted 100 Neutrophils % (Manual) 85 % (45-75) H Lymphocytes % (Manual) 6 % (20-45) L Monocytes % (Manual) 8 % (1-10) Eosinophils % (Manual) 0 % (0-3) Basophils % (Manual) 0 % (0-2) Band Neutrophils 1 % (0-8) Platelet Estimate Adequate Platelet Morphology Normal Red Blood Cell Morphology Normal Sodium Level 139 MMOL/L (136-145) Potassium Level 3.3 MMOL/L (3.5-5.1) L Chloride Level 104 MMOL/L (98-107) Carbon Dioxide Level 26 MMOL/L (21-32) Anion Gap 9 mmol/L (5-15) Blood Urea Nitrogen 9 mg/dL (7-18) Creatinine 0.8 MG/DL (0.55-1.30) Estimat Glomerular Filtration Rate > 60 mL/min (>60) Glucose Level 101 MG/DL (74-106) Calcium Level 8.4 MG/DL (8.5-10.1) L Phosphorus Level 4.1 MG/DL (2.5-4.9) Microbiology Date/Time Source Procedure Growth Status 05/26/20 00:50 Stool Clostridium difficile Toxin Assay - Final Complete Assessment/Plan Assessment/Plan Sepsis with shock resolving - due to UTI Worsening leukocytosis Lactic acidosis resolved Transaminitis improving Hypomagnesemia Hyponatremia Acute myocardial ischemia and possible NSTE myocardial infarction acute renal failure improved Broad sp antimicrobials Remain off pressors IVF adjustments per volume status IV Mg as needed DVT prophylaxis F/U lab studies and CXR Dalton Valdez MD May 28, 2020 00:38
[2020-05-28 04:00] VITALS: BP 124/70
[2020-05-28 05:30] LABS: HEMATOCRIT 45.6 % (37.0-47.0); HEMOGLOBIN 14.7 G/DL (12.0-16.0); MEAN CORPUSCULAR VOLUME 91 FL (80-99); PLATELET COUNT 240 K/UL (150-450); RED CELL DISTRIBUTION WIDTH 13.2 % (11.6-14.8)
[2020-05-28 05:46] LABS: ANION GAP 13 mmol/L (5-15); BLOOD UREA NITROGEN 28 mg/dL (7-18); CALCIUM 7.6 MG/DL (8.5-10.1); CARBON DIOXIDE 22 MMOL/L (21-32); CHLORIDE 104 MMOL/L (98-107); CREATININE 1.8 MG/DL (0.55-1.30); POTASSIUM 4.1 MMOL/L (3.5-5.1); SODIUM 139 MMOL/L (136-145)
[2020-05-28 06:07] LABS: WHITE BLOOD COUNT 38.9 K/UL (4.8-10.8)
[2020-05-28 07:59] VITALS: BP 113/66
[2020-05-28] MEDS: Pantoprazole Inj IVP SCH ×2 (09:28→20:15)
[2020-05-28] MEDS: Levofloxacin 500mg tab NG SCH (09:28)
[2020-05-28 09:43] LABS: HEMATOCRIT 43.2 % (37.0-47.0); HEMOGLOBIN 13.9 G/DL (12.0-16.0); MEAN CORPUSCULAR VOLUME 91 FL (80-99); PLATELET COUNT 248 K/UL (150-450); RED BLOOD COUNT 4.76 M/UL (4.20-5.40); RED CELL DISTRIBUTION WIDTH 13.3 % (11.6-14.8)
[2020-05-28 09:47] LABS: WHITE BLOOD COUNT 34.2 K/UL (4.8-10.8)
--- NOTE | 2020-05-28 10:01 | General Progress Note ---
Assessment/Plan Assessment/Plan: thrombocytopenia leukocytosis coagulopathy RI elevated LFTS CAD/UT gallstones dilated CBD and PD CT and us reviewed MRCP reviewed abx repeat labs prn imodium NGTF for now may need peg>>> family refused will fu Subjective ROS Limited/Unobtainable: No Allergies: Coded Allergies: No Known Allergies (Unverified , 05/28/13) Objective Last 24 Hour Vital Signs Date Time Temp Pulse Resp B/P (MAP) Pulse Ox O2 Delivery O2 Flow Rate FiO2 05/28/20 08:00 99 05/28/20 08:00 Room Air 05/28/20 07:59 97.9 98 18 113/66 (82) 98 05/28/20 04:00 97.9 85 16 124/70 (88) 97 05/28/20 04:00 Room Air 05/28/20 03:53 95 05/28/20 00:00 98.3 90 16 101/59 (73) 96 05/28/20 00:00 Room Air 05/27/20 23:30 108 05/27/20 20:00 97.9 92 17 111/60 (77) 97 05/27/20 20:00 95 05/27/20 20:00 Room Air 05/27/20 16:00 98.2 101 24 110/58 (75) 96 05/27/20 16:00 Room Air 05/27/20 16:00 102 05/27/20 12:00 Room Air 05/27/20 12:00 105 05/27/20 12:00 96.4 104 18 117/54 (75) 96 Intake and Output 05/27/20 05/28/20 19:00 07:00 Intake Total 1475 ml 1065 ml Output Total 800 ml 550 ml Balance 675 ml 515 ml Free Water 200 ml 100 ml IV Total 635 ml 360 ml Tube Feeding 640 ml 605 ml Output Urine Total 600 ml 350 ml Stool Total 200 ml 200 ml # Bowel Movements 6 Laboratory Tests 05/28/20 02:55: White Blood Count 38.9#*H, Red Blood Count 5.00, Hemoglobin 14.7, Hematocrit 45.6, Mean Corpuscular Volume 91, Mean Corpuscular Hemoglobin 29.4, Mean Corpuscular Hemoglobin Concent 32.2, Red Cell Distribution Width 13.2, Platelet Count 240, Mean Platelet Volume 7.5, Neutrophils (%) (Auto) , Lymphocytes (%) ( Auto) , Monocytes (%) (Auto) , Eosinophils (%) (Auto) , Basophils (%) (Auto) , Neutrophils % (Manual) [Pending], Lymphocytes % (Manual) [Pending], Platelet Estimate [Pending], Platelet Morphology [Pending], Sodium Level 139, Potassium Level 4.1, Chloride Level 104, Carbon Dioxide Level 22, Anion Gap 13, Blood Urea Nitrogen 28H, Creatinine 1.8#H, Estimat Glomerular Filtration Rate 32.1, Glucose Level 126H, Calcium Level 7.6L, Magnesium Level 1.4L, Pro-B-Type Natriuretic Peptide 5812H 05/28/20 09:10: White Blood Count 34.2*H, Red Blood Count 4.76, Hemoglobin 13.9, Hematocrit 43.2 , Mean Corpuscular Volume 91, Mean Corpuscular Hemoglobin 29.1, Mean Corpuscular Hemoglobin Concent 32.1, Red Cell Distribution Width 13.3, Platelet Count 248, Mean Platelet Volume 7.3, Neutrophils (%) (Auto) , Lymphocytes (%) ( Auto) , Monocytes (%) (Auto) , Eosinophils (%) (Auto) , Basophils (%) (Auto) , Neutrophils % (Manual) [Pending], Lymphocytes % (Manual) [Pending], Platelet Estimate [Pending], Platelet Morphology [Pending] Height (Feet): 5 Height (Inches): 7.00 Weight (Pounds): 150 General Appearance: no apparent distress EENT: normal ENT inspection Neck: supple Cardiovascular: normal rate Respiratory/Chest: decreased breath sounds Abdomen: hypoactive bowel sounds Extremities: non-tender Ludwig Wood MD May 28, 2020 10:01
--- NOTE | 2020-05-28 10:57 | Infectious Diseases Prog Note ---
"Assessment/Plan Assessment/Plan antibiotics : vancomycin iv, levoquin A 1. E.coli sepsis secondary to UTI 2. shock resolved 3. thrombocytopenia improving 4. ? cholecystitis ? cholangitis 5. leucocytosis increased 6. e.coli | klebsiella UTI 7. renal failure P 1. d.c iv vancomycin 2. continue levoquin 1 more day 3. stool for c.diff 4. start po vancomycin 5. consider ERCP 6. will follow up cultures Subjective ROS Limited/Unobtainable: Yes Allergies: Coded Allergies: No Known Allergies (Unverified , 05/28/13) Objective Last 24 Hour Vital Signs Date Time Temp Pulse Resp B/P (MAP) Pulse Ox O2 Delivery O2 Flow Rate FiO2 05/28/20 08:00 99 05/28/20 08:00 Room Air 05/28/20 07:59 97.9 98 18 113/66 (82) 98 05/28/20 04:00 97.9 85 16 124/70 (88) 97 05/28/20 04:00 Room Air 05/28/20 03:53 95 05/28/20 00:00 98.3 90 16 101/59 (73) 96 05/28/20 00:00 Room Air 05/27/20 23:30 108 05/27/20 20:00 97.9 92 17 111/60 (77) 97 05/27/20 20:00 95 05/27/20 20:00 Room Air 05/27/20 16:00 98.2 101 24 110/58 (75) 96 05/27/20 16:00 Room Air 05/27/20 16:00 102 05/27/20 12:00 Room Air 05/27/20 12:00 105 05/27/20 12:00 96.4 104 18 117/54 (75) 96 Height (Feet): 5 Height (Inches): 7.00 Weight (Pounds): 150 Respiratory/Chest: lungs clear Cardiovascular: normal rate, regular rhythm, no gallop/murmur Abdomen: soft, non tender Extremities: no edema Microbiology Date/Time Source Procedure Growth Status 05/26/20 10:15 Blood Blood Culture - Preliminary NO GROWTH AFTER 24 HOURS Resulted 05/26/20 10:00 Blood Blood Culture - Preliminary NO GROWTH AFTER 24 HOURS Resulted 05/26/20 00:50 Stool Clostridium difficile Toxin Assay - Final Complete Laboratory Tests Test 05/28/20 02:55 05/28/20 09:00 05/28/20 09:10 White Blood Count 38.9 K/UL (4.8-10.8) #*H 34.2 K/UL (4.8-10.8) *H Red Blood Count 5.00 M/UL (4.20-5.40) 4.76 M/UL (4.20-5.40) Hemoglobin 14.7 G/DL (12.0-16.0) 13.9 G/DL (12.0-16.0) Hematocrit 45.6 % (37.0-47.0) 43.2 % (37.0-47.0) Mean Corpuscular Volume 91 FL (80-99) 91 FL (80-99) Mean Corpuscular Hemoglobin 29.4 PG (27.0-31.0) 29.1 PG (27.0-31.0) Mean Corpuscular Hemoglobin Concent 32.2 G/DL (32.0-36.0) 32.1 G/DL (32.0-36.0) Red Cell Distribution Width 13.2 % (11.6-14.8) 13.3 % (11.6-14.8) Platelet Count 240 K/UL (150-450) 248 K/UL (150-450) Mean Platelet Volume 7.5 FL (6.5-10.1) 7.3 FL (6.5-10.1) Neutrophils (%) (Auto) % (45.0-75.0) % (45.0-75.0) Lymphocytes (%) (Auto) % (20.0-45.0) % (20.0-45.0) Monocytes (%) (Auto) % (1.0-10.0) % (1.0-10.0) Eosinophils (%) (Auto) % (0.0-3.0) % (0.0-3.0) Basophils (%) (Auto) % (0.0-2.0) % (0.0-2.0) Neutrophils % (Manual) Pending Pending Lymphocytes % (Manual) Pending Pending Platelet Estimate Pending Pending Platelet Morphology Pending Pending Sodium Level 139 MMOL/L (136-145) Potassium Level 4.1 MMOL/L (3.5-5.1) Chloride Level 104 MMOL/L (98-107) Carbon Dioxide Level 22 MMOL/L (21-32) Anion Gap 13 mmol/L (5-15) Blood Urea Nitrogen 28 mg/dL (7-18) H Creatinine 1.8 MG/DL (0.55-1.30) #H Estimat Glomerular Filtration Rate 32.1 mL/min (>60) Glucose Level 126 MG/DL (74-106) H Calcium Level 7.6 MG/DL (8.5-10.1) L Magnesium Level 1.4 MG/DL (1.8-2.4) L Pro-B-Type Natriuretic Peptide 5812 pg/mL (0-125) H Vancomycin Level Trough 9.4 ug/mL (5.0-12.0) Current Medications Medications (Trade) Dose Ordered Sig/Gricelda Route PRN Reason Start Time Stop Time Status Last Admin Dose Admin Acetaminophen (Tylenol) 500 mg Q6HR PRN NG Temp >100.5 05/25/20 14:45 06/24/20 14:44 05/25/20 21:10 Chlorhexidine Gluconate (Celi-Hex 2%) 1 applic DAILY@2000 TOPIC 05/23/20 20:00 08/18/20 19:59 05/27/20 20:28 Dextrose (Dextrose 50%) 25 ml Q30M PRN IV Hypoglycemia 05/23/20 18:45 08/17/20 19:14 Dextrose (Dextrose 50%) 50 ml Q30M PRN IV Hypoglycemia 05/23/20 18:45 08/17/20 19:14 Levofloxacin (Levaquin) 500 mg DAILY NG 05/24/20 09:00 05/29/20 12:59 05/28/20 09:28 Loperamide HCl (Imodium) 2 mg Q6H PRN NG Diarrhea 05/23/20 19:00 06/19/20 12:59 Ondansetron HCl (Zofran) 4 mg Q6H PRN IVP Nausea & Vomiting 05/23/20 19:15 06/18/20 19:14 Pantoprazole (Protonix) 40 mg EVERY 12 HOURS IVP 05/23/20 21:00 06/19/20 08:59 05/28/20 09:28 Potassium Phosphate 20 mm/ Dextrose 1,006.6667 ml @ 30 mls/hr Q24H IV 05/24/20 12:00 06/23/20 11:59 05/27/20 12:09 Vancomycin HCl (Vanco pharmacy to dose) 1 ea DAILY PRN MISC Per rx protocol 05/26/20 08:15 06/25/20 08:14 Vancomycin HCl 750 mg/Sodium Chloride 275 ml @ 183.333 mls/hr ONCE ONCE IVPB 05/28/20 12:00 05/28/20 13:29 Jeff De La Cruz MD May 28, 2020 10:57"
[2020-05-28 12:00] VITALS: BP 102/62
[2020-05-28] MEDS ORDERED: Vancomycin 750mg/NS 275ml IVPB ONE ×2 (12:00)
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
[2020-05-28] MEDS: POTASSIUM PHOSPHATE IV SCH (14:11)
[2020-05-28] MEDS: DEXTROSE IV SCH (14:11)
[2020-05-28] MEDS: Vancomycin oral 125mg/2.5ml ORAL SCH ×3 (14:11→20:15)
[2020-05-28 16:00] VITALS: BP 116/64
[2020-05-28] MEDS ORDERED: RESTASIS1 EACH BOTH EYES (18:25)
[2020-05-28 20:00] VITALS: BP 109/63
[2020-05-28] MEDS: Dyna-Hex 2% Top Sol 2oz TOPIC SCH (20:14)
--- NOTE | 2020-05-28 21:00 | General Progress Note ---
Assessment/Plan Problem List: (1) DIC (disseminated intravascular coagulation) ICD Codes: D65 - Disseminated intravascular coagulation [defibrination syndrome ] SNOMED: 45011833 (2) Thrombocytopenia ICD Codes: D69.6 - Thrombocytopenia, unspecified SNOMED: 259581551 (3) Lactic acidosis ICD Codes: E87.2 - Acidosis SNOMED: 29139972 (4) Septic shock ICD Codes: A41.9 - Sepsis, unspecified organism; R65.21 - Severe sepsis with septic shock SNOMED: 05964006 (5) Anemia ICD Codes: D64.9 - Anemia, unspecified SNOMED: 246778539 (6) Hypokalemia ICD Codes: E87.6 - Hypokalemia SNOMED: 27336759 (7) Rhabdomyolysis ICD Codes: M62.82 - Rhabdomyolysis SNOMED: 793134978 (8) Non-STEMI (non-ST elevated myocardial infarction) ICD Codes: I21.4 - Non-ST elevation (NSTEMI) myocardial infarction SNOMED: 52365855 (9) ZEE (acute kidney injury) ICD Codes: N17.9 - Acute kidney failure, unspecified SNOMED: 7737388, 70326049 (10) Elevated liver enzymes ICD Codes: R74.8 - Abnormal levels of other serum enzymes SNOMED: 268896405 (11) CHF (congestive heart failure) ICD Codes: I50.9 - Heart failure, unspecified SNOMED: 74256672 (12) Gram negative sepsis ICD Codes: A41.50 - Gram-negative sepsis, unspecified SNOMED: 793322669 (13) Cholelithiasis ICD Codes: K80.20 - Calculus of gallbladder without cholecystitis without obstruction SNOMED: 652936683 (14) Metabolic encephalopathy ICD Codes: G93.41 - Metabolic encephalopathy SNOMED: 07396526 (15) Hypophosphatemia ICD Codes: E83.39 - Other disorders of phosphorus metabolism SNOMED: 9677034 (16) Decubital ulcer ICD Codes: L89.90 - Pressure ulcer of unspecified site, unspecified stage SNOMED: 383364879 (17) Dysphagia ICD Codes: R13.10 - Dysphagia, unspecified SNOMED: 94468008, 828461275 (18) Hypomagnesemia ICD Codes: E83.42 - Hypomagnesemia SNOMED: 787199496 Assessment/Plan: orders updated replace phosphate , Mg, continue broad-spectrum antibiotics, for e coli bacteremia and e coli+klebsiella uti consultants notes are all reviewed her condition remains high risk this is discussed in detail with the daughter in the area code [id number] tube feeding , BUN and creatinine higher , increase iv fluids Subjective ROS Limited/Unobtainable: Yes Allergies: Coded Allergies: No Known Allergies (Unverified , 05/28/13) Objective Last 24 Hour Vital Signs Date Time Temp Pulse Resp B/P (MAP) Pulse Ox O2 Delivery O2 Flow Rate FiO2 05/28/20 20:00 98.0 102 20 109/63 (78) 98 05/28/20 16:00 Room Air 05/28/20 16:00 98.2 101 21 116/64 (81) 98 05/28/20 15:56 100 05/28/20 12:00 97.7 100 20 102/62 (75) 98 05/28/20 12:00 Room Air 05/28/20 12:00 103 05/28/20 08:00 99 05/28/20 08:00 Room Air 05/28/20 07:59 97.9 98 18 113/66 (82) 98 05/28/20 04:00 97.9 85 16 124/70 (88) 97 05/28/20 04:00 Room Air 05/28/20 03:53 95 05/28/20 00:00 98.3 90 16 101/59 (73) 96 05/28/20 00:00 Room Air 05/27/20 23:30 108 Intake and Output 05/27/20 05/28/20 18:59 06:59 Intake Total 1420 ml 1115 ml Output Total 800 ml 550 ml Balance 620 ml 565 ml Free Water 150 ml 150 ml IV Total 635 ml 360 ml Tube Feeding 635 ml 605 ml Output Urine Total 600 ml 350 ml Stool Total 200 ml 200 ml # Bowel Movements 6 Laboratory Tests 05/28/20 02:55: White Blood Count 38.9#*H, Red Blood Count 5.00, Hemoglobin 14.7, Hematocrit 45.6, Mean Corpuscular Volume 91, Mean Corpuscular Hemoglobin 29.4, Mean Corpuscular Hemoglobin Concent 32.2, Red Cell Distribution Width 13.2, Platelet Count 240, Mean Platelet Volume 7.5, Neutrophils (%) (Auto) , Lymphocytes (%) ( Auto) , Monocytes (%) (Auto) , Eosinophils (%) (Auto) , Basophils (%) (Auto) , Differential Total Cells Counted 100, Neutrophils % (Manual) 90H, Lymphocytes % (Manual) 4L, Monocytes % (Manual) 2, Eosinophils % (Manual) 0, Basophils % ( Manual) 0, Band Neutrophils 4, Platelet Estimate Adequate, Platelet Morphology Normal, Red Blood Cell Morphology Normal, Sodium Level 139, Potassium Level 4.1 , Chloride Level 104, Carbon Dioxide Level 22, Anion Gap 13, Blood Urea Nitrogen 28H, Creatinine 1.8#H, Estimat Glomerular Filtration Rate 32.1, Glucose Level 126H, Calcium Level 7.6L, Magnesium Level 1.4L, Pro-B-Type Natriuretic Peptide 5812H 05/28/20 09:00: Vancomycin Level Trough 9.4 05/28/20 09:10: White Blood Count 34.2*H, Red Blood Count 4.76, Hemoglobin 13.9, Hematocrit 43.2 , Mean Corpuscular Volume 91, Mean Corpuscular Hemoglobin 29.1, Mean Corpuscular Hemoglobin Concent 32.1, Red Cell Distribution Width 13.3, Platelet Count 248, Mean Platelet Volume 7.3, Neutrophils (%) (Auto) , Lymphocytes (%) ( Auto) , Monocytes (%) (Auto) , Eosinophils (%) (Auto) , Basophils (%) (Auto) , Differential Total Cells Counted 100, Neutrophils % (Manual) 86H, Lymphocytes % (Manual) 3L, Monocytes % (Manual) 6, Eosinophils % (Manual) 0, Basophils % ( Manual) 0, Band Neutrophils 5, Platelet Estimate Adequate, Platelet Morphology Normal, Red Blood Cell Morphology Normal Height (Feet): 5 Height (Inches): 7.00 Weight (Pounds): 150 General Appearance: alert, confused EENT: normal ENT inspection Neck: normal alignment Cardiovascular: regular rhythm Respiratory/Chest: lungs clear Abdomen: non tender, soft Edema: mild edema 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
[2020-05-28] MEDS ORDERED: POTASSIUM PHOSPHATE IV SCH (22:00)
[2020-05-28] MEDS ORDERED: DEXTROSE IV SCH (22:00)
--- NOTE | 2020-05-28 22:32 | Cardiology Progress Note ---
Subjective DATE OF SERVICE: May 28, 2020 Remains off pressors with stable BP readings. Monitor: sinus with rare atrial ectopics WBC count remaining elevated IV abx per ID team Objective Last 24 Hour Vital Signs Date Time Temp Pulse Resp B/P (MAP) Pulse Ox O2 Delivery O2 Flow Rate FiO2 05/28/20 20:00 Room Air 05/28/20 20:00 98.0 102 20 109/63 (78) 98 05/28/20 19:31 101 05/28/20 16:00 Room Air 05/28/20 16:00 98.2 101 21 116/64 (81) 98 05/28/20 15:56 100 05/28/20 12:00 97.7 100 20 102/62 (75) 98 05/28/20 12:00 Room Air 05/28/20 12:00 103 05/28/20 08:00 99 05/28/20 08:00 Room Air 05/28/20 07:59 97.9 98 18 113/66 (82) 98 05/28/20 04:00 97.9 85 16 124/70 (88) 97 05/28/20 04:00 Room Air 05/28/20 03:53 95 05/28/20 00:00 98.3 90 16 101/59 (73) 96 05/28/20 00:00 Room Air 05/27/20 23:30 108 ROS: no change from my evaluation of 05/19/20. HEENT: normal ENT inspection LUNGS: lungs clear bilaterally CARDIAC: regular rhythm, normal S1 and S2, rapid rate, tachycardia ABDOMEN: soft, tender - mild diffuse EXTREMITIES: normal range of motion, No edema Laboratory Tests Test 05/28/20 02:55 05/28/20 09:00 05/28/20 09:10 White Blood Count 38.9 K/UL (4.8-10.8) #*H 34.2 K/UL (4.8-10.8) *H Red Blood Count 5.00 M/UL (4.20-5.40) 4.76 M/UL (4.20-5.40) Hemoglobin 14.7 G/DL (12.0-16.0) 13.9 G/DL (12.0-16.0) Hematocrit 45.6 % (37.0-47.0) 43.2 % (37.0-47.0) Mean Corpuscular Volume 91 FL (80-99) 91 FL (80-99) Mean Corpuscular Hemoglobin 29.4 PG (27.0-31.0) 29.1 PG (27.0-31.0) Mean Corpuscular Hemoglobin Concent 32.2 G/DL (32.0-36.0) 32.1 G/DL (32.0-36.0) Red Cell Distribution Width 13.2 % (11.6-14.8) 13.3 % (11.6-14.8) Platelet Count 240 K/UL (150-450) 248 K/UL (150-450) Mean Platelet Volume 7.5 FL (6.5-10.1) 7.3 FL (6.5-10.1) Neutrophils (%) (Auto) % (45.0-75.0) % (45.0-75.0) Lymphocytes (%) (Auto) % (20.0-45.0) % (20.0-45.0) Monocytes (%) (Auto) % (1.0-10.0) % (1.0-10.0) Eosinophils (%) (Auto) % (0.0-3.0) % (0.0-3.0) Basophils (%) (Auto) % (0.0-2.0) % (0.0-2.0) Differential Total Cells Counted 100 100 Neutrophils % (Manual) 90 % (45-75) H 86 % (45-75) H Lymphocytes % (Manual) 4 % (20-45) L 3 % (20-45) L Monocytes % (Manual) 2 % (1-10) 6 % (1-10) Eosinophils % (Manual) 0 % (0-3) 0 % (0-3) Basophils % (Manual) 0 % (0-2) 0 % (0-2) Band Neutrophils 4 % (0-8) 5 % (0-8) Platelet Estimate Adequate Adequate Platelet Morphology Normal Normal Red Blood Cell Morphology Normal Normal Sodium Level 139 MMOL/L (136-145) Potassium Level 4.1 MMOL/L (3.5-5.1) Chloride Level 104 MMOL/L (98-107) Carbon Dioxide Level 22 MMOL/L (21-32) Anion Gap 13 mmol/L (5-15) Blood Urea Nitrogen 28 mg/dL (7-18) H Creatinine 1.8 MG/DL (0.55-1.30) #H Estimat Glomerular Filtration Rate 32.1 mL/min (>60) Glucose Level 126 MG/DL (74-106) H Calcium Level 7.6 MG/DL (8.5-10.1) L Magnesium Level 1.4 MG/DL (1.8-2.4) L Pro-B-Type Natriuretic Peptide 5812 pg/mL (0-125) H Vancomycin Level Trough 9.4 ug/mL (5.0-12.0) Microbiology Date/Time Source Procedure Growth Status 05/26/20 10:15 Blood Blood Culture - Preliminary NO GROWTH AFTER 24 HOURS Resulted 05/26/20 10:00 Blood Blood Culture - Preliminary NO GROWTH AFTER 24 HOURS Resulted 05/26/20 00:50 Stool Clostridium difficile Toxin Assay - Final Complete CHEST XRAY: 05/28/10: improved interstitial airspace disease Assessment/Plan Assessment/Plan Sepsis with shock resolving - due to UTI Worsening leukocytosis Lactic acidosis resolved Transaminitis improving Hypomagnesemia Hyponatremia Acute myocardial ischemia and possible NSTE myocardial infarction acute renal failure improved Broad sp antimicrobials Remain off pressors IVF adjustments per volume status IV Mg and PO4 replacement as needed DVT prophylaxis F/U lab studies and CXR Dalton Valdez MD May 28, 2020 22:32
[2020-05-29] VITALS: BP 115/56
--- NOTE | 2020-05-29 01:56 | Cardiology Report ---
APPROVED REPORT EXAM: Two-dimensional and M-mode echocardiogram with Doppler and color Doppler. INDICATION Cardiac Disease: CAD M-Mode DIMENSIONS IVSd0.9 (0.7-1.1cm)Left Atrium (MM)2.9 (1.6-4.0cm) LVDd4.1 (3.5-5.6cm)Aortic Root2.4 (2.0-3.7cm) PWd0.9 (0.7-1.1cm)Aortic Cusp Exc.2.0 (1.5-2.0cm) IVSs1.2 cmEPSS0.4 (>1.0cm) LVDs2.7 (2.5-4.0cm) PWs1.4 cm <Conclusion> Normal left ventricular chamber size, systolic function and wall motion. Left ventricular ejection fraction estimated to be 60%. No left ventricular hypertrophy. Large pleural effusion present. No evidence of pericardial effusion. All other cardiac chamber sizes are within normal limits. Mild focal aortic valve sclerosis with adequate cusp excursion. Mildly thickened mitral valve leaflets with normal excursion. Mild mitral annulus and aortic root calcification. Normal pulmonic valve structure. Normal tricuspid valve structure. IVC at normal size and physiological collapse. A color flow and spectral Doppler study was performed and revealed: Trace aortic regurgitation. Mild mitral regurgitation. Mitral diastolic velocities suggest reduced left ventricular relaxation c/w mild diastolic dysfunction (Grade I). Mild tricuspid regurgitation. Tricuspid systolic velocities suggests peak right ventricular systolic pressure of 38mmHg.
--- NOTE | 2020-05-29 02:00 | Cardiology Report ---
APPROVED REPORT EKG Measurement Heart [id number] <Conclusion> Sinus tachycardia Nonspecific T wave abnormality Abnormal ECG
--- NOTE | 2020-05-29 02:01 | Cardiology Report ---
APPROVED REPORT EKG Measurement Heart [id number] RI [id number] <Conclusion> Sinus tachycardia ST & T wave abnormality, consider inferolateral ischemia Abnormal ECG
[2020-05-29 03:41] VITALS: BP 131/65
[2020-05-29 04:04] LABS: HEMATOCRIT 39.8 % (37.0-47.0); HEMOGLOBIN 13.1 G/DL (12.0-16.0); MEAN CORPUSCULAR VOLUME 90 FL (80-99); PLATELET COUNT 256 K/UL (150-450); RED BLOOD COUNT 4.41 M/UL (4.20-5.40)
[2020-05-29 04:25] LABS: ALANINE AMINOTRANSFERASE 61 U/L (12-78); ALBUMIN 1.8 G/DL (3.4-5.0); ALBUMIN/GLOBULIN RATIO 0.4 (1.0-2.7); ALKALINE PHOSPHATASE 84 U/L (46-116); ANION GAP 14 mmol/L (5-15); ASPARTATE AMINO TRANSFERASE 29 U/L (15-37); BILIRUBIN,TOTAL 0.9 MG/DL (0.2-1.0); BLOOD UREA NITROGEN 44 mg/dL (7-18); CALCIUM 6.9 MG/DL (8.5-10.1); CARBON DIOXIDE 19 MMOL/L (21-32); CHLORIDE 103 MMOL/L (98-107); CREATININE 2.7 MG/DL (0.55-1.30); POTASSIUM 3.5 MMOL/L (3.5-5.1); SODIUM 136 MMOL/L (136-145)
[2020-05-29 04:53] LABS: WHITE BLOOD COUNT 42.8 K/UL (4.8-10.8)
[2020-05-29 08:00] VITALS: BP 122/59
[2020-05-29] MEDS: Pantoprazole Inj IVP SCH ×2 (08:27→20:28)
[2020-05-29] MEDS: Zinc Sulfate 220mg ORAL SCH (08:28)
[2020-05-29] MEDS: Ascorbic Acid 500mg tab ORAL SCH (08:28)
[2020-05-29] MEDS ORDERED: Ascorbic Acid 500mg tab ORAL SCH (09:00)
[2020-05-29] MEDS ORDERED: Zinc Sulfate 220mg ORAL SCH (09:00)
[2020-05-29] MEDS ORDERED: Vancomycin oral 125mg/2.5ml ORAL SCH (09:00)
[2020-05-29] MEDS ORDERED: Levofloxacin 500mg tab NG SCH (09:00)
--- NOTE | 2020-05-29 10:41 | General Progress Note ---
Assessment/Plan Assessment/Plan: thrombocytopenia leukocytosis coagulopathy RI elevated LFTS CAD/NC gallstones dilated CBD and PD CT and us reviewed MRCP reviewed abx repeat labs prn imodium NGTF for now may need peg>>> family refused fu cardiology recs repeat labs in am will fu Subjective ROS Limited/Unobtainable: No Allergies: Coded Allergies: No Known Allergies (Unverified , 05/28/13) Objective Last 24 Hour Vital Signs Date Time Temp Pulse Resp B/P (MAP) Pulse Ox O2 Delivery O2 Flow Rate FiO2 05/29/20 08:00 Room Air 05/29/20 08:00 98.2 95 20 122/59 (80) 97 05/29/20 04:00 Room Air 05/29/20 03:41 97.9 94 20 131/65 (87) 100 05/29/20 03:26 100 05/29/20 00:00 Room Air 05/29/20 00:00 98.2 93 20 115/56 (75) 99 05/28/20 23:42 97 05/28/20 20:00 Room Air 05/28/20 20:00 98.0 102 20 109/63 (78) 98 05/28/20 19:31 101 05/28/20 16:00 Room Air 05/28/20 16:00 98.2 101 21 116/64 (81) 98 05/28/20 15:56 100 05/28/20 12:00 97.7 100 20 102/62 (75) 98 05/28/20 12:00 Room Air 05/28/20 12:00 103 Intake and Output 05/28/20 05/29/20 19:00 07:00 Intake Total 1002.5 ml 1423 ml Output Total 1000 ml 500 ml Balance 2.5 ml 923 ml Free Water 50 ml 50 ml IV Total 292.5 ml 768 ml Tube Feeding 660 ml 605 ml Output Urine Total 200 ml 200 ml Stool Total 800 ml 300 ml # Voids 1 1 Laboratory Tests 05/29/20 03:40: White Blood Count 42.8*H, Red Blood Count 4.41, Hemoglobin 13.1, Hematocrit 39.8 , Mean Corpuscular Volume 90, Mean Corpuscular Hemoglobin 29.8, Mean Corpuscular Hemoglobin Concent 33.0, Red Cell Distribution Width 13.0, Platelet Count 256, Mean Platelet Volume 7.7, Neutrophils (%) (Auto) , Lymphocytes (%) ( Auto) , Monocytes (%) (Auto) , Eosinophils (%) (Auto) , Basophils (%) (Auto) , Differential Total Cells Counted 100, Neutrophils % (Manual) 94H, Lymphocytes % (Manual) 1L, Monocytes % (Manual) 4, Eosinophils % (Manual) 1, Basophils % ( Manual) 0, Band Neutrophils 0, Platelet Estimate Adequate, Platelet Morphology Normal, Sodium Level 136, Potassium Level 3.5, Chloride Level 103, Carbon Dioxide Level 19L, Anion Gap 14, Blood Urea Nitrogen 44H, Creatinine 2.7H, Estimat Glomerular Filtration Rate 20.1, Glucose Level 172H, Calcium Level 6.9L , Total Bilirubin 0.9, Aspartate Amino Transf (AST/SGOT) 29, Alanine Aminotransferase (ALT/SGPT) 61, Alkaline Phosphatase 84, Total Protein 6.1L, Albumin 1.8L, Globulin 4.3, Albumin/Globulin Ratio 0.4L 05/29/20 06:20: Urine Random Sodium 22, Urine Creatinine 99.7 Height (Feet): 5 Height (Inches): 7.00 Weight (Pounds): 150 General Appearance: no apparent distress EENT: normal ENT inspection Neck: supple Cardiovascular: normal rate Respiratory/Chest: decreased breath sounds Abdomen: hypoactive bowel sounds Extremities: non-tender Ludwig Wood MD May 29, 2020 10:41
--- NOTE | 2020-05-29 10:53 | Infectious Diseases Prog Note ---
"Assessment/Plan Assessment/Plan antibiotics : vancomycin po, levoquin A 1. E.coli sepsis secondary to UTI 2. shock resolved 3. thrombocytopenia improving 4. ? cholecystitis ? cholangitis patient not a surgical candidate 5. leucocytosis increased 6. e.coli | klebsiella UTI 7. renal failure P 1. d.c levoquin 2. d/c po vancomycin 3. start zosyn 4. consider ERCP 5. will follow up cultures Subjective Constitutional: Denies: fever, chills Respiratory: Denies: shortness of breath, dry cough Gastrointestinal/Abdominal: Denies: nausea, vomiting, diarrhea Musculoskeletal: Reports: pain - in abdomen Allergies: Coded Allergies: No Known Allergies (Unverified , 05/28/13) Objective Last 24 Hour Vital Signs Date Time Temp Pulse Resp B/P (MAP) Pulse Ox O2 Delivery O2 Flow Rate FiO2 05/29/20 08:00 Room Air 05/29/20 08:00 98.2 95 20 122/59 (80) 97 05/29/20 04:00 Room Air 05/29/20 03:41 97.9 94 20 131/65 (87) 100 05/29/20 03:26 100 05/29/20 00:00 Room Air 05/29/20 00:00 98.2 93 20 115/56 (75) 99 05/28/20 23:42 97 05/28/20 20:00 Room Air 05/28/20 20:00 98.0 102 20 109/63 (78) 98 05/28/20 19:31 101 05/28/20 16:00 Room Air 05/28/20 16:00 98.2 101 21 116/64 (81) 98 05/28/20 15:56 100 05/28/20 12:00 97.7 100 20 102/62 (75) 98 05/28/20 12:00 Room Air 05/28/20 12:00 103 Height (Feet): 5 Height (Inches): 7.00 Weight (Pounds): 150 Respiratory/Chest: lungs clear Cardiovascular: normal rate, regular rhythm, no gallop/murmur Abdomen: soft, non tender, tender - RUQ tenderness Extremities: no edema Microbiology Date/Time Source Procedure Growth Status 05/28/20 10:00 Stool Clostridium difficile Toxin Assay - Final Complete Laboratory Tests Test 05/29/20 03:40 05/29/20 06:20 White Blood Count 42.8 K/UL (4.8-10.8) *H Red Blood Count 4.41 M/UL (4.20-5.40) Hemoglobin 13.1 G/DL (12.0-16.0) Hematocrit 39.8 % (37.0-47.0) Mean Corpuscular Volume 90 FL (80-99) Mean Corpuscular Hemoglobin 29.8 PG (27.0-31.0) Mean Corpuscular Hemoglobin Concent 33.0 G/DL (32.0-36.0) Red Cell Distribution Width 13.0 % (11.6-14.8) Platelet Count 256 K/UL (150-450) Mean Platelet Volume 7.7 FL (6.5-10.1) Neutrophils (%) (Auto) % (45.0-75.0) Lymphocytes (%) (Auto) % (20.0-45.0) Monocytes (%) (Auto) % (1.0-10.0) Eosinophils (%) (Auto) % (0.0-3.0) Basophils (%) (Auto) % (0.0-2.0) Differential Total Cells Counted 100 Neutrophils % (Manual) 94 % (45-75) H Lymphocytes % (Manual) 1 % (20-45) L Monocytes % (Manual) 4 % (1-10) Eosinophils % (Manual) 1 % (0-3) Basophils % (Manual) 0 % (0-2) Band Neutrophils 0 % (0-8) Platelet Estimate Adequate Platelet Morphology Normal Sodium Level 136 MMOL/L (136-145) Potassium Level 3.5 MMOL/L (3.5-5.1) Chloride Level 103 MMOL/L (98-107) Carbon Dioxide Level 19 MMOL/L (21-32) L Anion Gap 14 mmol/L (5-15) Blood Urea Nitrogen 44 mg/dL (7-18) H Creatinine 2.7 MG/DL (0.55-1.30) H Estimat Glomerular Filtration Rate 20.1 mL/min (>60) Glucose Level 172 MG/DL (74-106) H Calcium Level 6.9 MG/DL (8.5-10.1) L Total Bilirubin 0.9 MG/DL (0.2-1.0) Aspartate Amino Transf (AST/SGOT) 29 U/L (15-37) Alanine Aminotransferase (ALT/SGPT) 61 U/L (12-78) Alkaline Phosphatase 84 U/L (46-116) Total Protein 6.1 G/DL (6.4-8.2) L Albumin 1.8 G/DL (3.4-5.0) L Globulin 4.3 g/dL Albumin/Globulin Ratio 0.4 (1.0-2.7) L Urine Random Sodium 22 mmol/L (20-110) Urine Creatinine 99.7 MG/DL (30.0-125.0) Current Medications Medications (Trade) Dose Ordered Sig/Gricelda Route PRN Reason Start Time Stop Time Status Last Admin Dose Admin Acetaminophen (Tylenol) 500 mg Q6HR PRN NG Temp >100.5 05/29/20 12:00 06/24/20 14:44 Ascorbic Acid (Vitamin C) 250 mg DAILY ORAL 05/29/20 09:00 06/28/20 08:59 05/29/20 08:28 Chlorhexidine Gluconate (Celi-Hex 2%) 1 applic DAILY@2000 TOPIC 05/29/20 20:00 08/18/20 19:59 Dextrose (Dextrose 50%) 25 ml Q30M PRN IV Hypoglycemia 05/29/20 06:45 08/17/20 19:14 Dextrose (Dextrose 50%) 50 ml Q30M PRN IV Hypoglycemia 05/29/20 06:45 08/17/20 19:14 Levofloxacin (Levaquin) 500 mg DAILY NG 05/29/20 09:00 05/29/20 12:59 05/29/20 09:48 Loperamide HCl (Imodium) 2 mg Q6H PRN NG Diarrhea 05/29/20 07:00 06/19/20 12:59 05/29/20 08:37 Ondansetron HCl (Zofran) 4 mg Q6H PRN IVP Nausea & Vomiting 05/29/20 07:15 06/18/20 19:14 Pantoprazole (Protonix) 40 mg EVERY 12 HOURS IVP 05/29/20 09:00 06/19/20 08:59 05/29/20 08:27 Potassium Phosphate 20 mm/ Dextrose 1,006.6667 ml @ 75 mls/hr [id number] IV 05/29/20 11:30 06/27/20 11:29 Vancomycin HCl (Firvanq) 125 mg FOUR TIMES A DAY ORAL 05/29/20 09:00 06/04/20 12:59 05/29/20 08:29 Zinc Sulfate (Zinc Sulfate) 220 mg DAILY ORAL 05/29/20 09:00 06/08/20 08:59 05/29/20 08:28 Jeff De La Cruz MD May 29, 2020 10:53"
[2020-05-29] MEDS ORDERED: DEXTROSE IV SCH (11:30)
[2020-05-29] MEDS ORDERED: POTASSIUM PHOSPHATE IV SCH (11:30)
[2020-05-29] MEDS ORDERED: Acetaminophen 650mg/20.3ml NG PRN (12:00)
[2020-05-29 12:02] VITALS: BP 121/59
[2020-05-29] MEDS: Piperacillin/Tazobactam 3.375 GM in NS 110 ML IVPB SCH ×2 (12:50→23:40)
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
[2020-05-29] MEDS: DEXTROSE IV SCH ×2 (15:30→20:54)
[2020-05-29] MEDS: POTASSIUM PHOSPHATE IV SCH ×2 (15:30→20:54)
[2020-05-29 16:00] VITALS: BP 113/98
[2020-05-29] MEDS: Lactobacillus-GG tablet NG SCH (18:10)
--- NOTE | 2020-05-29 18:13 | General Progress Note ---
Assessment/Plan Problem List: (1) DIC (disseminated intravascular coagulation) ICD Codes: D65 - Disseminated intravascular coagulation [defibrination syndrome ] SNOMED: 10955140 (2) Thrombocytopenia ICD Codes: D69.6 - Thrombocytopenia, unspecified SNOMED: 166673585 (3) Lactic acidosis ICD Codes: E87.2 - Acidosis SNOMED: 51606041 (4) Septic shock ICD Codes: A41.9 - Sepsis, unspecified organism; R65.21 - Severe sepsis with septic shock SNOMED: 78573994 (5) Anemia ICD Codes: D64.9 - Anemia, unspecified SNOMED: 544985232 (6) Hypokalemia ICD Codes: E87.6 - Hypokalemia SNOMED: 24427583 (7) Rhabdomyolysis ICD Codes: M62.82 - Rhabdomyolysis SNOMED: 433191893 (8) Non-STEMI (non-ST elevated myocardial infarction) ICD Codes: I21.4 - Non-ST elevation (NSTEMI) myocardial infarction SNOMED: 95051331 (9) ZEE (acute kidney injury) ICD Codes: N17.9 - Acute kidney failure, unspecified SNOMED: 1262013, 50314481 (10) Elevated liver enzymes ICD Codes: R74.8 - Abnormal levels of other serum enzymes SNOMED: 259646199 (11) CHF (congestive heart failure) ICD Codes: I50.9 - Heart failure, unspecified SNOMED: 72406523 (12) Gram negative sepsis ICD Codes: A41.50 - Gram-negative sepsis, unspecified SNOMED: 288291686 (13) Cholelithiasis ICD Codes: K80.20 - Calculus of gallbladder without cholecystitis without obstruction SNOMED: 320423857 (14) Metabolic encephalopathy ICD Codes: G93.41 - Metabolic encephalopathy SNOMED: 05147580 (15) Hypophosphatemia ICD Codes: E83.39 - Other disorders of phosphorus metabolism SNOMED: 3409323 (16) Decubital ulcer ICD Codes: L89.90 - Pressure ulcer of unspecified site, unspecified stage SNOMED: 609322830 (17) Dysphagia ICD Codes: R13.10 - Dysphagia, unspecified SNOMED: 91543003, 737289639 (18) Hypomagnesemia ICD Codes: E83.42 - Hypomagnesemia SNOMED: 548586568 (19) Granulocytic leukemoid reaction ICD Codes: D72.823 - Leukemoid reaction SNOMED: 99720883 Assessment/Plan: orders updated replace phosphate , Mg, continue broad-spectrum antibiotics, for e coli bacteremia and e coli+klebsiella uti consultants notes are all reviewed her condition remains high risk this is discussed in detail with the daughter in the area code [id number] tube feeding , BUN and creatinine higher , increase iv fluids,wbc high check flow cytometry Subjective ROS Limited/Unobtainable: Yes Allergies: Coded Allergies: No Known Allergies (Unverified , 05/28/13) Objective Last 24 Hour Vital Signs Date Time Temp Pulse Resp B/P (MAP) Pulse Ox O2 Delivery O2 Flow Rate FiO2 05/29/20 16:00 98.0 100 20 113/98 (103) 100 96 05/29/20 12:02 98.2 100 20 121/59 (79) 100 96 05/29/20 12:00 Room Air 05/29/20 08:00 Room Air 05/29/20 08:00 98.2 95 20 122/59 (80) 97 05/29/20 04:00 Room Air 05/29/20 03:41 97.9 94 20 131/65 (87) 100 05/29/20 03:26 100 05/29/20 00:00 Room Air 05/29/20 00:00 98.2 93 20 115/56 (75) 99 05/28/20 23:42 97 05/28/20 20:00 Room Air 05/28/20 20:00 98.0 102 20 109/63 (78) 98 05/28/20 19:31 101 Intake and Output 05/28/20 05/29/20 19:00 07:00 Intake Total 1002.5 ml 1478 ml Output Total 1000 ml 500 ml Balance 2.5 ml 978 ml Free Water 50 ml 50 ml IV Total 292.5 ml 768 ml Tube Feeding 660 ml 660 ml Output Urine Total 200 ml 200 ml Stool Total 800 ml 300 ml # Voids 1 1 Laboratory Tests 05/29/20 03:40: White Blood Count 42.8*H, Red Blood Count 4.41, Hemoglobin 13.1, Hematocrit 39.8 , Mean Corpuscular Volume 90, Mean Corpuscular Hemoglobin 29.8, Mean Corpuscular Hemoglobin Concent 33.0, Red Cell Distribution Width 13.0, Platelet Count 256, Mean Platelet Volume 7.7, Neutrophils (%) (Auto) , Lymphocytes (%) ( Auto) , Monocytes (%) (Auto) , Eosinophils (%) (Auto) , Basophils (%) (Auto) , Differential Total Cells Counted 100, Neutrophils % (Manual) 94H, Lymphocytes % (Manual) 1L, Monocytes % (Manual) 4, Eosinophils % (Manual) 1, Basophils % ( Manual) 0, Band Neutrophils 0, Platelet Estimate Adequate, Platelet Morphology Normal, Sodium Level 136, Potassium Level 3.5, Chloride Level 103, Carbon Dioxide Level 19L, Anion Gap 14, Blood Urea Nitrogen 44H, Creatinine 2.7H, Estimat Glomerular Filtration Rate 20.1, Glucose Level 172H, Calcium Level 6.9L , Total Bilirubin 0.9, Aspartate Amino Transf (AST/SGOT) 29, Alanine Aminotransferase (ALT/SGPT) 61, Alkaline Phosphatase 84, Total Protein 6.1L, Albumin 1.8L, Globulin 4.3, Albumin/Globulin Ratio 0.4L 05/29/20 06:20: Urine Random Sodium 22, Urine Creatinine 99.7 Height (Feet): 5 Height (Inches): 7.00 Weight (Pounds): 150 General Appearance: alert, confused EENT: normal ENT inspection Neck: normal alignment Cardiovascular: normal rate, regular rhythm Respiratory/Chest: lungs clear Abdomen: non tender, soft Edema: trace edema Neurologic: felt hat flanging operator II-XII grossly normal, disoriented Eric Wilkins MD May 29, 2020 18:13
[2020-05-29] MEDS ORDERED: Varibar Thin Liquid powder 148gm MC PRN (19:15)
[2020-05-29] MEDS ORDERED: Varibar Nectar 240ml MC PRN (19:15)
[2020-05-29] MEDS ORDERED: Varibar Honey 250ml MC PRN (19:15)
[2020-05-29] MEDS ORDERED: Varibar Pudding 230ml MC PRN (19:15)
[2020-05-29 20:00] VITALS: BP 113/98
[2020-05-29] MEDS: Dyna-Hex 2% Top Sol 2oz TOPIC SCH ×2 (20:00→20:29)
[2020-05-30] VITALS (7 sets, daily range): BP systolic 109–136; BP diastolic 49–65
--- NOTE | 2020-05-30 00:49 | Cardiology Progress Note ---
Subjective DATE OF SERVICE: May 29, 2020 Remains off pressors with stable BP readings. Monitor: sinus with rare atrial ectopics WBC count remaining elevated and increasing IV abx per ID team Objective Last 24 Hour Vital Signs Date Time Temp Pulse Resp B/P (MAP) Pulse Ox O2 Delivery O2 Flow Rate FiO2 05/29/20 20:00 98.8 104 21 113/98 (103) 97 05/29/20 16:00 98.0 100 20 113/98 (103) 100 96 05/29/20 12:02 98.2 100 20 121/59 (79) 100 96 05/29/20 12:00 Room Air 05/29/20 08:00 Room Air 05/29/20 08:00 98.2 95 20 122/59 (80) 97 05/29/20 04:00 Room Air 05/29/20 03:41 97.9 94 20 131/65 (87) 100 05/29/20 03:26 100 ROS: no change from my evaluation of 05/19/20. HEENT: normal ENT inspection LUNGS: lungs clear bilaterally CARDIAC: regular rhythm, normal S1 and S2, rapid rate, tachycardia ABDOMEN: soft, tender - mild diffuse EXTREMITIES: normal range of motion, No edema Laboratory Tests Test 05/29/20 03:40 05/29/20 06:20 White Blood Count 42.8 K/UL (4.8-10.8) *H Red Blood Count 4.41 M/UL (4.20-5.40) Hemoglobin 13.1 G/DL (12.0-16.0) Hematocrit 39.8 % (37.0-47.0) Mean Corpuscular Volume 90 FL (80-99) Mean Corpuscular Hemoglobin 29.8 PG (27.0-31.0) Mean Corpuscular Hemoglobin Concent 33.0 G/DL (32.0-36.0) Red Cell Distribution Width 13.0 % (11.6-14.8) Platelet Count 256 K/UL (150-450) Mean Platelet Volume 7.7 FL (6.5-10.1) Neutrophils (%) (Auto) % (45.0-75.0) Lymphocytes (%) (Auto) % (20.0-45.0) Monocytes (%) (Auto) % (1.0-10.0) Eosinophils (%) (Auto) % (0.0-3.0) Basophils (%) (Auto) % (0.0-2.0) Differential Total Cells Counted 100 Neutrophils % (Manual) 94 % (45-75) H Lymphocytes % (Manual) 1 % (20-45) L Monocytes % (Manual) 4 % (1-10) Eosinophils % (Manual) 1 % (0-3) Basophils % (Manual) 0 % (0-2) Band Neutrophils 0 % (0-8) Platelet Estimate Adequate Platelet Morphology Normal Sodium Level 136 MMOL/L (136-145) Potassium Level 3.5 MMOL/L (3.5-5.1) Chloride Level 103 MMOL/L (98-107) Carbon Dioxide Level 19 MMOL/L (21-32) L Anion Gap 14 mmol/L (5-15) Blood Urea Nitrogen 44 mg/dL (7-18) H Creatinine 2.7 MG/DL (0.55-1.30) H Estimat Glomerular Filtration Rate 20.1 mL/min (>60) Glucose Level 172 MG/DL (74-106) H Calcium Level 6.9 MG/DL (8.5-10.1) L Total Bilirubin 0.9 MG/DL (0.2-1.0) Aspartate Amino Transf (AST/SGOT) 29 U/L (15-37) Alanine Aminotransferase (ALT/SGPT) 61 U/L (12-78) Alkaline Phosphatase 84 U/L (46-116) Total Protein 6.1 G/DL (6.4-8.2) L Albumin 1.8 G/DL (3.4-5.0) L Globulin 4.3 g/dL Albumin/Globulin Ratio 0.4 (1.0-2.7) L Urine Random Sodium 22 mmol/L (20-110) Urine Creatinine 99.7 MG/DL (30.0-125.0) Microbiology Date/Time Source Procedure Growth Status 05/28/20 10:00 Stool Clostridium difficile Toxin Assay - Final Complete Assessment/Plan Assessment/Plan Sepsis with shock - due to UTI Worsening leukocytosis Lactic acidosis resolved Transaminitis improving Hypomagnesemia Hyponatremia Acute myocardial ischemia and possible NSTE myocardial infarction acute renal failure improved Broad sp antimicrobials Remain off pressors IVF adjustments per volume status IV Mg and PO4 replacement as needed DVT prophylaxis F/U lab studies and imaging studies Dalton Valdez MD May 30, 2020 00:49
[2020-05-30] MEDS: DEXTROSE IV SCH ×3 (04:21→18:39)
[2020-05-30] MEDS: POTASSIUM PHOSPHATE IV SCH ×3 (04:21→18:39)
[2020-05-30 06:35] LABS: HEMATOCRIT 35.4 % (37.0-47.0); HEMOGLOBIN 11.7 G/DL (12.0-16.0); MEAN CORPUSCULAR VOLUME 89 FL (80-99); PLATELET COUNT 294 K/UL (150-450); RED BLOOD COUNT 3.95 M/UL (4.20-5.40); RED CELL DISTRIBUTION WIDTH 13.2 % (11.6-14.8)
[2020-05-30 06:40] LABS: WHITE BLOOD COUNT 43.1 K/UL (4.8-10.8)
[2020-05-30 07:13] LABS: ALANINE AMINOTRANSFERASE 45 U/L (12-78); ALBUMIN 1.7 G/DL (3.4-5.0); ALBUMIN/GLOBULIN RATIO 0.4 (1.0-2.7); ALKALINE PHOSPHATASE 68 U/L (46-116); ANION GAP 18 mmol/L (5-15); ASPARTATE AMINO TRANSFERASE 22 U/L (15-37); BILIRUBIN,TOTAL 1.2 MG/DL (0.2-1.0); BLOOD UREA NITROGEN 45 mg/dL (7-18); CALCIUM 7.4 MG/DL (8.5-10.1); CARBON DIOXIDE 18 MMOL/L (21-32); CHLORIDE 98 MMOL/L (98-107); POTASSIUM 3.5 MMOL/L (3.5-5.1); SODIUM 134 MMOL/L (136-145)
[2020-05-30 07:14] LABS: BILIRUBIN,DIRECT 0.8 MG/DL (0.0-0.3)
[2020-05-30] MEDS: Pantoprazole Inj IVP SCH ×2 (08:13→20:50)
[2020-05-30] MEDS: Ascorbic Acid 500mg tab ORAL SCH (08:14)
[2020-05-30] MEDS: Zinc Sulfate 220mg ORAL SCH (08:14)
[2020-05-30] MEDS: Lactobacillus-GG tablet NG SCH ×3 (08:14→17:33)
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
--- NOTE | 2020-05-30 11:34 | General Progress Note ---
Assessment/Plan Problem List: (1) DIC (disseminated intravascular coagulation) ICD Codes: D65 - Disseminated intravascular coagulation [defibrination syndrome ] SNOMED: 27929584 (2) Thrombocytopenia ICD Codes: D69.6 - Thrombocytopenia, unspecified SNOMED: 421990348 (3) Lactic acidosis ICD Codes: E87.2 - Acidosis SNOMED: 17633279 (4) Septic shock ICD Codes: A41.9 - Sepsis, unspecified organism; R65.21 - Severe sepsis with septic shock SNOMED: 64481504 (5) Anemia ICD Codes: D64.9 - Anemia, unspecified SNOMED: 752871360 (6) Hypokalemia ICD Codes: E87.6 - Hypokalemia SNOMED: 02914723 (7) Rhabdomyolysis ICD Codes: M62.82 - Rhabdomyolysis SNOMED: 742791388 (8) Non-STEMI (non-ST elevated myocardial infarction) ICD Codes: I21.4 - Non-ST elevation (NSTEMI) myocardial infarction SNOMED: 60029884 (9) ZEE (acute kidney injury) ICD Codes: N17.9 - Acute kidney failure, unspecified SNOMED: 2750409, 69450987 (10) Elevated liver enzymes ICD Codes: R74.8 - Abnormal levels of other serum enzymes SNOMED: 697191523 (11) CHF (congestive heart failure) ICD Codes: I50.9 - Heart failure, unspecified SNOMED: 10451111 (12) Gram negative sepsis ICD Codes: A41.50 - Gram-negative sepsis, unspecified SNOMED: 956205730 (13) Cholelithiasis ICD Codes: K80.20 - Calculus of gallbladder without cholecystitis without obstruction SNOMED: 610785623 (14) Metabolic encephalopathy ICD Codes: G93.41 - Metabolic encephalopathy SNOMED: 76563358 (15) Hypophosphatemia ICD Codes: E83.39 - Other disorders of phosphorus metabolism SNOMED: 2071080 (16) Decubital ulcer ICD Codes: L89.90 - Pressure ulcer of unspecified site, unspecified stage SNOMED: 324396867 (17) Dysphagia ICD Codes: R13.10 - Dysphagia, unspecified SNOMED: 99056852, 038439770 (18) Hypomagnesemia ICD Codes: E83.42 - Hypomagnesemia SNOMED: 818011273 (19) Granulocytic leukemoid reaction ICD Codes: D72.823 - Leukemoid reaction SNOMED: 20809287 Assessment/Plan: orders updated replace phosphate , Mg, continue broad-spectrum antibiotics, for e coli bacteremia and e coli+klebsiella uti consultants notes are all reviewed her condition remains high risk this is discussed in detail with the daughter in the area code [id number] tube feeding ,ST eval noted, BUN and creatinine higher, increase iv fluids,wbc high check flow cytometry+daughter agrees to BM Subjective ROS Limited/Unobtainable: Yes Allergies: Coded Allergies: No Known Allergies (Unverified , 05/28/13) Objective Last 24 Hour Vital Signs Date Time Temp Pulse Resp B/P (MAP) Pulse Ox O2 Delivery O2 Flow Rate FiO2 05/30/20 08:00 97.0 94 18 127/65 (85) 95 05/30/20 06:00 05/30/20 04:00 98.6 96 21 109/49 (69) 95 05/30/20 00:00 98.0 103 21 136/58 (84) 96 05/29/20 20:00 98.8 104 21 113/98 (103) 97 05/29/20 16:00 98.0 100 20 113/98 (103) 100 96 05/29/20 12:02 98.2 100 20 121/59 (79) 100 96 05/29/20 12:00 Room Air Intake and Output 05/29/20 05/30/20 19:00 07:00 Intake Total 1492.5 ml 2015 ml Output Total 1300 ml Balance 192.5 ml 2015 ml Free Water 150 ml 100 ml IV Total 682.5 ml 1200 ml Tube Feeding 660 ml 715 ml Stool Total 1300 ml Laboratory Tests 05/30/20 05:45: White Blood Count 43.1*H, Red Blood Count 3.95L, Hemoglobin 11.7L, Hematocrit 35.4L, Mean Corpuscular Volume 89, Mean Corpuscular Hemoglobin 29.5, Mean Corpuscular Hemoglobin Concent 33.0, Red Cell Distribution Width 13.2, Platelet Count 294, Mean Platelet Volume 6.8, Neutrophils (%) (Auto) , Lymphocytes (%) ( Auto) , Monocytes (%) (Auto) , Eosinophils (%) (Auto) , Basophils (%) (Auto) , Differential Total Cells Counted 100, Neutrophils % (Manual) 92H, Lymphocytes % (Manual) 2L, Monocytes % (Manual) 5, Eosinophils % (Manual) 1, Basophils % ( Manual) 0, Band Neutrophils 0, Platelet Estimate Adequate, Platelet Morphology Normal, Anisocytosis 1+, Sodium Level 134L, Potassium Level 3.5, Chloride Level 98, Carbon Dioxide Level 18L, Anion Gap 18H, Blood Urea Nitrogen 45H, Creatinine 3.0H, Estimat Glomerular Filtration Rate 17.8, Glucose Level 181H, Calcium Level 7.4L, Total Bilirubin 1.2H, Direct Bilirubin 0.8H, Aspartate Amino Transf (AST/SGOT) 22, Alanine Aminotransferase (ALT/SGPT) 45, Alkaline Phosphatase 68, Total Protein 6.1L, Albumin 1.7L, Globulin 4.4, Albumin/ Globulin Ratio 0.4L Height (Feet): 5 Height (Inches): 7.00 Weight (Pounds): 150 General Appearance: no apparent distress, alert, confused EENT: normal ENT inspection Neck: normal alignment Cardiovascular: regular rhythm Respiratory/Chest: rhonchi - bilaterally Abdomen: non tender, soft Edema: trace edema Neurologic: rehab director occupational therapist II-XII grossly normal Eric Wilkins MD May 30, 2020 11:34
[2020-05-30] MEDS: Piperacillin/Tazobactam 3.375 GM in NS 110 ML IVPB SCH (11:35)
--- NOTE | 2020-05-30 13:28 | General Progress Note ---
Assessment/Plan Assessment/Plan: thrombocytopenia leukocytosis coagulopathy RI elevated LFTS CAD/SD gallstones dilated CBD and PD CT and us reviewed MRCP reviewed abx repeat labs prn imodium NGTF for now may need peg>>> family refused fu cardiology recs repeat labs in am will fu Subjective ROS Limited/Unobtainable: No Allergies: Coded Allergies: No Known Allergies (Unverified , 05/28/13) Objective Last 24 Hour Vital Signs Date Time Temp Pulse Resp B/P (MAP) Pulse Ox O2 Delivery O2 Flow Rate FiO2 05/30/20 12:00 97.3 98 18 111/58 (75) 96 05/30/20 08:00 97.0 94 18 127/65 (85) 95 05/30/20 06:00 05/30/20 04:00 98.6 96 21 109/49 (69) 95 05/30/20 00:00 98.0 103 21 136/58 (84) 96 05/29/20 20:00 98.8 104 21 113/98 (103) 97 05/29/20 16:00 98.0 100 20 113/98 (103) 100 96 Intake and Output 05/29/20 05/30/20 19:00 07:00 Intake Total 1492.5 ml 2015 ml Output Total 1300 ml Balance 192.5 ml 2015 ml Free Water 150 ml 100 ml IV Total 682.5 ml 1200 ml Tube Feeding 660 ml 715 ml Stool Total 1300 ml Laboratory Tests 05/30/20 05:45: White Blood Count 43.1*H, Red Blood Count 3.95L, Hemoglobin 11.7L, Hematocrit 35.4L, Mean Corpuscular Volume 89, Mean Corpuscular Hemoglobin 29.5, Mean Corpuscular Hemoglobin Concent 33.0, Red Cell Distribution Width 13.2, Platelet Count 294, Mean Platelet Volume 6.8, Neutrophils (%) (Auto) , Lymphocytes (%) ( Auto) , Monocytes (%) (Auto) , Eosinophils (%) (Auto) , Basophils (%) (Auto) , Differential Total Cells Counted 100, Neutrophils % (Manual) 92H, Lymphocytes % (Manual) 2L, Monocytes % (Manual) 5, Eosinophils % (Manual) 1, Basophils % ( Manual) 0, Band Neutrophils 0, Platelet Estimate Adequate, Platelet Morphology Normal, Anisocytosis 1+, Sodium Level 134L, Potassium Level 3.5, Chloride Level 98, Carbon Dioxide Level 18L, Anion Gap 18H, Blood Urea Nitrogen 45H, Creatinine 3.0H, Estimat Glomerular Filtration Rate 17.8, Glucose Level 181H, Calcium Level 7.4L, Total Bilirubin 1.2H, Direct Bilirubin 0.8H, Aspartate Amino Transf (AST/SGOT) 22, Alanine Aminotransferase (ALT/SGPT) 45, Alkaline Phosphatase 68, Total Protein 6.1L, Albumin 1.7L, Globulin 4.4, Albumin/ Globulin Ratio 0.4L Height (Feet): 5 Height (Inches): 7.00 Weight (Pounds): 150 General Appearance: no apparent distress EENT: normal ENT inspection Neck: supple Cardiovascular: normal rate Respiratory/Chest: decreased breath sounds Abdomen: normal bowel sounds, non tender, soft Extremities: non-tender Ludwig Wood MD May 30, 2020 13:28
--- NOTE | 2020-05-30 14:13 | Infectious Diseases Prog Note ---
Assessment/Plan Assessment/Plan A 1. E.coli sepsis 2. shock resolved 3. Thrombocytopenia improving 4. cholelithiasis 5. leucocytosis resolved 6. E. coli & Klebsiella UTI 7. Acute renal failure improving 8. Diarrhea, C. difficile X 2: negative P 1. Continue Zosyn Subjective ROS Limited/Unobtainable: No Constitutional: Reports: no symptoms Respiratory: Reports: no symptoms Cardiovascular: Reports: no symptoms Gastrointestinal/Abdominal: Reports: diarrhea Genitourinary: Reports: no symptoms Allergies: Coded Allergies: No Known Allergies (Unverified , 05/28/13) Objective Last 24 Hour Vital Signs Date Time Temp Pulse Resp B/P (MAP) Pulse Ox O2 Delivery O2 Flow Rate FiO2 05/30/20 12:00 97.3 98 18 111/58 (75) 96 05/30/20 08:00 97.0 94 18 127/65 (85) 95 05/30/20 06:00 05/30/20 04:00 98.6 96 21 109/49 (69) 95 05/30/20 00:00 98.0 103 21 136/58 (84) 96 05/29/20 20:00 98.8 104 21 113/98 (103) 97 05/29/20 16:00 98.0 100 20 113/98 (103) 100 96 Height (Feet): 5 Height (Inches): 7.00 Weight (Pounds): 150 General Appearance: no acute distress HEENT: mucous membranes moist Respiratory/Chest: lungs clear Cardiovascular: normal rate Abdomen: soft, non tender, other - rectal tube Extremities: no edema Neurologic/Psychiatric: alert, responsive Microbiology Date/Time Source Procedure Growth Status 05/28/20 10:00 Stool Clostridium difficile Toxin Assay - Final Complete Laboratory Tests Test 05/30/20 05:45 White Blood Count 43.1 K/UL (4.8-10.8) *H Red Blood Count 3.95 M/UL (4.20-5.40) L Hemoglobin 11.7 G/DL (12.0-16.0) L Hematocrit 35.4 % (37.0-47.0) L Mean Corpuscular Volume 89 FL (80-99) Mean Corpuscular Hemoglobin 29.5 PG (27.0-31.0) Mean Corpuscular Hemoglobin Concent 33.0 G/DL (32.0-36.0) Red Cell Distribution Width 13.2 % (11.6-14.8) Platelet Count 294 K/UL (150-450) Mean Platelet Volume 6.8 FL (6.5-10.1) Neutrophils (%) (Auto) % (45.0-75.0) Lymphocytes (%) (Auto) % (20.0-45.0) Monocytes (%) (Auto) % (1.0-10.0) Eosinophils (%) (Auto) % (0.0-3.0) Basophils (%) (Auto) % (0.0-2.0) Differential Total Cells Counted 100 Neutrophils % (Manual) 92 % (45-75) H Lymphocytes % (Manual) 2 % (20-45) L Monocytes % (Manual) 5 % (1-10) Eosinophils % (Manual) 1 % (0-3) Basophils % (Manual) 0 % (0-2) Band Neutrophils 0 % (0-8) Platelet Estimate Adequate Platelet Morphology Normal Anisocytosis 1+ Sodium Level 134 MMOL/L (136-145) L Potassium Level 3.5 MMOL/L (3.5-5.1) Chloride Level 98 MMOL/L (98-107) Carbon Dioxide Level 18 MMOL/L (21-32) L Anion Gap 18 mmol/L (5-15) H Blood Urea Nitrogen 45 mg/dL (7-18) H Creatinine 3.0 MG/DL (0.55-1.30) H Estimat Glomerular Filtration Rate 17.8 mL/min (>60) Glucose Level 181 MG/DL (74-106) H Calcium Level 7.4 MG/DL (8.5-10.1) L Total Bilirubin 1.2 MG/DL (0.2-1.0) H Direct Bilirubin 0.8 MG/DL (0.0-0.3) H Aspartate Amino Transf (AST/SGOT) 22 U/L (15-37) Alanine Aminotransferase (ALT/SGPT) 45 U/L (12-78) Alkaline Phosphatase 68 U/L (46-116) Total Protein 6.1 G/DL (6.4-8.2) L Albumin 1.7 G/DL (3.4-5.0) L Globulin 4.4 g/dL Albumin/Globulin Ratio 0.4 (1.0-2.7) L Current Medications Medications (Trade) Dose Ordered Sig/Gricelda Route PRN Reason Start Time Stop Time Status Last Admin Dose Admin Acetaminophen (Tylenol) 500 mg Q6HR PRN NG Temp >100.5 05/29/20 12:00 06/24/20 14:44 Ascorbic Acid (Vitamin C) 250 mg DAILY ORAL 05/29/20 09:00 06/28/20 08:59 05/30/20 08:14 Barium Sulfate (Varibar Honey) 250 ml NOW PRN MC RAD 05/29/20 19:15 06/01/20 19:05 Barium Sulfate (Varibar Candy Kitchen) 240 ml NOW PRN RAD 05/29/20 19:15 06/01/20 19:05 Barium Sulfate (Varibar Pudding) 230 ml NOW PRN RAD 05/29/20 19:15 06/01/20 19:05 Barium Sulfate (Varibar Thin Liquid powder) 148 gm NOW PRN RAD 05/29/20 19:15 06/01/20 19:05 Chlorhexidine Gluconate (Celi-Hex 2%) 1 applic DAILY@2000 TOPIC 05/29/20 20:00 08/18/20 19:59 Dextrose (Dextrose 50%) 25 ml Q30M PRN IV Hypoglycemia 05/29/20 06:45 08/17/20 19:14 Dextrose (Dextrose 50%) 50 ml Q30M PRN IV Hypoglycemia 05/29/20 06:45 08/17/20 19:14 Lactobacillus Acidophilus (Culturelle) 1 tab THREE TIMES A DAY NG 05/29/20 18:00 08/27/20 17:59 05/30/20 13:33 Loperamide HCl (Imodium) 2 mg Q6HR NG 05/29/20 19:00 06/28/20 18:59 05/30/20 11:46 Ondansetron HCl (Zofran) 4 mg Q6H PRN IVP Nausea & Vomiting 05/29/20 07:15 06/18/20 19:14 Pantoprazole (Protonix) 40 mg EVERY 12 HOURS IVP 05/29/20 09:00 06/19/20 08:59 05/30/20 08:13 Piperacillin Sod/ Tazobactam Sod 3.375 gm/Sodium Chloride 110 ml @ 27.5 mls/hr Q12H IVPB 05/29/20 12:00 06/05/20 11:59 05/30/20 11:35 Potassium Phosphate 20 mm/ Dextrose 1,006.6667 ml @ 150 mls/hr Q6H43M IV 05/29/20 15:30 06/28/20 15:29 05/30/20 10:38 Zinc Sulfate (Zinc Sulfate) 220 mg DAILY ORAL 05/29/20 09:00 06/08/20 08:59 05/30/20 08:14 Pito Amador MD May 30, 2020 14:13
[2020-05-30] MEDS: Dyna-Hex 2% Top Sol 2oz TOPIC SCH (20:00)
[2020-05-31] VITALS: BP 138/59
[2020-05-31] MEDS: Piperacillin/Tazobactam 3.375 GM in NS 110 ML IVPB SCH ×3 (00:21→23:55)
[2020-05-31] MEDS: DEXTROSE IV SCH ×2 (01:12→10:37)
[2020-05-31] MEDS: POTASSIUM PHOSPHATE IV SCH ×2 (01:12→10:37)
--- NOTE | 2020-05-31 01:33 | Cardiology Progress Note ---
Subjective DATE OF SERVICE: May 30, 2020 Remains off pressors with stable BP readings. Monitor: sinus with rare atrial ectopics WBC count remaining elevated; BM evaluation planned IV abx per ID team Objective Last 24 Hour Vital Signs Date Time Temp Pulse Resp B/P (MAP) Pulse Ox O2 Delivery O2 Flow Rate FiO2 05/31/20 00:00 97.7 106 21 138/59 (85) 97 05/30/20 20:00 97.6 96 19 115/51 (72) 95 05/30/20 16:00 97.5 101 18 126/50 (75) 96 05/30/20 12:00 97.3 98 18 111/58 (75) 96 05/30/20 08:00 97.0 94 18 127/65 (85) 95 05/30/20 06:00 05/30/20 04:00 98.6 96 21 109/49 (69) 95 ROS: no change from my evaluation of 05/19/20. HEENT: normal ENT inspection LUNGS: lungs clear bilaterally CARDIAC: regular rhythm, normal S1 and S2, rapid rate, tachycardia ABDOMEN: soft, tender - mild diffuse EXTREMITIES: normal range of motion, No edema Laboratory Tests Test 05/30/20 05:45 White Blood Count 43.1 K/UL (4.8-10.8) *H Red Blood Count 3.95 M/UL (4.20-5.40) L Hemoglobin 11.7 G/DL (12.0-16.0) L Hematocrit 35.4 % (37.0-47.0) L Mean Corpuscular Volume 89 FL (80-99) Mean Corpuscular Hemoglobin 29.5 PG (27.0-31.0) Mean Corpuscular Hemoglobin Concent 33.0 G/DL (32.0-36.0) Red Cell Distribution Width 13.2 % (11.6-14.8) Platelet Count 294 K/UL (150-450) Mean Platelet Volume 6.8 FL (6.5-10.1) Neutrophils (%) (Auto) % (45.0-75.0) Lymphocytes (%) (Auto) % (20.0-45.0) Monocytes (%) (Auto) % (1.0-10.0) Eosinophils (%) (Auto) % (0.0-3.0) Basophils (%) (Auto) % (0.0-2.0) Differential Total Cells Counted 100 Neutrophils % (Manual) 92 % (45-75) H Lymphocytes % (Manual) 2 % (20-45) L Monocytes % (Manual) 5 % (1-10) Eosinophils % (Manual) 1 % (0-3) Basophils % (Manual) 0 % (0-2) Band Neutrophils 0 % (0-8) Platelet Estimate Adequate Platelet Morphology Normal Anisocytosis 1+ Sodium Level 134 MMOL/L (136-145) L Potassium Level 3.5 MMOL/L (3.5-5.1) Chloride Level 98 MMOL/L (98-107) Carbon Dioxide Level 18 MMOL/L (21-32) L Anion Gap 18 mmol/L (5-15) H Blood Urea Nitrogen 45 mg/dL (7-18) H Creatinine 3.0 MG/DL (0.55-1.30) H Estimat Glomerular Filtration Rate 17.8 mL/min (>60) Glucose Level 181 MG/DL (74-106) H Calcium Level 7.4 MG/DL (8.5-10.1) L Total Bilirubin 1.2 MG/DL (0.2-1.0) H Direct Bilirubin 0.8 MG/DL (0.0-0.3) H Aspartate Amino Transf (AST/SGOT) 22 U/L (15-37) Alanine Aminotransferase (ALT/SGPT) 45 U/L (12-78) Alkaline Phosphatase 68 U/L (46-116) Total Protein 6.1 G/DL (6.4-8.2) L Albumin 1.7 G/DL (3.4-5.0) L Globulin 4.4 g/dL Albumin/Globulin Ratio 0.4 (1.0-2.7) L Microbiology Date/Time Source Procedure Growth Status 05/28/20 10:00 Stool Clostridium difficile Toxin Assay - Final Complete Assessment/Plan Assessment/Plan Sepsis with shock - due to UTI Worsening leukocytosis Lactic acidosis resolved Transaminitis improving Hypomagnesemia Hyponatremia Acute myocardial ischemia and possible NSTE myocardial infarction acute renal failure improved Broad sp antimicrobials Remain off pressors IVF adjustments per volume status IV Mg and PO4 replacement as needed DVT prophylaxis Possible BM biopsy Dalton Valdez MD May 31, 2020 01:33
[2020-05-31 04:00] VITALS: BP 140/52
[2020-05-31 07:12] LABS: HEMOGLOBIN 11.1 G/DL (12.0-16.0); MEAN CORPUSCULAR VOLUME 89 FL (80-99); PLATELET COUNT 318 K/UL (150-450); RED BLOOD COUNT 3.73 M/UL (4.20-5.40); RED CELL DISTRIBUTION WIDTH 12.8 % (11.6-14.8)
[2020-05-31 07:20] LABS: PHOSPHORUS 2.9 MG/DL (2.5-4.9)
[2020-05-31 07:28] LABS: WHITE BLOOD COUNT 36.1 K/UL (4.8-10.8)
[2020-05-31 07:33] LABS: ALANINE AMINOTRANSFERASE 35 U/L (12-78); ALBUMIN 1.6 G/DL (3.4-5.0); ALBUMIN/GLOBULIN RATIO 0.4 (1.0-2.7); ALKALINE PHOSPHATASE 57 U/L (46-116); ANION GAP 15 mmol/L (5-15); ASPARTATE AMINO TRANSFERASE 22 U/L (15-37); BILIRUBIN,TOTAL 1.7 MG/DL (0.2-1.0); BLOOD UREA NITROGEN 44 mg/dL (7-18); CARBON DIOXIDE 18 MMOL/L (21-32); CHLORIDE 95 MMOL/L (98-107); CREATINE KINASE 30 U/L (26-308); SODIUM 128 MMOL/L (136-145)
[2020-05-31 07:41] LABS: BILIRUBIN,DIRECT 1.1 MG/DL (0.0-0.3)
[2020-05-31 08:00] VITALS: BP 122/47
[2020-05-31] MEDS: Lactobacillus-GG tablet NG SCH ×3 (09:00→18:12)
[2020-05-31] MEDS: Ascorbic Acid 500mg tab ORAL SCH (09:00)
[2020-05-31] MEDS: Zinc Sulfate 220mg ORAL SCH (09:00)
--- NOTE | 2020-05-31 09:56 | General Progress Note ---
Assessment/Plan Assessment/Plan: thrombocytopenia leukocytosis coagulopathy RI elevated LFTS CAD/CT gallstones dilated CBD and PD CT and us reviewed MRCP reviewed abx repeat labs prn imodium NGTF for now>> patient pulled her NGT>>> ordered another one may need peg>>> family refused fu cardiology recs repeat labs in am will fu Subjective ROS Limited/Unobtainable: No Allergies: Coded Allergies: No Known Allergies (Unverified , 05/28/13) Objective Last 24 Hour Vital Signs Date Time Temp Pulse Resp B/P (MAP) Pulse Ox O2 Delivery O2 Flow Rate FiO2 05/31/20 04:00 98.0 96 22 140/52 (81) 97 05/31/20 00:00 97.7 106 21 138/59 (85) 97 05/30/20 20:00 97.6 96 19 115/51 (72) 95 05/30/20 16:00 97.5 101 18 126/50 (75) 96 05/30/20 12:00 97.3 98 18 111/58 (75) 96 Intake and Output 05/30/20 05/31/20 19:00 07:00 Intake Total 2320.0 ml 2555 ml Output Total 400 ml Balance 2320.0 ml 2155 ml Free Water 50 ml IV Total 1610.0 ml 1950 ml Tube Feeding 660 ml 605 ml Output Urine Total 400 ml # Voids 1 Laboratory Tests 05/31/20 06:25: White Blood Count 36.1*H, Red Blood Count 3.73L, Hemoglobin 11.1L, Hematocrit 33.0L, Mean Corpuscular Volume 89, Mean Corpuscular Hemoglobin 29.7, Mean Corpuscular Hemoglobin Concent 33.5, Red Cell Distribution Width 12.8, Platelet Count 318, Mean Platelet Volume 6.7, Neutrophils (%) (Auto) , Lymphocytes (%) ( Auto) , Monocytes (%) (Auto) , Eosinophils (%) (Auto) , Basophils (%) (Auto) , Neutrophils % (Manual) [Pending], Lymphocytes % (Manual) [Pending], Platelet Estimate [Pending], Platelet Morphology [Pending], Sodium Level 128L, Potassium Level 4.0, Chloride Level 95L, Carbon Dioxide Level 18L, Anion Gap 15, Blood Urea Nitrogen 44H, Creatinine 3.0H, Estimat Glomerular Filtration Rate 17.8, Glucose Level 128H, Uric Acid 6.0, Calcium Level 7.0L, Phosphorus Level 2.9, Magnesium Level 1.9, Total Bilirubin 1.7H, Direct Bilirubin 1.1H, Aspartate Amino Transf (AST/SGOT) 22, Alanine Aminotransferase (ALT/SGPT) 35, Alkaline Phosphatase 57, Total Creatine Kinase 30, Total Protein 6.1L, Albumin 1.6L, Globulin 4.5, Albumin/Globulin Ratio 0.4L Height (Feet): 5 Height (Inches): 7.00 Weight (Pounds): 150 General Appearance: no apparent distress EENT: normal ENT inspection Neck: supple Cardiovascular: normal rate Respiratory/Chest: decreased breath sounds Abdomen: normal bowel sounds, non tender, soft Extremities: non-tender Ludwig Wood MD May 31, 2020 09:56
[2020-05-31] MEDS: Pantoprazole Inj IVP SCH ×2 (10:34→20:02)
--- NOTE | 2020-05-31 11:01 | Infectious Diseases Prog Note ---
"Assessment/Plan Assessment/Plan antibiotics : zosyn A 1. E.coli sepsis secondary to UTI 2. shock resolved 3. thrombocytopenia improving 4. ? cholecystitis ? cholangitis patient not a surgical candidate 5. leucocytosis improving 6. e.coli | klebsiella UTI 7. renal failure P 1. continue zosyn 2. will follow up cultures Subjective ROS Limited/Unobtainable: Yes Allergies: Coded Allergies: No Known Allergies (Unverified , 05/28/13) Objective Last 24 Hour Vital Signs Date Time Temp Pulse Resp B/P (MAP) Pulse Ox O2 Delivery O2 Flow Rate FiO2 05/31/20 04:00 98.0 96 22 140/52 (81) 97 05/31/20 00:00 97.7 106 21 138/59 (85) 97 05/30/20 20:00 97.6 96 19 115/51 (72) 95 05/30/20 16:00 97.5 101 18 126/50 (75) 96 05/30/20 12:00 97.3 98 18 111/58 (75) 96 Height (Feet): 5 Height (Inches): 7.00 Weight (Pounds): 150 Respiratory/Chest: lungs clear Cardiovascular: normal rate, regular rhythm, no gallop/murmur Abdomen: soft, non tender Extremities: no edema Laboratory Tests Test 05/31/20 06:25 White Blood Count 36.1 K/UL (4.8-10.8) *H Red Blood Count 3.73 M/UL (4.20-5.40) L Hemoglobin 11.1 G/DL (12.0-16.0) L Hematocrit 33.0 % (37.0-47.0) L Mean Corpuscular Volume 89 FL (80-99) Mean Corpuscular Hemoglobin 29.7 PG (27.0-31.0) Mean Corpuscular Hemoglobin Concent 33.5 G/DL (32.0-36.0) Red Cell Distribution Width 12.8 % (11.6-14.8) Platelet Count 318 K/UL (150-450) Mean Platelet Volume 6.7 FL (6.5-10.1) Neutrophils (%) (Auto) % (45.0-75.0) Lymphocytes (%) (Auto) % (20.0-45.0) Monocytes (%) (Auto) % (1.0-10.0) Eosinophils (%) (Auto) % (0.0-3.0) Basophils (%) (Auto) % (0.0-2.0) Neutrophils % (Manual) Pending Lymphocytes % (Manual) Pending Platelet Estimate Pending Platelet Morphology Pending Sodium Level 128 MMOL/L (136-145) L Potassium Level 4.0 MMOL/L (3.5-5.1) Chloride Level 95 MMOL/L (98-107) L Carbon Dioxide Level 18 MMOL/L (21-32) L Anion Gap 15 mmol/L (5-15) Blood Urea Nitrogen 44 mg/dL (7-18) H Creatinine 3.0 MG/DL (0.55-1.30) H Estimat Glomerular Filtration Rate 17.8 mL/min (>60) Glucose Level 128 MG/DL (74-106) H Uric Acid 6.0 MG/DL (2.6-7.2) Calcium Level 7.0 MG/DL (8.5-10.1) L Phosphorus Level 2.9 MG/DL (2.5-4.9) Magnesium Level 1.9 MG/DL (1.8-2.4) Total Bilirubin 1.7 MG/DL (0.2-1.0) H Direct Bilirubin 1.1 MG/DL (0.0-0.3) H Aspartate Amino Transf (AST/SGOT) 22 U/L (15-37) Alanine Aminotransferase (ALT/SGPT) 35 U/L (12-78) Alkaline Phosphatase 57 U/L (46-116) Total Creatine Kinase 30 U/L (26-308) Total Protein 6.1 G/DL (6.4-8.2) L Albumin 1.6 G/DL (3.4-5.0) L Globulin 4.5 g/dL Albumin/Globulin Ratio 0.4 (1.0-2.7) L Current Medications Medications (Trade) Dose Ordered Sig/Gricelda Route PRN Reason Start Time Stop Time Status Last Admin Dose Admin Acetaminophen (Tylenol) 500 mg Q6HR PRN NG Temp >100.5 05/29/20 12:00 06/24/20 14:44 Ascorbic Acid (Vitamin C) 250 mg DAILY ORAL 05/29/20 09:00 06/28/20 08:59 05/30/20 08:14 Barium Sulfate (Varibar Honey) 250 ml NOW PRN MC RAD 05/29/20 19:15 06/01/20 19:05 Barium Sulfate (Varibar Latta) 240 ml NOW PRN MC RAD 05/29/20 19:15 06/01/20 19:05 Barium Sulfate (Varibar Pudding) 230 ml NOW PRN RAD 05/29/20 19:15 06/01/20 19:05 Barium Sulfate (Varibar Thin Liquid powder) 148 gm NOW PRN RAD 05/29/20 19:15 06/01/20 19:05 Chlorhexidine Gluconate (Celi-Hex 2%) 1 applic DAILY@2000 TOPIC 05/29/20 20:00 08/18/20 19:59 Dextrose (Dextrose 50%) 25 ml Q30M PRN IV Hypoglycemia 05/29/20 06:45 08/17/20 19:14 Dextrose (Dextrose 50%) 50 ml Q30M PRN IV Hypoglycemia 05/29/20 06:45 08/17/20 19:14 Lactobacillus Acidophilus (Culturelle) 1 tab THREE TIMES A DAY NG 05/29/20 18:00 08/27/20 17:59 05/30/20 17:33 Loperamide HCl (Imodium) 2 mg Q6HR NG 05/29/20 19:00 06/28/20 18:59 05/31/20 05:59 Ondansetron HCl (Zofran) 4 mg Q6H PRN IVP Nausea & Vomiting 05/29/20 07:15 06/18/20 19:14 Pantoprazole (Protonix) 40 mg EVERY 12 HOURS IVP 05/29/20 09:00 06/19/20 08:59 05/31/20 10:34 Piperacillin Sod/ Tazobactam Sod 3.375 gm/Sodium Chloride 110 ml @ 27.5 mls/hr Q12H IVPB 05/29/20 12:00 06/05/20 11:59 05/31/20 00:21 Potassium Phosphate 20 mm/ Dextrose 1,006.6667 ml @ 150 mls/hr Q6H43M IV 05/29/20 15:30 06/28/20 15:29 05/31/20 10:37 Zinc Sulfate (Zinc Sulfate) 220 mg DAILY ORAL 05/29/20 09:00 06/08/20 08:59 05/30/20 08:14 Jeff De La Cruz MD May 31, 2020 11:01"
[2020-05-31 12:00] VITALS: BP 100/46
--- NOTE | 2020-05-31 13:43 | General Progress Note ---
Assessment/Plan Problem List: (1) DIC (disseminated intravascular coagulation) ICD Codes: D65 - Disseminated intravascular coagulation [defibrination syndrome ] SNOMED: 53044736 (2) Thrombocytopenia ICD Codes: D69.6 - Thrombocytopenia, unspecified SNOMED: 740172642 (3) Lactic acidosis ICD Codes: E87.2 - Acidosis SNOMED: 46596650 (4) Septic shock ICD Codes: A41.9 - Sepsis, unspecified organism; R65.21 - Severe sepsis with septic shock SNOMED: 13890542 (5) Anemia ICD Codes: D64.9 - Anemia, unspecified SNOMED: 225766717 (6) Hypokalemia ICD Codes: E87.6 - Hypokalemia SNOMED: 32059105 (7) Rhabdomyolysis ICD Codes: M62.82 - Rhabdomyolysis SNOMED: 184675723 (8) Non-STEMI (non-ST elevated myocardial infarction) ICD Codes: I21.4 - Non-ST elevation (NSTEMI) myocardial infarction SNOMED: 08527723 (9) ZEE (acute kidney injury) ICD Codes: N17.9 - Acute kidney failure, unspecified SNOMED: 0406379, 47931648 (10) Elevated liver enzymes ICD Codes: R74.8 - Abnormal levels of other serum enzymes SNOMED: 727559638 (11) CHF (congestive heart failure) ICD Codes: I50.9 - Heart failure, unspecified SNOMED: 84655822 (12) Gram negative sepsis ICD Codes: A41.50 - Gram-negative sepsis, unspecified SNOMED: 948656087 (13) Cholelithiasis ICD Codes: K80.20 - Calculus of gallbladder without cholecystitis without obstruction SNOMED: 096941498 (14) Metabolic encephalopathy ICD Codes: G93.41 - Metabolic encephalopathy SNOMED: 33580210 (15) Hypophosphatemia ICD Codes: E83.39 - Other disorders of phosphorus metabolism SNOMED: 1597432 (16) Decubital ulcer ICD Codes: L89.90 - Pressure ulcer of unspecified site, unspecified stage SNOMED: 471712277 (17) Dysphagia ICD Codes: R13.10 - Dysphagia, unspecified SNOMED: 38811786, 687940120 (18) Hypomagnesemia ICD Codes: E83.42 - Hypomagnesemia SNOMED: 170633769 (19) Granulocytic leukemoid reaction ICD Codes: D72.823 - Leukemoid reaction SNOMED: 59673708 Assessment/Plan: orders updated continue broad-spectrum antibiotics, for e coli bacteremia and e coli+klebsiella uti consultants notes are all reviewed her condition remains high risk this is discussed in detail with the daughter in the area code [id number] tube feeding ,ST eval noted, BUN and creatinine higher, increase iv fluids,wbc high check flow cytometry--no leukemia, Subjective ROS Limited/Unobtainable: Yes Allergies: Coded Allergies: No Known Allergies (Unverified , 05/28/13) Objective Last 24 Hour Vital Signs Date Time Temp Pulse Resp B/P (MAP) Pulse Ox O2 Delivery O2 Flow Rate FiO2 05/31/20 12:00 98.6 94 19 100/46 (64) 96 05/31/20 08:00 98.3 98 18 122/47 (72) 98 05/31/20 04:00 98.0 96 22 140/52 (81) 97 05/31/20 00:00 97.7 106 21 138/59 (85) 97 05/30/20 20:00 97.6 96 19 115/51 (72) 95 05/30/20 16:00 97.5 101 18 126/50 (75) 96 Intake and Output 05/30/20 05/31/20 19:00 07:00 Intake Total 2320.0 ml 2555 ml Output Total 400 ml Balance 2320.0 ml 2155 ml Free Water 50 ml IV Total 1610.0 ml 1950 ml Tube Feeding 660 ml 605 ml Output Urine Total 400 ml # Voids 1 Laboratory Tests 05/31/20 06:25: White Blood Count 36.1*H, Red Blood Count 3.73L, Hemoglobin 11.1L, Hematocrit 33.0L, Mean Corpuscular Volume 89, Mean Corpuscular Hemoglobin 29.7, Mean Corpuscular Hemoglobin Concent 33.5, Red Cell Distribution Width 12.8, Platelet Count 318, Mean Platelet Volume 6.7, Neutrophils (%) (Auto) , Lymphocytes (%) ( Auto) , Monocytes (%) (Auto) , Eosinophils (%) (Auto) , Basophils (%) (Auto) , Differential Total Cells Counted 100, Neutrophils % (Manual) 91H, Lymphocytes % (Manual) 2L, Monocytes % (Manual) 7, Eosinophils % (Manual) 0, Basophils % ( Manual) 0, Band Neutrophils 0, Platelet Estimate Adequate, Platelet Morphology Normal, Hypochromasia 1+, Anisocytosis 1+, Sodium Level 128L, Potassium Level 4.0, Chloride Level 95L, Carbon Dioxide Level 18L, Anion Gap 15, Blood Urea Nitrogen 44H, Creatinine 3.0H, Estimat Glomerular Filtration Rate 17.8, Glucose Level 128H, Uric Acid 6.0, Calcium Level 7.0L, Phosphorus Level 2.9, Magnesium Level 1.9, Total Bilirubin 1.7H, Direct Bilirubin 1.1H, Aspartate Amino Transf ( AST/SGOT) 22, Alanine Aminotransferase (ALT/SGPT) 35, Alkaline Phosphatase 57, Total Creatine Kinase 30, Total Protein 6.1L, Albumin 1.6L, Globulin 4.5, Albumin/Globulin Ratio 0.4L Height (Feet): 5 Height (Inches): 7.00 Weight (Pounds): 150 General Appearance: lethargic, confused EENT: normal ENT inspection Neck: normal alignment Cardiovascular: regular rhythm Respiratory/Chest: lungs clear Abdomen: soft, distended Edema: trace edema Neurologic: insurance adjuster II-XII grossly normal Eric Wilkins MD May 31, 2020 13:43
--- NOTE | 2020-05-31 13:53 | Diagnostic Imaging Report ---
Indication: Post nasogastric tube placement Technique: Supine view of the upper abdomen Comparison: . 19/10/2019 Findings: There is a nasogastric tube in place, tip of which projects at the level gastric body in good position. Previously demonstrated right groin central venous catheter is no longer evident. The bowel gas pattern is unremarkable. Impression: Satisfactory nasogastric intubation
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
--- NOTE | 2020-05-31 15:33 | Diagnostic Imaging Report ---
Indication: Cough Technique: One view of the chest Comparison: 05/28/2020 Findings: There is increased interstitial congestion. There is some atelectasis and possibly some consolidation at the left lung base. The heart is enlarged. Impression: Increasing interstitial congestion. Persistent left basilar atelectasis and consolidation
[2020-05-31 16:00] VITALS: BP_SYST 100; BP_SYST 123; BP_DIAS 46; BP_DIAS 51
[2020-05-31] MEDS: Dyna-Hex 2% Top Sol 2oz TOPIC SCH (19:51)
[2020-05-31 20:00] VITALS: BP 149/85
[2020-06-01] VITALS: BP 116/56
--- NOTE | 2020-06-01 03:16 | Cardiology Progress Note ---
Subjective DATE OF SERVICE: May 31, 2020 Remains off pressors with stable BP readings. Monitor: sinus with rare atrial ectopics WBC count remaining elevated; BM evaluation planned IV abx per ID team Objective Last 24 Hour Vital Signs Date Time Temp Pulse Resp B/P (MAP) Pulse Ox O2 Delivery O2 Flow Rate FiO2 06/01/20 00:00 98.4 95 22 116/56 (76) 92 05/31/20 21:00 Room Air 05/31/20 20:00 97.7 89 18 149/85 (106) 92 05/31/20 16:00 98.8 95 17 123/51 (75) 97 05/31/20 16:00 98.6 94 19 100/46 (64) 96 05/31/20 12:00 98.6 94 19 100/46 (64) 96 05/31/20 08:00 98.3 98 18 122/47 (72) 98 05/31/20 04:00 98.0 96 22 140/52 (81) 97 ROS: no change from my evaluation of 05/19/20. HEENT: normal ENT inspection LUNGS: lungs clear bilaterally CARDIAC: regular rhythm, normal S1 and S2, rapid rate, tachycardia ABDOMEN: soft, tender - mild diffuse EXTREMITIES: normal range of motion, No edema Laboratory Tests Test 05/31/20 06:25 05/31/20 18:20 White Blood Count 36.1 K/UL (4.8-10.8) *H Red Blood Count 3.73 M/UL (4.20-5.40) L Hemoglobin 11.1 G/DL (12.0-16.0) L Hematocrit 33.0 % (37.0-47.0) L Mean Corpuscular Volume 89 FL (80-99) Mean Corpuscular Hemoglobin 29.7 PG (27.0-31.0) Mean Corpuscular Hemoglobin Concent 33.5 G/DL (32.0-36.0) Red Cell Distribution Width 12.8 % (11.6-14.8) Platelet Count 318 K/UL (150-450) Mean Platelet Volume 6.7 FL (6.5-10.1) Neutrophils (%) (Auto) % (45.0-75.0) Lymphocytes (%) (Auto) % (20.0-45.0) Monocytes (%) (Auto) % (1.0-10.0) Eosinophils (%) (Auto) % (0.0-3.0) Basophils (%) (Auto) % (0.0-2.0) Differential Total Cells Counted 100 Neutrophils % (Manual) 91 % (45-75) H Lymphocytes % (Manual) 2 % (20-45) L Monocytes % (Manual) 7 % (1-10) Eosinophils % (Manual) 0 % (0-3) Basophils % (Manual) 0 % (0-2) Band Neutrophils 0 % (0-8) Platelet Estimate Adequate Platelet Morphology Normal Hypochromasia 1+ Anisocytosis 1+ Sodium Level 128 MMOL/L (136-145) L Potassium Level 4.0 MMOL/L (3.5-5.1) Chloride Level 95 MMOL/L (98-107) L Carbon Dioxide Level 18 MMOL/L (21-32) L Anion Gap 15 mmol/L (5-15) Blood Urea Nitrogen 44 mg/dL (7-18) H Creatinine 3.0 MG/DL (0.55-1.30) H Estimat Glomerular Filtration Rate 17.8 mL/min (>60) Glucose Level 128 MG/DL (74-106) H Uric Acid 6.0 MG/DL (2.6-7.2) Calcium Level 7.0 MG/DL (8.5-10.1) L Phosphorus Level 2.9 MG/DL (2.5-4.9) Magnesium Level 1.9 MG/DL (1.8-2.4) Total Bilirubin 1.7 MG/DL (0.2-1.0) H Direct Bilirubin 1.1 MG/DL (0.0-0.3) H Aspartate Amino Transf (AST/SGOT) 22 U/L (15-37) Alanine Aminotransferase (ALT/SGPT) 35 U/L (12-78) Alkaline Phosphatase 57 U/L (46-116) Total Creatine Kinase 30 U/L (26-308) Total Protein 6.1 G/DL (6.4-8.2) L Albumin 1.6 G/DL (3.4-5.0) L Globulin 4.5 g/dL Albumin/Globulin Ratio 0.4 (1.0-2.7) L Urine Random Sodium 23 mmol/L (20-110) Urine Creatinine 17.9 MG/DL (30.0-125.0) L Assessment/Plan Assessment/Plan Sepsis with shock - due to UTI Worsening leukocytosis Lactic acidosis resolved Transaminitis improving Ileus recovering Hypomagnesemia Hyponatremia Acute myocardial ischemia and possible NSTE myocardial infarction acute renal failure improved Broad sp antimicrobials Remain off pressors IVF adjustments per volume status IV Mg and PO4 replacement as needed Advance diet as tolerated DVT prophylaxis Possible BM biopsy Dalton Valdez MD Jun 01, 2020 03:16
[2020-06-01 04:00] VITALS: BP 115/54
[2020-06-01 08:00] VITALS: BP 117/61
[2020-06-01 08:25] LABS: ALANINE AMINOTRANSFERASE 29 U/L (12-78); ALBUMIN 1.5 G/DL (3.4-5.0); ALBUMIN/GLOBULIN RATIO 0.3 (1.0-2.7); ALKALINE PHOSPHATASE 47 U/L (46-116); ANION GAP 16 mmol/L (5-15); ASPARTATE AMINO TRANSFERASE 24 U/L (15-37); BILIRUBIN,TOTAL 2.1 MG/DL (0.2-1.0); BLOOD UREA NITROGEN 41 mg/dL (7-18); CALCIUM 7.5 MG/DL (8.5-10.1); CARBON DIOXIDE 17 MMOL/L (21-32); CHLORIDE 102 MMOL/L (98-107); CREATINE KINASE 20 U/L (26-308); CREATININE 2.9 MG/DL (0.55-1.30); PHOSPHORUS 8.9 MG/DL (2.5-4.9); POTASSIUM 4.1 MMOL/L (3.5-5.1); SODIUM 135 MMOL/L (136-145)
[2020-06-01 08:27] LABS: BILIRUBIN,DIRECT 1.5 MG/DL (0.0-0.3)
[2020-06-01] MEDS: Lactobacillus-GG tablet NG SCH ×3 (08:57→18:04)
[2020-06-01] MEDS: Zinc Sulfate 220mg ORAL SCH (08:57)
[2020-06-01] MEDS: Ascorbic Acid 500mg tab ORAL SCH (08:57)
[2020-06-01] MEDS: Pantoprazole Inj IVP SCH ×2 (08:58→21:34)
[2020-06-01 12:00] VITALS: BP 111/57
[2020-06-01] MEDS: Piperacillin/Tazobactam 3.375 GM in NS 110 ML IVPB SCH ×2 (12:12→23:40)
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
--- NOTE | 2020-06-01 13:13 | General Progress Note ---
Assessment/Plan Problem List: (1) DIC (disseminated intravascular coagulation) ICD Codes: D65 - Disseminated intravascular coagulation [defibrination syndrome ] SNOMED: 46324327 (2) Thrombocytopenia ICD Codes: D69.6 - Thrombocytopenia, unspecified SNOMED: 841939155 (3) Lactic acidosis ICD Codes: E87.2 - Acidosis SNOMED: 87503183 (4) Septic shock ICD Codes: A41.9 - Sepsis, unspecified organism; R65.21 - Severe sepsis with septic shock SNOMED: 11092098 (5) Anemia ICD Codes: D64.9 - Anemia, unspecified SNOMED: 827605757 (6) Hypokalemia ICD Codes: E87.6 - Hypokalemia SNOMED: 49964996 (7) Rhabdomyolysis ICD Codes: M62.82 - Rhabdomyolysis SNOMED: 201777185 (8) Non-STEMI (non-ST elevated myocardial infarction) ICD Codes: I21.4 - Non-ST elevation (NSTEMI) myocardial infarction SNOMED: 15734029 (9) ZEE (acute kidney injury) ICD Codes: N17.9 - Acute kidney failure, unspecified SNOMED: 5139761, 17011336 (10) Elevated liver enzymes ICD Codes: R74.8 - Abnormal levels of other serum enzymes SNOMED: 019997177 (11) CHF (congestive heart failure) ICD Codes: I50.9 - Heart failure, unspecified SNOMED: 62878412 (12) Gram negative sepsis ICD Codes: A41.50 - Gram-negative sepsis, unspecified SNOMED: 478161453 (13) Cholelithiasis ICD Codes: K80.20 - Calculus of gallbladder without cholecystitis without obstruction SNOMED: 411813733 (14) Metabolic encephalopathy ICD Codes: G93.41 - Metabolic encephalopathy SNOMED: 18835167 (15) Hypophosphatemia ICD Codes: E83.39 - Other disorders of phosphorus metabolism SNOMED: 8381434 (16) Decubital ulcer ICD Codes: L89.90 - Pressure ulcer of unspecified site, unspecified stage SNOMED: 798469960 (17) Dysphagia ICD Codes: R13.10 - Dysphagia, unspecified SNOMED: 63774982, 186287204 (18) Hypomagnesemia ICD Codes: E83.42 - Hypomagnesemia SNOMED: 193059250 (19) Granulocytic leukemoid reaction ICD Codes: D72.823 - Leukemoid reaction SNOMED: 25465328 Assessment/Plan: orders updated continue broad-spectrum antibiotics, for e coli bacteremia and e coli+klebsiella uti consultants notes are all reviewed her condition remains high risk this is discussed in detail with the daughter in the area code [id number] tube feeding ,ST eval noted, BUN and creatinine higher, ,wbc high check flow cytometry--no leukemia,replace Mg Subjective ROS Limited/Unobtainable: Yes Allergies: Coded Allergies: No Known Allergies (Unverified , 05/28/13) Objective Last 24 Hour Vital Signs Date Time Temp Pulse Resp B/P (MAP) Pulse Ox O2 Delivery O2 Flow Rate FiO2 06/01/20 12:00 98.1 91 18 111/57 (75) 97 06/01/20 09:00 Room Air 06/01/20 08:00 97.0 91 19 117/61 (79) 96 06/01/20 04:00 96.8 93 20 115/54 (74) 94 06/01/20 00:00 98.4 95 22 116/56 (76) 92 05/31/20 21:00 Room Air 05/31/20 20:00 97.7 89 18 149/85 (106) 92 05/31/20 16:00 98.8 95 17 123/51 (75) 97 05/31/20 16:00 98.6 94 19 100/46 (64) 96 Intake and Output 05/31/20 06/01/20 19:00 07:00 Intake Total 55 ml 1945.0 ml Output Total 1275 ml Balance 55 ml 670.0 ml Free Water 60 ml IV Total 1610.0 ml Tube Feeding 55 ml 275 ml Output Urine Total 800 ml Stool Total 275 ml Gastric Drainage Total 200 ml Laboratory Tests 05/31/20 18:20: Urine Random Sodium 23, Urine Creatinine 17.9L 06/01/20 06:00: Sodium Level 135L, Potassium Level 4.1, Chloride Level 102, Carbon Dioxide Level 17L, Anion Gap 16H, Blood Urea Nitrogen 41H, Creatinine 2.9H, Estimat Glomerular Filtration Rate 18.5, Glucose Level 66L, Calcium Level 7.5L, Phosphorus Level 8.9H, Magnesium Level 1.5L, Total Bilirubin 2.1H, Direct Bilirubin 1.5H, Aspartate Amino Transf (AST/SGOT) 24, Alanine Aminotransferase ( ALT/SGPT) 29, Alkaline Phosphatase 47, Total Creatine Kinase 20L, Total Protein 6.2L, Albumin 1.5L, Globulin 4.7, Albumin/Globulin Ratio 0.3L, Carcinoembryonic Antigen [Pending] Height (Feet): 5 Height (Inches): 7.00 Weight (Pounds): 150 General Appearance: no apparent distress, lethargic, confused EENT: normal ENT inspection Neck: normal alignment Cardiovascular: regular rhythm Respiratory/Chest: lungs clear Abdomen: soft Edema: trace edema Neurologic: fruit raiser II-XII grossly normal, disoriented Eric Wilkins MD Jun 01, 2020 13:13
[2020-06-01 16:00] VITALS: BP 122/68
--- NOTE | 2020-06-01 17:26 | General Progress Note ---
Assessment/Plan Assessment/Plan: Assessment/Plan thrombocytopenia leukocytosis coagulopathy RI elevated LFTS CAD/MN gallstones dilated CBD and PD Recommendations CT and us and MRCP reviewed abx repeat labs prn imodium NGTF for now may need peg>>> family refused fu cardiology recs will fu Subjective Allergies: Coded Allergies: No Known Allergies (Unverified , 05/28/13) Subjective No active complaints wants to go home denies abd pain on NGT feeds Objective Last 24 Hour Vital Signs Date Time Temp Pulse Resp B/P (MAP) Pulse Ox O2 Delivery O2 Flow Rate FiO2 06/01/20 12:00 98.1 91 18 111/57 (75) 97 06/01/20 09:00 Room Air 06/01/20 08:00 97.0 91 19 117/61 (79) 96 06/01/20 04:00 96.8 93 20 115/54 (74) 94 06/01/20 00:00 98.4 95 22 116/56 (76) 92 05/31/20 21:00 Room Air 05/31/20 20:00 97.7 89 18 149/85 (106) 92 Intake and Output 05/31/20 06/01/20 18:59 06:59 Intake Total 55 ml 2000.0 ml Output Total 1275 ml Balance 55 ml 725.0 ml Free Water 60 ml IV Total 1610.0 ml Tube Feeding 55 ml 330 ml Output Urine Total 800 ml Stool Total 275 ml Gastric Drainage Total 200 ml Laboratory Tests 05/31/20 18:20: Urine Random Sodium 23, Urine Creatinine 17.9L 06/01/20 06:00: Sodium Level 135L, Potassium Level 4.1, Chloride Level 102, Carbon Dioxide Level 17L, Anion Gap 16H, Blood Urea Nitrogen 41H, Creatinine 2.9H, Estimat Glomerular Filtration Rate 18.5, Glucose Level 66L, Calcium Level 7.5L, Phosphorus Level 8.9H, Magnesium Level 1.5L, Total Bilirubin 2.1H, Direct Bilirubin 1.5H, Aspartate Amino Transf (AST/SGOT) 24, Alanine Aminotransferase ( ALT/SGPT) 29, Alkaline Phosphatase 47, Total Creatine Kinase 20L, Total Protein 6.2L, Albumin 1.5L, Globulin 4.7, Albumin/Globulin Ratio 0.3L, Carcinoembryonic Antigen [Pending] Height (Feet): 5 Height (Inches): 7.00 Weight (Pounds): 150 Objective Elderly AA woman NCAT supple CTA RR abd soft no edema Kandace Dominguez MD Jun 01, 2020 17:26
[2020-06-01 20:00] VITALS: BP 114/53
[2020-06-01] MEDS: Dyna-Hex 2% Top Sol 2oz TOPIC SCH (20:00)
[2020-06-02] VITALS: BP 145/68
--- NOTE | 2020-06-02 00:57 | Cardiology Progress Note ---
Subjective DATE OF SERVICE: Jun 01, 2020 Remains off pressors with stable BP readings. Monitor: sinus with rare atrial ectopics WBC count remaining elevated; BM and flow cytometry evaluation planned IV abx per ID team Objective Last 24 Hour Vital Signs Date Time Temp Pulse Resp B/P (MAP) Pulse Ox O2 Delivery O2 Flow Rate FiO2 06/02/20 00:00 98.2 100 20 145/68 (93) 98 06/01/20 21:00 Room Air 06/01/20 20:00 97.5 99 20 114/53 (73) 96 06/01/20 16:00 98.0 97 20 122/68 (86) 97 06/01/20 12:00 98.1 91 18 111/57 (75) 97 06/01/20 09:00 Room Air 06/01/20 08:00 97.0 91 19 117/61 (79) 96 06/01/20 04:00 96.8 93 20 115/54 (74) 94 ROS: no change from my evaluation of 05/19/20. HEENT: normal ENT inspection LUNGS: lungs clear bilaterally CARDIAC: regular rhythm, normal S1 and S2, rapid rate, tachycardia ABDOMEN: soft, tender - mild diffuse EXTREMITIES: normal range of motion, No edema Laboratory Tests Test 06/01/20 06:00 Sodium Level 135 MMOL/L (136-145) L Potassium Level 4.1 MMOL/L (3.5-5.1) Chloride Level 102 MMOL/L (98-107) Carbon Dioxide Level 17 MMOL/L (21-32) L Anion Gap 16 mmol/L (5-15) H Blood Urea Nitrogen 41 mg/dL (7-18) H Creatinine 2.9 MG/DL (0.55-1.30) H Estimat Glomerular Filtration Rate 18.5 mL/min (>60) Glucose Level 66 MG/DL (74-106) L Calcium Level 7.5 MG/DL (8.5-10.1) L Phosphorus Level 8.9 MG/DL (2.5-4.9) H Magnesium Level 1.5 MG/DL (1.8-2.4) L Total Bilirubin 2.1 MG/DL (0.2-1.0) H Direct Bilirubin 1.5 MG/DL (0.0-0.3) H Aspartate Amino Transf (AST/SGOT) 24 U/L (15-37) Alanine Aminotransferase (ALT/SGPT) 29 U/L (12-78) Alkaline Phosphatase 47 U/L (46-116) Total Creatine Kinase 20 U/L (26-308) L Total Protein 6.2 G/DL (6.4-8.2) L Albumin 1.5 G/DL (3.4-5.0) L Globulin 4.7 g/dL Albumin/Globulin Ratio 0.3 (1.0-2.7) L Carcinoembryonic Antigen Pending Assessment/Plan Assessment/Plan Sepsis with shock - due to UTI Worsening leukocytosis Lactic acidosis resolved Transaminitis improving Ileus recovering Hypomagnesemia Hyponatremia Acute myocardial ischemia and possible NSTE myocardial infarction acute renal failure improved Broad sp antimicrobials Remain off pressors IVF adjustments per volume status IV Mg and PO4 replacement as needed Advance diet as tolerated DVT prophylaxis Possible BM biopsy Dalton Valdez MD Jun 02, 2020 00:57
[2020-06-02 04:00] VITALS: BP 134/58
[2020-06-02 08:00] VITALS: BP 130/63
[2020-06-02 08:16] LABS: CALCIUM 7.9 MG/DL (8.5-10.1); CREATININE 2.6 MG/DL (0.55-1.30); POTASSIUM 3.8 MMOL/L (3.5-5.1)
[2020-06-02] MEDS: Zinc Sulfate 220mg ORAL SCH (09:00)
[2020-06-02] MEDS: Lactobacillus-GG tablet NG SCH ×3 (09:00→17:11)
[2020-06-02] MEDS: Ascorbic Acid 500mg tab ORAL SCH (09:00)
--- NOTE | 2020-06-02 09:42 | Diagnostic Imaging Report ---
EXAM: XR Abdomen, 2 Views CLINICAL HISTORY: NGT TECHNIQUE: Frontal view of the abdomen/pelvis with upright view of the abdomen. COMPARISON: 05/31/20. FINDINGS/IMPRESSION: The tip and sidehole of the enteric tube project in the gastric body
[2020-06-02] MEDS: Pantoprazole Inj IVP SCH ×2 (10:34→21:37)
[2020-06-02 11:54] VITALS: BP 135/70
[2020-06-02] MEDS: Piperacillin/Tazobactam 3.375 GM in NS 110 ML IVPB SCH ×2 (12:11→22:59)
--- NOTE | 2020-06-02 13:52 | General Progress Note ---
Assessment/Plan Problem List: (1) DIC (disseminated intravascular coagulation) ICD Codes: D65 - Disseminated intravascular coagulation [defibrination syndrome ] SNOMED: 32183175 (2) Thrombocytopenia ICD Codes: D69.6 - Thrombocytopenia, unspecified SNOMED: 427405433 (3) Lactic acidosis ICD Codes: E87.2 - Acidosis SNOMED: 20610087 (4) Septic shock ICD Codes: A41.9 - Sepsis, unspecified organism; R65.21 - Severe sepsis with septic shock SNOMED: 21166519 (5) Anemia ICD Codes: D64.9 - Anemia, unspecified SNOMED: 661013347 (6) Hypokalemia ICD Codes: E87.6 - Hypokalemia SNOMED: 88134317 (7) Rhabdomyolysis ICD Codes: M62.82 - Rhabdomyolysis SNOMED: 828402301 (8) Non-STEMI (non-ST elevated myocardial infarction) ICD Codes: I21.4 - Non-ST elevation (NSTEMI) myocardial infarction SNOMED: 99690856 (9) ZEE (acute kidney injury) ICD Codes: N17.9 - Acute kidney failure, unspecified SNOMED: 4394591, 74819601 (10) Elevated liver enzymes ICD Codes: R74.8 - Abnormal levels of other serum enzymes SNOMED: 438084595 (11) CHF (congestive heart failure) ICD Codes: I50.9 - Heart failure, unspecified SNOMED: 18562299 (12) Gram negative sepsis ICD Codes: A41.50 - Gram-negative sepsis, unspecified SNOMED: 374933569 (13) Cholelithiasis ICD Codes: K80.20 - Calculus of gallbladder without cholecystitis without obstruction SNOMED: 381794662 (14) Metabolic encephalopathy ICD Codes: G93.41 - Metabolic encephalopathy SNOMED: 34197496 (15) Hypophosphatemia ICD Codes: E83.39 - Other disorders of phosphorus metabolism SNOMED: 5859500 (16) Decubital ulcer ICD Codes: L89.90 - Pressure ulcer of unspecified site, unspecified stage SNOMED: 279126905 (17) Dysphagia ICD Codes: R13.10 - Dysphagia, unspecified SNOMED: 45435775, 984327258 (18) Hypomagnesemia ICD Codes: E83.42 - Hypomagnesemia SNOMED: 601883331 (19) Granulocytic leukemoid reaction ICD Codes: D72.823 - Leukemoid reaction SNOMED: 67964576 Assessment/Plan: orders updated continue broad-spectrum antibiotics, for e coli bacteremia and e coli+klebsiella [facility] consultants notes are all reviewed her condition remains high risk this is discussed in detail with the daughter in the area code [id number] tube feeding ,ST eval noted, BUN and creatinine high ,wbc high check flow cytometry--no leukemia,replace Mg , continue iv hydration , still diarrhea Subjective ROS Limited/Unobtainable: Yes Allergies: Coded Allergies: No Known Allergies (Unverified , 05/28/13) Objective Last 24 Hour Vital Signs Date Time Temp Pulse Resp B/P (MAP) Pulse Ox O2 Delivery O2 Flow Rate FiO2 06/02/20 11:54 98.4 93 20 135/70 (91) 98 06/02/20 11:30 Room Air 06/02/20 09:00 Room Air 06/02/20 08:00 98.1 90 20 130/63 (85) 98 06/02/20 04:00 97.7 93 20 134/58 (83) 97 06/02/20 00:00 98.2 100 20 145/68 (93) 98 06/01/20 21:00 Room Air 06/01/20 20:00 97.5 99 20 114/53 (73) 96 06/01/20 16:00 98.0 97 20 122/68 (86) 97 Intake and Output 06/01/20 06/02/20 19:00 07:00 Intake Total 1650 ml 2020 ml Output Total 800 ml 700 ml Balance 850 ml 1320 ml IV Total 1650 ml 1800 ml Tube Feeding 220 ml Output Urine Total 800 ml 700 ml Laboratory Tests 06/02/20 06:50: Sodium Level 140, Potassium Level 3.8, Chloride Level 109H, Carbon Dioxide Level 17L, Anion Gap 14, Blood Urea Nitrogen 38H, Creatinine 2.6H, Estimat Glomerular Filtration Rate 21.1, Glucose Level 115H, Calcium Level 7.9L Height (Feet): 5 Height (Inches): 7.00 Weight (Pounds): 150 General Appearance: no apparent distress, lethargic, confused EENT: normal ENT inspection Neck: normal alignment Cardiovascular: normal rate, regular rhythm Respiratory/Chest: lungs clear Abdomen: non tender Edema: trace edema 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
[2020-06-02] MEDS: NS w/KCl 20mEq 1000ml 1,000 ML IV SCH ×2 (14:52→23:00)
[2020-06-02 15:53] VITALS: BP 140/70
--- NOTE | 2020-06-02 16:21 | Infectious Diseases Prog Note ---
Assessment/Plan Assessment/Plan A 1. E.coli sepsis 2. shock resolved 3. Thrombocytopenia improving 4. cholelithiasis 5. leucocytosis resolved 6. E. coli & Klebsiella UTI 7. Acute renal failure improving 8. Diarrhea, C. difficile X 2: negative P 1. Continue Zosyn Subjective ROS Limited/Unobtainable: Yes Constitutional: Denies: fever Allergies: Coded Allergies: No Known Allergies (Unverified , 05/28/13) Objective Last 24 Hour Vital Signs Date Time Temp Pulse Resp B/P (MAP) Pulse Ox O2 Delivery O2 Flow Rate FiO2 06/02/20 15:53 98.4 89 19 140/70 (93) 96 06/02/20 11:54 98.4 93 20 135/70 (91) 98 06/02/20 11:30 Room Air 06/02/20 09:00 Room Air 06/02/20 08:00 98.1 90 20 130/63 (85) 98 06/02/20 04:00 97.7 93 20 134/58 (83) 97 06/02/20 00:00 98.2 100 20 145/68 (93) 98 06/01/20 21:00 Room Air 06/01/20 20:00 97.5 99 20 114/53 (73) 96 Height (Feet): 5 Height (Inches): 7.00 Weight (Pounds): 150 General Appearance: no acute distress HEENT: mucous membranes moist Respiratory/Chest: lungs clear Cardiovascular: normal rate Abdomen: soft, non tender, other - NG tube feeding Extremities: no edema Neurologic/Psychiatric: other - sleeping Laboratory Tests Test 06/02/20 06:50 Sodium Level 140 MMOL/L (136-145) Potassium Level 3.8 MMOL/L (3.5-5.1) Chloride Level 109 MMOL/L (98-107) H Carbon Dioxide Level 17 MMOL/L (21-32) L Anion Gap 14 mmol/L (5-15) Blood Urea Nitrogen 38 mg/dL (7-18) H Creatinine 2.6 MG/DL (0.55-1.30) H Estimat Glomerular Filtration Rate 21.1 mL/min (>60) Glucose Level 115 MG/DL (74-106) H Calcium Level 7.9 MG/DL (8.5-10.1) L Current Medications Medications (Trade) Dose Ordered Sig/Gricelda Route PRN Reason Start Time Stop Time Status Last Admin Dose Admin Acetaminophen (Tylenol) 500 mg Q6HR PRN NG Temp >100.5 05/29/20 12:00 06/24/20 14:44 Ascorbic Acid (Vitamin C) 250 mg DAILY ORAL 05/29/20 09:00 06/28/20 08:59 06/01/20 08:57 Chlorhexidine Gluconate (Celi-Hex 2%) 1 applic DAILY@2000 TOPIC 05/29/20 20:00 08/18/20 19:59 Dextrose (Dextrose 50%) 25 ml Q30M PRN IV Hypoglycemia 05/29/20 06:45 08/17/20 19:14 Dextrose (Dextrose 50%) 50 ml Q30M PRN IV Hypoglycemia 05/29/20 06:45 08/17/20 19:14 Lactobacillus Acidophilus (Culturelle) 1 tab THREE TIMES A DAY NG 05/29/20 18:00 08/27/20 17:59 06/02/20 11:31 Loperamide HCl (Imodium) 2 mg Q6HR NG 05/29/20 19:00 06/28/20 18:59 06/02/20 11:31 Ondansetron HCl (Zofran) 4 mg Q6H PRN IVP Nausea & Vomiting 05/29/20 07:15 06/18/20 19:14 Pantoprazole (Protonix) 40 mg EVERY 12 HOURS IVP 05/29/20 09:00 06/19/20 08:59 06/02/20 10:34 Piperacillin Sod/ Tazobactam Sod 3.375 gm/Sodium Chloride 110 ml @ 27.5 mls/hr Q12H IVPB 05/29/20 12:00 06/05/20 11:59 06/02/20 12:11 Potassium Chloride/Sodium Chloride 1,000 ml @ 125 mls/hr Q8H IV 06/02/20 15:00 07/02/20 14:59 06/02/20 14:52 Zinc Sulfate (Zinc Sulfate) 220 mg DAILY ORAL 05/29/20 09:00 06/08/20 08:59 06/01/20 08:57 Pito Amador MD Jun 02, 2020 16:21
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
[2020-06-02] MEDS: Dyna-Hex 2% Top Sol 2oz TOPIC SCH (19:29)
[2020-06-02 20:00] VITALS: BP 140/70
--- NOTE | 2020-06-02 22:50 | General Progress Note ---
Assessment/Plan Assessment/Plan: Assessment/Plan thrombocytopenia leukocytosis coagulopathy RI elevated LFTS CAD/AR gallstones dilated CBD and PD Recommendations CT and us and MRCP reviewed abx repeat labs prn imodium NGTF for now may need peg>>> family refused fu cardiology recs will fu Subjective Allergies: Coded Allergies: No Known Allergies (Unverified , 05/28/13) Subjective No active complaints calm on NGT feeds Objective Last 24 Hour Vital Signs Date Time Temp Pulse Resp B/P (MAP) Pulse Ox O2 Delivery O2 Flow Rate FiO2 06/02/20 21:00 Room Air 06/02/20 20:00 98.2 88 21 140/70 (93) 94 06/02/20 15:53 98.4 89 19 140/70 (93) 96 06/02/20 11:54 98.4 93 20 135/70 (91) 98 06/02/20 11:30 Room Air 06/02/20 09:00 Room Air 06/02/20 08:00 98.1 90 20 130/63 (85) 98 06/02/20 04:00 97.7 93 20 134/58 (83) 97 06/02/20 00:00 98.2 100 20 145/68 (93) 98 Intake and Output 06/01/20 06/02/20 19:00 07:00 Intake Total 1650 ml 2020 ml Output Total 800 ml 700 ml Balance 850 ml 1320 ml IV Total 1650 ml 1800 ml Tube Feeding 220 ml Output Urine Total 800 ml 700 ml Laboratory Tests 06/02/20 06:50: Sodium Level 140, Potassium Level 3.8, Chloride Level 109H, Carbon Dioxide Level 17L, Anion Gap 14, Blood Urea Nitrogen 38H, Creatinine 2.6H, Estimat Glomerular Filtration Rate 21.1, Glucose Level 115H, Calcium Level 7.9L Height (Feet): 5 Height (Inches): 7.00 Weight (Pounds): 150 Objective Elderly AA woman NCAT supple CTA RR abd soft no edema Kandace Dominguez MD Jun 02, 2020 22:50
[2020-06-03] VITALS: BP 144/53
--- NOTE | 2020-06-03 00:50 | Cardiology Progress Note ---
Subjective DATE OF SERVICE: Jun 02, 2020 Remains off pressors with stable BP readings. Monitor: sinus with rare atrial ectopics WBC count remaining elevated; Flow cytometry negative for Leukemia IV abx per ID team Objective Last 24 Hour Vital Signs Date Time Temp Pulse Resp B/P (MAP) Pulse Ox O2 Delivery O2 Flow Rate FiO2 06/03/20 00:00 98.4 90 21 144/53 (83) 95 06/02/20 21:00 Room Air 06/02/20 20:00 98.2 88 21 140/70 (93) 94 06/02/20 15:53 98.4 89 19 140/70 (93) 96 06/02/20 11:54 98.4 93 20 135/70 (91) 98 06/02/20 11:30 Room Air 06/02/20 09:00 Room Air 06/02/20 08:00 98.1 90 20 130/63 (85) 98 06/02/20 04:00 97.7 93 20 134/58 (83) 97 ROS: no change from my evaluation of 05/19/20. HEENT: normal ENT inspection LUNGS: lungs clear bilaterally CARDIAC: regular rhythm, normal S1 and S2, rapid rate, tachycardia ABDOMEN: soft, tender - mild diffuse EXTREMITIES: normal range of motion, No edema Laboratory Tests Test 06/02/20 06:50 Sodium Level 140 MMOL/L (136-145) Potassium Level 3.8 MMOL/L (3.5-5.1) Chloride Level 109 MMOL/L (98-107) H Carbon Dioxide Level 17 MMOL/L (21-32) L Anion Gap 14 mmol/L (5-15) Blood Urea Nitrogen 38 mg/dL (7-18) H Creatinine 2.6 MG/DL (0.55-1.30) H Estimat Glomerular Filtration Rate 21.1 mL/min (>60) Glucose Level 115 MG/DL (74-106) H Calcium Level 7.9 MG/DL (8.5-10.1) L Assessment/Plan Assessment/Plan Sepsis with shock - due to UTI Worsening leukocytosis Lactic acidosis resolved Transaminitis improving Ileus recovering Hypomagnesemia Hyponatremia Acute myocardial ischemia and possible NSTE myocardial infarction acute renal failure improved Broad sp antimicrobials Remain off pressors IVF adjustments per volume status IV Mg and PO4 replacement as needed Advance diet as tolerated DVT prophylaxis Dalton Valdez MD Jun 03, 2020 00:50
[2020-06-03 04:00] VITALS: BP 121/78
[2020-06-03] MEDS: NS w/KCl 20mEq 1000ml 1,000 ML IV SCH ×2 (06:42→15:48)
[2020-06-03 07:27] LABS: HEMATOCRIT 40.2 % (37.0-47.0); HEMOGLOBIN 13.2 G/DL (12.0-16.0); MEAN CORPUSCULAR VOLUME 91 FL (80-99); PLATELET COUNT 417 K/UL (150-450); RED BLOOD COUNT 4.42 M/UL (4.20-5.40); RED CELL DISTRIBUTION WIDTH 13.4 % (11.6-14.8)
[2020-06-03 07:42] LABS: WHITE BLOOD COUNT 26.3 K/UL (4.8-10.8)
[2020-06-03 08:00] VITALS: BP 136/64
[2020-06-03 08:24] LABS: ALBUMIN 1.6 G/DL (3.4-5.0); ALBUMIN/GLOBULIN RATIO 0.4 (1.0-2.7); CALCIUM 8.2 MG/DL (8.5-10.1); CREATININE 2.4 MG/DL (0.55-1.30); POTASSIUM 4.7 MMOL/L (3.5-5.1)
[2020-06-03 08:29] LABS: BILIRUBIN,DIRECT 1.7 MG/DL (0.0-0.3)
[2020-06-03] MEDS: Pantoprazole Inj IVP SCH ×2 (08:30→22:02)
[2020-06-03] MEDS: Lactobacillus-GG tablet NG SCH ×3 (08:30→18:17)
[2020-06-03] MEDS: Zinc Sulfate 220mg ORAL SCH (08:30)
[2020-06-03] MEDS: Ascorbic Acid 500mg tab ORAL SCH (08:30)
[2020-06-03] MEDS ORDERED: Metoclopramide 10mg/2ml Inj IVP PRN (10:15)
--- NOTE | 2020-06-03 10:16 | General Progress Note ---
Assessment/Plan Assessment/Plan: thrombocytopenia leukocytosis coagulopathy RI elevated LFTS CAD/VT gallstones dilated CBD and PD CT and us reviewed MRCP reviewed abx repeat labs prn imodium NGTF for now may need peg>>> family refused fu cardiology recs repeat labs in am ADD REGLAN PENDING JAYESH will fu Subjective ROS Limited/Unobtainable: No Allergies: Coded Allergies: No Known Allergies (Unverified , 05/28/13) Objective Last 24 Hour Vital Signs Date Time Temp Pulse Resp B/P (MAP) Pulse Ox O2 Delivery O2 Flow Rate FiO2 06/03/20 08:00 98.2 88 17 136/64 (88) 95 06/03/20 04:00 98.1 90 21 121/78 (92) 97 06/03/20 00:00 98.4 90 21 144/53 (83) 95 06/02/20 21:00 Room Air 06/02/20 20:00 98.2 88 21 140/70 (93) 94 06/02/20 15:53 98.4 89 19 140/70 (93) 96 06/02/20 11:54 98.4 93 20 135/70 (91) 98 06/02/20 11:30 Room Air Intake and Output 06/02/20 06/03/20 19:00 07:00 Intake Total 1795.0 ml 1810.0 ml Output Total 900 ml Balance 1795.0 ml 910.0 ml Free Water 200 ml 300 ml IV Total 1210.0 ml 1235.0 ml Tube Feeding 385 ml 275 ml Output Urine Total 900 ml Laboratory Tests 06/03/20 06:25: White Blood Count 26.3*H, Red Blood Count 4.42, Hemoglobin 13.2, Hematocrit 40.2 , Mean Corpuscular Volume 91, Mean Corpuscular Hemoglobin 29.7, Mean Corpuscular Hemoglobin Concent 32.7, Red Cell Distribution Width 13.4, Platelet Count 417, Mean Platelet Volume 5.8L, Neutrophils (%) (Auto) , Lymphocytes (%) ( Auto) , Monocytes (%) (Auto) , Eosinophils (%) (Auto) , Basophils (%) (Auto) , Neutrophils % (Manual) [Pending], Lymphocytes % (Manual) [Pending], Platelet Estimate [Pending], Platelet Morphology [Pending], Sodium Level 144, Potassium Level 4.7, Chloride Level 113H, Carbon Dioxide Level 19L, Anion Gap 12, Blood Urea Nitrogen 38H, Creatinine 2.4H, Estimat Glomerular Filtration Rate 23.0, Glucose Level 150H, Uric Acid 5.2, Calcium Level 8.2L, Phosphorus Level 6.0H, Magnesium Level 1.9, Total Bilirubin 2.0H, Direct Bilirubin 1.7H, Aspartate Amino Transf (AST/SGOT) 24, Alanine Aminotransferase (ALT/SGPT) 25, Alkaline Phosphatase 58, Total Protein 5.8L, Albumin 1.6L, Globulin 4.2, Albumin/ Globulin Ratio 0.4L Height (Feet): 5 Height (Inches): 7.00 Weight (Pounds): 150 General Appearance: no apparent distress EENT: normal ENT inspection Neck: supple Cardiovascular: normal rate Respiratory/Chest: decreased breath sounds Abdomen: normal bowel sounds, non tender, soft Extremities: non-tender Ludwig Wood MD Jun 03, 2020 10:16
--- NOTE | 2020-06-03 10:50 | Diagnostic Imaging Report ---
Procedure: XRAY Chest 1v Reason for study: Reason For Exam: COUGH Comparison films: 05/31/2020. FINDINGS: There is a new NG tube in the stomach. Vascularity is normal. Increased right perihilar infiltrate demonstrated. Left retrocardiac consolidation unchanged. Cardiomegaly and bilateral small effusions noted. The bony thorax appear unremarkable. IMPRESSION: New NG tube in good position. Increased right perihilar infiltrate. Left retrocardiac consolidation and small effusions unchanged.
--- NOTE | 2020-06-03 11:50 | Infectious Diseases Prog Note ---
"Assessment/Plan Assessment/Plan antibiotics : zosyn A 1. E.coli sepsis secondary to UTI 2. shock resolved 3. thrombocytopenia improving 4. ? cholecystitis ? cholangitis patient not a surgical candidate 5. leucocytosis improving 6. e.coli | klebsiella UTI 7. renal failure P 1. continue zosyn 2. will follow up cultures Subjective Constitutional: Denies: fever, chills Respiratory: Denies: shortness of breath, dry cough Gastrointestinal/Abdominal: Denies: nausea, vomiting, diarrhea Musculoskeletal: Reports: pain Allergies: Coded Allergies: No Known Allergies (Unverified , 05/28/13) Objective Last 24 Hour Vital Signs Date Time Temp Pulse Resp B/P (MAP) Pulse Ox O2 Delivery O2 Flow Rate FiO2 06/03/20 08:00 98.2 88 17 136/64 (88) 95 06/03/20 04:00 98.1 90 21 121/78 (92) 97 06/03/20 00:00 98.4 90 21 144/53 (83) 95 06/02/20 21:00 Room Air 06/02/20 20:00 98.2 88 21 140/70 (93) 94 06/02/20 15:53 98.4 89 19 140/70 (93) 96 06/02/20 11:54 98.4 93 20 135/70 (91) 98 Height (Feet): 5 Height (Inches): 7.00 Weight (Pounds): 150 Respiratory/Chest: lungs clear Cardiovascular: normal rate, regular rhythm, no gallop/murmur Abdomen: soft, non tender Extremities: no edema Laboratory Tests Test 06/03/20 06:25 White Blood Count 26.3 K/UL (4.8-10.8) *H Red Blood Count 4.42 M/UL (4.20-5.40) Hemoglobin 13.2 G/DL (12.0-16.0) Hematocrit 40.2 % (37.0-47.0) Mean Corpuscular Volume 91 FL (80-99) Mean Corpuscular Hemoglobin 29.7 PG (27.0-31.0) Mean Corpuscular Hemoglobin Concent 32.7 G/DL (32.0-36.0) Red Cell Distribution Width 13.4 % (11.6-14.8) Platelet Count 417 K/UL (150-450) Mean Platelet Volume 5.8 FL (6.5-10.1) L Neutrophils (%) (Auto) % (45.0-75.0) Lymphocytes (%) (Auto) % (20.0-45.0) Monocytes (%) (Auto) % (1.0-10.0) Eosinophils (%) (Auto) % (0.0-3.0) Basophils (%) (Auto) % (0.0-2.0) Differential Total Cells Counted 100 Neutrophils % (Manual) 87 % (45-75) H Lymphocytes % (Manual) 2 % (20-45) L Monocytes % (Manual) 6 % (1-10) Eosinophils % (Manual) 3 % (0-3) Basophils % (Manual) 0 % (0-2) Metamyelocytes % 2 % (0-0) H Band Neutrophils 0 % (0-8) Platelet Estimate Adequate Platelet Morphology Normal Red Blood Cell Morphology Normal Sodium Level 144 MMOL/L (136-145) Potassium Level 4.7 MMOL/L (3.5-5.1) Chloride Level 113 MMOL/L (98-107) H Carbon Dioxide Level 19 MMOL/L (21-32) L Anion Gap 12 mmol/L (5-15) Blood Urea Nitrogen 38 mg/dL (7-18) H Creatinine 2.4 MG/DL (0.55-1.30) H Estimat Glomerular Filtration Rate 23.0 mL/min (>60) Glucose Level 150 MG/DL (74-106) H Uric Acid 5.2 MG/DL (2.6-7.2) Calcium Level 8.2 MG/DL (8.5-10.1) L Phosphorus Level 6.0 MG/DL (2.5-4.9) H Magnesium Level 1.9 MG/DL (1.8-2.4) Total Bilirubin 2.0 MG/DL (0.2-1.0) H Direct Bilirubin 1.7 MG/DL (0.0-0.3) H Aspartate Amino Transf (AST/SGOT) 24 U/L (15-37) Alanine Aminotransferase (ALT/SGPT) 25 U/L (12-78) Alkaline Phosphatase 58 U/L (46-116) Total Protein 5.8 G/DL (6.4-8.2) L Albumin 1.6 G/DL (3.4-5.0) L Globulin 4.2 g/dL Albumin/Globulin Ratio 0.4 (1.0-2.7) L Current Medications Medications (Trade) Dose Ordered Sig/Gricelda Route PRN Reason Start Time Stop Time Status Last Admin Dose Admin Acetaminophen (Tylenol) 500 mg Q6HR PRN NG Temp >100.5 05/29/20 12:00 06/24/20 14:44 Ascorbic Acid (Vitamin C) 250 mg DAILY ORAL 05/29/20 09:00 06/28/20 08:59 06/03/20 08:30 Chlorhexidine Gluconate (Celi-Hex 2%) 1 applic DAILY@2000 TOPIC 05/29/20 20:00 08/18/20 19:59 Dextrose (Dextrose 50%) 25 ml Q30M PRN IV Hypoglycemia 05/29/20 06:45 08/17/20 19:14 Dextrose (Dextrose 50%) 50 ml Q30M PRN IV Hypoglycemia 05/29/20 06:45 08/17/20 19:14 Lactobacillus Acidophilus (Culturelle) 1 tab THREE TIMES A DAY NG 05/29/20 18:00 08/27/20 17:59 06/03/20 08:30 Loperamide HCl (Imodium) 2 mg Q6HR NG 05/29/20 19:00 06/28/20 18:59 06/02/20 17:11 Metoclopramide HCl (Reglan) 5 mg Q8H PRN IVP Nausea & Vomiting 06/03/20 10:15 07/03/20 10:14 Ondansetron HCl (Zofran) 4 mg Q6H PRN IVP Nausea & Vomiting 06/03/20 10:30 06/18/20 19:14 Pantoprazole (Protonix) 40 mg EVERY 12 HOURS IVP 05/29/20 09:00 06/19/20 08:59 06/03/20 08:30 Piperacillin Sod/ Tazobactam Sod 3.375 gm/Sodium Chloride 110 ml @ 27.5 mls/hr Q12H IVPB 05/29/20 12:00 06/05/20 11:59 06/02/20 22:59 Potassium Chloride/Sodium Chloride 1,000 ml @ 125 mls/hr Q8H IV 06/02/20 15:00 07/02/20 14:59 06/03/20 06:42 Zinc Sulfate (Zinc Sulfate) 220 mg DAILY ORAL 05/29/20 09:00 06/08/20 08:59 06/03/20 08:30 Jeff De La Cruz MD Jun 03, 2020 11:50"
[2020-06-03 12:00] VITALS: BP 131/70
[2020-06-03] MEDS: Piperacillin/Tazobactam 3.375 GM in NS 110 ML IVPB SCH (12:31)
[2020-06-03] MEDS ORDERED: Acetaminophen 650mg/20.3ml NG PRN (12:45)
[2020-06-03] MEDS ORDERED: Varibar Pudding 230ml MC PRN (13:30)
[2020-06-03] MEDS ORDERED: Varibar Nectar 240ml MC PRN (13:30)
[2020-06-03] MEDS ORDERED: Varibar Honey 250ml MC PRN (13:30)
[2020-06-03] MEDS ORDERED: Varibar Thin Liquid powder 148gm MC PRN (13:30)
[2020-06-03 16:00] VITALS: BP 148/72
--- NOTE | 2020-06-03 16:40 | Diagnostic Imaging Report ---
Indication: Dysphasia Procedure and findings: Fluoroscopic imaging provided for swallow evaluation performed by speech pathologist. Variable consistencies of barium given per mouth. Total fluoroscopy time 156.2 seconds. Total fluoroscopy dose 3.10 mGy. Total number fluoroscopic runs obtained: 5. IMPRESSION: Fluoroscopic imaging provided for swallow evaluation performed by speech pathology service. Please see full report from speech pathology.
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
--- NOTE | 2020-06-03 17:00 | Nephrology Progress Note ---
Assessment/Plan Problem List: (1) DIC (disseminated intravascular coagulation) (2) Thrombocytopenia (3) Lactic acidosis (4) Septic shock (5) Anemia (6) Hypokalemia (7) Rhabdomyolysis (8) Non-STEMI (non-ST elevated myocardial infarction) (9) ZEE (acute kidney injury) (10) Elevated liver enzymes (11) CHF (congestive heart failure) (12) Gram negative sepsis (13) Cholelithiasis (14) Metabolic encephalopathy (15) Hypophosphatemia (16) Decubital ulcer (17) Dysphagia (18) Hypomagnesemia (19) Granulocytic leukemoid reaction Plan orders updated, hydration, now starting diet after ST eval, still leukocytosis and frail, d/w daughter and consultants Subjective ROS Limited/Unobtainable: Yes Objective Objective Last 24 Hour Vital Signs Date Time Temp Pulse Resp B/P (MAP) Pulse Ox O2 Delivery O2 Flow Rate FiO2 06/03/20 16:00 98.8 85 17 148/72 (97) 96 06/03/20 12:00 98.6 83 19 131/70 (90) 96 06/03/20 09:00 Room Air 06/03/20 08:00 98.2 88 17 136/64 (88) 95 06/03/20 04:00 98.1 90 21 121/78 (92) 97 06/03/20 00:00 98.4 90 21 144/53 (83) 95 06/02/20 21:00 Room Air 06/02/20 20:00 98.2 88 21 140/70 (93) 94 Intake and Output 06/02/20 06/03/20 19:00 07:00 Intake Total 1795.0 ml 1810.0 ml Output Total 900 ml Balance 1795.0 ml 910.0 ml Free Water 200 ml 300 ml IV Total 1210.0 ml 1235.0 ml Tube Feeding 385 ml 275 ml Output Urine Total 900 ml Laboratory Tests 06/03/20 06:25: White Blood Count 26.3*H, Red Blood Count 4.42, Hemoglobin 13.2, Hematocrit 40.2 , Mean Corpuscular Volume 91, Mean Corpuscular Hemoglobin 29.7, Mean Corpuscular Hemoglobin Concent 32.7, Red Cell Distribution Width 13.4, Platelet Count 417, Mean Platelet Volume 5.8L, Neutrophils (%) (Auto) , Lymphocytes (%) ( Auto) , Monocytes (%) (Auto) , Eosinophils (%) (Auto) , Basophils (%) (Auto) , Differential Total Cells Counted 100, Neutrophils % (Manual) 87H, Lymphocytes % (Manual) 2L, Monocytes % (Manual) 6, Eosinophils % (Manual) 3, Basophils % ( Manual) 0, Metamyelocytes % 2H, Band Neutrophils 0, Platelet Estimate Adequate, Platelet Morphology Normal, Red Blood Cell Morphology Normal, Sodium Level 144, Potassium Level 4.7, Chloride Level 113H, Carbon Dioxide Level 19L, Anion Gap 12 , Blood Urea Nitrogen 38H, Creatinine 2.4H, Estimat Glomerular Filtration Rate 23.0, Glucose Level 150H, Uric Acid 5.2, Calcium Level 8.2L, Phosphorus Level 6.0H, Magnesium Level 1.9, Total Bilirubin 2.0H, Direct Bilirubin 1.7H, Aspartate Amino Transf (AST/SGOT) 24, Alanine Aminotransferase (ALT/SGPT) 25, Alkaline Phosphatase 58, Total Protein 5.8L, Albumin 1.6L, Globulin 4.2, Albumin /Globulin Ratio 0.4L Height (Feet): 5 Height (Inches): 7.00 Weight (Pounds): 150 General Appearance: confused EENT: normal ENT inspection Neck: normal alignment Cardiovascular: normal rate Respiratory/Chest: lungs clear Abdomen: non tender, soft Extremities: trace edema Neurologic: mobile paramedical examiner II-XII grossly normal, disoriented Eric Wilkins MD Jun 03, 2020 17:00
[2020-06-03] MEDS ORDERED: NS w/KCl 20mEq 1000ml 1,000 ML IV SCH (17:15)
[2020-06-03 20:00] VITALS: BP 129/89
[2020-06-03] MEDS: Dyna-Hex 2% Top Sol 2oz TOPIC SCH (22:02)
[2020-06-04] VITALS: BP 141/77
[2020-06-04] MEDS: Piperacillin/Tazobactam 3.375 GM in NS 110 ML IVPB SCH ×2 (00:47→12:35)
--- NOTE | 2020-06-04 01:28 | Cardiology Progress Note ---
Subjective DATE OF SERVICE: Jun 03, 2020 Remains off pressors with stable BP readings. Monitor: sinus with rare atrial ectopics WBC count remaining elevated; Flow cytometry negative for Leukemia IV abx per ID team CXR 06/03: still with right infiltrate - worsened Objective Last 24 Hour Vital Signs Date Time Temp Pulse Resp B/P (MAP) Pulse Ox O2 Delivery O2 Flow Rate FiO2 06/04/20 00:00 97.8 89 20 141/77 (98) 95 06/03/20 21:00 Room Air 06/03/20 20:00 97.2 95 20 129/89 (102) 96 06/03/20 16:00 98.8 85 17 148/72 (97) 96 06/03/20 12:00 98.6 83 19 131/70 (90) 96 06/03/20 09:00 Room Air 06/03/20 08:00 98.2 88 17 136/64 (88) 95 06/03/20 04:00 98.1 90 21 121/78 (92) 97 ROS: no change from my evaluation of 05/19/20. HEENT: normal ENT inspection LUNGS: right-sided rhonchi CARDIAC: regular rhythm, normal S1 and S2, rapid rate, tachycardia ABDOMEN: soft, tender - mild diffuse EXTREMITIES: normal range of motion, No edema Laboratory Tests Test 06/03/20 06:25 White Blood Count 26.3 K/UL (4.8-10.8) *H Red Blood Count 4.42 M/UL (4.20-5.40) Hemoglobin 13.2 G/DL (12.0-16.0) Hematocrit 40.2 % (37.0-47.0) Mean Corpuscular Volume 91 FL (80-99) Mean Corpuscular Hemoglobin 29.7 PG (27.0-31.0) Mean Corpuscular Hemoglobin Concent 32.7 G/DL (32.0-36.0) Red Cell Distribution Width 13.4 % (11.6-14.8) Platelet Count 417 K/UL (150-450) Mean Platelet Volume 5.8 FL (6.5-10.1) L Neutrophils (%) (Auto) % (45.0-75.0) Lymphocytes (%) (Auto) % (20.0-45.0) Monocytes (%) (Auto) % (1.0-10.0) Eosinophils (%) (Auto) % (0.0-3.0) Basophils (%) (Auto) % (0.0-2.0) Differential Total Cells Counted 100 Neutrophils % (Manual) 87 % (45-75) H Lymphocytes % (Manual) 2 % (20-45) L Monocytes % (Manual) 6 % (1-10) Eosinophils % (Manual) 3 % (0-3) Basophils % (Manual) 0 % (0-2) Metamyelocytes % 2 % (0-0) H Band Neutrophils 0 % (0-8) Platelet Estimate Adequate Platelet Morphology Normal Red Blood Cell Morphology Normal Sodium Level 144 MMOL/L (136-145) Potassium Level 4.7 MMOL/L (3.5-5.1) Chloride Level 113 MMOL/L (98-107) H Carbon Dioxide Level 19 MMOL/L (21-32) L Anion Gap 12 mmol/L (5-15) Blood Urea Nitrogen 38 mg/dL (7-18) H Creatinine 2.4 MG/DL (0.55-1.30) H Estimat Glomerular Filtration Rate 23.0 mL/min (>60) Glucose Level 150 MG/DL (74-106) H Uric Acid 5.2 MG/DL (2.6-7.2) Calcium Level 8.2 MG/DL (8.5-10.1) L Phosphorus Level 6.0 MG/DL (2.5-4.9) H Magnesium Level 1.9 MG/DL (1.8-2.4) Total Bilirubin 2.0 MG/DL (0.2-1.0) H Direct Bilirubin 1.7 MG/DL (0.0-0.3) H Aspartate Amino Transf (AST/SGOT) 24 U/L (15-37) Alanine Aminotransferase (ALT/SGPT) 25 U/L (12-78) Alkaline Phosphatase 58 U/L (46-116) Total Protein 5.8 G/DL (6.4-8.2) L Albumin 1.6 G/DL (3.4-5.0) L Globulin 4.2 g/dL Albumin/Globulin Ratio 0.4 (1.0-2.7) L Assessment/Plan Assessment/Plan Sepsis with shock - due to UTI Worsening leukocytosis Lactic acidosis resolved Transaminitis improving Ileus recovering Hypomagnesemia Hyponatremia Acute myocardial ischemia and possible NSTE myocardial infarction acute renal failure improved Broad sp antimicrobials Remain off pressors IVF adjustments per volume status IV Mg and PO4 replacement as needed Advance diet as tolerated with asp'n prec DVT prophylaxis Dalton Valdez MD Jun 04, 2020 01:28
[2020-06-04 04:00] VITALS: BP 140/78
[2020-06-04 06:49] LABS: HEMATOCRIT 39.3 % (37.0-47.0); HEMOGLOBIN 12.9 G/DL (12.0-16.0); MEAN CORPUSCULAR VOLUME 90 FL (80-99); PLATELET COUNT 442 K/UL (150-450); RED BLOOD COUNT 4.35 M/UL (4.20-5.40); RED CELL DISTRIBUTION WIDTH 13.3 % (11.6-14.8)
[2020-06-04 06:50] LABS: CALCIUM 8.2 MG/DL (8.5-10.1); CREATININE 2.3 MG/DL (0.55-1.30); POTASSIUM 4.6 MMOL/L (3.5-5.1)
[2020-06-04 07:24] LABS: WHITE BLOOD COUNT 24.1 K/UL (4.8-10.8)
[2020-06-04 08:00] VITALS: BP 142/70
--- NOTE | 2020-06-04 08:51 | General Progress Note ---
Assessment/Plan Assessment/Plan: thrombocytopenia leukocytosis coagulopathy RI elevated LFTS CAD/WI gallstones dilated CBD and PD CT and us reviewed MRCP reviewed abx repeat labs prn imodium fu cardiology recs repeat labs in am passed swallow eval monitor po intake hold peg plans for now Subjective ROS Limited/Unobtainable: No Allergies: Coded Allergies: No Known Allergies (Unverified , 05/28/13) Objective Last 24 Hour Vital Signs Date Time Temp Pulse Resp B/P (MAP) Pulse Ox O2 Delivery O2 Flow Rate FiO2 06/04/20 08:00 97.0 84 19 142/70 (94) 96 06/04/20 04:00 97.5 95 18 140/78 (98) 95 06/04/20 00:00 97.8 89 20 141/77 (98) 95 06/03/20 21:00 Room Air 06/03/20 20:00 97.2 95 20 129/89 (102) 96 06/03/20 16:00 98.8 85 17 148/72 (97) 96 06/03/20 12:00 98.6 83 19 131/70 (90) 96 06/03/20 09:00 Room Air Intake and Output 06/03/20 06/04/20 19:00 07:00 Output Total 800 ml 700 ml Balance -800 ml -700 ml Output Urine Total 800 ml 700 ml Laboratory Tests 06/04/20 05:20: White Blood Count 24.1*H, Red Blood Count 4.35, Hemoglobin 12.9, Hematocrit 39.3 , Mean Corpuscular Volume 90, Mean Corpuscular Hemoglobin 29.7, Mean Corpuscular Hemoglobin Concent 32.9, Red Cell Distribution Width 13.3, Platelet Count 442, Mean Platelet Volume 5.8L, Neutrophils (%) (Auto) , Lymphocytes (%) ( Auto) , Monocytes (%) (Auto) , Eosinophils (%) (Auto) , Basophils (%) (Auto) , Neutrophils % (Manual) [Pending], Lymphocytes % (Manual) [Pending], Platelet Estimate [Pending], Platelet Morphology [Pending], Sodium Level 150H, Potassium Level 4.6, Chloride Level 117H, Carbon Dioxide Level 19L, Anion Gap 14, Blood Urea Nitrogen 32H, Creatinine 2.3H, Estimat Glomerular Filtration Rate 24.2, Glucose Level 82, Calcium Level 8.2L Height (Feet): 5 Height (Inches): 7.00 Weight (Pounds): 150 General Appearance: no apparent distress EENT: normal ENT inspection Neck: supple Cardiovascular: normal rate Respiratory/Chest: decreased breath sounds Abdomen: normal bowel sounds, non tender, soft Extremities: non-tender Ludwig Wood MD Jun 04, 2020 08:51
[2020-06-04] MEDS: Zinc Sulfate 220mg ORAL SCH (09:26)
[2020-06-04] MEDS: Lactobacillus-GG tablet NG SCH ×3 (09:26→17:45)
[2020-06-04] MEDS: Ascorbic Acid 500mg tab ORAL SCH (09:26)
[2020-06-04] MEDS: Pantoprazole Inj IVP SCH (09:26)
[2020-06-04] MEDS: D5W w/KCl 20mEq 1,000 ML IV SCH ×2 (11:00→17:45)
--- NOTE | 2020-06-04 11:08 | Infectious Diseases Prog Note ---
"Assessment/Plan Assessment/Plan antibiotics : zosyn A 1. E.coli sepsis secondary to UTI 2. shock resolved 3. thrombocytopenia improving 4. ? cholecystitis ? cholangitis patient not a surgical candidate 5. leucocytosis improving 6. e.coli | klebsiella UTI 7. renal failure P 1. continue zosyn 3 more days 2. will follow up cultures Subjective Constitutional: Denies: fever, chills Respiratory: Denies: shortness of breath, dry cough Gastrointestinal/Abdominal: Denies: nausea, vomiting, diarrhea Musculoskeletal: Reports: pain Allergies: Coded Allergies: No Known Allergies (Unverified , 05/28/13) Objective Last 24 Hour Vital Signs Date Time Temp Pulse Resp B/P (MAP) Pulse Ox O2 Delivery O2 Flow Rate FiO2 06/04/20 08:00 97.0 84 19 142/70 (94) 96 06/04/20 04:00 97.5 95 18 140/78 (98) 95 06/04/20 00:00 97.8 89 20 141/77 (98) 95 06/03/20 21:00 Room Air 06/03/20 20:00 97.2 95 20 129/89 (102) 96 06/03/20 16:00 98.8 85 17 148/72 (97) 96 06/03/20 12:00 98.6 83 19 131/70 (90) 96 Height (Feet): 5 Height (Inches): 7.00 Weight (Pounds): 150 Respiratory/Chest: lungs clear Cardiovascular: normal rate, regular rhythm, no gallop/murmur Abdomen: soft, non tender Extremities: no edema Laboratory Tests Test 06/04/20 05:20 White Blood Count 24.1 K/UL (4.8-10.8) *H Red Blood Count 4.35 M/UL (4.20-5.40) Hemoglobin 12.9 G/DL (12.0-16.0) Hematocrit 39.3 % (37.0-47.0) Mean Corpuscular Volume 90 FL (80-99) Mean Corpuscular Hemoglobin 29.7 PG (27.0-31.0) Mean Corpuscular Hemoglobin Concent 32.9 G/DL (32.0-36.0) Red Cell Distribution Width 13.3 % (11.6-14.8) Platelet Count 442 K/UL (150-450) Mean Platelet Volume 5.8 FL (6.5-10.1) L Neutrophils (%) (Auto) % (45.0-75.0) Lymphocytes (%) (Auto) % (20.0-45.0) Monocytes (%) (Auto) % (1.0-10.0) Eosinophils (%) (Auto) % (0.0-3.0) Basophils (%) (Auto) % (0.0-2.0) Differential Total Cells Counted 100 Neutrophils % (Manual) 73 % (45-75) Lymphocytes % (Manual) 6 % (20-45) L Monocytes % (Manual) 6 % (1-10) Eosinophils % (Manual) 9 % (0-3) H Basophils % (Manual) 0 % (0-2) Myelocytes % 1 % (0-0) H Band Neutrophils 5 % (0-8) Platelet Estimate Adequate Platelet Morphology Normal Red Blood Cell Morphology Normal Sodium Level 150 MMOL/L (136-145) H Potassium Level 4.6 MMOL/L (3.5-5.1) Chloride Level 117 MMOL/L (98-107) H Carbon Dioxide Level 19 MMOL/L (21-32) L Anion Gap 14 mmol/L (5-15) Blood Urea Nitrogen 32 mg/dL (7-18) H Creatinine 2.3 MG/DL (0.55-1.30) H Estimat Glomerular Filtration Rate 24.2 mL/min (>60) Glucose Level 82 MG/DL (74-106) Calcium Level 8.2 MG/DL (8.5-10.1) L Current Medications Medications (Trade) Dose Ordered Sig/Gricelda Route PRN Reason Start Time Stop Time Status Last Admin Dose Admin Acetaminophen (Tylenol) 500 mg Q6H PRN NG For Pain 06/03/20 12:45 07/03/20 12:44 Acetaminophen (Tylenol) 500 mg Q6HR PRN NG Temp >100.5 05/29/20 12:00 06/24/20 14:44 Ascorbic Acid (Vitamin C) 250 mg DAILY ORAL 05/29/20 09:00 06/28/20 08:59 06/04/20 09:26 Barium Sulfate (Varibar Honey) 250 ml NOW PRN MC RAD 06/03/20 13:30 06/06/20 13:29 Barium Sulfate (Varibar [place]) 240 ml NOW PRN MC RAD 06/03/20 13:30 06/06/20 13:29 Barium Sulfate (Varibar Pudding) 230 ml NOW PRN MC RAD 06/03/20 13:30 06/06/20 13:29 Barium Sulfate (Varibar Thin Liquid powder) 148 gm NOW PRN RAD 06/03/20 13:30 06/06/20 13:29 Chlorhexidine Gluconate (Celi-Hex 2%) 1 applic DAILY@2000 TOPIC 05/29/20 20:00 08/18/20 19:59 06/03/20 22:02 Dextrose (Dextrose 50%) 25 ml Q30M PRN IV Hypoglycemia 05/29/20 06:45 08/17/20 19:14 Dextrose (Dextrose 50%) 50 ml Q30M PRN IV Hypoglycemia 05/29/20 06:45 08/17/20 19:14 Dextrose/ Electrolytes 1,000 ml @ 150 mls/hr Q6H40M IV 06/04/20 11:00 07/04/20 10:59 Lactobacillus Acidophilus (Culturelle) 1 tab THREE TIMES A DAY NG 05/29/20 18:00 08/27/20 17:59 06/04/20 09:26 Loperamide HCl (Imodium) 2 mg Q6HR NG 05/29/20 19:00 06/28/20 18:59 06/02/20 17:11 Metoclopramide HCl (Reglan) 5 mg Q8H PRN IVP Nausea & Vomiting 06/03/20 10:15 07/03/20 10:14 Ondansetron HCl (Zofran) 4 mg Q6H PRN IVP Nausea & Vomiting 06/03/20 10:30 06/18/20 19:14 Pantoprazole (Protonix) 40 mg EVERY 12 HOURS IVP 05/29/20 09:00 06/19/20 08:59 06/04/20 09:26 Piperacillin Sod/ Tazobactam Sod 3.375 gm/Sodium Chloride 110 ml @ 27.5 mls/hr Q12H IVPB 05/29/20 12:00 06/05/20 11:59 06/04/20 00:47 Zinc Sulfate (Zinc Sulfate) 220 mg DAILY ORAL 05/29/20 09:00 06/08/20 08:59 06/04/20 09:26 Jeff De La Cruz MD Jun 04, 2020 11:08"
[2020-06-04 12:00] VITALS: BP 167/87
[2020-06-04] MEDS ORDERED: Sterile Water Irrig 1000ml IRRIG ONE (15:25)
[2020-06-04 16:00] VITALS: BP 158/74
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
[2020-06-04 20:00] VITALS: BP 159/80
[2020-06-04] MEDS: Dyna-Hex 2% Top Sol 2oz TOPIC SCH (20:00)
--- NOTE | 2020-06-04 20:16 | General Progress Note ---
Assessment/Plan Problem List: (1) DIC (disseminated intravascular coagulation) ICD Codes: D65 - Disseminated intravascular coagulation [defibrination syndrome ] SNOMED: 64619721 (2) Thrombocytopenia ICD Codes: D69.6 - Thrombocytopenia, unspecified SNOMED: 952713751 (3) Lactic acidosis ICD Codes: E87.2 - Acidosis SNOMED: 06677014 (4) Septic shock ICD Codes: A41.9 - Sepsis, unspecified organism; R65.21 - Severe sepsis with septic shock SNOMED: 07477768 (5) Anemia ICD Codes: D64.9 - Anemia, unspecified SNOMED: 085026102 (6) Hypokalemia ICD Codes: E87.6 - Hypokalemia SNOMED: 25964581 (7) Rhabdomyolysis ICD Codes: M62.82 - Rhabdomyolysis SNOMED: 870776967 (8) Non-STEMI (non-ST elevated myocardial infarction) ICD Codes: I21.4 - Non-ST elevation (NSTEMI) myocardial infarction SNOMED: 10573943 (9) ZEE (acute kidney injury) ICD Codes: N17.9 - Acute kidney failure, unspecified SNOMED: 0764240, 96307465 (10) Elevated liver enzymes ICD Codes: R74.8 - Abnormal levels of other serum enzymes SNOMED: 961620384 (11) CHF (congestive heart failure) ICD Codes: I50.9 - Heart failure, unspecified SNOMED: 33203631 (12) Gram negative sepsis ICD Codes: A41.50 - Gram-negative sepsis, unspecified SNOMED: 523961855 (13) Cholelithiasis ICD Codes: K80.20 - Calculus of gallbladder without cholecystitis without obstruction SNOMED: 857620184 (14) Metabolic encephalopathy ICD Codes: G93.41 - Metabolic encephalopathy SNOMED: 49777449 (15) Hypophosphatemia ICD Codes: E83.39 - Other disorders of phosphorus metabolism SNOMED: 3688917 (16) Decubital ulcer ICD Codes: L89.90 - Pressure ulcer of unspecified site, unspecified stage SNOMED: 954594015 (17) Dysphagia ICD Codes: R13.10 - Dysphagia, unspecified SNOMED: 27524330, 430894131 (18) Hypomagnesemia ICD Codes: E83.42 - Hypomagnesemia SNOMED: 112692677 (19) Granulocytic leukemoid reaction ICD Codes: D72.823 - Leukemoid reaction SNOMED: 34543208 Assessment/Plan: orders updated continue broad-spectrum antibiotics, for e coli bacteremia and e coli+klebsiella uti consultants notes are all reviewed her condition remains high risk this is discussed in detail with the daughter in the area code [id number] tube feeding stopped ,ST eval noted, taking only small amount po diet, BUN and creatinine high ,wbc high check flow cytometry--no leukemia, replace Mg , continue iv hydration , still diarrhea Subjective ROS Limited/Unobtainable: Yes Allergies: Coded Allergies: No Known Allergies (Unverified , 05/28/13) Objective Last 24 Hour Vital Signs Date Time Temp Pulse Resp B/P (MAP) Pulse Ox O2 Delivery O2 Flow Rate FiO2 06/04/20 16:00 98.2 88 20 158/74 (102) 96 06/04/20 12:00 97.7 95 19 167/87 (113) 96 06/04/20 09:00 Room Air 06/04/20 08:00 97.0 84 19 142/70 (94) 96 06/04/20 04:00 97.5 95 18 140/78 (98) 95 06/04/20 00:00 97.8 89 20 141/77 (98) 95 06/03/20 21:00 Room Air Intake and Output 06/03/20 06/04/20 19:00 07:00 Intake Total 110.0 ml Output Total 800 ml 700 ml Balance -690.0 ml -700 ml IV Total 110.0 ml Output Urine Total 800 ml 700 ml Laboratory Tests 06/04/20 05:20: White Blood Count 24.1*H, Red Blood Count 4.35, Hemoglobin 12.9, Hematocrit 39.3 , Mean Corpuscular Volume 90, Mean Corpuscular Hemoglobin 29.7, Mean Corpuscular Hemoglobin Concent 32.9, Red Cell Distribution Width 13.3, Platelet Count 442, Mean Platelet Volume 5.8L, Neutrophils (%) (Auto) , Lymphocytes (%) ( Auto) , Monocytes (%) (Auto) , Eosinophils (%) (Auto) , Basophils (%) (Auto) , Differential Total Cells Counted 100, Neutrophils % (Manual) 73, Lymphocytes % ( Manual) 6L, Monocytes % (Manual) 6, Eosinophils % (Manual) 9H, Basophils % ( Manual) 0, Myelocytes % 1H, Band Neutrophils 5, Platelet Estimate Adequate, Platelet Morphology Normal, Red Blood Cell Morphology Normal, Sodium Level 150H , Potassium Level 4.6, Chloride Level 117H, Carbon Dioxide Level 19L, Anion Gap 14, Blood Urea Nitrogen 32H, Creatinine 2.3H, Estimat Glomerular Filtration Rate 24.2, Glucose Level 82, Calcium Level 8.2L Height (Feet): 5 Height (Inches): 7.00 Weight (Pounds): 150 General Appearance: alert, confused EENT: normal ENT inspection Neck: normal alignment Cardiovascular: normal rate Respiratory/Chest: lungs clear Abdomen: no organomegaly Edema: trace edema 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
[2020-06-05] VITALS: BP 140/77
[2020-06-05] MEDS: Piperacillin/Tazobactam 3.375 GM in NS 110 ML IVPB SCH ×2 (00:04→11:14)
[2020-06-05] MEDS: D5W w/KCl 20mEq 1,000 ML IV SCH ×4 (00:04→16:28)
--- NOTE | 2020-06-05 01:48 | Cardiology Progress Note ---
Subjective DATE OF SERVICE: Jun 04, 2020 Remains off pressors with stable BP readings. Monitor: sinus with rare atrial ectopics WBC count remaining elevated; Flow cytometry negative for Leukemia IV abx per ID team CXR 06/03: still with right infiltrate - worsened Objective Last 24 Hour Vital Signs Date Time Temp Pulse Resp B/P (MAP) Pulse Ox O2 Delivery O2 Flow Rate FiO2 06/05/20 00:00 97.3 84 18 140/77 (98) 96 06/04/20 21:00 Room Air 06/04/20 20:00 98.1 91 20 159/80 (106) 96 06/04/20 16:00 98.2 88 20 158/74 (102) 96 06/04/20 12:00 97.7 95 19 167/87 (113) 96 06/04/20 09:00 Room Air 06/04/20 08:00 97.0 84 19 142/70 (94) 96 06/04/20 04:00 97.5 95 18 140/78 (98) 95 ROS: no change from my evaluation of 05/19/20. HEENT: normal ENT inspection LUNGS: right-sided rhonchi CARDIAC: regular rhythm, normal S1 and S2, rapid rate, tachycardia ABDOMEN: soft, tender - mild diffuse EXTREMITIES: normal range of motion, No edema Laboratory Tests Test 06/04/20 05:20 White Blood Count 24.1 K/UL (4.8-10.8) *H Red Blood Count 4.35 M/UL (4.20-5.40) Hemoglobin 12.9 G/DL (12.0-16.0) Hematocrit 39.3 % (37.0-47.0) Mean Corpuscular Volume 90 FL (80-99) Mean Corpuscular Hemoglobin 29.7 PG (27.0-31.0) Mean Corpuscular Hemoglobin Concent 32.9 G/DL (32.0-36.0) Red Cell Distribution Width 13.3 % (11.6-14.8) Platelet Count 442 K/UL (150-450) Mean Platelet Volume 5.8 FL (6.5-10.1) L Neutrophils (%) (Auto) % (45.0-75.0) Lymphocytes (%) (Auto) % (20.0-45.0) Monocytes (%) (Auto) % (1.0-10.0) Eosinophils (%) (Auto) % (0.0-3.0) Basophils (%) (Auto) % (0.0-2.0) Differential Total Cells Counted 100 Neutrophils % (Manual) 73 % (45-75) Lymphocytes % (Manual) 6 % (20-45) L Monocytes % (Manual) 6 % (1-10) Eosinophils % (Manual) 9 % (0-3) H Basophils % (Manual) 0 % (0-2) Myelocytes % 1 % (0-0) H Band Neutrophils 5 % (0-8) Platelet Estimate Adequate Platelet Morphology Normal Red Blood Cell Morphology Normal Sodium Level 150 MMOL/L (136-145) H Potassium Level 4.6 MMOL/L (3.5-5.1) Chloride Level 117 MMOL/L (98-107) H Carbon Dioxide Level 19 MMOL/L (21-32) L Anion Gap 14 mmol/L (5-15) Blood Urea Nitrogen 32 mg/dL (7-18) H Creatinine 2.3 MG/DL (0.55-1.30) H Estimat Glomerular Filtration Rate 24.2 mL/min (>60) Glucose Level 82 MG/DL (74-106) Calcium Level 8.2 MG/DL (8.5-10.1) L Assessment/Plan Assessment/Plan Sepsis with shock - due to UTI Worsening leukocytosis Lactic acidosis resolved Transaminitis improving Ileus recovering Hypomagnesemia Hyponatremia Acute myocardial ischemia and possible NSTE myocardial infarction acute renal failure improved Hypertension'HHD Broad sp antimicrobials Titrate antiHTN meds based on clinical parameters IVF adjustments per volume status IV Mg and PO4 replacement as needed Advance diet as tolerated with asp'n prec DVT prophylaxis Dalton Valdez MD Jun 05, 2020 01:48
[2020-06-05 04:00] VITALS: BP 146/77
[2020-06-05 06:04] LABS: HEMATOCRIT 38.5 % (37.0-47.0); HEMOGLOBIN 12.7 G/DL (12.0-16.0); MEAN CORPUSCULAR VOLUME 91 FL (80-99); PLATELET COUNT 417 K/UL (150-450); RED BLOOD COUNT 4.23 M/UL (4.20-5.40); RED CELL DISTRIBUTION WIDTH 13.5 % (11.6-14.8)
[2020-06-05 06:21] LABS: WHITE BLOOD COUNT 24.7 K/UL (4.8-10.8)
[2020-06-05 07:16] LABS: CALCIUM 7.9 MG/DL (8.5-10.1); CREATININE 2.2 MG/DL (0.55-1.30); PHOSPHORUS 4.4 MG/DL (2.5-4.9); POTASSIUM 4.8 MMOL/L (3.5-5.1)
[2020-06-05 08:00] VITALS: BP 160/79
--- NOTE | 2020-06-05 08:26 | General Progress Note ---
Assessment/Plan Assessment/Plan: thrombocytopenia leukocytosis coagulopathy RI elevated LFTS CAD/VT gallstones dilated CBD and PD CT and us reviewed MRCP reviewed abx repeat labs prn imodium fu cardiology recs repeat labs in am passed swallow eval monitor po intake hold peg plans for now Subjective ROS Limited/Unobtainable: No Allergies: Coded Allergies: No Known Allergies (Unverified , 05/28/13) Objective Last 24 Hour Vital Signs Date Time Temp Pulse Resp B/P (MAP) Pulse Ox O2 Delivery O2 Flow Rate FiO2 06/05/20 04:00 97.9 89 20 146/77 (100) 96 06/05/20 00:00 97.3 84 18 140/77 (98) 96 06/04/20 21:00 Room Air 06/04/20 20:00 98.1 91 20 159/80 (106) 96 06/04/20 16:00 98.2 88 20 158/74 (102) 96 06/04/20 12:00 97.7 95 19 167/87 (113) 96 06/04/20 09:00 Room Air Intake and Output 06/04/20 06/05/20 19:00 07:00 Intake Total 415.0 ml 400 ml Output Total 500 ml 700 ml Balance -85.0 ml -300 ml Intake Oral 360 ml 400 ml IV Total 55.0 ml Output Urine Total 500 ml 700 ml Laboratory Tests 06/05/20 05:23: White Blood Count 24.7*H, Red Blood Count 4.23, Hemoglobin 12.7, Hematocrit 38.5, Mean Corpuscular Volume 91, Mean Corpuscular Hemoglobin 29.9, Mean Corpuscular Hemoglobin Concent 32.9, Red Cell Distribution Width 13.5, Platelet Count 417, Mean Platelet Volume 5.8L, Neutrophils (%) (Auto) , Lymphocytes (%) (Auto) , Monocytes (%) (Auto) , Eosinophils (%) (Auto) , Basophils (%) (Auto) , Neutrophils % (Manual) [Pending], Lymphocytes % (Manual) [Pending], Platelet Estimate [Pending], Platelet Morphology [Pending], Sodium Level 144, Potassium Level 4.8, Chloride Level 111H, Carbon Dioxide Level 19L, Anion Gap 14, Blood Urea Nitrogen 30H, Creatinine 2.2H, Estimat Glomerular Filtration Rate 25.5, Glucose Level 116H, Calcium Level 7.9L, Phosphorus Level 4.4, Magnesium Level 1.2L Height (Feet): 5 Height (Inches): 7.00 Weight (Pounds): 150 General Appearance: no apparent distress EENT: normal ENT inspection Neck: supple Cardiovascular: normal rate Respiratory/Chest: decreased breath sounds Abdomen: normal bowel sounds, non tender, soft Extremities: non-tender Ludwig Wood MD Jun 05, 2020 08:26
[2020-06-05] MEDS: Zinc Sulfate 220mg ORAL SCH (08:57)
[2020-06-05] MEDS: Ascorbic Acid 500mg tab ORAL SCH (08:57)
[2020-06-05] MEDS: Lactobacillus-GG tablet NG SCH ×3 (08:57→17:18)
--- NOTE | 2020-06-05 10:50 | Infectious Diseases Prog Note ---
"Assessment/Plan Assessment/Plan antibiotics : zosyn A 1. E.coli sepsis secondary to UTI 2. shock resolved 3. thrombocytopenia improving 4. ? cholecystitis ? cholangitis patient not a surgical candidate 5. leucocytosis improving 6. e.coli | klebsiella UTI 7. renal failure P 1. continue zosyn 2 more days 2. will follow up cultures Subjective ROS Limited/Unobtainable: Yes Allergies: Coded Allergies: No Known Allergies (Unverified , 05/28/13) Objective Last 24 Hour Vital Signs Date Time Temp Pulse Resp B/P (MAP) Pulse Ox O2 Delivery O2 Flow Rate FiO2 06/05/20 09:00 Room Air 06/05/20 08:00 97.7 86 18 160/79 (106) 96 06/05/20 04:00 97.9 89 20 146/77 (100) 96 06/05/20 00:00 97.3 84 18 140/77 (98) 96 06/04/20 21:00 Room Air 06/04/20 20:00 98.1 91 20 159/80 (106) 96 06/04/20 16:00 98.2 88 20 158/74 (102) 96 06/04/20 12:00 97.7 95 19 167/87 (113) 96 Height (Feet): 5 Height (Inches): 7.00 Weight (Pounds): 150 Respiratory/Chest: lungs clear Cardiovascular: normal rate, regular rhythm, no gallop/murmur Abdomen: soft, non tender Extremities: no edema Laboratory Tests Test 06/05/20 05:23 White Blood Count 24.7 K/UL (4.8-10.8) *H Red Blood Count 4.23 M/UL (4.20-5.40) Hemoglobin 12.7 G/DL (12.0-16.0) Hematocrit 38.5 % (37.0-47.0) Mean Corpuscular Volume 91 FL (80-99) Mean Corpuscular Hemoglobin 29.9 PG (27.0-31.0) Mean Corpuscular Hemoglobin Concent 32.9 G/DL (32.0-36.0) Red Cell Distribution Width 13.5 % (11.6-14.8) Platelet Count 417 K/UL (150-450) Mean Platelet Volume 5.8 FL (6.5-10.1) L Neutrophils (%) (Auto) % (45.0-75.0) Lymphocytes (%) (Auto) % (20.0-45.0) Monocytes (%) (Auto) % (1.0-10.0) Eosinophils (%) (Auto) % (0.0-3.0) Basophils (%) (Auto) % (0.0-2.0) Neutrophils % (Manual) Pending Lymphocytes % (Manual) Pending Platelet Estimate Pending Platelet Morphology Pending Sodium Level 144 MMOL/L (136-145) Potassium Level 4.8 MMOL/L (3.5-5.1) Chloride Level 111 MMOL/L (98-107) H Carbon Dioxide Level 19 MMOL/L (21-32) L Anion Gap 14 mmol/L (5-15) Blood Urea Nitrogen 30 mg/dL (7-18) H Creatinine 2.2 MG/DL (0.55-1.30) H Estimat Glomerular Filtration Rate 25.5 mL/min (>60) Glucose Level 116 MG/DL (74-106) H Calcium Level 7.9 MG/DL (8.5-10.1) L Phosphorus Level 4.4 MG/DL (2.5-4.9) Magnesium Level 1.2 MG/DL (1.8-2.4) L Current Medications Medications (Trade) Dose Ordered Sig/Gricelda Route PRN Reason Start Time Stop Time Status Last Admin Dose Admin Acetaminophen (Tylenol) 500 mg Q6H PRN NG For Pain 06/03/20 12:45 07/03/20 12:44 Acetaminophen (Tylenol) 500 mg Q6HR PRN NG Temp >100.5 05/29/20 12:00 06/24/20 14:44 Ascorbic Acid (Vitamin C) 250 mg DAILY ORAL 05/29/20 09:00 06/28/20 08:59 06/05/20 08:57 Barium Sulfate (Varibar Honey) 250 ml NOW PRN RAD 06/03/20 13:30 06/06/20 13:29 Barium Sulfate (Varibar [place]) 240 ml NOW PRN RAD 06/03/20 13:30 06/06/20 13:29 Barium Sulfate (Varibar Pudding) 230 ml NOW PRN RAD 06/03/20 13:30 06/06/20 13:29 Barium Sulfate (Varibar Thin Liquid powder) 148 gm NOW PRN MC RAD 06/03/20 13:30 06/06/20 13:29 Chlorhexidine Gluconate (Celi-Hex 2%) 1 applic DAILY@1999 TOPIC 05/29/20 20:00 08/18/20 19:59 06/04/20 20:00 Dextrose (Dextrose 50%) 25 ml Q30M PRN IV Hypoglycemia 05/29/20 06:45 08/17/20 19:14 Dextrose (Dextrose 50%) 50 ml Q30M PRN IV Hypoglycemia 05/29/20 06:45 08/17/20 19:14 Dextrose/ Electrolytes 1,000 ml @ 150 mls/hr Q6H40M IV 06/04/20 11:00 07/04/20 10:59 06/05/20 05:45 Lactobacillus Acidophilus (Culturelle) 1 tab THREE TIMES A DAY NG 05/29/20 18:00 08/27/20 17:59 06/05/20 08:57 Loperamide HCl (Imodium) 2 mg Q6HR NG 05/29/20 19:00 06/28/20 18:59 06/05/20 05:44 Metoclopramide HCl (Reglan) 5 mg Q8H PRN IVP Nausea & Vomiting 06/03/20 10:15 07/03/20 10:14 Ondansetron HCl (Zofran) 4 mg Q6H PRN IVP Nausea & Vomiting 06/03/20 10:30 06/18/20 19:14 Pantoprazole (Protonix) 40 mg Q12HR ORAL 06/04/20 21:00 07/04/20 20:59 06/05/20 08:57 Piperacillin Sod/ Tazobactam Sod 3.375 gm/Sodium Chloride 110 ml @ 27.5 mls/hr Q12H IVPB 05/29/20 12:00 06/07/20 11:59 06/05/20 00:04 Zinc Sulfate (Zinc Sulfate) 220 mg DAILY ORAL 05/29/20 09:00 06/08/20 08:59 06/05/20 08:57 Jeff De La Cruz MD Jun 05, 2020 10:50"
[2020-06-05 12:00] VITALS: BP 153/82
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
[2020-06-05 16:00] VITALS: BP 155/81
--- NOTE | 2020-06-05 16:25 | General Progress Note ---
Subjective ROS Limited/Unobtainable: Yes Allergies: Coded Allergies: No Known Allergies (Unverified , 05/28/13) Objective Last 24 Hour Vital Signs Date Time Temp Pulse Resp B/P (MAP) Pulse Ox O2 Delivery O2 Flow Rate FiO2 06/05/20 16:00 97.4 84 18 155/81 (105) 96 06/05/20 12:00 97.7 90 18 153/82 (105) 97 06/05/20 09:00 Room Air 06/05/20 08:00 97.7 86 18 160/79 (106) 96 06/05/20 04:00 97.9 89 20 146/77 (100) 96 06/05/20 00:00 97.3 84 18 140/77 (98) 96 06/04/20 21:00 Room Air 06/04/20 20:00 98.1 91 20 159/80 (106) 96 Intake and Output 06/04/20 06/05/20 19:00 07:00 Intake Total 415.0 ml 550 ml Output Total 500 ml 700 ml Balance -85.0 ml -150 ml Intake Oral 360 ml 400 ml IV Total 55.0 ml 150 ml Output Urine Total 500 ml 700 ml Laboratory Tests 06/05/20 05:23: White Blood Count 24.7*H, Red Blood Count 4.23, Hemoglobin 12.7, Hematocrit 38.5, Mean Corpuscular Volume 91, Mean Corpuscular Hemoglobin 29.9, Mean Corpuscular Hemoglobin Concent 32.9, Red Cell Distribution Width 13.5, Platelet Count 417, Mean Platelet Volume 5.8L, Neutrophils (%) (Auto) , Lymphocytes (%) (Auto) , Monocytes (%) (Auto) , Eosinophils (%) (Auto) , Basophils (%) (Auto) , Differential Total Cells Counted 100, Neutrophils % (Manual) 75, Lymphocytes % (Manual) 3L, Monocytes % (Manual) 13H, Eosinophils % (Manual) 6H, Basophils % (Manual) 1, Band Neutrophils 2, Platelet Estimate Adequate, Platelet Morphology Normal, Red Blood Cell Morphology Normal, Sodium Level 144, Potassium Level 4.8, Chloride Level 111H, Carbon Dioxide Level 19L, Anion Gap 14, Blood Urea Nitrogen 30H, Creatinine 2.2H, Estimat Glomerular Filtration Rate 25.5, Glucose Level 116H, Calcium Level 7.9L, Phosphorus Level 4.4, Magnesium Level 1.2L Height (Feet): 5 Height (Inches): 7.00 Weight (Pounds): 150 General Appearance: no apparent distress, confused EENT: normal ENT inspection Neck: normal alignment Cardiovascular: regular rhythm Respiratory/Chest: lungs clear Abdomen: normal bowel sounds, non tender Edema: mild edema Neurologic: marketing content coordinator II-XII grossly normal, disoriented Assessment/Plan Problem List: (1) DIC (disseminated intravascular coagulation) ICD Codes: D65 - Disseminated intravascular coagulation [defibrination syndrome] SNOMED: 75172312 (2) Thrombocytopenia ICD Codes: D69.6 - Thrombocytopenia, unspecified SNOMED: 681965636 (3) Lactic acidosis ICD Codes: E87.2 - Acidosis SNOMED: 49609285 (4) Septic shock ICD Codes: A41.9 - Sepsis, unspecified organism; R65.21 - Severe sepsis with septic shock SNOMED: 25451793 (5) Anemia ICD Codes: D64.9 - Anemia, unspecified SNOMED: 068206186 (6) Hypokalemia ICD Codes: E87.6 - Hypokalemia SNOMED: 26217225 (7) Rhabdomyolysis ICD Codes: M62.82 - Rhabdomyolysis SNOMED: 360972495 (8) Non-STEMI (non-ST elevated myocardial infarction) ICD Codes: I21.4 - Non-ST elevation (NSTEMI) myocardial infarction SNOMED: 94671357 (9) ZEE (acute kidney injury) ICD Codes: N17.9 - Acute kidney failure, unspecified SNOMED: 4982552, 87845418 (10) Elevated liver enzymes ICD Codes: R74.8 - Abnormal levels of other serum enzymes SNOMED: 329015813 (11) CHF (congestive heart failure) ICD Codes: I50.9 - Heart failure, unspecified SNOMED: 87530880 (12) Gram negative sepsis ICD Codes: A41.50 - Gram-negative sepsis, unspecified SNOMED: 866604184 (13) Cholelithiasis ICD Codes: K80.20 - Calculus of gallbladder without cholecystitis without obs truction SNOMED: 930985604 (14) Metabolic encephalopathy ICD Codes: G93.41 - Metabolic encephalopathy SNOMED: 61747751 (15) Hypophosphatemia ICD Codes: E83.39 - Other disorders of phosphorus metabolism SNOMED: 5664329 (16) Decubital ulcer ICD Codes: L89.90 - Pressure ulcer of unspecified site, unspecified stage SNOMED: 477155253 (17) Dysphagia ICD Codes: R13.10 - Dysphagia, unspecified SNOMED: 14418085, 904342931 (18) Hypomagnesemia ICD Codes: E83.42 - Hypomagnesemia SNOMED: 840261122 (19) Granulocytic leukemoid reaction ICD Codes: D72.823 - Leukemoid reaction SNOMED: 94955934 Assessment/Plan: orders updated continue broad-spectrum antibiotics, for e coli bacteremia and e coli+klebsiella uti consultants notes are all reviewed her condition remains high risk this is discussed in detail with the daughter in the area code [id number] tube feeding stopped ,ST eval noted, taking only small amount po diet, BUN and creatinine high ,wbc high check flow cytometry--no leukemia,replace Mg , continue iv hydration , still diarrhea Eric Wilkins MD Jun 05, 2020 16:25
[2020-06-05 20:00] VITALS: BP 146/78
[2020-06-05] MEDS: Dyna-Hex 2% Top Sol 2oz TOPIC SCH ×2 (20:00→20:51)
--- NOTE | 2020-06-05 23:24 | Cardiology Progress Note ---
Subjective DATE OF SERVICE: Jun 05, 2020 Off tube feedings; started po's, but has poor appetite. Still has diarrhea, and fluid losses being replaced with IVF. Flow cytometry negative for Leukemia IV abx per ID team CXR 06/03: still with right infiltrate - worsened Objective Last 24 Hour Vital Signs Date Time Temp Pulse Resp B/P (MAP) Pulse Ox O2 Delivery O2 Flow Rate FiO2 06/05/20 22:25 Room Air 06/05/20 20:00 98.6 84 18 146/78 (100) 96 06/05/20 16:00 97.4 84 18 155/81 (105) 96 06/05/20 12:00 97.7 90 18 153/82 (105) 97 06/05/20 09:00 Room Air 06/05/20 08:00 97.7 86 18 160/79 (106) 96 06/05/20 04:00 97.9 89 20 146/77 (100) 96 06/05/20 00:00 97.3 84 18 140/77 (98) 96 ROS: no change from my evaluation of 05/19/20. HEENT: normal ENT inspection LUNGS: right-sided rhonchi CARDIAC: regular rhythm, normal S1 and S2, rapid rate, tachycardia ABDOMEN: soft, tender - mild diffuse EXTREMITIES: normal range of motion, No edema Laboratory Tests Test 06/05/20 05:23 White Blood Count 24.7 K/UL (4.8-10.8) *H Red Blood Count 4.23 M/UL (4.20-5.40) Hemoglobin 12.7 G/DL (12.0-16.0) Hematocrit 38.5 % (37.0-47.0) Mean Corpuscular Volume 91 FL (80-99) Mean Corpuscular Hemoglobin 29.9 PG (27.0-31.0) Mean Corpuscular Hemoglobin Concent 32.9 G/DL (32.0-36.0) Red Cell Distribution Width 13.5 % (11.6-14.8) Platelet Count 417 K/UL (150-450) Mean Platelet Volume 5.8 FL (6.5-10.1) L Neutrophils (%) (Auto) % (45.0-75.0) Lymphocytes (%) (Auto) % (20.0-45.0) Monocytes (%) (Auto) % (1.0-10.0) Eosinophils (%) (Auto) % (0.0-3.0) Basophils (%) (Auto) % (0.0-2.0) Differential Total Cells Counted 100 Neutrophils % (Manual) 75 % (45-75) Lymphocytes % (Manual) 3 % (20-45) L Monocytes % (Manual) 13 % (1-10) H Eosinophils % (Manual) 6 % (0-3) H Basophils % (Manual) 1 % (0-2) Band Neutrophils 2 % (0-8) Platelet Estimate Adequate Platelet Morphology Normal Red Blood Cell Morphology Normal Sodium Level 144 MMOL/L (136-145) Potassium Level 4.8 MMOL/L (3.5-5.1) Chloride Level 111 MMOL/L (98-107) H Carbon Dioxide Level 19 MMOL/L (21-32) L Anion Gap 14 mmol/L (5-15) Blood Urea Nitrogen 30 mg/dL (7-18) H Creatinine 2.2 MG/DL (0.55-1.30) H Estimat Glomerular Filtration Rate 25.5 mL/min (>60) Glucose Level 116 MG/DL (74-106) H Calcium Level 7.9 MG/DL (8.5-10.1) L Phosphorus Level 4.4 MG/DL (2.5-4.9) Magnesium Level 1.2 MG/DL (1.8-2.4) L Assessment/Plan Assessment/Plan Sepsis with shock - due to UTI Lactic acidosis resolved Transaminitis improving Ileus recovering Hypomagnesemia Hyponatremia Acute myocardial ischemia and possible NSTE myocardial infarction acute renal failure improved Hypertension'HHD Diarrhea Hypovolemia/dehydration Protein/calorie malnutrition Broad sp antimicrobials Titrate antiHTN meds based on clinical parameters IVF adjustments per volume status IV Mg and PO4 replacement as needed Advance diet as tolerated with asp'n prec DVT prophylaxis Dalton Valdez MD Jun 05, 2020 23:24
[2020-06-06] VITALS: BP 132/61
[2020-06-06] MEDS: D5W w/KCl 20mEq 1,000 ML IV SCH (02:10)
[2020-06-06 04:00] VITALS: BP 125/67
[2020-06-06 07:19] LABS: CALCIUM 7.7 MG/DL (8.5-10.1); CREATININE 1.9 MG/DL (0.55-1.30); POTASSIUM 4.2 MMOL/L (3.5-5.1)
[2020-06-06 07:34] LABS: HEMATOCRIT 34.7 % (37.0-47.0); HEMOGLOBIN 11.5 G/DL (12.0-16.0); MEAN CORPUSCULAR VOLUME 90 FL (80-99); PLATELET COUNT 430 K/UL (150-450); RED BLOOD COUNT 3.87 M/UL (4.20-5.40); RED CELL DISTRIBUTION WIDTH 13.5 % (11.6-14.8)
[2020-06-06 08:00] VITALS: BP 130/72
[2020-06-06 08:22] LABS: WHITE BLOOD COUNT 27.8 K/UL (4.8-10.8)
[2020-06-06] MEDS: Lactobacillus-GG tablet NG SCH (09:31)
[2020-06-06] MEDS: Ascorbic Acid 500mg tab ORAL SCH (09:31)
[2020-06-06] MEDS: Zinc Sulfate 220mg ORAL SCH (09:31)
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
--- NOTE | 2020-06-06 11:06 | Infectious Diseases Prog Note ---
Assessment/Plan Assessment/Plan A 1. E.coli sepsis 2. shock resolved 3. Thrombocytopenia resolved 4. cholelithiasis 5. leucocytosis resolved 6. E. coli & Klebsiella UTI 7. Acute renal failure improving 8. Diarrhea, C. difficile X 2: negative P 1. Continue Zosyn x 1 day 2. Case was D/W daughter at bedside Subjective ROS Limited/Unobtainable: Yes Constitutional: Reports: other - better appetite today; Denies: fever Allergies: Coded Allergies: No Known Allergies (Unverified , 05/28/13) Objective Last 24 Hour Vital Signs Date Time Temp Pulse Resp B/P (MAP) Pulse Ox O2 Delivery O2 Flow Rate FiO2 06/06/20 09:00 Room Air 06/06/20 08:00 98.1 93 20 130/72 (91) 97 06/06/20 04:00 98.3 89 20 125/67 (86) 96 06/06/20 00:00 98.6 89 18 132/61 (84) 96 06/05/20 22:25 Room Air 06/05/20 20:00 98.6 84 18 146/78 (100) 96 06/05/20 16:00 97.4 84 18 155/81 (105) 96 06/05/20 12:00 97.7 90 18 153/82 (105) 97 Height (Feet): 5 Height (Inches): 7.00 Weight (Pounds): 150 General Appearance: no acute distress HEENT: mucous membranes moist Respiratory/Chest: lungs clear Cardiovascular: normal rate Abdomen: soft, non tender Extremities: no edema, other - SCD of legs Neurologic/Psychiatric: alert, responsive Microbiology Date/Time Source Procedure Growth Status 06/05/20 09:12 Stool Clostridium difficile Toxin Assay - Final Complete Laboratory Tests Test 06/06/20 05:19 White Blood Count 27.8 K/UL (4.8-10.8) *H Red Blood Count 3.87 M/UL (4.20-5.40) L Hemoglobin 11.5 G/DL (12.0-16.0) L Hematocrit 34.7 % (37.0-47.0) L Mean Corpuscular Volume 90 FL (80-99) Mean Corpuscular Hemoglobin 29.8 PG (27.0-31.0) Mean Corpuscular Hemoglobin Concent 33.3 G/DL (32.0-36.0) Red Cell Distribution Width 13.5 % (11.6-14.8) Platelet Count 430 K/UL (150-450) Mean Platelet Volume 5.7 FL (6.5-10.1) L Neutrophils (%) (Auto) % (45.0-75.0) Lymphocytes (%) (Auto) % (20.0-45.0) Monocytes (%) (Auto) % (1.0-10.0) Eosinophils (%) (Auto) % (0.0-3.0) Basophils (%) (Auto) % (0.0-2.0) Neutrophils % (Manual) Pending Lymphocytes % (Manual) Pending Platelet Estimate Pending Platelet Morphology Pending Sodium Level 138 MMOL/L (136-145) Potassium Level 4.2 MMOL/L (3.5-5.1) Chloride Level 105 MMOL/L (98-107) Carbon Dioxide Level 20 MMOL/L (21-32) L Anion Gap 13 mmol/L (5-15) Blood Urea Nitrogen 23 mg/dL (7-18) H Creatinine 1.9 MG/DL (0.55-1.30) H Estimat Glomerular Filtration Rate 30.2 mL/min (>60) Glucose Level 79 MG/DL (74-106) Calcium Level 7.7 MG/DL (8.5-10.1) L Current Medications Medications (Trade) Dose Ordered Sig/Gricelda Route PRN Reason Start Time Stop Time Status Last Admin Dose Admin Acetaminophen (Tylenol) 500 mg Q6H PRN NG For Pain 06/03/20 12:45 07/03/20 12:44 Acetaminophen (Tylenol) 500 mg Q6HR PRN NG Temp >100.5 05/29/20 12:00 06/24/20 14:44 Ascorbic Acid (Vitamin C) 250 mg DAILY ORAL 05/29/20 09:00 06/28/20 08:59 06/06/20 09:31 Barium Sulfate (Varibar Honey) 250 ml NOW PRN RAD 06/03/20 13:30 06/06/20 13:29 Barium Sulfate (Varibar Iron Post) 240 ml NOW PRN RAD 06/03/20 13:30 06/06/20 13:29 Barium Sulfate (Varibar Pudding) 230 ml NOW PRN RAD 06/03/20 13:30 06/06/20 13:29 Barium Sulfate (Varibar Thin Liquid powder) 148 gm NOW PRN RAD 06/03/20 13:30 06/06/20 13:29 Chlorhexidine Gluconate (Celi-Hex 2%) 1 applic DAILY@1999 TOPIC 05/29/20 20:00 08/18/20 19:59 06/04/20 20:00 Dextrose (Dextrose 50%) 25 ml Q30M PRN IV Hypoglycemia 05/29/20 06:45 08/17/20 19:14 Dextrose (Dextrose 50%) 50 ml Q30M PRN IV Hypoglycemia 05/29/20 06:45 08/17/20 19:14 Dextrose/ Electrolytes 1,000 ml @ 35 mls/hr Q24H IV 06/05/20 16:28 07/05/20 16:27 06/06/20 02:10 Lactobacillus Acidophilus (Culturelle) 1 tab THREE TIMES A DAY NG 05/29/20 18:00 08/27/20 17:59 06/06/20 09:31 Loperamide HCl (Imodium) 2 mg Q6HR NG 05/29/20 19:00 06/28/20 18:59 06/06/20 00:00 Metoclopramide HCl (Reglan) 5 mg Q8H PRN IVP Nausea & Vomiting 06/03/20 10:15 07/03/20 10:14 Ondansetron HCl (Zofran) 4 mg Q6H PRN IVP Nausea & Vomiting 06/03/20 10:30 06/18/20 19:14 Pantoprazole (Protonix) 40 mg Q12HR ORAL 06/04/20 21:00 07/04/20 20:59 06/06/20 09:31 Piperacillin Sod/ Tazobactam Sod 3.375 gm/Sodium Chloride 110 ml @ 27.5 mls/hr Q12H IVPB 05/29/20 12:00 06/07/20 11:59 06/06/20 00:00 Zinc Sulfate (Zinc Sulfate) 220 mg DAILY ORAL 05/29/20 09:00 06/08/20 08:59 06/06/20 09:31 Pito Amador MD Jun 06, 2020 11:06
[2020-06-06 12:00] VITALS: BP 113/72
[2020-06-06] MEDS: Piperacillin/Tazobactam 3.375 GM in NS 110 ML IVPB SCH ×3 (12:28)
--- NOTE | 2020-06-06 12:32 | General Progress Note ---
Subjective ROS Limited/Unobtainable: Yes Allergies: Coded Allergies: No Known Allergies (Unverified , 05/28/13) Objective Last 24 Hour Vital Signs Date Time Temp Pulse Resp B/P (MAP) Pulse Ox O2 Delivery O2 Flow Rate FiO2 06/06/20 12:00 97.3 80 18 113/72 (86) 95 06/06/20 09:00 Room Air 06/06/20 08:00 98.1 93 20 130/72 (91) 97 06/06/20 04:00 98.3 89 20 125/67 (86) 96 06/06/20 00:00 98.6 89 18 132/61 (84) 96 06/05/20 22:25 Room Air 06/05/20 20:00 98.6 84 18 146/78 (100) 96 06/05/20 16:00 97.4 84 18 155/81 (105) 96 Intake and Output 06/05/20 06/06/20 19:00 07:00 Intake Total 1492.5 ml 150 ml Output Total 600 ml 1600 ml Balance 892.5 ml -1450 ml Intake Oral 360 ml 150 ml IV Total 1132.5 ml Output Urine Total 600 ml 1600 ml Laboratory Tests 06/06/20 05:19: White Blood Count 27.8*H, Red Blood Count 3.87L, Hemoglobin 11.5L, Hematocrit 34.7L, Mean Corpuscular Volume 90, Mean Corpuscular Hemoglobin 29.8, Mean Corpuscular Hemoglobin Concent 33.3, Red Cell Distribution Width 13.5, Platelet Count 430, Mean Platelet Volume 5.7L, Neutrophils (%) (Auto) , Lymphocytes (%) (Auto) , Monocytes (%) (Auto) , Eosinophils (%) (Auto) , Basophils (%) (Auto) , Neutrophils % (Manual) [Pending], Lymphocytes % (Manual) [Pending], Platelet Estimate [Pending], Platelet Morphology [Pending], Sodium Level 138, Potassium Level 4.2, Chloride Level 105, Carbon Dioxide Level 20L, Anion Gap 13, Blood Urea Nitrogen 23H, Creatinine 1.9H, Estimat Glomerular Filtration Rate 30.2, Glucose Level 79, Calcium Level 7.7L Height (Feet): 5 Height (Inches): 7.00 Weight (Pounds): 150 General Appearance: no apparent distress, lethargic, confused EENT: normal ENT inspection Neck: normal alignment, supple Cardiovascular: normal rate Respiratory/Chest: lungs clear Abdomen: non tender, soft Edema: moderate edema 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, motor weakness Skin: other - sacral decub Assessment/Plan Problem List: (1) DIC (disseminated intravascular coagulation) ICD Codes: D65 - Disseminated intravascular coagulation [defibrination syndrome] SNOMED: 99468866 (2) Thrombocytopenia ICD Codes: D69.6 - Thrombocytopenia, unspecified SNOMED: 683955403 (3) Lactic acidosis ICD Codes: E87.2 - Acidosis SNOMED: 69164049 (4) Septic shock ICD Codes: A41.9 - Sepsis, unspecified organism; R65.21 - Severe sepsis with septic shock SNOMED: 90176640 (5) Anemia ICD Codes: D64.9 - Anemia, unspecified SNOMED: 010450769 (6) Hypokalemia ICD Codes: E87.6 - Hypokalemia SNOMED: 88844552 (7) Rhabdomyolysis ICD Codes: M62.82 - Rhabdomyolysis SNOMED: 099956047 (8) Non-STEMI (non-ST elevated myocardial infarction) ICD Codes: I21.4 - Non-ST elevation (NSTEMI) myocardial infarction SNOMED: 39887731 (9) ZEE (acute kidney injury) ICD Codes: N17.9 - Acute kidney failure, unspecified SNOMED: 1768212, 70262505 (10) Elevated liver enzymes ICD Codes: R74.8 - Abnormal levels of other serum enzymes SNOMED: 908764105 (11) CHF (congestive heart failure) ICD Codes: I50.9 - Heart failure, unspecified SNOMED: 88292303 (12) Gram negative sepsis ICD Codes: A41.50 - Gram-negative sepsis, unspecified SNOMED: 358237272 (13) Cholelithiasis ICD Codes: K80.20 - Calculus of gallbladder without cholecystitis without obstruction SNOMED: 350950801 (14) Metabolic encephalopathy ICD Codes: G93.41 - Metabolic encephalopathy SNOMED: 88175935 (15) Hypophosphatemia ICD Codes: E83.39 - Other disorders of phosphorus metabolism SNOMED: 8865684 (16) Decubital ulcer ICD Codes: L89.90 - Pressure ulcer of unspecified site, unspecified stage SNOMED: 469940149 (17) Dysphagia ICD Codes: R13.10 - Dysphagia, unspecified SNOMED: 09586325, 346218705 (18) Hypomagnesemia ICD Codes: E83.42 - Hypomagnesemia SNOMED: 055312725 (19) Granulocytic leukemoid reaction ICD Codes: D72.823 - Leukemoid reaction SNOMED: 62893570 Assessment/Plan: orders updated continue broad-spectrum antibiotics, for e coli bacteremia and e coli+klebsiella uti consultants notes are all reviewed her condition remains high risk this is discussed in detail with the daughter in the area code [id number] tube feeding stopped ,ST eval noted, taking only small amount po diet, BUN and creatinine high ,wbc high check flow cytometry--no leukem ia,replace Mg , discontinue iv hydration , still diarrhea,rx Eric Barroso MD Jun 06, 2020 12:32
[2020-06-06] MEDS: Lomotil 2.5mg tab NG SCH ×3 (13:52→20:51)
--- NOTE | 2020-06-06 14:35 | General Progress Note ---
Subjective ROS Limited/Unobtainable: No Allergies: Coded Allergies: No Known Allergies (Unverified , 05/28/13) Objective Last 24 Hour Vital Signs Date Time Temp Pulse Resp B/P (MAP) Pulse Ox O2 Delivery O2 Flow Rate FiO2 06/06/20 12:00 97.3 80 18 113/72 (86) 95 06/06/20 09:00 Room Air 06/06/20 08:00 98.1 93 20 130/72 (91) 97 06/06/20 04:00 98.3 89 20 125/67 (86) 96 06/06/20 00:00 98.6 89 18 132/61 (84) 96 06/05/20 22:25 Room Air 06/05/20 20:00 98.6 84 18 146/78 (100) 96 06/05/20 16:00 97.4 84 18 155/81 (105) 96 Intake and Output 06/05/20 06/06/20 19:00 07:00 Intake Total 1492.5 ml 150 ml Output Total 600 ml 1600 ml Balance 892.5 ml -1450 ml Intake Oral 360 ml 150 ml IV Total 1132.5 ml Output Urine Total 600 ml 1600 ml Laboratory Tests 06/06/20 05:19: White Blood Count 27.8*H, Red Blood Count 3.87L, Hemoglobin 11.5L, Hematocrit 34.7L, Mean Corpuscular Volume 90, Mean Corpuscular Hemoglobin 29.8, Mean Corpuscular Hemoglobin Concent 33.3, Red Cell Distribution Width 13.5, Platelet Count 430, Mean Platelet Volume 5.7L, Neutrophils (%) (Auto) , Lymphocytes (%) (Auto) , Monocytes (%) (Auto) , Eosinophils (%) (Auto) , Basophils (%) (Auto) , Differential Total Cells Counted 100, Neutrophils % (Manual) 70, Lymphocytes % (Manual) 5L, Monocytes % (Manual) 11H, Eosinophils % (Manual) 14H, Basophils % (Manual) 0, Band Neutrophils 0, Platelet Estimate Adequate, Platelet Morphology Normal, Hypochromasia 1+, Anisocytosis 1+, Sodium Level 138, Potassium Level 4.2, Chloride Level 105, Carbon Dioxide Level 20L, Anion Gap 13, Blood Urea Nitrogen 23H, Creatinine 1.9H, Estimat Glomerular Filtration Rate 30.2, Glucose Level 79, Calcium Level 7.7L Height (Feet): 5 Height (Inches): 7.00 Weight (Pounds): 150 General Appearance: no apparent distress EENT: normal ENT inspection Neck: supple Cardiovascular: normal rate Respiratory/Chest: decreased breath sounds Abdomen: normal bowel sounds, non tender, soft Extremities: non-tender Assessment/Plan Assessment/Plan: thrombocytopenia leukocytosis coagulopathy RI elevated LFTS CAD/NH gallstones dilated CBD and PD CT and us reviewed MRCP reviewed abx repeat labs prn imodium fu cardiology recs repeat labs in am passed swallow eval monitor po intake hold peg plans for now Ludwig Wood MD Jun 06, 2020 14:35
[2020-06-06 16:00] VITALS: BP 118/77
[2020-06-06 20:00] VITALS: BP 147/77
[2020-06-06] MEDS: Dyna-Hex 2% Top Sol 2oz TOPIC SCH (20:00)
[2020-06-07] VITALS: BP 143/78
--- NOTE | 2020-06-07 00:30 | Cardiology Progress Note ---
Subjective DATE OF SERVICE: Jun 06, 2020 Off tube feedings; started po's, but has poor appetite. Still has diarrhea, and fluid losses being replaced with IVF. Flow cytometry negative for Leukemia IV abx per ID team CXR 06/03: still with right infiltrate - worsened Objective Last 24 Hour Vital Signs Date Time Temp Pulse Resp B/P (MAP) Pulse Ox O2 Delivery O2 Flow Rate FiO2 06/06/20 21:00 Room Air 06/06/20 20:00 98.2 85 21 147/77 (100) 97 06/06/20 16:00 97.5 83 18 118/77 (91) 96 06/06/20 12:00 97.3 80 18 113/72 (86) 95 06/06/20 09:00 Room Air 06/06/20 08:00 98.1 93 20 130/72 (91) 97 06/06/20 04:00 98.3 89 20 125/67 (86) 96 ROS: no change from my evaluation of 05/19/20. HEENT: normal ENT inspection LUNGS: right-sided rhonchi CARDIAC: regular rhythm, normal S1 and S2, rapid rate, tachycardia ABDOMEN: soft, tender - mild diffuse EXTREMITIES: normal range of motion, No edema Laboratory Tests Test 06/06/20 05:19 White Blood Count 27.8 K/UL (4.8-10.8) *H Red Blood Count 3.87 M/UL (4.20-5.40) L Hemoglobin 11.5 G/DL (12.0-16.0) L Hematocrit 34.7 % (37.0-47.0) L Mean Corpuscular Volume 90 FL (80-99) Mean Corpuscular Hemoglobin 29.8 PG (27.0-31.0) Mean Corpuscular Hemoglobin Concent 33.3 G/DL (32.0-36.0) Red Cell Distribution Width 13.5 % (11.6-14.8) Platelet Count 430 K/UL (150-450) Mean Platelet Volume 5.7 FL (6.5-10.1) L Neutrophils (%) (Auto) % (45.0-75.0) Lymphocytes (%) (Auto) % (20.0-45.0) Monocytes (%) (Auto) % (1.0-10.0) Eosinophils (%) (Auto) % (0.0-3.0) Basophils (%) (Auto) % (0.0-2.0) Differential Total Cells Counted 100 Neutrophils % (Manual) 70 % (45-75) Lymphocytes % (Manual) 5 % (20-45) L Monocytes % (Manual) 11 % (1-10) H Eosinophils % (Manual) 14 % (0-3) H Basophils % (Manual) 0 % (0-2) Band Neutrophils 0 % (0-8) Platelet Estimate Adequate Platelet Morphology Normal Hypochromasia 1+ Anisocytosis 1+ Sodium Level 138 MMOL/L (136-145) Potassium Level 4.2 MMOL/L (3.5-5.1) Chloride Level 105 MMOL/L (98-107) Carbon Dioxide Level 20 MMOL/L (21-32) L Anion Gap 13 mmol/L (5-15) Blood Urea Nitrogen 23 mg/dL (7-18) H Creatinine 1.9 MG/DL (0.55-1.30) H Estimat Glomerular Filtration Rate 30.2 mL/min (>60) Glucose Level 79 MG/DL (74-106) Calcium Level 7.7 MG/DL (8.5-10.1) L Microbiology Date/Time Source Procedure Growth Status 06/05/20 09:12 Stool Clostridium difficile Toxin Assay - Final Complete Assessment/Plan Assessment/Plan Sepsis with shock - due to UTI Lactic acidosis resolved Transaminitis improving Ileus recovering Hypomagnesemia Hyponatremia Acute myocardial ischemia and possible NSTE myocardial infarction acute renal failure improved Hypertension'HHD Diarrhea Hypovolemia/dehydration Protein/calorie malnutrition Broad sp antimicrobials Titrate antiHTN meds based on clinical parameters IVF adjustments per volume status IV Mg and PO4 replacement as needed Advance diet as tolerated with asp'n prec DVT prophylaxis Anti-diarrheal rx Dalton Valdez MD Jun 07, 2020 00:30
[2020-06-07] MEDS: Piperacillin/Tazobactam 3.375 GM in NS 110 ML IVPB SCH (00:35)
[2020-06-07 04:00] VITALS: BP 149/74
[2020-06-07 05:48] LABS: HEMATOCRIT 35.4 % (37.0-47.0); MEAN CORPUSCULAR VOLUME 89 FL (80-99); PLATELET COUNT 430 K/UL (150-450); RED BLOOD COUNT 3.97 M/UL (4.20-5.40); RED CELL DISTRIBUTION WIDTH 13.4 % (11.6-14.8)
[2020-06-07 05:58] LABS: WHITE BLOOD COUNT 28.6 K/UL (4.8-10.8)
[2020-06-07 06:06] LABS: CALCIUM 8.2 MG/DL (8.5-10.1); CREATININE 1.8 MG/DL (0.55-1.30); POTASSIUM 4.1 MMOL/L (3.5-5.1)
[2020-06-07 08:00] VITALS: BP 138/82
[2020-06-07] MEDS: Zinc Sulfate 220mg ORAL SCH (09:19)
[2020-06-07] MEDS: Lomotil 2.5mg tab NG SCH ×4 (09:19→21:14)
[2020-06-07] MEDS: Ascorbic Acid 500mg tab ORAL SCH (09:20)
--- NOTE | 2020-06-07 11:19 | Infectious Diseases Prog Note ---
"Assessment/Plan Assessment/Plan antibiotics : zosyn A 1. E.coli sepsis secondary to UTI 2. shock resolved 3. thrombocytopenia improving 4. ? cholecystitis ? cholangitis patient not a surgical candidate 5. leucocytosis improving 6. e.coli | klebsiella UTI 7. renal failure P 1. d/c zosyn 2. observe off antibiotics Subjective Constitutional: Denies: fever, chills Respiratory: Denies: shortness of breath, dry cough Gastrointestinal/Abdominal: Denies: nausea, vomiting, diarrhea Musculoskeletal: Denies: pain Allergies: Coded Allergies: No Known Allergies (Unverified , 05/28/13) Objective Last 24 Hour Vital Signs Date Time Temp Pulse Resp B/P (MAP) Pulse Ox O2 Delivery O2 Flow Rate FiO2 06/07/20 08:00 97.8 97 18 138/82 (100) 96 06/07/20 04:00 98.3 88 21 149/74 (99) 96 06/07/20 00:00 97.8 80 21 143/78 (99) 98 06/06/20 21:00 Room Air 06/06/20 20:00 98.2 85 21 147/77 (100) 97 06/06/20 16:00 97.5 83 18 118/77 (91) 96 06/06/20 12:00 97.3 80 18 113/72 (86) 95 Height (Feet): 5 Height (Inches): 7.00 Weight (Pounds): 150 Respiratory/Chest: lungs clear Cardiovascular: normal rate, regular rhythm, no gallop/murmur Abdomen: soft, non tender Extremities: no edema Microbiology Date/Time Source Procedure Growth Status 06/05/20 09:12 Stool Clostridium difficile Toxin Assay - Final Complete Laboratory Tests Test 06/07/20 04:58 White Blood Count 28.6 K/UL (4.8-10.8) *H Red Blood Count 3.97 M/UL (4.20-5.40) L Hemoglobin 12.0 G/DL (12.0-16.0) Hematocrit 35.4 % (37.0-47.0) L Mean Corpuscular Volume 89 FL (80-99) Mean Corpuscular Hemoglobin 30.3 PG (27.0-31.0) Mean Corpuscular Hemoglobin Concent 33.9 G/DL (32.0-36.0) Red Cell Distribution Width 13.4 % (11.6-14.8) Platelet Count 430 K/UL (150-450) Mean Platelet Volume 5.6 FL (6.5-10.1) L Neutrophils (%) (Auto) % (45.0-75.0) Lymphocytes (%) (Auto) % (20.0-45.0) Monocytes (%) (Auto) % (1.0-10.0) Eosinophils (%) (Auto) % (0.0-3.0) Basophils (%) (Auto) % (0.0-2.0) Differential Total Cells Counted 100 Neutrophils % (Manual) 76 % (45-75) H Lymphocytes % (Manual) 7 % (20-45) L Monocytes % (Manual) 8 % (1-10) Eosinophils % (Manual) 9 % (0-3) H Basophils % (Manual) 0 % (0-2) Band Neutrophils 0 % (0-8) Platelet Estimate Adequate Platelet Morphology Normal Hypochromasia 1+ Sodium Level 139 MMOL/L (136-145) Potassium Level 4.1 MMOL/L (3.5-5.1) Chloride Level 106 MMOL/L (98-107) Carbon Dioxide Level 22 MMOL/L (21-32) Anion Gap 11 mmol/L (5-15) Blood Urea Nitrogen 20 mg/dL (7-18) H Creatinine 1.8 MG/DL (0.55-1.30) H Estimat Glomerular Filtration Rate 32.1 mL/min (>60) Glucose Level 92 MG/DL (74-106) Calcium Level 8.2 MG/DL (8.5-10.1) L Current Medications Medications (Trade) Dose Ordered Sig/Gricelda Route PRN Reason Start Time Stop Time Status Last Admin Dose Admin Acetaminophen (Tylenol) 500 mg Q6H PRN NG For Pain 06/03/20 12:45 07/03/20 12:44 Acetaminophen (Tylenol) 500 mg Q6HR PRN NG Temp >100.5 05/29/20 12:00 06/24/20 14:44 Ascorbic Acid (Vitamin C) 250 mg DAILY ORAL 05/29/20 09:00 06/28/20 08:59 06/07/20 09:20 Chlorhexidine Gluconate (Celi-Hex 2%) 1 applic DAILY@2000 TOPIC 05/29/20 20:00 08/18/20 19:59 06/04/20 20:00 Dextrose (Dextrose 50%) 25 ml Q30M PRN IV Hypoglycemia 05/29/20 06:45 08/17/20 19:14 Dextrose (Dextrose 50%) 50 ml Q30M PRN IV Hypoglycemia 05/29/20 06:45 08/17/20 19:14 Diphenoxylate HCl/ Atropine (Lomotil) 2.5 mg QID NG 06/06/20 13:00 07/06/20 12:59 06/07/20 09:19 Ondansetron HCl (Zofran) 4 mg Q6H PRN IVP Nausea & Vomiting 06/03/20 10:30 06/18/20 19:14 Pantoprazole (Protonix) 40 mg Q12HR ORAL 06/04/20 21:00 07/04/20 20:59 06/07/20 09:19 Piperacillin Sod/ Tazobactam Sod 3.375 gm/Sodium Chloride 110 ml @ 27.5 mls/hr Q12H IVPB 05/29/20 12:00 06/07/20 11:59 06/07/20 00:35 Zinc Sulfate (Zinc Sulfate) 220 mg DAILY ORAL 05/29/20 09:00 06/08/20 08:59 06/07/20 09:19 Jeff De La Cruz MD Jun 07, 2020 11:19"
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
--- NOTE | 2020-06-07 11:57 | General Progress Note ---
Subjective ROS Limited/Unobtainable: Yes Allergies: Coded Allergies: No Known Allergies (Unverified , 05/28/13) Objective Last 24 Hour Vital Signs Date Time Temp Pulse Resp B/P (MAP) Pulse Ox O2 Delivery O2 Flow Rate FiO2 06/07/20 08:00 97.8 97 18 138/82 (100) 96 06/07/20 04:00 98.3 88 21 149/74 (99) 96 06/07/20 00:00 97.8 80 21 143/78 (99) 98 06/06/20 21:00 Room Air 06/06/20 20:00 98.2 85 21 147/77 (100) 97 06/06/20 16:00 97.5 83 18 118/77 (91) 96 06/06/20 12:00 97.3 80 18 113/72 (86) 95 Intake and Output 06/06/20 06/07/20 19:00 07:00 Intake Total 110.0 ml Output Total 1300 ml 1550 ml Balance -1190.0 ml -1550 ml IV Total 110.0 ml Output Urine Total 800 ml 1550 ml Stool Total 500 ml # Voids 1 Laboratory Tests 06/07/20 04:58: White Blood Count 28.6*H, Red Blood Count 3.97L, Hemoglobin 12.0, Hematocrit 35.4L, Mean Corpuscular Volume 89, Mean Corpuscular Hemoglobin 30.3, Mean Corpuscular Hemoglobin Concent 33.9, Red Cell Distribution Width 13.4, Platelet Count 430, Mean Platelet Volume 5.6L, Neutrophils (%) (Auto) , Lymphocytes (%) (Auto) , Monocytes (%) (Auto) , Eosinophils (%) (Auto) , Basophils (%) (Auto) , Differential Total Cells Counted 100, Neutrophils % (Manual) 76H, Lymphocytes % (Manual) 7L, Monocytes % (Manual) 8, Eosinophils % (Manual) 9H, Basophils % (Manual) 0, Band Neutrophils 0, Platelet Estimate Adequate, Platelet Morphology Normal, Hypochromasia 1+, Sodium Level 139, Potassium Level 4.1, Chloride Level 106, Carbon Dioxide Level 22, Anion Gap 11, Blood Urea Nitrogen 20H, Creatinine 1.8H, Estimat Glomerular Filtration Rate 32.1, Glucose Level 92, Calcium Level 8.2L Height (Feet): 5 Height (Inches): 7.00 Weight (Pounds): 150 General Appearance: no apparent distress, confused EENT: normal ENT inspection Neck: normal alignment Cardiovascular: normal rate Respiratory/Chest: lungs clear Abdomen: non tender, soft Neurologic: crate maker II-XII grossly normal, disoriented Skin: other - fungal derm groin Assessment/Plan Problem List: (1) DIC (disseminated intravascular coagulation) ICD Codes: D65 - Disseminated intravascular coagulation [defibrination syndrome] SNOMED: 74465715 (2) Thrombocytopenia ICD Codes: D69.6 - Thrombocytopenia, unspecified SNOMED: 552659590 (3) Lactic acidosis ICD Codes: E87.2 - Acidosis SNOMED: 43458636 (4) Septic shock ICD Codes: A41.9 - Sepsis, unspecified organism; R65.21 - Severe sepsis with septic shock SNOMED: 71954040 (5) Anemia ICD Codes: D64.9 - Anemia, unspecified SNOMED: 265638747 (6) Hypokalemia ICD Codes: E87.6 - Hypokalemia SNOMED: 86458367 (7) Rhabdomyolysis ICD Codes: M62.82 - Rhabdomyolysis SNOMED: 278883264 (8) Non-STEMI (non-ST elevated myocardial infarction) ICD Codes: I21.4 - Non-ST elevation (NSTEMI) myocardial infarction SNOMED: 99606663 (9) ZEE (acute kidney injury) ICD Codes: N17.9 - Acute kidney failure, unspecified SNOMED: 3232773, 00896738 (10) Elevated liver enzymes ICD Codes: R74.8 - Abnormal levels of other serum enzymes SNOMED: 391446156 (11) CHF (congestive heart failure) ICD Codes: I50.9 - Heart failure, unspecified SNOMED: 04593216 (12) Gram negative sepsis ICD Codes: A41.50 - Gram-negative sepsis, unspecified SNOMED: 215187202 (13) Cholelithiasis ICD Codes: K80.20 - Calculus of gallbladder without cholecystitis without obstruction SNOMED: 697564788 (14) Metabolic encephalopathy ICD Codes: G93.41 - Metabolic encephalopathy SNOMED: 05418405 (15) Hypophosphatemia ICD Codes: E83.39 - Other disorders of phosphorus metabolism SNOMED: 2421287 (16) Decubital ulcer ICD Codes: L89.90 - Pressure ulcer of unspecified site, unspecified stage SNOMED: 781779261 (17) Dysphagia ICD Codes: R13.10 - Dysphagia, unspecified SNOMED: 84450389, 682713855 (18) Hypomagnesemia ICD Codes: E83.42 - Hypomagnesemia SNOMED: 952057101 (19) Granulocytic leukemoid reaction ICD Codes: D72.823 - Leukemoid reaction SNOMED: 61912638 Assessment/Plan: orders updated discontinue broad-spectrum antibiotics, for e coli bacteremia and e coli+klebsiella uti consultants notes are all reviewed her condition remains high risk this is discussed in detail with the daughter in the area code [id number] tube feeding stopped ,ST eval noted, taking only small amount po diet, BUN and creatinine high ,wbc high check flow cytometry--no leukemia,replace Mg , discontinue iv hydration , still diarrhea,rx lomotil, nystatin for fungal derm, dc Eric Rogers MD Jun 07, 2020 11:56
[2020-06-07 12:00] VITALS: BP 146/68
--- NOTE | 2020-06-07 13:01 | General Progress Note ---
Subjective ROS Limited/Unobtainable: No Allergies: Coded Allergies: No Known Allergies (Unverified , 05/28/13) Objective Last 24 Hour Vital Signs Date Time Temp Pulse Resp B/P (MAP) Pulse Ox O2 Delivery O2 Flow Rate FiO2 06/07/20 08:00 97.8 97 18 138/82 (100) 96 06/07/20 04:00 98.3 88 21 149/74 (99) 96 06/07/20 00:00 97.8 80 21 143/78 (99) 98 06/06/20 21:00 Room Air 06/06/20 20:00 98.2 85 21 147/77 (100) 97 06/06/20 16:00 97.5 83 18 118/77 (91) 96 Intake and Output 06/06/20 06/07/20 19:00 07:00 Intake Total 110.0 ml Output Total 1300 ml 1550 ml Balance -1190.0 ml -1550 ml IV Total 110.0 ml Output Urine Total 800 ml 1550 ml Stool Total 500 ml # Voids 1 Laboratory Tests 06/07/20 04:58: White Blood Count 28.6*H, Red Blood Count 3.97L, Hemoglobin 12.0, Hematocrit 35.4L, Mean Corpuscular Volume 89, Mean Corpuscular Hemoglobin 30.3, Mean Corpuscular Hemoglobin Concent 33.9, Red Cell Distribution Width 13.4, Platelet Count 430, Mean Platelet Volume 5.6L, Neutrophils (%) (Auto) , Lymphocytes (%) (Auto) , Monocytes (%) (Auto) , Eosinophils (%) (Auto) , Basophils (%) (Auto) , Differential Total Cells Counted 100, Neutrophils % (Manual) 76H, Lymphocytes % (Manual) 7L, Monocytes % (Manual) 8, Eosinophils % (Manual) 9H, Basophils % (Manual) 0, Band Neutrophils 0, Platelet Estimate Adequate, Platelet Morphology Normal, Hypochromasia 1+, Sodium Level 139, Potassium Level 4.1, Chloride Level 106, Carbon Dioxide Level 22, Anion Gap 11, Blood Urea Nitrogen 20H, Creatinine 1.8H, Estimat Glomerular Filtration Rate 32.1, Glucose Level 92, Calcium Level 8.2L Height (Feet): 5 Height (Inches): 7.00 Weight (Pounds): 150 General Appearance: alert EENT: normal ENT inspection Neck: supple Cardiovascular: normal rate Respiratory/Chest: decreased breath sounds Abdomen: normal bowel sounds, non tender, soft Extremities: non-tender Assessment/Plan Assessment/Plan: thrombocytopenia leukocytosis coagulopathy RI elevated LFTS CAD/MA gallstones dilated CBD and PD CT and us reviewed MRCP reviewed abx repeat labs prn imodium fu cardiology recs repeat labs in am monitor po intake hold peg plans for now Ludwig Wood MD Jun 07, 2020 13:01
[2020-06-07 16:00] VITALS: BP 146/68
[2020-06-07] MEDS ORDERED: LOMOTIL TABLET1 EACH ORAL (17:42)
[2020-06-07] MEDS ORDERED: PROTONIX20 MG ORAL (17:53)
[2020-06-07] MEDS ORDERED: NYSTATIN15 GM TOPIC (17:57)
[2020-06-07] MEDS: Dyna-Hex 2% Top Sol 2oz TOPIC SCH (20:00)
[2020-06-07 20:29] VITALS: BP 134/70
[2020-06-08] VITALS: BP 133/66
--- NOTE | 2020-06-08 03:12 | Cardiology Progress Note ---
Subjective DATE OF SERVICE: Jun 07, 2020 Off tube feedings; started po's, but has poor appetite. Still has diarrhea, and fluid losses being replaced with IVF. Flow cytometry negative for Leukemia IV abx per ID team CXR 06/03: still with right infiltrate - worsened Objective Last 24 Hour Vital Signs Date Time Temp Pulse Resp B/P (MAP) Pulse Ox O2 Delivery O2 Flow Rate FiO2 06/08/20 00:00 99.0 76 20 133/66 (88) 94 06/07/20 20:29 99.6 102 20 134/70 (91) 95 06/07/20 20:27 Room Air 06/07/20 16:00 97.9 85 18 146/68 (94) 96 06/07/20 12:00 97.9 85 18 146/68 (94) 96 06/07/20 09:00 Room Air 06/07/20 08:00 97.8 97 18 138/82 (100) 96 06/07/20 04:00 98.3 88 21 149/74 (99) 96 ROS: no change from my evaluation of 05/19/20. HEENT: normal ENT inspection LUNGS: right-sided rhonchi CARDIAC: regular rhythm, normal S1 and S2, rapid rate, tachycardia ABDOMEN: soft, tender - mild diffuse EXTREMITIES: normal range of motion, No edema Laboratory Tests Test 06/07/20 04:58 White Blood Count 28.6 K/UL (4.8-10.8) *H Red Blood Count 3.97 M/UL (4.20-5.40) L Hemoglobin 12.0 G/DL (12.0-16.0) Hematocrit 35.4 % (37.0-47.0) L Mean Corpuscular Volume 89 FL (80-99) Mean Corpuscular Hemoglobin 30.3 PG (27.0-31.0) Mean Corpuscular Hemoglobin Concent 33.9 G/DL (32.0-36.0) Red Cell Distribution Width 13.4 % (11.6-14.8) Platelet Count 430 K/UL (150-450) Mean Platelet Volume 5.6 FL (6.5-10.1) L Neutrophils (%) (Auto) % (45.0-75.0) Lymphocytes (%) (Auto) % (20.0-45.0) Monocytes (%) (Auto) % (1.0-10.0) Eosinophils (%) (Auto) % (0.0-3.0) Basophils (%) (Auto) % (0.0-2.0) Differential Total Cells Counted 100 Neutrophils % (Manual) 76 % (45-75) H Lymphocytes % (Manual) 7 % (20-45) L Monocytes % (Manual) 8 % (1-10) Eosinophils % (Manual) 9 % (0-3) H Basophils % (Manual) 0 % (0-2) Band Neutrophils 0 % (0-8) Platelet Estimate Adequate Platelet Morphology Normal Hypochromasia 1+ Sodium Level 139 MMOL/L (136-145) Potassium Level 4.1 MMOL/L (3.5-5.1) Chloride Level 106 MMOL/L (98-107) Carbon Dioxide Level 22 MMOL/L (21-32) Anion Gap 11 mmol/L (5-15) Blood Urea Nitrogen 20 mg/dL (7-18) H Creatinine 1.8 MG/DL (0.55-1.30) H Estimat Glomerular Filtration Rate 32.1 mL/min (>60) Glucose Level 92 MG/DL (74-106) Calcium Level 8.2 MG/DL (8.5-10.1) L Microbiology Date/Time Source Procedure Growth Status 06/05/20 09:12 Stool Clostridium difficile Toxin Assay - Final Complete Assessment/Plan Assessment/Plan Sepsis with shock - due to UTI Lactic acidosis resolved Transaminitis improving Ileus recovering Hypomagnesemia Hyponatremia Acute myocardial ischemia and possible NSTE myocardial infarction acute renal failure improved Hypertension'HHD Diarrhea Hypovolemia/dehydration Protein/calorie malnutrition Broad sp antimicrobials Titrate antiHTN meds based on clinical parameters IVF adjustments per volume status IV Mg and PO4 replacement as needed Advance diet as tolerated with asp'n prec DVT prophylaxis Anti-diarrheal rx Repeat lab studies ordered Dalton Valdez MD Jun 08, 2020 03:12
[2020-06-08 04:00] VITALS: BP 139/73
[2020-06-08 05:38] LABS: HEMATOCRIT 34.5 % (37.0-47.0); HEMOGLOBIN 11.3 G/DL (12.0-16.0); MEAN CORPUSCULAR VOLUME 89 FL (80-99); PLATELET COUNT 436 K/UL (150-450); RED BLOOD COUNT 3.86 M/UL (4.20-5.40); RED CELL DISTRIBUTION WIDTH 13.5 % (11.6-14.8)
[2020-06-08 06:12] LABS: ALBUMIN 1.8 G/DL (3.4-5.0); ALBUMIN/GLOBULIN RATIO 0.4 (1.0-2.7); BILIRUBIN,TOTAL 0.9 MG/DL (0.2-1.0); CALCIUM 8.2 MG/DL (8.5-10.1); CREATININE 1.7 MG/DL (0.55-1.30)
[2020-06-08 06:14] LABS: WHITE BLOOD COUNT 26.1 K/UL (4.8-10.8)
[2020-06-08 08:00] VITALS: BP 138/65
[2020-06-08] MEDS: Ascorbic Acid 500mg tab ORAL SCH (09:07)
[2020-06-08] MEDS: Lomotil 2.5mg tab NG SCH ×4 (09:07→20:18)
[2020-06-08 11:55] VITALS: BP 150/77
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
[2020-06-08 16:00] VITALS: BP 139/72
--- NOTE | 2020-06-08 16:37 | Nephrology Progress Note ---
Assessment/Plan Assessment/Plan: A/P 1. E.coli sepsis - secondary to UTI - Off Abx, trend WBC 2. Cholecystitis/cholangitis - trend WBC off Abx 4. ZEE- resolved. Cr stable 1.7 Subjective Date patient seen: Jun 08, 2020 Time patient seen: 16:35 ROS Limited/Unobtainable: No Allergies: Coded Allergies: No Known Allergies (Unverified , 05/28/13) Subjective Patient more awake and alert with daughter at side Objective Last 24 Hour Vital Signs Date Time Temp Pulse Resp B/P (MAP) Pulse Ox O2 Delivery O2 Flow Rate FiO2 06/08/20 16:00 97.8 90 18 139/72 (94) 95 06/08/20 11:55 98.5 98 20 150/77 (101) 95 06/08/20 09:00 Room Air 06/08/20 08:00 98.9 88 17 138/65 (89) 94 06/08/20 04:00 98.9 94 20 139/73 (95) 95 06/08/20 00:00 99.0 76 20 133/66 (88) 94 06/07/20 20:29 99.6 102 20 134/70 (91) 95 06/07/20 20:27 Room Air Intake and Output 06/07/20 06/08/20 19:00 07:00 Intake Total 480 ml Balance 480 ml Intake Oral 480 ml # Voids 2 2 Laboratory Tests 06/08/20 05:00: White Blood Count 26.1*H, Red Blood Count 3.86L, Hemoglobin 11.3L, Hematocrit 34.5L, Mean Corpuscular Volume 89, Mean Corpuscular Hemoglobin 29.4, Mean Corpuscular Hemoglobin Concent 32.8, Red Cell Distribution Width 13.5, Platelet Count 436, Mean Platelet Volume 5.6L, Neutrophils (%) (Auto) , Lymphocytes (%) (Auto) , Monocytes (%) (Auto) , Eosinophils (%) (Auto) , Basophils (%) (Auto) , Differential Total Cells Counted 100, Neutrophils % (Manual) 71, Lymphocytes % (Manual) 11L, Monocytes % (Manual) 6, Eosinophils % (Manual) 11H, Basophils % (Manual) 0, Metamyelocytes % 1H, Band Neutrophils 0, Platelet Estimate Adequate, Platelet Morphology Normal, Red Blood Cell Morphology Normal, Sodium Level 142, Potassium Level 4.0, Chloride Level 107, Carbon Dioxide Level 24, Anion Gap 11, Blood Urea Nitrogen 18, Creatinine 1.7H, Estimat Glomerular Filtration Rate 34.3, Glucose Level 84, Calcium Level 8.2L, Magnesium Level 1.4L, Total Bilirubin 0.9, Aspartate Amino Transf (AST/SGOT) 24, Alanine Aminotransferase (ALT/SGPT) 21, Alkaline Phosphatase 47, Pro-B-Type Natriuretic Peptide 3468H, Total Protein 6.2L, Albumin 1.8L, Globulin 4.4, Albumin/Globulin Ratio 0.4L Height (Feet): 5 Height (Inches): 7.00 Weight (Pounds): 150 General Appearance: no apparent distress EENT: normal ENT inspection Neck: normal alignment, supple Cardiovascular: normal rate, regular rhythm Respiratory/Chest: lungs clear, normal breath sounds Abdomen: non tender Edema: 1+ Arm (L), 1+ Arm (R), 1+ Leg (L), 1+ Leg (R), 1+ Pedal (L), 1+ Pedal (R), 1+ Generalized Holland Schafer MD Jun 08, 2020 16:37
[2020-06-08 19:58] VITALS: BP 151/79
[2020-06-08] MEDS: Dyna-Hex 2% Top Sol 2oz TOPIC SCH (20:00)
[2020-06-09] VITALS: BP 153/82
--- NOTE | 2020-06-09 01:03 | Cardiology Progress Note ---
Subjective Off tube feedings; started po's, but has poor appetite. Still has diarrhea, and fluid losses being replaced with IVF. Flow cytometry negative for Leukemia IV abx per ID team CXR 06/03: still with right infiltrate - worsened Objective Last 24 Hour Vital Signs Date Time Temp Pulse Resp B/P (MAP) Pulse Ox O2 Delivery O2 Flow Rate FiO2 06/08/20 21:00 Room Air 06/08/20 19:58 98.9 94 20 151/79 (103) 95 06/08/20 16:00 97.8 90 18 139/72 (94) 95 06/08/20 11:55 98.5 98 20 150/77 (101) 95 06/08/20 09:00 Room Air 06/08/20 08:00 98.9 88 17 138/65 (89) 94 06/08/20 04:00 98.9 94 20 139/73 (95) 95 ROS: no change from my evaluation of 05/19/20. HEENT: normal ENT inspection LUNGS: right-sided rhonchi CARDIAC: regular rhythm, normal S1 and S2, rapid rate, tachycardia ABDOMEN: soft, tender - mild diffuse EXTREMITIES: normal range of motion, No edema Laboratory Tests Test 06/08/20 05:00 White Blood Count 26.1 K/UL (4.8-10.8) *H Red Blood Count 3.86 M/UL (4.20-5.40) L Hemoglobin 11.3 G/DL (12.0-16.0) L Hematocrit 34.5 % (37.0-47.0) L Mean Corpuscular Volume 89 FL (80-99) Mean Corpuscular Hemoglobin 29.4 PG (27.0-31.0) Mean Corpuscular Hemoglobin Concent 32.8 G/DL (32.0-36.0) Red Cell Distribution Width 13.5 % (11.6-14.8) Platelet Count 436 K/UL (150-450) Mean Platelet Volume 5.6 FL (6.5-10.1) L Neutrophils (%) (Auto) % (45.0-75.0) Lymphocytes (%) (Auto) % (20.0-45.0) Monocytes (%) (Auto) % (1.0-10.0) Eosinophils (%) (Auto) % (0.0-3.0) Basophils (%) (Auto) % (0.0-2.0) Differential Total Cells Counted 100 Neutrophils % (Manual) 71 % (45-75) Lymphocytes % (Manual) 11 % (20-45) L Monocytes % (Manual) 6 % (1-10) Eosinophils % (Manual) 11 % (0-3) H Basophils % (Manual) 0 % (0-2) Metamyelocytes % 1 % (0-0) H Band Neutrophils 0 % (0-8) Platelet Estimate Adequate Platelet Morphology Normal Red Blood Cell Morphology Normal Sodium Level 142 MMOL/L (136-145) Potassium Level 4.0 MMOL/L (3.5-5.1) Chloride Level 107 MMOL/L (98-107) Carbon Dioxide Level 24 MMOL/L (21-32) Anion Gap 11 mmol/L (5-15) Blood Urea Nitrogen 18 mg/dL (7-18) Creatinine 1.7 MG/DL (0.55-1.30) H Estimat Glomerular Filtration Rate 34.3 mL/min (>60) Glucose Level 84 MG/DL (74-106) Calcium Level 8.2 MG/DL (8.5-10.1) L Magnesium Level 1.4 MG/DL (1.8-2.4) L Total Bilirubin 0.9 MG/DL (0.2-1.0) Aspartate Amino Transf (AST/SGOT) 24 U/L (15-37) Alanine Aminotransferase (ALT/SGPT) 21 U/L (12-78) Alkaline Phosphatase 47 U/L (46-116) Pro-B-Type Natriuretic Peptide 3468 pg/mL (0-125) H Total Protein 6.2 G/DL (6.4-8.2) L Albumin 1.8 G/DL (3.4-5.0) L Globulin 4.4 g/dL Albumin/Globulin Ratio 0.4 (1.0-2.7) L Assessment/Plan Assessment/Plan Sepsis with shock - due to UTI Lactic acidosis resolved Transaminitis improving Ileus recovering Hypomagnesemia Hyponatremia Acute myocardial ischemia and possible NSTE myocardial infarction acute renal failure improved Hypertension'HHD Diarrhea Hypovolemia/dehydration Protein/calorie malnutrition Broad sp antimicrobials Titrate antiHTN meds based on clinical parameters IVF adjustments per volume status IV Mg and PO4 replacement as needed Advance diet as tolerated with asp'n prec DVT prophylaxis Anti-diarrheal rx Repeat lab studies reviewed Dalton Valdez MD Jun 09, 2020 01:03
[2020-06-09 04:00] VITALS: BP 148/84
[2020-06-09] MEDS: Ascorbic Acid 500mg tab ORAL SCH (08:14)
[2020-06-09] MEDS: Lomotil 2.5mg tab NG SCH ×4 (08:14→20:38)
[2020-06-09 09:00] VITALS: BP 159/79
--- NOTE | 2020-06-09 09:01 | General Progress Note ---
Subjective ROS Limited/Unobtainable: Yes Allergies: Coded Allergies: No Known Allergies (Unverified , 05/28/13) Objective Last 24 Hour Vital Signs Date Time Temp Pulse Resp B/P (MAP) Pulse Ox O2 Delivery O2 Flow Rate FiO2 06/09/20 04:00 99.2 99 18 148/84 (105) 95 06/09/20 00:00 99.6 100 18 153/82 (105) 95 06/08/20 21:00 Room Air 06/08/20 19:58 98.9 94 20 151/79 (103) 95 06/08/20 16:00 97.8 90 18 139/72 (94) 95 06/08/20 11:55 98.5 98 20 150/77 (101) 95 Intake and Output 06/08/20 06/09/20 19:00 07:00 Intake Total 1200 ml Balance 1200 ml Other 1200 ml # Voids 3 Height (Feet): 5 Height (Inches): 7.00 Weight (Pounds): 150 General Appearance: no apparent distress, alert, confused EENT: normal ENT inspection Neck: normal alignment Cardiovascular: normal rate, regular rhythm Respiratory/Chest: lungs clear Abdomen: non tender, soft Edema: mild edema Neurologic: disoriented Assessment/Plan Problem List: (1) DIC (disseminated intravascular coagulation) ICD Codes: D65 - Disseminated intravascular coagulation [defibrination syndrome] SNOMED: 59694386 (2) Thrombocytopenia ICD Codes: D69.6 - Thrombocytopenia, unspecified SNOMED: 324372852 (3) Lactic acidosis ICD Codes: E87.2 - Acidosis SNOMED: 94941805 (4) Septic shock ICD Codes: A41.9 - Sepsis, unspecified organism; R65.21 - Severe sepsis with septic shock SNOMED: 29550827 (5) Anemia ICD Codes: D64.9 - Anemia, unspecified SNOMED: 407255447 (6) Hypokalemia ICD Codes: E87.6 - Hypokalemia SNOMED: 57375539 (7) Rhabdomyolysis ICD Codes: M62.82 - Rhabdomyolysis SNOMED: 252569009 (8) Non-STEMI (non-ST elevated myocardial infarction) ICD Codes: I21.4 - Non-ST elevation (NSTEMI) myocardial infarction SNOMED: 55295588 (9) ZEE (acute kidney injury) ICD Codes: N17.9 - Acute kidney failure, unspecified SNOMED: 3156704, 69359168 (10) Elevated liver enzymes ICD Codes: R74.8 - Abnormal levels of other serum enzymes SNOMED: 810719241 (11) CHF (congestive heart failure) ICD Codes: I50.9 - Heart failure, unspecified SNOMED: 47872624 (12) Gram negative sepsis ICD Codes: A41.50 - Gram-negative sepsis, unspecified SNOMED: 855583304 (13) Cholelithiasis ICD Codes: K80.20 - Calculus of gallbladder without cholecystitis without obstruction SNOMED: 688454839 (14) Metabolic encephalopathy ICD Codes: G93.41 - Metabolic encephalopathy SNOMED: 43143469 (15) Hypophosphatemia ICD Codes: E83.39 - Other disorders of phosphorus metabolism SNOMED: 1489056 (16) Decubital ulcer ICD Codes: L89.90 - Pressure ulcer of unspecified site, unspecified stage SNOMED: 345515170 (17) Dysphagia ICD Codes: R13.10 - Dysphagia, unspecified SNOMED: 53565078, 175410725 (18) Hypomagnesemia ICD Codes: E83.42 - Hypomagnesemia SNOMED: 105730828 (19) Granulocytic leukemoid reaction ICD Codes: D72.823 - Leukemoid reaction SNOMED: 60073781 Assessment/Plan: orders updated discontinue broad-spectrum antibiotics, for e coli bacteremia and e coli+klebsiella uti consultants notes are all reviewed her condition remains high risk this is discussed in detail with the daughter in the area code [id number] tube feeding stopped ,ST eval noted, taking only small amount po diet, BUN and creatinine high ,wbc high check flow cytometry--no leukemia,replace Mg , discontinue iv hydration , still diarrhea,rx lomotil, nystatin for fungal derm, dc Eric Rogers MD Jun 09, 2020 09:01
--- NOTE | 2020-06-09 09:11 | General Progress Note ---
Subjective ROS Limited/Unobtainable: No Allergies: Coded Allergies: No Known Allergies (Unverified , 05/28/13) Objective Last 24 Hour Vital Signs Date Time Temp Pulse Resp B/P (MAP) Pulse Ox O2 Delivery O2 Flow Rate FiO2 06/09/20 04:00 99.2 99 18 148/84 (105) 95 06/09/20 00:00 99.6 100 18 153/82 (105) 95 06/08/20 21:00 Room Air 06/08/20 19:58 98.9 94 20 151/79 (103) 95 06/08/20 16:00 97.8 90 18 139/72 (94) 95 06/08/20 11:55 98.5 98 20 150/77 (101) 95 Intake and Output 06/08/20 06/09/20 19:00 07:00 Intake Total 1200 ml Balance 1200 ml Other 1200 ml # Voids 3 Height (Feet): 5 Height (Inches): 7.00 Weight (Pounds): 150 General Appearance: no apparent distress EENT: normal ENT inspection Neck: supple Cardiovascular: normal rate Respiratory/Chest: decreased breath sounds Abdomen: normal bowel sounds, non tender, soft Extremities: non-tender Assessment/Plan Assessment/Plan: thrombocytopenia leukocytosis coagulopathy RI elevated LFTS CAD/SC gallstones dilated CBD and PD CT and us reviewed MRCP reviewed abx repeat labs prn imodium and lomotil fu cardiology recs repeat labs in am monitor po intake hold peg plans for now Ludwig Wood MD Jun 09, 2020 09:10
[2020-06-09 12:00] VITALS: BP 135/60
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
[2020-06-09 16:00] VITALS: BP 137/70
--- NOTE | 2020-06-09 16:25 | Infectious Diseases Prog Note ---
Assessment/Plan Assessment/Plan A 1. E.coli sepsis treated 2. shock resolved 3. Thrombocytopenia resolved 4. cholelithiasis 5. leucocytosis 6. E. coli & Klebsiella UTI 7. Acute renal failure improving 8. Diarrhea, C. difficile X 2: negative P 1. Observe off antibiotic 2. Case was D/W daughter at bedside Subjective ROS Limited/Unobtainable: Yes Allergies: Coded Allergies: No Known Allergies (Unverified , 05/28/13) Objective Last 24 Hour Vital Signs Date Time Temp Pulse Resp B/P (MAP) Pulse Ox O2 Delivery O2 Flow Rate FiO2 06/09/20 12:00 98.1 91 18 135/60 (85) 96 06/09/20 09:00 98.1 96 18 159/79 (105) 94 06/09/20 09:00 Room Air 06/09/20 04:00 99.2 99 18 148/84 (105) 95 06/09/20 00:00 99.6 100 18 153/82 (105) 95 06/08/20 21:00 Room Air 06/08/20 19:58 98.9 94 20 151/79 (103) 95 Height (Feet): 5 Height (Inches): 7.00 Weight (Pounds): 150 General Appearance: no acute distress HEENT: mucous membranes moist Respiratory/Chest: lungs clear Cardiovascular: normal rate Abdomen: soft, non tender, other - restal tube Extremities: no edema Neurologic/Psychiatric: other - sleeping Current Medications Medications (Trade) Dose Ordered Sig/Gricelda Route PRN Reason Start Time Stop Time Status Last Admin Dose Admin Acetaminophen (Tylenol) 500 mg Q6H PRN NG For Pain 06/03/20 12:45 07/03/20 12:44 Acetaminophen (Tylenol) 500 mg Q6HR PRN NG Temp >100.5 05/29/20 12:00 06/24/20 14:44 06/08/20 16:07 Ascorbic Acid (Vitamin C) 250 mg DAILY ORAL 05/29/20 09:00 06/28/20 08:59 06/09/20 08:14 Chlorhexidine Gluconate (Celi-Hex 2%) 1 applic DAILY@1999 TOPIC 05/29/20 20:00 08/18/20 19:59 06/04/20 20:00 Dextrose (Dextrose 50%) 25 ml Q30M PRN IV Hypoglycemia 05/29/20 06:45 08/17/20 19:14 Dextrose (Dextrose 50%) 50 ml Q30M PRN IV Hypoglycemia 05/29/20 06:45 08/17/20 19:14 Diphenoxylate HCl/ Atropine (Lomotil) 2.5 mg QID NG 06/06/20 13:00 07/06/20 12:59 06/09/20 12:41 Nystatin (Nystatin) 1 applic THREE TIMES A DAY TOPIC 06/07/20 13:00 09/05/20 12:59 06/09/20 12:41 Ondansetron HCl (Zofran) 4 mg Q6H PRN IVP Nausea & Vomiting 06/03/20 10:30 06/18/20 19:14 Pantoprazole (Protonix) 40 mg Q12HR ORAL 06/04/20 21:00 07/04/20 20:59 06/09/20 08:14 Pito Amador MD Jun 09, 2020 16:25
[2020-06-09 20:00] VITALS: BP 144/89
[2020-06-09] MEDS: Dyna-Hex 2% Top Sol 2oz TOPIC SCH (20:38)
[2020-06-10] VITALS: BP 162/81
--- NOTE | 2020-06-10 01:57 | Cardiology Progress Note ---
Subjective DATE OF SERVICE: Jun 09, 2020 Off tube feedings; started po's, but has poor appetite. Still has diarrhea, and fluid losses being replaced with IVF. Flow cytometry negative for Leukemia IV abx per ID team CXR 06/03: still with right infiltrate - worsened Objective Last 24 Hour Vital Signs Date Time Temp Pulse Resp B/P (MAP) Pulse Ox O2 Delivery O2 Flow Rate FiO2 06/10/20 00:00 97.3 100 22 162/81 (108) 93 06/09/20 21:00 Room Air 06/09/20 20:00 99.0 98 20 144/89 (107) 94 06/09/20 16:00 97.7 83 18 137/70 (92) 94 06/09/20 12:00 98.1 91 18 135/60 (85) 96 06/09/20 09:00 98.1 96 18 159/79 (105) 94 06/09/20 09:00 Room Air 06/09/20 04:00 99.2 99 18 148/84 (105) 95 ROS: no change from my evaluation of 05/19/20. HEENT: normal ENT inspection LUNGS: right-sided rhonchi CARDIAC: regular rhythm, normal S1 and S2, rapid rate, tachycardia ABDOMEN: soft, tender - mild diffuse EXTREMITIES: normal range of motion, No edema Assessment/Plan Assessment/Plan Sepsis with shock - due to UTI Lactic acidosis resolved Transaminitis improving Ileus recovering Hypomagnesemia Hyponatremia Acute myocardial ischemia and possible NSTE myocardial infarction acute renal failure improved Hypertension'HHD Diarrhea Hypovolemia/dehydration Protein/calorie malnutrition Broad sp antimicrobials Titrate antiHTN meds based on clinical parameters IVF adjustments per volume status - now discont'd IV Mg and PO4 replacement as needed Advance diet as tolerated with asp'n prec DVT prophylaxis Anti-diarrheal rx Repeat lab studies reviewed Dalton Valdez MD Jun 10, 2020 01:57
[2020-06-10 04:00] VITALS: BP 121/55
[2020-06-10 07:58] LABS: HEMATOCRIT 33.4 % (37.0-47.0); HEMOGLOBIN 11.1 G/DL (12.0-16.0); MEAN CORPUSCULAR VOLUME 90 FL (80-99); PLATELET COUNT 420 K/UL (150-450); RED BLOOD COUNT 3.71 M/UL (4.20-5.40); RED CELL DISTRIBUTION WIDTH 13.4 % (11.6-14.8)
[2020-06-10 08:00] VITALS: BP 124/61
[2020-06-10 08:35] LABS: CALCIUM 8.5 MG/DL (8.5-10.1); CREATININE 1.3 MG/DL (0.55-1.30); POTASSIUM 3.3 MMOL/L (3.5-5.1)
[2020-06-10] MEDS: Lomotil 2.5mg tab NG SCH ×2 (09:21→14:01)
[2020-06-10] MEDS: Ascorbic Acid 500mg tab ORAL SCH (09:21)
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
--- NOTE | 2020-06-10 10:26 | General Progress Note ---
Subjective ROS Limited/Unobtainable: No Allergies: Coded Allergies: No Known Allergies (Unverified , 05/28/13) Objective Last 24 Hour Vital Signs Date Time Temp Pulse Resp B/P (MAP) Pulse Ox O2 Delivery O2 Flow Rate FiO2 06/10/20 08:00 98.0 82 19 124/61 (82) 96 06/10/20 04:00 97.7 84 20 121/55 (77) 94 06/10/20 00:00 97.3 100 22 162/81 (108) 93 06/09/20 21:00 Room Air 06/09/20 20:00 99.0 98 20 144/89 (107) 94 06/09/20 16:00 97.7 83 18 137/70 (92) 94 06/09/20 12:00 98.1 91 18 135/60 (85) 96 Intake and Output 06/09/20 06/10/20 19:00 07:00 Intake Total 240 ml Output Total 500 ml Balance 240 ml -500 ml Intake Oral 240 ml Stool Total 500 ml # Voids 2 2 Laboratory Tests 06/10/20 05:56: White Blood Count 22.0H, Red Blood Count 3.71L, Hemoglobin 11.1L, Hematocrit 33.4L, Mean Corpuscular Volume 90, Mean Corpuscular Hemoglobin 30.0, Mean Corpuscular Hemoglobin Concent 33.3, Red Cell Distribution Width 13.4, Platelet Count 420, Mean Platelet Volume 5.5L, Neutrophils (%) (Auto) , Lymphocytes (%) (Auto) , Monocytes (%) (Auto) , Eosinophils (%) (Auto) , Basophils (%) (Auto) , Neutrophils % (Manual) [Pending], Lymphocytes % (Manual) [Pending], Platelet Estimate [Pending], Platelet Morphology [Pending], Sodium Level 141, Potassium Level 3.3L, Chloride Level 104, Carbon Dioxide Level 27, Anion Gap 10, Blood Urea Nitrogen 19H, Creatinine 1.3, Estimat Glomerular Filtration Rate 46.8, Glucose Level 75, Calcium Level 8.5 Height (Feet): 5 Height (Inches): 7.00 Weight (Pounds): 150 General Appearance: no apparent distress EENT: normal ENT inspection Neck: supple Cardiovascular: normal rate Respiratory/Chest: decreased breath sounds Abdomen: normal bowel sounds, non tender, soft Extremities: non-tender Assessment/Plan Assessment/Plan: thrombocytopenia leukocytosis coagulopathy RI elevated LFTS CAD/AK gallstones dilated CBD and PD CT and us reviewed MRCP reviewed abx repeat labs prn imodium and lomotil fu cardiology recs repeat labs in am monitor po intake hold peg plans for now change TF per dietitian recs Ludwig Wood MD Jun 10, 2020 10:26
--- NOTE | 2020-06-10 11:44 | Discharge Summary ---
DATE OF ADMISSION: 05/19/2020 DATE OF DISCHARGE: 06/10/2020 PERTINENT HISTORY: The patient is an 89-year-old lady who presents with some nausea, vomiting, weakness, and leukocytosis. She presented in the emergency room with hypotension, shock, abnormal labs, and started on Levophed, fluids, and antibiotics. PERTINENT PHYSICAL FINDINGS: See the dictated History and Physical. HEAD, EYES, EARS, NOSE, THROAT: There is faint scleral icterus. Oral mucosa dry. LUNGS: Few rhonchi. HEART: Regular rhythm and tachycardic. ABDOMEN: Mildly distended. Liver and spleen not palpable. EXTREMITIES: No edema. NEUROLOGIC: She is awake, encephalopathic, and unable to carry on a conversation. COURSE IN THE HOSPITAL: She presented with shock and septic shock with hypotension, elevated liver enzymes, pyuria, elevated troponin, lactic acidosis, severe anemia, hypertension history, and very low serum albumin. She was in the ICU on Levophed and fluids. She was weaned off of Levophed and elevated troponin was consistent with sfv-EF-vvhagsllr myocardial infarction. She had elevated liver enzymes and imaging was done and she was seen by Dr. Wood in GI consultation. She had CT scanning and MRI of the abdomen and there were some extrahepatic bile ducts dilated, but no definite cholecystitis or obstructive lesion. The patient had ogtzmpws-ch-ycxuyk diarrhea throughout her hospital course. C. difficile was negative on several occasions. There was mild wall thickening in the terminal ileum on CT scan imaging. The patient developed acute kidney injury nonoliguric and electrolytes and renal function was monitored closely. She had very low serum albumin. She did develop some rectal redness, but no sacral decubitus. She also had some fungal dermatitis in the groin. She had low magnesium and magnesium replacement was given. The patient had dysphagia and aspiration risk, was seen by Speech Therapy, received nasogastric feedings, and subsequently was able to pass a swallowing study and able to tolerate diet, but her appetite remained poor. She developed basilar infiltrate on chest x-ray, but no hypoxemia or shortness of breath. Case management was involved in discharge planning and arrangements for home health remained. The daughter did not want to take her to a custodial facility. On the day of discharge, her vital signs were stable, lungs clear, heart regular rhythm, abdomen soft and nontender without any palpable liver or spleen, extremities showed trace to 1+ edema, she had mild sacral and groin redness, and she was alert and disoriented. She was discharged home with home health. FINAL DIAGNOSES: 1. Septic shock. 2. E. coli pyelonephritis and bacteremia. 3. Klebsiella UTI. 4. Lactic acid. 5. Diarrhea, nonspecific. C. difficile negative. 6. Acute npo-OV-mtkowgbui myocardial infarction. 7. Xqjxclgu-ic-unwcvp protein-calorie malnutrition. 8. Thrombocytopenia and likely disseminated intravascular coagulation. 9. Anemia of chronic disease. 10. Hypokalemia. 11. Rhabdomyolysis. 12. Acute kidney injury. 13. Elevated liver enzymes. 14. Congestive heart failure, acute on chronic, with diastolic dysfunction. 15. Cholelithiasis without cholecystitis. 16. Metabolic encephalopathy. 17. Alzheimer disease. 18. Hypophosphatemia. 19. Hypomagnesemia. 20. Dysphagia. 21. Granulocytic leukemoid reaction. 22. Failure to thrive. DISCHARGE DISPOSITION: On regular diet as tolerated. Lomotil 2.5 mg q.i.d., Protonix 40 mg daily, and Nystatin cream to the groin b.i.d. and p.r.n. Follow up with her primary care physician who is not on staff in this hospital. machine made shoe unit worker and case therapist will make arrangements. Eric Wilkins M.D. DR: Vlad JOB#: [id number] CC:
[2020-06-10 12:00] VITALS: BP 156/73
--- NOTE | 2020-06-10 12:56 | Infectious Diseases Prog Note ---
Assessment/Plan Assessment/Plan A 1. E.coli sepsis treated 2. shock resolved 3. Thrombocytopenia resolved 4. cholelithiasis 5. leucocytosis 6. E. coli & Klebsiella UTI 7. Acute renal failure improving 8. Diarrhea, C. difficile X 2: negative P 1. Observe off antibiotic 2. Case was D/W daughter at bedside Subjective ROS Limited/Unobtainable: Yes Allergies: Coded Allergies: No Known Allergies (Unverified , 05/28/13) Objective Last 24 Hour Vital Signs Date Time Temp Pulse Resp B/P (MAP) Pulse Ox O2 Delivery O2 Flow Rate FiO2 06/10/20 12:00 96.9 90 18 156/73 (100) 93 06/10/20 09:00 Room Air 06/10/20 08:00 98.0 82 19 124/61 (82) 96 06/10/20 04:00 97.7 84 20 121/55 (77) 94 06/10/20 00:00 97.3 100 22 162/81 (108) 93 06/09/20 21:00 Room Air 06/09/20 20:00 99.0 98 20 144/89 (107) 94 06/09/20 16:00 97.7 83 18 137/70 (92) 94 Height (Feet): 5 Height (Inches): 7.00 Weight (Pounds): 150 General Appearance: no acute distress HEENT: mucous membranes moist Respiratory/Chest: lungs clear Cardiovascular: normal rate Abdomen: soft, non tender, other - rectal tube Extremities: no edema Neurologic/Psychiatric: other - sleeping Laboratory Tests Test 06/10/20 05:56 White Blood Count 22.0 K/UL (4.8-10.8) H Red Blood Count 3.71 M/UL (4.20-5.40) L Hemoglobin 11.1 G/DL (12.0-16.0) L Hematocrit 33.4 % (37.0-47.0) L Mean Corpuscular Volume 90 FL (80-99) Mean Corpuscular Hemoglobin 30.0 PG (27.0-31.0) Mean Corpuscular Hemoglobin Concent 33.3 G/DL (32.0-36.0) Red Cell Distribution Width 13.4 % (11.6-14.8) Platelet Count 420 K/UL (150-450) Mean Platelet Volume 5.5 FL (6.5-10.1) L Neutrophils (%) (Auto) % (45.0-75.0) Lymphocytes (%) (Auto) % (20.0-45.0) Monocytes (%) (Auto) % (1.0-10.0) Eosinophils (%) (Auto) % (0.0-3.0) Basophils (%) (Auto) % (0.0-2.0) Differential Total Cells Counted 100 Neutrophils % (Manual) 81 % (45-75) H Lymphocytes % (Manual) 5 % (20-45) L Monocytes % (Manual) 10 % (1-10) Eosinophils % (Manual) 4 % (0-3) H Basophils % (Manual) 0 % (0-2) Band Neutrophils 0 % (0-8) Platelet Estimate Adequate Platelet Morphology Normal Hypochromasia 1+ Sodium Level 141 MMOL/L (136-145) Potassium Level 3.3 MMOL/L (3.5-5.1) L Chloride Level 104 MMOL/L (98-107) Carbon Dioxide Level 27 MMOL/L (21-32) Anion Gap 10 mmol/L (5-15) Blood Urea Nitrogen 19 mg/dL (7-18) H Creatinine 1.3 MG/DL (0.55-1.30) Estimat Glomerular Filtration Rate 46.8 mL/min (>60) Glucose Level 75 MG/DL (74-106) Calcium Level 8.5 MG/DL (8.5-10.1) Current Medications Medications (Trade) Dose Ordered Sig/Gricelda Route PRN Reason Start Time Stop Time Status Last Admin Dose Admin Acetaminophen (Tylenol) 500 mg Q6H PRN NG For Pain 06/03/20 12:45 07/03/20 12:44 Acetaminophen (Tylenol) 500 mg Q6HR PRN NG Temp >100.5 05/29/20 12:00 06/24/20 14:44 06/08/20 16:07 Ascorbic Acid (Vitamin C) 250 mg DAILY ORAL 05/29/20 09:00 06/28/20 08:59 06/10/20 09:21 Chlorhexidine Gluconate (Celi-Hex 2%) 1 applic DAILY@1999 TOPIC 05/29/20 20:00 08/18/20 19:59 06/04/20 20:00 Dextrose (Dextrose 50%) 25 ml Q30M PRN IV Hypoglycemia 05/29/20 06:45 08/17/20 19:14 Dextrose (Dextrose 50%) 50 ml Q30M PRN IV Hypoglycemia 05/29/20 06:45 08/17/20 19:14 Diphenoxylate HCl/ Atropine (Lomotil) 2.5 mg QID NG 06/06/20 13:00 07/06/20 12:59 06/10/20 09:21 Nystatin (Nystatin) 1 applic THREE TIMES A DAY TOPIC 06/07/20 13:00 09/05/20 12:59 06/10/20 09:26 Ondansetron HCl (Zofran) 4 mg Q6H PRN IVP Nausea & Vomiting 06/03/20 10:30 06/18/20 19:14 Pantoprazole (Protonix) 40 mg Q12HR ORAL 06/04/20 21:00 07/04/20 20:59 06/10/20 09:21 Potassium Chloride (K-Dur) 40 meq ONCE ORAL 06/10/20 13:30 06/10/20 14:30 Pito Amador MD Jun 10, 2020 12:56
[2020-06-10 16:00] VITALS: BP 143/75
--- NOTE | 2020-06-11 02:11 | Cardiology Progress Note ---
Subjective DATE OF SERVICE: Jun 10, 2020 Off tube feedings; started po's, with improved intake. Discharge plans noted. Flow cytometry negative for Leukemia IV abx per ID team CXR 06/03: still with right infiltrate - worsened Objective Last 24 Hour Vital Signs Date Time Temp Pulse Resp B/P (MAP) Pulse Ox O2 Delivery O2 Flow Rate FiO2 06/10/20 16:00 97.2 88 18 143/75 (97) 96 06/10/20 12:00 96.9 90 18 156/73 (100) 93 06/10/20 09:00 Room Air 06/10/20 08:00 98.0 82 19 124/61 (82) 96 06/10/20 04:00 97.7 84 20 121/55 (77) 94 ROS: no change from my evaluation of 05/19/20. HEENT: normal ENT inspection LUNGS: right-sided rhonchi CARDIAC: regular rhythm, normal S1 and S2, rapid rate, tachycardia ABDOMEN: soft, tender - mild diffuse EXTREMITIES: normal range of motion, No edema Laboratory Tests Test 06/10/20 05:56 White Blood Count 22.0 K/UL (4.8-10.8) H Red Blood Count 3.71 M/UL (4.20-5.40) L Hemoglobin 11.1 G/DL (12.0-16.0) L Hematocrit 33.4 % (37.0-47.0) L Mean Corpuscular Volume 90 FL (80-99) Mean Corpuscular Hemoglobin 30.0 PG (27.0-31.0) Mean Corpuscular Hemoglobin Concent 33.3 G/DL (32.0-36.0) Red Cell Distribution Width 13.4 % (11.6-14.8) Platelet Count 420 K/UL (150-450) Mean Platelet Volume 5.5 FL (6.5-10.1) L Neutrophils (%) (Auto) % (45.0-75.0) Lymphocytes (%) (Auto) % (20.0-45.0) Monocytes (%) (Auto) % (1.0-10.0) Eosinophils (%) (Auto) % (0.0-3.0) Basophils (%) (Auto) % (0.0-2.0) Differential Total Cells Counted 100 Neutrophils % (Manual) 81 % (45-75) H Lymphocytes % (Manual) 5 % (20-45) L Monocytes % (Manual) 10 % (1-10) Eosinophils % (Manual) 4 % (0-3) H Basophils % (Manual) 0 % (0-2) Band Neutrophils 0 % (0-8) Platelet Estimate Adequate Platelet Morphology Normal Hypochromasia 1+ Sodium Level 141 MMOL/L (136-145) Potassium Level 3.3 MMOL/L (3.5-5.1) L Chloride Level 104 MMOL/L (98-107) Carbon Dioxide Level 27 MMOL/L (21-32) Anion Gap 10 mmol/L (5-15) Blood Urea Nitrogen 19 mg/dL (7-18) H Creatinine 1.3 MG/DL (0.55-1.30) Estimat Glomerular Filtration Rate 46.8 mL/min (>60) Glucose Level 75 MG/DL (74-106) Calcium Level 8.5 MG/DL (8.5-10.1) Assessment/Plan Assessment/Plan Sepsis with shock - due to UTI recovered. Lactic acidosis resolved Transaminitis improving Ileus recovered Hypomagnesemia Hyponatremia corrected Acute myocardial ischemia and possible NSTE myocardial infarction acute renal failure improved Hypertension'HHD Diarrhea resolving Hypovolemia/dehydration recovered Protein/calorie malnutrition Broad sp antimicrobials Maintain current antiHTN meds IVF adjustments per volume status - now discont'd Advance diet as tolerated with asp'n prec DVT prophylaxis Anti-diarrheal rx prn Stable from cardiovascular standpoint for return to SNF Dalton Valdez MD Jun 11, 2020 02:11
== END 2020-06-10 17:09 | disposition home or self-care (01) | DRG 871 ==
LOC: EDBD 16:53 → EMR 17:15 → EDBEDREQSVC 18:13 → EDBEDREQ 18:50 → ICU 18:59 → 2W 05-23 14:05 → 4E 05-29 07:03
PROC: 06HM33Z Insertion of Infusion Device into Right Femoral Vein, Percutaneous Approach (ICD-10-PCS; principal; 2020-05-19)
DX: A41.51 Sepsis due to Escherichia coli [E. coli] (principal); R65.21 Severe sepsis with septic shock; I21.4 Non-ST elevation (NSTEMI) myocardial infarction; I50.33 Acute on chronic diastolic (congestive) heart failure; E43 Unspecified severe protein-calorie malnutrition; D65 Disseminated intravascular coagulation [defibrination syndrome]; G93.41 Metabolic encephalopathy; N17.9 Acute kidney failure, unspecified; N39.0 Urinary tract infection, site not specified; E87.0 Hyperosmolality and hypernatremia; K56.7 Ileus, unspecified; M62.82 Rhabdomyolysis; I11.0 Hypertensive heart disease with heart failure; B96.1 Klebsiella pneumoniae [K. pneumoniae] as the cause of diseases classified elsewhere; D64.9 Anemia, unspecified; Z68.25 Body mass index [BMI] 25.0-25.9, adult; E87.6 Hypokalemia; E83.51 Hypocalcemia; K52.9 Noninfective gastroenteritis and colitis, unspecified; E86.0 Dehydration; E83.42 Hypomagnesemia; R19.7 Diarrhea, unspecified; D69.6 Thrombocytopenia, unspecified; K80.20 Calculus of gallbladder without cholecystitis without obstruction; E83.39 Other disorders of phosphorus metabolism; R13.10 Dysphagia, unspecified; R62.7 Adult failure to thrive
CPT/HCPCS: 36415; 71045; 74018; 74176; 74181; 74230; 76700; 80048; 80053; 80069; 80076; 80202; 81003; 82248; 82378; 82550; 82553; 82570; 82705; 82710; 82728; 82962; 83540; 83550; 83605; 83690; 83735; 83880; 84100; 84300; 84484; 84550; 85007; 85025; 85060; 85610; 85730; 86803; 86850; 86900; 86901; 86920; 87040; 87045; 87081; 87086; 87181; 87324; 87340; 87517; 93005; 93306; 96360; 96361; 99291; 99292; J7030; J8499; U0002